=== PATIENT | female | born 1960 | race Caucasian/White ===

== ENCOUNTER 2022-10-03 22:25 | Emergency (ER) | payer BC ==
--- OUTSIDE RECORDS SUMMARY | 2022-10-03 22:29 | XMS REPORT | Continuity of Care Document ---
:1960 Author Organization [facility] t Address [address] [place] [place] [address] Care Team Providers Name Role Phone Catherine ABBOTT, John Primary Care Physician Farideh Temple Attending Clinician Unavailable Alex Bender MD Attending Clinician Donna Cook Attending Clinician Nat ABBOTT, Adolph Granado Attending Clinician Zully CUT AND COVER LINE WORKER, Malena Gonzales Attending Clinician Ese CUT AND COVER LINE WORKER, Nolvia Ceron Attending Clinician [phone] Heidy Cortez Attending Clinician Unavailable MD DARRELL DIAZ Attending Clinician Unavailable Cheikh Mckeon RN Attending Clinician Unavailable Lucrecia Bacon RN Attending Clinician Unavailable Sheila ABBOTT, Edilia Ortega Attending Clinician Allison Smith MD Attending Clinician Presley Orr MD Attending Clinician Deb Blackman MA Attending Clinician Unavailable Maral MARTINEZ, Deja Attending Clinician Unavailable LADI COTTER Attending Clinician Unavailable ALEX BENDER Admitting Clinician Unavailable [id number] Admitting Clinician Unavailable MD DARRELL DIAZ Admitting Clinician Unavailable Payers Payer Name Policy Type Policy Number Effective Date Expiration Date S ource Problems Condition Condition Condition Status Onset Resolution Last Treating Co mments Source Name Details Category Date Date Treatment Clinician Date Ventral Ventral Disease Active Methodi hernia hernia 09-20 without without 00:00: Hospita obstructio obstructio 00 l n or n or gangrene gangrene Encounter Encounter Disease Active Met hodi for for 03-19 aftercare aftercare 00:00: Hosp jose following following 00 l liver liver transplant transplant Hypomagnes Hypomagnes Disease Active M ethodi emia emia 02-19 00:00: Hospita 00 l Magnesium Magnesium Disease Active Met hodi deficiency deficiency 02-19 00:00: Hospita 00 l Type 2 Type 2 Disease Active Methodi diabetes diabetes 01-10 mellitus mellitus 00:00: Hospit a with with 00 l peripheral peripheral neuropathy neuropathy Vitamin D Vitamin D Disease Active Met hodi deficiency deficiency 01-10 00:00: Hospita 00 l Osteoporos Osteoporos Disease Active M ethodi is is 01-10 00:00: Hospita 00 l Liver Liver Disease Active Methodi transplant transplant 01-07 recipient recipient 00:00: Hosp jose 00 l Hepatic Hepatic Disease Active Methodi cancer cancer 01-07 00:00: Hospita 00 l Vitamin D Vitamin D Disease Active Met hodi deficiency deficiency 12-16 00:00: Hospita 00 l Liver Liver Disease Active Methodi transplant transplant 12-13 ed ed 00:00: Hospita 00 l Preop Preop Disease Active Overview: Method i cardiovasc cardiovasc 11-[address] [facility] [facility] [address] ular exam ular exam 00:00: g of this H ospita 00 note l might be different from the original. 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 02-12 00:00: Hospita 00 l Coagulatio Coagulatio Disease Active M ethodi n disorder n disorder 01-31 00:00: Hospita 00 l Chronic Chronic Disease Active Methodi hepatitis hepatitis 01-31 C virus C virus 00:00: Hospita infection infection 00 l Hepatic Hepatic Disease Active Methodi cirrhosis cirrhosis 01-31 00:00: Hospita 00 l Disorder Disorder Disease Active Metho di of bone of bone 01-31 00:00: Hospita 00 l Osteopenia Osteopenia Disease Active M ethodi 01-31 00:00: Hospita 00 l Abnormal Abnormal Disease Active Metho di thyroid thyroid 01-31 stimulatin stimulatin 00:00: Ho spita g hormone g hormone 00 l (TSH) (TSH) level level Disorder Disorder Disease Active Metho di involving involving 01-31 thrombocyt thrombocyt 00:00: Ho spita openia openia 00 l Chronic Chronic Disease Active Overview: Meth matheus hepatitis hepatitis 01-20 Formattin s t C with C with 00:00: g of this Hospita cirrhosis cirrhosis 00 note l might be different from the original. Treated Hepatocell Hepatocell Disease Active M ethodi ular ular 01-20 carcinoma carcinoma 00:00: Hosp jose 00 l Choledocho Choledocho Disease Active M ethodi lithiasis lithiasis 01-20 00:00: Hospita 00 l Type 2 Type 2 Disease Active Methodi diabetes diabetes 01-20 mellitus mellitus 00:00: Hospit a 00 l Portal Portal Disease Active Methodi hypertensi hypertensi 01-20 on on 00:00: Hospita 00 l Nontoxic Nontoxic Disease Active 2012-09 Metho di uninodular uninodular 10-13 goiter goiter 00:00: Hospita 00 l Vitamin D Vitamin D Disease Active Met hodi deficiency deficiency 05-25 00:00: Hospita 00 l Disorder Disorder Disease Active Metho di of bone of bone 12-24 st and and 00:00: Hospita articular articular 00 l cartilage cartilage Type 2 Type 2 Disease Active Methodi diabetes diabetes 12-24 st mellitus mellitus 00:00: Hospit a with with 00 l neurologic neurologic al al manifestat manifestat ions ions Overweight Overweight Disease Active 2012-0 M ethodi 12-24 st 00:00: Hospita 00 l Type 2 Type 2 Disease Active Methodi diabetes, diabetes, 12-24 st controlled controlled 00:00: Ho jorge , with , with 00 l peripheral peripheral neuropathy neuropathy Hepatitis Hepatitis Disease Active Met hodi C virus C virus 12-24 st infection infection 00:00: Hosp jose 00 l History of History of Disease Active M ethodi incisional incisional st hernia hernia Hospita repair repair l Allergies, Adverse Reactions, Alerts Allergy Allergy Status Severity Reaction(s) Onset Inactive Treating Comm ents Source Name Type Date Date Clinician No Known Propensi Active Method i Drug ty to 01-15 st Allergie adverse 00:00: Hospita s reaction 00 l s to drug Family History Family Member Diagnosis Comments Start Date Stop Date Source Natural father Diabetes [facility] Natural father Hypertension [facility] Natural mother Cancer [facility] mother Hypertension [facility] Social History Social Habit Start Date Stop Date Quantity Comments Source Alcohol intake 2022-09-23 2022-09-23 Current Zoroastrian 00:00:00 00:00:00 non-drinker of Hospital alcohol (finding) Tobacco use and 2017-10-21 2017-10-21 Smokeless tobacco Me [facility]odist exposure 00:00:00 00:00:00 non-user Hospital Sex Assigned At [birth year] F Zoroastrian 00:00:00 00:00:00 Hospital Smoking Status Start Date Stop Date Source Never smoked tobacco [facility] Medications Ordered Filled Start Stop Current Ordering Indication Dosage Frequency Signature Comments Components Source Medication Medication Date Date Medication? Clinician (SIG) Name Name predniSONE 2022- Yes 10mg QD Take 1 Meth matheus (DELTASONE) 09-25 tablet (10 s t 10 mg 00:00: 05:59 mg total) Hospit a tablet 00 :00 by mouth l daily for 30 days. entecavir 2022- Yes .5mg Q48H Take 1 Metho di (BARACLUDE) 09-[address] 0.5 MG 00:00: 05:59 (0.5 mg Hospita tablet 00 :00 total) by l mouth every other day for 30 days. tacrolimus Yes [id number] 3mg Q.5D Take 3 Methodi (PROGRAF) 1 1-[address] MG capsule 00:00: (3 mg Hospit a 00 total) by l mouth 2 (two) times a day. everolimus, 2021-09- No [id number] 1.5mg Q.5D Take 3 Methodi immunosuppr 1-04 -[address] essive, 00:00: 00:00 (1.5 mg Hospit a ([place]) 00 :00 total) by l 0.5 mg mouth 2 tablet (two) times a day. entecavir 2021-09- No [id number] .5mg QD Take 1 Methodi (BARACLUDE) 0-12 -[address] 0.5 MG 00:00: 00:00 (0.5 mg Hospita tablet 00 :00 total) by l mouth daily. magnesium 2022- No 64mg Q.5D Take 1 Metho di chloride 64 5-13 -14 tablet (64 s t mg 00:00: 04:59 mg total) Hospita tablet,francesco 00 :00 by mouth 2 l yed release (two) (DR/EC) DR times a tablet day. tacrolimus 2022- No [id number] Take 2 Methodi (PROGRAF) 1 5-12 -[address] MG capsule 00:00: 00:00 (2 mg Hospi ta 00 :00 total) by l mouth every morning AND 3 capsules (3 mg total) every evening. tacrolimus 2021- No [id number] Take 2 Methodi (PROGRAF) 1 4-14 -[address] MG capsule 00:00: 00:00 (2 mg Hospi ta 00 :00 total) by l mouth every morning AND 3 capsules (3 mg total) every evening. ergocalcife 2022- No [id number] Q7D Take 1 M ethodi rol 10-23 02-[address] (VITAMIN 00:00: 05:59 (50,000 Hospi ta D2) 50,000 00 :00 Units l unit total) by capsule mouth once a week. everolimus, 2021- No [id number] 1.5mg Q.5D Take 3 Methodi immunosuppr 10-23-[address] essive, 00:00: 00:00 (1.5 mg Hospit a ([place]) 00 :00 total) by l 0.5 mg mouth 2 tablet (two) times a day. atorvastati Yes TAKE 1 Meth matheus n (LIPITOR) 9- TABLET BY st 20 mg 00:00: MOUTH Hospita tablet 00 EVERY DAY l entecavir 2021- No [id number] .5mg QD Take 1 Methodi (BARACLUDE) 05-02 09- tablet st 0.5 MG 00:00: 04:59 (0.5 mg Hospita tablet 00 :00 total) by l mouth daily. SITagliptin Yes 100mg QD Take 1 Met hodi (Januvia) - tablet st 100 MG 00:00: (100 mg Hospita tablet 00 total) by l mouth daily. aspirin 2021- No 81mg QD Take 1 Methodi (ECOTRIN) 01-24 05-27 tablet (81 st 81 MG 00:00: 04:59 mg total) Hospit a enteric 00 :00 by mouth l coated daily. tablet calcium 2021- No 1{tbl} Q.5D Take 1 Metho di carbonate-v 01-24 05-[address] itamin D3 00:00: 04:59 mouth 2 Hosp jose 500 mg-200 00 :00 (two) l unit per times a tablet day with meals. magnesium 2021- No 64mg Q.5D Take 1 Metho di chloride 64 4-23 04-24 tablet (64 s t mg 00:00: 04:59 mg total) Hospita tablet,francesco 00 :00 by mouth 2 l yed release (two) (DR/EC) DR times a tablet day. tacrolimus 2021- No [id number] Take 2 Methodi (PROGRAF) 1 3-24 03-[address] MG capsule 00:00: 04:59 (2 mg Hospi ta 00 :00 total) by l mouth every morning AND 3 capsules (3 mg total) every evening. take 12 hours apart. ergocalcife 2021- No [id number] Q7D Take 1 M ethodi rol 2-12 02-[address] (VITAMIN 00:00: 05:59 (50,000 Hospi ta D2) 50,000 00 :00 Units l unit total) by capsule mouth once a week. everolimus, 2021- No [id number] 1.5mg Q12H Take 3 Methodi immunosuppr 1-21 02-[address] essive, 00:00: 00:00 (1.5 mg Hospit a ([place]) 00 :00 total) by l 0.5 mg mouth tablet every 12 (twelve) hours. Dx z94.4 lisinopriL Yes TAKE 2 Metho di (PRINIVIL) 6-[address] 10 mg 00:00: MOUTH Hospita tablet 00 EVERY DAY l VITAMIN D2 2022- No Take 1 Meth matheus 50,000 unit 1-29 01-20 capsule by s t capsule 00:00: 00:00 mouth once Hos darian 00 :00 a week l clonAZEPAM Yes TAKE BY Meth matheus (KlonoPIN) 7-[address] 0.5 MG 00:00: BEDTIME Hospita tablet 00 l oxyCODone Yes 10mg Q6H Take 10 mg Me thodi (ROXICODONE 7-[address] ) 15 MG 00:00: every 6 Hospita immediate 00 (six) l release hours as tablet needed. flash Yes 1{piece Q14D 1 Piece Method i glucose 4-29 } every 14 st sensor 00:00: (fourteen) Hospi ta (FREESTYLE 00 days. l RG 14 DAY SENSOR) kit flash Yes 1{piece QD 1 Piece Method i glucose 4-29 } daily. st scanning 00:00: Hospita reader misc 00 l blood sugar Yes Patient is Methodi diagnostic 4-[address] strips 00:00: QID Hospita (FREESTYLE 00 l LITE STRIPS) strip test strips Immunizations Ordered Immunization Filled Immunization Date Status Commen ts Source Name Name PFIZER COVID-19 MRNA 2021-05-27 Completed Meth odist VACCINATION 00:00:00 Hospital Vital Signs Vital Name Observation Time Observation Value Comments Source Systolic blood 2022-09-24 18:03:47 118 mm[Hg] Method ist Hospital pressure Diastolic blood 2022-09-24 18:03:47 58 mm[Hg] [facility] dist Hospital pressure Heart rate 2022-09-24 18:03:47 80 /min [facility] t Hospital Body temperature 2022-09-24 18:03:[address] [facility] Respiratory rate 2022-09-24 18:03:47 18 /min [facility] Oxygen saturation in 2022-09-24 18:03:47 98 /min [facility] Arterial blood by Pulse oximetry Body height 2022-09-20 17:09:26 162.6 cm [facility] Body weight 2022-09-20 17:09:26 49.896 kg [facility] BMI 2022-09-20 17:09:26 18.88 kg/m2 [facility] Procedures Procedure Date / Time Performing Clinician Source Performed POC GLUCOSE 2022-09-24 18:04:00 Alex Bender Ho spital POC GLUCOSE 2022-09-24 14:25:00 Napoleon Alex Zoroastrian Ho spital [id number] TACROLIMUS LEVEL, 2022-09-24 11:41:00 Napoleon [facility] TROUGH EVEROLIMUS LEVEL, TROUGH 2022-09-24 11:41:00 Alex Bender [facility] POC GLUCOSE 2022-09-24 02:01:00 Alex Bender Ho spital POC GLUCOSE 2022-09-23 21:55:00 Alex Bender Ho spital POC GLUCOSE 2022-09-23 17:27:[address] [facility] Ho spital POC GLUCOSE 2022-09-23 13:41:00 Felipe Benderton Zoroastrian Ho spital [id number] TACROLIMUS LEVEL, 2022-09-23 10:27:00 [facility] TROUGH Irene BASIC METABOLIC PANEL 2022-09-23 10:27:00 [facility] Irene HEPATIC FUNCTION PANEL 2022-09-23 10:27:00 [facility] Irene CBC WITH PLATELET AND 2022-09-23 10:27:00 [facility] DIFFERENTIAL Irene EVEROLIMUS LEVEL, TROUGH 2022-09-23 10:27:00 [facility] ESTIMATED GFR 2022-09-23 10:27:00 [facility] Irene POC GLUCOSE 2022-09-22 23:03:00 Alex Bender Ho spital US DUPLEX VENOUS UPPER 2022-09-22 20:17:00 Lucio [facility] EXTREMITY RIGHT US DUPLEX VENOUS LOWER 2022-09-22 19:45:00 [facility]des [facility] EXTREMITY RIGHT POC GLUCOSE 2022-09-22 17:20:00 Alex Bender Ho spital POC GLUCOSE 2022-09-22 13:59:00 Alex Bender spital [id number] TACROLIMUS LEVEL, 2022-09-22 11:04:00 [facility] BASIC METABOLIC PANEL 2022-09-22 11:04:00 [facility] Irene HEPATIC FUNCTION PANEL 2022-09-22 11:04:00 [facility] Irene CBC WITH PLATELET AND 2022-09-22 11:04:00 [facility] DIFFERENTIAL Irene EVEROLIMUS LEVEL, TROUGH 2022-09-22 11:04:00 Lucio [facility] ESTIMATED GFR 2022-09-22 11:04:00 [facility] Irene POC GLUCOSE 2022-09-22 10:51:00 Alex Bender Ho spital POC GLUCOSE 2022-09-22 05:34:00 Alex Bender Ho spital POC GLUCOSE 2022-09-22 04:21:00 Alex Bender Ho spital POC GLUCOSE 2022-09-21 23:25:00 Alex Bender Ho spital POC GLUCOSE 2022-09-21 17:56:00 Alex Bender Ho spital POC GLUCOSE 2022-09-21 14:40:00 Alex Bender Ho spital SURGICAL PATHOLOGY REQUEST 2022-09-21 13:57:00 Napoleon [facility] [id number] TACROLIMUS LEVEL, 2022-09-21 09:16:00 [facility] Irene EVEROLIMUS LEVEL, TROUGH 2022-09-21 09:16:00 [facility] BASIC METABOLIC PANEL 2022-09-21 09:16:00 [facility] Irene HEPATIC FUNCTION PANEL 2022-09-21 09:16:00 [facility] Irene CBC WITH PLATELET AND 2022-09-21 09:16:00 [facility] DIFFERENTIAL Irene ESTIMATED GFR 2022-09-21 09:16:00 [facility] Irene POC GLUCOSE 2022-09-21 02:32:00 Alex Bender spital POC GLUCOSE 2022-09-21 00:15:00 Alex Bender spital SD AN ELECTIVE 2022-09-20 21:46:[address] [facility] spital ENDOTRACHEAL AIRWAY REPAIR, HERNIA, INCISIONAL 2022-09-20 21:37:00 [facility] NERVE BLOCK TAP BLOCK 2022-09-20 20:43:17 Adolph [facility] BILAT INJECTION HC NERVE BLOCK QUADRATUS 2022-09-20 20:40:08 Adolph [facility] LUMBORUM POC GLUCOSE 2022-09-20 19:19:00 Alex Bender spital BASIC METABOLIC PANEL 2022-09-20 17:59:[address] [facility] CBC WITH PLATELET AND 2022-09-20 17:59:00 [facility] DIFFERENTIAL [place] HEPATIC FUNCTION PANEL 2022-09-20 17:59:00 [facility] MAGNESIUM LEVEL 2022-09-20 17:59[facility]00 [facility]IN 2022-09-20 17:59:00 [facility] TIME (PTT) [place] PHOSPHORUS LEVEL 2022-09-20 17:59:00 [facility] PROTHROMBIN TIME WITH INR 2022-09-20 17:59:[address] [facility] TYPE AND SCREEN 2022-09-20 17:59:[address] [facility] ESTIMATED GFR 2022-09-20 17:59:00 [facility] ECG 12-LEAD 2022-09-20 17:45:53 [facility] POC GLUCOSE 2022-09-20 17:10:00 NapoleonAlexist Ho spital COVID-19 QUALITATIVE 2022-09-19 23:02:00 [facility] QUALITATIVE 2022-09-12 22:02:00 [facility] RT-PCR [place] COMPREHENSIVE METABOLIC 2021-12-26 17:56:00 [facility] PANEL ESTIMATED GFR 2021-12-26 17:56:[address] [facility] CT CHEST WO CONTRAST 2021-12-21 20:24:32 [facility] ABDOMEN WO CONTRAST PELVIS WO CONTRAST CBC WITH PLATELET AND 2021-12-21 17:55:00 Kirby [facility] DIFFERENTIAL COMPREHENSIVE METABOLIC 2021-12-21 17:55:00 Kirby [facility] PANEL MAGNESIUM LEVEL 2021-12-21 17:55:[address] [facility] HEMOGLOBIN A1C 2021-12-21 17:55:[address] [facility] LIPID PANEL 2021-12-21 17:55:[address] [facility] PARTIAL THROMBOPLASTIN 2021-12-21 17:55:00 [facility] TIME (PTT) PROTHROMBIN TIME WITH INR 2021-12-21 17:55:[address] [facility] VITAMIN D 1,25 DIHYDROXY 2021-12-21 17:55:00 [facility] LEVEL, SERUM CYTOMEGALOVIRUS BY PCR 2021-12-21 17:55:00 [facility] VITAMIN D 25 HYDROXY LEVEL 2021-12-21 17:55:[address] [facility] THYROID STIMULATING 2021-12-21 17:55:00 Kirby [facility] HORMONE GGT 2021-12-21 17:55:[address] [facility] PROTEIN, URINE, RANDOM 2021-12-21 17:55:00 Presley Orr [facility] CREATININE LEVEL, URINE, 2021-12-21 17:55:00 [facility] RANDOM [id number] TACROLIMUS LEVEL, 2021-12-21 17:55:00 [facility] RANDOM EVEROLIMUS LEVEL, RANDOM 2021-12-21 17:55:00 [facility] HEPATOCELLULAR CARCINOMA 2021-12-21 17:55:00 [facility] MARKER PANEL HEPATITIS C VIRUS (HCV), 2021-12-21 17:55:00 [facility] QUANTITATIVE PCR ESTIMATED GFR 2021-12-21 17:55:[address] [facility] DONOR SPECIFIC ANTIBODY 2021-12-21 17:55:00 [facility] Plan of Care Planned Activity Planned Date Details Comments Source Future Scheduled 2022-10-03 Pneumococcal Vaccine: [facility] Test 13:20:09 Pediatrics (0 to 5 Years) and At-Risk Patients (6 to 64 Years) (1 - PCV) [code = Pneumococcal Vaccine: Pediatrics (0 to 5 Years) and At-Risk Patients (6 to 64 Years) (1 - PCV)] Future Scheduled 2022-10-03 SHINGLES VACCINES (1 Met [facility] Test 13:20:09 of 2) [code = SHINGLES VACCINES (1 of 2)] Future Scheduled 2022-10-03 Screening for [facility] Test 13:20:09 malignant neoplasm of cervix (procedure) [code = 487641820] Future Scheduled 2022-10-03 BREAST CANCER [facility] Test 13:20:09 SCREENING [code = BREAST CANCER SCREENING] Future Scheduled 2022-10-03 COLONOSCOPY SCREENING [facility] Test 13:20:09 [code = COLONOSCOPY SCREENING] Future Scheduled 2022-10-03 HEPATITIS B VACCINES Met [facility] Test 13:20:09 (1 of 3 - Risk 3-dose series) [code = HEPATITIS B VACCINES (1 of 3 - Risk 3-dose series)] Future Scheduled 2022-10-03 DIABETIC FOOT EXAM [facility] Test 13:20:09 [code = DIABETIC FOOT EXAM] Future Scheduled 2022-10-03 DIABETES: RETINAL EYE [facility] Test 13:20:09 EXAM [code = DIABETES: RETINAL EYE EXAM] Future Scheduled 2022-10-03 COVID-19 VACCINE (3 - Me [facility] Test 13:20:09 Pfizer risk series) [code = COVID-19 VACCINE (3 - Pfizer risk series)] Future Scheduled 2022-10-03 INFLUENZA VACCINE [facility] Test 13:20:09 [code = INFLUENZA VACCINE] Encounters Start End Encounter Admission Attending Care Care Encounter Source Date/Time Date/Time Type Type Clinicians Facility Department ID 2022-09-27 2022-09-27 Patient Maverick, 1.2.840.1 [id number] Methodi 00:00:00 00:00:00 Outreach Farideh 25614.1.1 901 s t 3.430.2.7 Hospit a .3.849334 l .8 2022-09-20 2022-09-24 [facility] 1.2.840.1 [id number] Methodi 10:46:00 18:53:00 Encounter Alex 63979.1.[address] 3.430.2.7 Hospit a .3.085464 l .8 2022-09-20 2022-09-24 Inpatient [facility] [id number] [place] [address] 00:00:00 00:00:00 ALEX [address] 2022-09-23 2022-09-23 Telephone Joey 1.2.840.1 [id number] Methodi 00:00:00 00:00:[address] [place] 3.430.2.7 Hospi ta .3.923087 l .8 2022-09-20 2022-09-20 Anesthesia Adolph [facility] 1.2.840.1 [id number] Methodi 15:37:00 18:14:00 Event Malena Andrea 46466.1.[address] 3.430.2.7 Hospit a .3.899248 l .8 2022-09-20 2022-09-20 Surgery Napoleon, 1.2.840.1 [id number] Methodi 12:10:00 15:35:[address] 3.430.2.7 Hospit a .3.340514 l .8 2022-09-20 2022-09-20 Travel 1.2.840.1 1.2.189.856 [id number] Methodi 00:00:00 00:00:[address] 3.430.2.7 0.2.7.3.698 Ho spita .3.157301 084.8 l .8 2022-09-19 2022-09-19 Lab Napoleon, 1.2.840.1 [id number] Methodi 16:50:00 16:55:[address] 3.430.2.7 Hospit a .3.417713 l .8 2022-09-19 2022-09-19 Orders Ese, 1.2.840.1 [id number] Methodi 00:00:00 00:00:00 Only Nolvia 57543.1.[address] [place] 3.430.2.7 Hosp jose .3.524478 l .8 2022-09-19 2022-09-19 Travel 1.2.840.1 1.2.628.076 [id number] Methodi 00:00:00 00:00:[address] 3.430.2.7 0.2.7.3.698 Ho spita .3.963069 084.8 l .8 2022-09-19 2022-09-19 Outpatient NAPOLEON [facility] [id number] [address] [place] 00:00:00 00:00:00 ALEX [address] 2022-09-16 2022-09-16 Telephone Diego, 1.2.840.1 [id number] Methodi 00:00:00 00:00:[address] 3.430.2.7 Hospit a .3.976059 l .8 2022-09-12 2022-09-12 Travel 1.2.840.1 1.2.690.817 [id number] Methodi 00:00:00 00:00:[address] 3.430.2.7 0.2.7.3.698 Ho spita .3.038432 084.8 l .8 2022-09-12 2022-09-12 [facility], 1.2.840.1 [id number] Methodi 00:00:00 00:00:00 Only Nolvia 19867.1.[address] [place] 3.430.2.7 Hosp jose .3.463950 l .8 2022-09-12 2022-09-12 [facility] [id number] [place] 00:00:00 00:00:00 DARRELL [address] 2022-09-12 2022-09-12 Outpatient SAHARIA, [facility] [id number] [place] 00:00:00 00:00:[address] 2022-07-05 2022-07-05 Refbhaskar Mckeon, 1.2.840.1 [id number] Methodi 00:00:00 00:00:[address] 3.430.2.7 Hospit a .3.241383 l .8 2022-06-21 2022-06-21 [place] Ese 1.2.840.1 [id number] Methodi 00:00:00 00:00:[address] [place] 3.430.2.7 Hosp jose .3.040148 l .8 2022-06-19 2022-06-19 Office BrindanicoletteDarrell 1.2.840.1 [id number] Methodi 14:15:00 14:30:00 Visit Nolvia Mulligan 50061.1.[address] 3.430.2.7 Hospit a .3.725006 l .8 2022-06-19 2022-06-19 [facility] [id number] [place] 00:00:00 00:00:[address] 2022-06-12 2022-06-12 Refill Linda, 1.2.840.1 [id number] Methodi 00:00:00 00:00:[address] 3.430.2.7 Hospit a .3.026673 l .8 2022-06-07 2022-06-07 Telephone Bacon, 1.2.840.1 [id number] 2099 [id number] Methodi 00:00:00 00:00:[address] 3.430.2.7 Hospit a .3.912138 l .8 2022-01-11 2022-01-11 Refill Linda, 1.2.840.1 [id number] 1573 Methodi 00:00:00 00:00:[address] 3.430.2.7 Hospit a .3.511809 l .8 2022-01-10 2022-01-10 Refill Linda, 1.2.840.1 [id number] 6910 Methodi 00:00:00 00:00:[address] 3.430.2.7 Hospit a .3.930801 l .8 2021-12-28 2021-12-28 Refill Sadhu, 1.2.840.1 [id number] 6057 Methodi 00:00:00 00:00:[address] Ortega 3.430.2.7 Hospit a .3.775068 l .8 2021-12-28 2021-12-28 Refill Sarah, 1.2.840.1 [id number] 2100 [id number] Methodi 00:00:00 00:00:00 Rafik Randall 77875.1.1 670 s t 3.430.2.7 Hospit a .3.970222 l .8 2021-12-26 2021-12-26 [facility] Galati, 1.2.840.1 [id number] 9730 Methodi 08:30:00 08:45:00 Visit Presley Palacios 15120.1.[address] 3.430.2.7 Hospit a .3.766649 l .8 2021-12-26 2021-12-26 Outpatient GALATI, [facility] [id number] [place] 00:00:00 00:00:00 PRESLEY [address] 2021-12-26 2021-12-26 Travel 1.2.840.1 1.2.447.807 7249 [id number] Methodi 00:00:00 00:00:[address] 3.430.2.7 0.2.7.3.698 Ho spita .3.705772 084.8 l .8 2021-12-26 2021-12-26 Outpatient GALATI, [facility] [id number] [address] [place] 00:00:00 00:00:00 PRESLEY [address] 2021-12-21 2021-12-21 [facility] Galati, 1.2.840.1 [id number] 53493 Methodi 12:00:00 23:59:00 Encounter Presley Palacios [address]274.1.[address] 3.430.2.7 Hospit a .3.473313 l .8 2021-12-21 2021-12-21 Outpatient GALATI, [facility] [id number] [address] [place] 00:00:00 00:00:00 PRESLEY [address] 2021-12-21 2021-12-21 Outpatient GALATI, [facility] [id number] [address] [place] 00:00:00 00:00:00 PRESLEY [address] 2021-12-21 2021-12-21 Travel 1.2.840.1 1.2.497.001 [id number] Methodi 00:00:00 00:00:[address] 3.430.2.7 0.2.7.3.698 Ho spita .3.334033 084.8 l .8 2021-12-13 2021-12-13 Refill Linda, 1.2.840.1 [id number] 2603 Methodi 00:00:00 00:00:[address] 3.430.2.7 Hospit a .3.312323 l .8 2021-12-13 2021-12-13 Telephone Brown, 1.2.840.1 [id number] 2099 Methodi 00:00:00 00:00:00 Deb M [address]221.1.[address] 3.430.2.7 Hospit a .3.614395 l .8 2021-12-13 2021-12-13 Telephone Brown, 1.2.840.1 [id number] 2099 Methodi 00:00:00 00:00:00 Deb M [address]70.1.[address] 3.430.2.7 Hospit a .3.556146 l .8 2021-12-02 2021-12-02 Refill Sarah, 1.2.840.1 [id number] 2099 [id number] Methodi 00:00:00 00:00:00 Rafik Randall 43090.1.1 699 s t 3.430.2.7 Hospit a .3.309525 l .8 2021-10-24 2021-10-24 Telephone Famanias, 1.2.840.1 [id number] 21 [id number] Methodi 00:00:00 00:00:[address] 3.430.2.7 Hospit a .3.318533 l .8 2021-10-23 2021-10-23 Refill Linda, 1.2.840.1 [id number] 5368 Methodi 00:00:00 00:00:[address] 3.430.2.7 Hospit a .3.336202 l .8 2021-10-22 2021-10-22 Refill Sarah, 1.2.840.1 [id number] 2099 [id number] Methodi 00:00:00 00:00:00 Rafik Randall 40474.1.1 778 s t 3.430.2.7 Hospit a .3.232537 l .8 2021-10-19 2021-10-19 Orders Linda, 1.2.840.1 [id number] 7075 Methodi 00:00:00 00:00:00 [address]eth [address].1.[address] 3.430.2.7 Hospit a .3.880364 l .8 2021-10-03 2021-10-03 Telephone Linda, 1.2.840.1 [id number] 2100 [id number] Methodi 00:00:00 00:00:[address] 3.430.2.7 Hospit a .3.457483 l .8 2021-05-17 2021-05-17 Outpatient SELLIN, [facility] [id number] [address] [place] 00:00:00 00:00:00 LADI [address] 2021-04-19 2021-04-19 Outpatient SELLIN, [facility] [id number] [address] [place] 00:00:00 00:00:00 LADI [address] 2021-04-19 2021-04-19 Outpatient SELLIN, [facility] [id number] [address] [place] 00:00:00 00:00:00 LADI [address] 2021-04-19 2021-04-19 Outpatient SELLIN, [facility] [id number] [address] [place] 00:00:00 00:00:00 LADI [address] 2021-04-19 2021-04-19 Outpatient SELLIN, [facility] [id number] [address] [place] 00:00:00 00:00:00 LADI [address] 2021-04-19 2021-04-19 Outpatient SELLIN, [facility] [id number] [address] [place] 00:00:00 00:00:00 LADI [address] 2021-01-31 2021-01-31 Outpatient GALATI, [facility] [id number] [address] [place] 00:00:00 00:00:00 PRESLEY [address] 2020-12-15 2020-12-15 Outpatient GALATI, [facility] [id number] [address] [place] 00:00:00 00:00:00 PRESLEY [address] 2020-12-15 2020-12-15 Outpatient GALATI, [facility] [id number] [address] [place] 00:00:00 00:00:00 PRESLEY [address] 2020-12-15 2020-12-15 Outpatient GALATI, [facility] [id number] [address] [place] 00:00:00 00:00:00 PRESLEY [address] 2020-12-15 2020-12-15 Outpatient GALATI, [facility] [id number] [place] 00:00:00 00:00:00 PRESLEY [address] 2020-12-15 2020-12-15 Outpatient GALATI, [facility] [id number] [address] [place] 00:00:00 00:00:00 PRESLEY [address] 2020-04-26 2020-04-26 Outpatient GALATI, [facility] [id number] [address] [place] 00:00:00 00:00:00 PRESLEY [address] 2020-04-10 2020-04-10 Outpatient GALATI, [facility] [id number] [address] [place] 00:00:00 00:00:00 PRESLEY [address] 2020-04-10 2020-04-10 Outpatient GALATI, [facility] [id number] [address] [place] 00:00:00 00:00:00 PRESLEY [address] 2020-04-10 2020-04-10 Outpatient GALATI, [facility] [id number] [address] [place] 00:00:00 00:00:00 PRESLEY [address] 2020-01-14 2020-01-14 Outpatient GALATI, [facility] [id number] [address] [place] 00:00:00 00:00:00 PRESLEY [address] 2019-05-28 2019-05-28 Outpatient SARAH, [facility] [id number] [place] 00:00:00 00:00:00 ALLISON [address] Results Test Description Test Time Test Comments Results Result Comments Source Surgical pathology request 2022-09-24 18:30:32 Test Item Value Reference Range Interpretation Comme nts Case number (test code = 5482580) [id number] Surgical pathology report (test code = See link below for PDF Lab R eport 7372) Result status (test code = 5370398) This is Final Report for [id number]- [facility] [id number] 18:05:00 Test Item Value Reference Range Interpretation Comments POC glucose (test code 184 mg/dL 65-99 H Opera tor Name: Keli = [id number]) Chase ID: [id number] able: [facility] Notified interface analyst Interpretation Abnormal (test code = 01362-0) [facility] 12 [id number] 06:54:17 Test Item Value Reference Range Interpretation Comments Ventricular rate (test 66 code = 253) Atrial rate (test code = 66 255) SD interval (test code = 108 266) QRSD interval (test code 90 = 260) QT interval (test code = 410 264) QTC interval (test code = 429 265) P axis 1 (test code = 45 267) QRS axis 1 (test code = 69 268) T wave axis (test code = 59 270) EKG impression (test code Sinus rhythm with = 273) short SD-Otherwise normal [facility] [id number] 03:10:54 Test Item Value Reference Interpretation Comments Range Interpretation Negative results do (test code = not preclude COVID-19 0096243) infection and should not be used asthe sole basis for treatment or other patient management decisions. Negativeresults must be combined with clinical observations, patient history, andepidemiological information. COVID-19 Not-Detected Not-Detected DISCLAIMER:This qualitative RT-PCR test was result (test code performed using = 06085-9) the Akin gardner SARS-CoV-2 Assnicolette y ([employer]). This assay is available for i n vitro diagnosti c use under Food and Drug Administration (FDA) Emergency Use Authorizati on (EUA) and has been verified f or clinical use by the [facility]. Information on the FDA policy for diagnostic tests for coronavirus disease- 2019 i s available at:https://www. fd a.gov/medical-d ev ices/emergency- si tuations-medica l- devices/faqs-di ag nostic-testing- sa rs-cov-2It is critical that health care providers and patients review the applicable fact sheet(s) i n interpreting or understanding t he test results th at are available upon request.ROSALINDAO DEBORAH GY:This assay utilizes [employer] ts for nucleic aci d extraction, amplification, and real-time reverse auxiliary equipment operator polymerase cornell n reaction. COVID-19 See link below for PDF Case Number: qualitative RT-PCR Lab Report [id number] (test code = 7070) Zoroastrian NdhlzcwqWVFU-PaT-1 (COVID-19) RNA [Presence] in Respiratory specimen by ALBERT with probe [id number] 21:10:54 Test Item Value Reference Range Interpretation Comments SARS-CoV-2 (COVID-19) RNA Not detected [Presence] in Respiratory specimen by ALBERT with probe detection (test code = 22717-3) Whether patient is employed in a Unknown healthcare setting (test code = 40650-8) Whether the patient has symptoms Unknown related to condition of interest (test code = 67425-7) Whether the patient was Unknown hospitalized for condition of interest (test code = 44232-4) Whether the patient was admitted Unknown to intensive care unit (ICU) for condition of interest (test code = 68246-1) Whether patient resides in a Unknown congregate care setting (test code = 08632-9) status (test code = Unknown 12038-4) Date and time of symptom onset Unknown (test code = 85963-8) BRIEN TELLEZIST [id number] (COVID-19) RNA [Presence] in Respiratory specimen by ALBERT with probe [id number] 22:18:32 Test Item Value Reference Range Interpretation Comments SARS-CoV-2 (COVID-19) RNA Not detected [Presence] in Respiratory specimen by ALBERT with probe detection (test code = 55744-5) Whether patient is employed in a Unknown healthcare setting (test code = 63538-9) Whether the patient has symptoms Unknown related to condition of interest (test code = 40621-9) Whether the patient was Unknown hospitalized for condition of interest (test code = 18489-7) Whether the patient was admitted Unknown to intensive care unit (ICU) for condition of interest (test code = 48304-7) Whether patient resides in a Unknown congregate care setting (test code = 57346-9) status (test code = Unknown 35239-4) Date and time of symptom onset Unknown (test code = 06180-0) BRIEN WILL
[2022-10-03] MEDS ORDERED: HYDROCODONE/APAP 10/325 TAB ONE (23:30)
--- NOTE | 2022-10-04 00:17 | EDPHYS ---
Physician Documentation [facility] Name: Carmen Salguero Age: 62 yrs Sex: Female : 1960 Arrival Date: 10/03/2022 Time: 22:31 Bed 18 Private MD: ED Physician Joshua Rich HPI: 10/04 00:54 This 62 yrs old Female presents to ER via Wheelchair with complaints of Wrist Injury. rt 03:03 Patient presents to the ED with a fall on the right outstretched hand. This occurred rt yesterday. She felt a snapping sensation, believes that she may have broken her wrist. She denies hitting her head, other injuries. She denies any syncopal events. Pain is aching nature, nonradiating. She has associated bruising. No other symptoms, no other aggravating or alleviating factors.. Historical: - Allergies: 10/03 22:46 No Known Allergies; kd3 - PMHx: 22:46 Cirrhosis; Diabetes - NIDDM; kd3 - Immunization history:: Adult Immunizations up to date. - Social history:: Smoking status: Patient denies any tobacco usage or history of. - Family history:: not pertinent. ROS: 10/04 03:03 Constitutional: Negative for fever, chills, and weight loss, Cardiovascular: Negative rt for chest pain, palpitations, and edema, Respiratory: Negative for shortness of breath, cough, wheezing, and pleuritic chest pain, Abdomen/GI: Negative for abdominal pain, nausea, vomiting, diarrhea, and constipation, MS/Extremity: Negative for injury and deformity, Neuro: Negative for headache, weakness, numbness, tingling, and seizure, Psych: Negative for depression, anxiety, suicide ideation, homicidal ideation, and hallucinations. MS/extremity: Positive for injury or acute deformity, pain. Exam: 03:03 Constitutional: This is a well developed, well nourished patient who is awake, alert, rt and in no acute distress. Head/Face: Normocephalic, atraumatic. Chest/axilla: Normal chest wall appearance and motion. Nontender with no deformity. No lesions are appreciated. Cardiovascular: Regular rate and rhythm with a normal S1 and S2. No gallops, murmurs, or rubs. Normal PMI, no JVD. No pulse deficits. Respiratory: Lungs have equal breath sounds bilaterally, clear to auscultation and percussion. No rales, rhonchi or wheezes noted. No increased work of breathing, no retractions or nasal flaring. Abdomen/GI: Soft, non-tender, with normal bowel sounds. No distension or tympany. No guarding or rebound. No evidence of tenderness throughout. Skin: Warm, dry with normal turgor. Normal color with no rashes, no lesions, and no evidence of cellulitis. Neuro: Awake and alert, GCS 15, oriented to person, place, time, and situation. Cranial nerves II-XII grossly intact. Motor strength 5/5 in all extremities. Sensory grossly intact. Cerebellar exam normal. Normal gait. Psych: Awake, alert, with orientation to person, place and time. Behavior, mood, and affect are within normal limits. 03:03 Musculoskeletal/extremity: Bruising and tenderness to the right wrist, no deformities noted. Pulses, motor, sensation intact. Vital Signs: 10/03 22:40 BP 128 / 56; Pulse 74; Resp 16; Temp 98.1(O); Pulse Ox 100% on R/A; Weight 52.16 kg; kd3 22:48 BP 128 / 53; Pulse 70; Resp 16 S; Pulse Ox 99% on R/A; ha1 MDM: 23:11 Patient medically screened. rt 10/04 03:03 Differential diagnosis: dislocation, closed fracture, contusion. Data reviewed: vital rt signs, nurses notes, radiologic studies. Independent interpretation of the following test(s) in the Emergency Department X-Ray: My interpretation is Distal radius fracture, not intra-articular noted.. Response to treatment: the patient's symptoms have mildly improved after treatment. ED course: Patient presents to the ED with an injury to the right wrist. There is a nondisplaced distal radius fracture seen. Patient was splinted by RN. No neurovascular compromise present. Patient to follow-up with orthopedics as an outpatient, she has pain medications at home already from a recent surgery. No other injuries are noted. She is stable for outpatient care, return precautions discussed.. 10/03 23:17 Order name: Wrist Right 3 View XRAY rt 10/03 23:17 Order name: Forearm Right XRAY rt 10/04 00:14 Order name: Splint - Wrist; Complete Time: 01:04 rt Administered Medications: 10/03 23:32 Drug: Marion (HYDROcodone-acetaminophen) 10 mg-325 mg 1 tabs Route: PO; ha1 10/04 00:00 Follow up: Response: No adverse reaction; Pain is decreased; RASS: Alert and Calm (0) ha1 Disposition Summary: 10/04/22 00:16 Discharge Ordered Location: Home rt Problem: new rt Symptoms: are unchanged rt Condition: Stable rt Diagnosis - Nondisplaced right distal radius fracture rt Followup: rt - With: Fortunato Shaver MD - When: 7 - 10 days - Reason: Discharge Instructions: - Discharge Summary Sheet rt - Wrist Fracture Treated With Immobilization rt Forms: - Medication Reconciliation Form rt - Thank You Letter rt - Antibiotic Education rt - Prescription Opioid Use rt Signatures: Dispatcher [employer] Mariya Shipman RN RN kd3 Paola Tovar RN RN ha1 Joshua Rich MD MD rt
--- NOTE | 2022-10-04 00:17 | ER ---
Nurse's Notes [facility] Name: Carmen Salguero Age: 62 yrs Sex: Female : 1960 Arrival Date: 10/03/2022 Time: 22:31 Bed 18 Private MD: Diagnosis: Nondisplaced right distal radius fracture Presentation: 10/03 22:43 Chief complaint: Patient states: I was wiping down my kitchen counter, i just had major kd3 surgery, and i was fixing to fall so i reached out with my right hand to protect myself and it crunched when i landed on my outstretched hand. This happened yesterday. It still hurts a lot and im worried it may be broken. Coronavirus screen: Vaccine status: Patient reports receiving the 2nd dose of the covid vaccine. Ebola Screen: No symptoms or risks identified at this time. Initial Sepsis Screen: Does the patient meet any 2 criteria? No. Patient's initial sepsis screen is negative. Does the patient have a suspected source of infection? No. Patient's initial sepsis screen is negative. Risk Assessment: Do you want to hurt yourself or someone else? Patient reports no desire to harm self or others. Onset of symptoms was October 03, 2022. 22:43 Method Of Arrival: Wheelchair kd3 22:43 Acuity: RAUL 4 kd3 Triage Assessment: 22:46 General: Appears in no apparent distress. Behavior is calm, cooperative. Pain: kd3 Complains of pain in right hand. 22:48 Injury Description: right wrist pain after falling and laying on the arm. ha1 Historical: - Allergies: 22:46 No Known Allergies; kd3 - PMHx: 22:46 Cirrhosis; Diabetes - NIDDM; kd3 - Immunization history:: Adult Immunizations up to date. - Social history:: Smoking status: Patient denies any tobacco usage or history of. - Family history:: not pertinent. Screenin:48 Abuse screen: Denies threats or abuse. Denies injuries from another. Nutritional ha1 screening: No deficits noted. Tuberculosis screening: No symptoms or risk factors identified. 22:48 [facility] ED Fall Risk Assessment (Adult) History of falling in the last 3 months, ha1 including since admission Yes- single mechanical fall (1 pt) Confusion or Disorientation No (0 pts) Intoxicated or Sedated No (0 pts) Impaired Gait Yes (1 pt) Mobility Assist Device Used No (0 pt) Altered Elimination No (0 pt) Score/Fall Risk Level 0 - 2 = Low Risk Oriented to surroundings, Maintained a safe environment, Educated pt \T\ family on fall prevention, incl call for assistance when getting out of bed, Hourly rounding (assess needs \T\ fall precautionary measures) done. Assessment: 22:48 General: Appears comfortable, Behavior is calm, cooperative. Pain: Complains of pain in ha1 right wrist Pain does not radiate. Pain currently is 7 out of 10 on a pain scale. Quality of pain is described as throbbing, Alleviated by medications. Neuro: Level of Consciousness is awake, alert, obeys commands, Oriented to person, place, time, situation. Cardiovascular: Heart tones S1 S2 present Capillary refill < 3 seconds Patient's skin is warm and dry. Respiratory: Airway is patent Respiratory effort is even, unlabored, Respiratory pattern is regular, symmetrical. GI: No signs and/or symptoms were reported involving the gastrointestinal system. Abdomen is flat, non-distended. : No signs and/or symptoms were reported regarding the genitourinary system. Musculoskeletal: Circulation, motion, and sensation intact. Reports pain in right wrist falling at home. denies hitting head or losing consciousness. Vital Signs: 22:40 BP 128 / 56; Pulse 74; Resp 16; Temp 98.1(O); Pulse Ox 100% on R/A; Weight 52.16 kg; kd3 22:48 BP 128 / 53; Pulse 70; Resp 16 S; Pulse Ox 99% on R/A; ha1 ED Course: 22:31 Patient arrived in ED. ja2 22:46 Triage completed. kd3 22:46 Arm band placed on left wrist. kd3 22:48 Patient has correct armband on for positive identification. Placed in gown. Bed in low ha1 position. Call light in reach. Side rails up X 1. Adult w/ patient. 22:53 Paola Tovar, JUAN is Primary Nurse. ha1 23:10 Joshua Rich MD is Attending Physician. rt 23:39 Wrist Right 3 View XRAY In Process Unspecified. EDMS 23:39 Forearm Right XRAY In Process Unspecified. EDMS 10/04 00:15 Fortunato Shaver MD is Referral Physician. rt 01:04 Assist provider with fracture care of right hand Fracture is closed. Obvious deformity ha1 is not noted. Circulation, motor and sensation is intact. Set up for procedure. Performed by Joshua Rich MD Post immobilization, circulation, motor and sensation remain intact. Patient tolerated well. 01:04 Patient did not have IV access during this emergency room visit. ha1 Administered Medications: 10/03 23:32 Drug: [place] (HYDROcodone-acetaminophen) 10 mg-325 mg 1 tabs Route: PO; ha1 10/04 00:00 Follow up: Response: No adverse reaction; Pain is decreased; RASS: Alert and Calm (0) ha1 Medication: 01:04 VIS not applicable for this client. ha1 Outcome: 00:16 Discharge ordered by . rt 01:04 Patient left the ED. ha1 01:04 Discharged to home via wheelchair, with family. ha1 01:04 Condition: stable 01:04 Discharge instructions given to patient, family, Instructed on discharge instructions, ha1 follow up and referral plans. Demonstrated understanding of instructions, follow-up care. Signatures: Dispatcher [employer] EDMS Julisa Remy2 Mariya Aguirre RN RN kd3 Paola Tovar RN RN ha1 Joshua Rich MD MD rt
[2022-10-04 01:08] VITALS: TEMP 98.1
[2022-10-04 01:09] VITALS: BP 128/53; O2SAT 99
--- NOTE | 2022-10-04 13:36 | RAD REPORT ---
EXAM DESCRIPTION: Wrist Right 3 View 10/03/2022 11:54 PM DEVELOPER ARCHITECT CLINICAL HISTORY: 62 years, Female, PAIN Wrist Right 3 View COMPARISON: None FINDINGS: 3 X-ray views of the right wrist (Frontal, lateral and oblique views) were performed. Ther e is mild diffuse bony osteopenia. There is a nondisplaced fracture within the dorsal aspect distal r adius. No definitive intra-articular extension. No gross soft tissue abnormality is identified. T here are no gross intraosseous lesions. No periosteal reaction were seen. Minimal degenerative ch anges carpal bones and first carpal metacarpal joint. IMPRESSION: Nondisplaced fracture within the dorsal aspect of the distal radius. Electronically signed by: Kristofer Meng MD 10/03/2022 11:56 PM DEVELOPER ARCHITECT Due to temporary technical issues with the PACS/Fluency reporting system, reports are being signed by the in house radiologists without review as a courtesy to insure prompt reporting. The interpreting radiologist is fully responsible for the content of the report.
--- NOTE | 2022-10-04 13:41 | RAD REPORT ---
EXAM DESCRIPTION: Forearm Right 10/03/2022 11:56 PM MULTIFOCAL BUTTON GRINDER CLINICAL HISTORY: 62 years, Female, PAIN COMPARISON: None. FINDINGS: 2 X-ray views of the right forearm (frontal lateral views) were performed. There is mild b adan osteopenia. There is a questionable nondisplaced linear fracture dorsal aspect of the distal radi us. No gross soft tissue abnormality is identified. There are no gross intraosseous lesions. No periosteal reaction were seen. IMPRESSION: Questionable Nondisplaced linear fracture of the distal radius. Electronically signed by: Kristofer Meng MD 10/03/2022 11:57 PM MULTIFOCAL BUTTON GRINDER Due to temporary technical issues with the PACS/Fluency reporting system, reports are being signed by the in house radiologists without review as a courtesy to insure prompt reporting. The interpreting radiologist is fully responsible for the content of the report.
== END 2022-10-04 01:04 | disposition home or self-care (01) ==
LOC: ER 22:25
PROC: 2W3CX1Z Immobilization of Right Lower Arm using Splint (ICD-10-PCS; principal; 2022-10-04)
DX: S52.501A Unspecified fracture of the lower end of right radius, initial encounter for closed fracture (principal)
CPT/HCPCS: 99284

== ENCOUNTER 2022-10-10 22:56 | Emergency (ER) | payer BC ==
--- OUTSIDE RECORDS SUMMARY | 2022-10-10 23:09 | XMS REPORT | Continuity of Care Document ---
:1960 Author Organization [facility] t Address [facility] [place] [address] Care Team Providers Name Role Phone Catherine ABBOTT, John Primary Care Physician Farideh Temple Attending Clinician Unavailable Alex Bender MD Attending Clinician Donna Cook Attending Clinician Nat ABBOTT, Adolph Granado Attending Clinician Zully GEOTHERMAL SYSTEM INSTALLER, Malena Gonzales Attending Clinician Ese GEOTHERMAL SYSTEM INSTALLER, Nolvia Ceron Attending Clinician [phone] Heidy Cortez Attending Clinician Unavailable MD DARRELL DIAZ Attending Clinician Unavailable Cheikh Mckeon RN Attending Clinician Unavailable Lucrecia Bacon RN Attending Clinician Unavailable Sheila ABBOTT, Edilia Ortega Attending Clinician Sarah ABBOTT, Allison Pereira Attending Clinician Presley Orr MD Attending Clinician Deb Blackman MA Attending Clinician Unavailable Maral MARTINEZ, Deja Attending Clinician Unavailable LADI COTTER Attending Clinician Unavailable ALEX BENDER Admitting Clinician Unavailable [id number] Admitting Clinician Unavailable MD DARRELL DIAZ Admitting [...] Active Overview: Method i cardiovasc cardiovasc 11-[address] ular exam ular exam 00:00: g of this H ospita 00 note l might be different from the original. Added automatic ally from request for surgery [id number] Liver mass Liver mass Disease Active M ethodi 10-21 st 00:00: Hospita 00 l HCC HCC Disease Active Methodi (hepatocel (hepatocel 02-12 st lular lular 00:00: Hospita carcinoma) carcinoma) 00 [...] 2 Disease Active Methodi diabetes diabetes 01-20 st mellitus mellitus 00:00: Hospit a 00 l [...] manifestat ions ions Overweight Overweight Disease Active M ethodi 12-24 st 00:00: Hospita 00 [...] Date Stop Date Source Natural father Diabetes [facility] Natural father Hypertension [facility] Natural mother [facility] mother Hypertension [facility] Social History Social Habit Start Date Stop Date Quantity Comments Source Alcohol intake 2022-09-23 2022-09-23 Current [facility] 00:00:00 00:00:00 non-drinker of Hospital alcohol (finding) Tobacco use and 2017-10-21 2017-10-21 Smokeless tobacco [facility] exposure 00:00:00 00:00:00 non-user Hospital Sex Assigned At [birth year] F [facility] 00:[facility] 00:[facility]:00 Hospital Smoking Status Start Date Stop Date Source Never smoked tobacco [facility] Medications Ordered Filled Start Stop [...] mouth every other day for 30 days. predniSONE 2022- Yes 10mg QD Take 1 Meth matheus (DELTASONE) 09-25-25 tablet (10 s t 10 mg 00:00: 05:59 mg total) Hospit a tablet 00 :00 by mouth l daily for 30 days. entecavir 2022- Yes .5mg Q48H Take 1 Metho di (BARACLUDE) 09-25-[address] 0.5 MG 00:00: 05:59 (0.5 mg Hospita tablet 00 :00 total) by l mouth every other day for 30 days. tacrolimus Yes [id number] 3mg Q.5D Take 3 Methodi (PROGRAF) 1 1-[address] MG capsule 00:00: (3 mg Hospit a 00 total) by l mouth 2 (two) times a day. tacrolimus Yes [id number] 3mg Q.5D Take 3 Methodi (PROGRAF) 1 1-[address] MG capsule 00:00: (3 mg Hospit a 00 total) by l mouth 2 (two) times a day. everolimus, 2021-09- No [id number] 1.5mg Q.5D Take 3 Methodi immunosuppr 09-04-[address] essive, 00:00: 00:00 (1.5 mg Hospit a (Zortress) 00 :00 total) by l 0.5 mg mouth 2 tablet (two) times a day. everolimus, 2021-09- No [id number] 1.5mg Q.5D Take 3 Methodi immunosuppr 09-04-[address] essive, 00:00: 00:00 (1.5 mg Hospit a (Zortress) 00 :00 total) by l 0.5 mg mouth 2 tablet (two) times a day. entecavir 2021-09- No [id number] .5mg QD Take 1 Methodi (BARACLUDE) 0-12 -[address] 0.5 MG 00:00: 00:00 (0.5 mg Hospita tablet 00 :00 total) by l mouth daily. entecavir 2021-09- No [id number] .5mg QD Take 1 Method[facility] (BARACLUDE) 0-12 -[address] 0.5 MG 00:00: 00:00 (0.5 mg Hospita tablet 00 :00 total) by l mouth daily. magnesium 2022- No 64mg Q.5D Take 1 Metho di chloride 64 5-13 05-14 tablet (64 s t mg 00:00: 04:59 mg total) Hospita tablet,francesco 00 :00 by mouth 2 l yed release (two) (DR/EC) DR times a tablet day. magnesium 2022- No 64mg Q.5D Take 1 Metho di chloride 64 5-13 05-14 tablet (64 s t mg 00:00: 04:59 mg total) Hospita tablet,francesco 00 :00 by mouth 2 l yed release (two) (DR/EC) DR times a tablet day. tacrolimus No [id number] Take 2 Methodi (PROGRAF) 1 01-10-[address] MG capsule 00:00: 00:00 (2 mg Hospi ta 00 :00 total) by l mouth every morning AND 3 capsules (3 mg total) every evening. tacrolimus No [id number] Take 2 [facility] (PROGRAF) 1 01-10-[address] MG capsule 00:00: 00:00 (2 mg Hospi ta 00 :00 total) by l mouth every morning AND 3 capsules (3 mg total) every evening. tacrolimus No [id number] Take 2 Method[facility] (PROGRAF) 1 -14 05-[address] MG capsule 00:00: 00:00 (2 mg Hospi ta 00 :00 total) by l mouth every morning AND 3 capsules (3 mg total) every evening. tacrolimus No [id number] Take 2 Methodi (PROGRAF) 1 -14 -[address] MG capsule 00:00: 00:00 (2 mg Hospi ta 00 :00 total) by l mouth every morning AND 3 capsules (3 mg total) every evening. ergocalcife No [id number] Q7D Take 1 M ethodi rol 10-[address] (VITAMIN 00:00: 05:59 (50,000 Hospi ta D2) 50,000 00 :00 Units l unit total) by capsule mouth once a week. ergocalcife No [id number] Q7D Take 1 M ethodi rol 10-[address] (VITAMIN 00:00: 05:59 (50,000 Hospi ta D2) 50,000 00 :00 Units l unit total) by capsule mouth once a week. everolimus, 2021- No [id number] 1.5mg Q.5D Take 3 Methodi immunosuppr 10-23-[address] essive, 00:00: 00:00 (1.5 mg Hospit a (Zortress) 00 :00 total) by l 0.5 mg mouth 2 tablet (two) times a day. everolimus, 2021- No [id number] 1.5mg Q.5D Take 3 Methodi immunosuppr 10-[address] essive, 00:00: 00:00 (1.5 mg Hospit a (Zortress) 00 :00 total) by l 0.5 mg mouth 2 tablet (two) times a day. atorvastati Yes TAKE 1 Meth matheus n (LIPITOR) 9-[address] 20 mg 00:00: MOUTH Hospita tablet 00 EVERY DAY l atorvastati Yes TAKE 1 Meth matheus n (LIPITOR) 9-[address] 20 mg 00:00: MOUTH Hospita tablet 00 EVERY DAY l entecavir 2021- No [id number] .5mg QD Take 1 Methodi (BARACLUDE) 05-[address] 0.5 MG 00:00: 04:59 (0.5 mg Hospita tablet 00 :00 total) by l mouth daily. entecavir 2021- No [id number] .5mg QD Take 1 Methodi (BARACLUDE) 05-[address] 0.5 MG 00:00: 04:59 (0.5 mg Hospita tablet 00 :00 total) by l mouth daily. SITagliptin Yes 100mg QD Take 1 Met hodi (Januvia) 7-[address] 100 MG 00:00: (100 mg Hospita tablet 00 total) by l mouth daily. SITagliptin Yes 100mg QD Take 1 Met hodi (Januvia) 7-[address] 100 MG 00:00: (100 mg Hospita tablet 00 total) by l mouth daily. aspirin 2021- No 81mg QD Take 1 Method[facility] (ECOTRIN) 5- 05-27 tablet (81 st 81 MG 00:00: 04:59 mg total) Hospit a enteric 00 :00 by mouth l coated daily. tablet calcium 2021- No 1{tbl} Q.5D Take 1 Metho di carbonate-v 01-24-[address] itamin D3 00:00: 04:59 mouth 2 Hosp jose 500 mg-200 00 :00 (two) l unit per times a tablet day with meals. aspirin 2021- No 81mg QD Take 1 [facility] (ECOTRIN) 01-24-27 tablet (81 st 81 MG 00:00: 04:59 mg total) Hospit a enteric 00 :00 by mouth l coated daily. tablet calcium 2021- No 1{tbl} Q.5D Take 1 Metho di carbonate-v 01-24-[address] itamin D3 00:00: 04:59 [...] (two) (DR/EC) DR times a tablet day. magnesium 2021- No 64mg Q.5D Take 1 Metho di chloride 64 4-23 04-24 tablet (64 s t mg 00:00: 04:59 mg total) Hospita tablet,francesco 00 :00 by mouth 2 l yed release (two) (DR/EC) DR times a tablet day. tacrolimus 2021- No [id number] Take 2 Methodi (PROGRAF) 1 3-24 03-[address] MG capsule 00:00: 04:59 (2 mg Hospi ta 00 :00 total) by l mouth every morning AND 3 capsules (3 mg total) every evening. take 12 hours apart. tacrolimus 2021- No [id number] Take 2 Methodi (PROGRAF) 1 3-24 03-[address] MG capsule 00:00: 04:59 (2 mg Hospi ta 00 :00 total) by l mouth every morning AND 3 capsules (3 mg total) every evening. take 12 hours apart. ergocalcife 2021- No [id number] Q7D Take 1 M ethodi rol 10-[address] (VITAMIN 00:00: 05:59 (50,000 Hospi ta D2) 50,000 00 :00 Units l unit total) by capsule mouth once a week. ergocalcife 2021- No [id number] Q7D Take 1 M ethodi rol 10-[address] (VITAMIN 00:00: 05:59 (50,000 Hospi ta D2) 50,000 00 :00 Units l unit total) by capsule mouth once a week. everolimus, 2021- No [id number] 1.5mg Q12H Take 3 Methodi immunosuppr 09-21- tablets st essive, 00:00: 00:00 (1.5 mg Hospit a (Zortress) 00 :00 total) by l 0.5 mg mouth tablet every 12 (twelve) hours. Dx z94.4 everolimus, 2021- No [id number] 1.5mg Q12H Take 3 Methodi immunosuppr 09-21- tablets st essive, 00:00: 00:00 (1.5 mg Hospit a (Zortress) 00 :00 total) by l 0.5 mg mouth tablet every 12 (twelve) hours. Dx z94.4 lisinopriL 2019- Yes TAKE 2 Metho di (PRINIVIL) 6-[address] 10 mg 00:00: MOUTH Hospita tablet 00 EVERY DAY l lisinopriL 2020-0 Yes TAKE 2 Metho di (PRINIVIL) 6-[address] 10 mg 00:00: MOUTH Hospita tablet 00 EVERY DAY l VITAMIN D2 2022- No Take 1 Meth matheus 50,000 unit 09-29-20 capsule by s t capsule 00:00: 00:00 mouth once Hos darian 00 :00 a week l VITAMIN D2 2022- No Take 1 Meth matheus 50,000 unit 09-29-20 capsule by s t capsule 00:00: 00:00 mouth once Hos darian 00 :00 a week l clonAZEPAM Yes TAKE BY Meth matheus (KlonoPIN) 7-[address] 0.5 MG 00:00: BEDTIME Hospita tablet 00 l clonAZEPAM 2018-0 Yes TAKE BY Meth matheus (KlonoPIN) 7-[address] 0.5 MG 00:00: BEDTIME Hospita tablet 00 l oxyCODone 2018-0 Yes 10mg Q6H Take 10 mg Me thodi (ROXICODONE 7-[address] ) 15 MG 00:00: every 6 Hospita immediate 00 (six) l release hours as tablet needed. oxyCODone Yes 10mg Q6H Take 10 mg [...] 00 l LITE STRIPS) strip test strips flash 2018- Yes 1{piece Q14D 1 Piece Method i glucose 4-29 } every 14 st sensor 00:00: (fourteen) Hospi ta (FREESTYLE 00 days. l RG 14 DAY SENSOR) kit flash 2018- Yes 1{piece QD 1 Piece Method i glucose 4-29 } daily. st scanning 00:00: Hospita reader misc 00 l blood sugar 2018- Yes Patient is Methodi diagnostic 4-[address] strips 00:00: QID Hospita (FREESTYLE 00 l LITE STRIPS) strip test strips Immunizations Ordered Immunization Filled Immunization Date Status Commen ts Source Name Name PFIZER COVID-19 MRNA 2021-05-27 Completed Meth odist VACCINATION 00:00:00 [facility] PFIZER COVID-19 MRNA 2021-05-27 Completed Meth odist VACCINATION 00:00:00 Hospital Vital Signs Vital Name Observation Time Observation Value Comments Source Systolic blood 2022-09-24 18:03:47 118 mm[Hg] [facility] [place] [place] pressure Diastolic blood 2022-09-24 18:03:47 58 mm[Hg] [facility] pressure Heart rate 2022-09-24 18:03:47 80 /min [facility] Body temperature 2022-09-24 18:03:47 36.5 Melissa [facility] Respiratory rate 2022-09-24 18:03:47 18 /min [facility] Oxygen saturation in 2022-09-24 18:03:47 98 /min [facility] Arterial blood by Pulse oximetry Body height 2022-09-20 17:09:26 162.6 cm [facility] Body weight 2022-09-20 17:09:26 49.896 kg [facility] BMI 2022-09-20 17:09:26 18.88 kg/m2 [facility] Procedures Procedure Date / Time Performing Clinician Source Performed POC GLUCOSE 2022-09-24 18:04:00 Alex Bender Ho spital POC GLUCOSE 2022-09-24 14:25:00 Alex Bender spital [id number] TACROLIMUS LEVEL, 2022-09-24 11:41:00 Napoleon [facility] TROUGH EVEROLIMUS LEVEL, TROUGH 2022-09-24 11:41[facility] 2022-09-24 02:01:00 Alex Bender spital POC GLUCOSE 2022-09-23 21:55:00 Alex Bender spital POC GLUCOSE 2022-09-23 17:27:00 Felipe [facility] POC GLUCOSE 2022-09-23 13:41[facility]00 [id number] TACROLIMUS LEV[facility], 2022-09-23 10:27:00 [facility] Irene BASIC METABOLIC PANEL 2022-09-23 10:27:00 Hudson [facility] Irene HEPATIC FUNCTION PANEL 2022-09-23 10:27:00 [facility] CBC WITH PLATELET AND 2022-09-23 10:27:00 [facility] DIFFERENTIAL Irene EVEROLIMUS LEVEL, TROUGH 2022-09-23 10:27:00 [facility] ESTIMATED GFR 2022-09-23 10:27:00 [facility] Irene POC GLUCOSE 2022-09-22 23:03:00 Alex Bender spital US DUPLEX VENOUS UPPER 2022-09-22 20:17:00 Lucio [facility] EXTREMITY RIGHT US DUPLEX VENOUS LOWER 2022-09-22 19:45[facility]00 [facility] POC GLUCOSE 2022-09-22 17:20:00 Alex Bender Ho spital POC GLUCOSE 2022-09-22 13:59:00 Alex Bender spital [id number] TACROLIMUS LEVEL, 2022-09-22 11:04:00 [facility] TROUGH Irene BASIC METABOLIC PANEL 2022-09-22 11:04:00 [facility] Irene HEPATIC FUNCTION PANEL 2022-09-22 11:04:00 [facility] Irene CBC WITH PLATELET AND 2022-09-22 11:04:00 [facility] DIFFERENTIAL Irene EVEROLIMUS LEVEL, TROUGH 2022-09-22 11:04:00 Valdes [facility] ESTIMATED GFR 2022-09-22 11:04:00 [facility] Irene POC GLUCOSE 2022-09-22 10:51:00 Alex Bender Ho spital POC GLUCOSE 2022-09-22 05:34:00 Alex Bender Ho spital POC GLUCOSE 2022-09-22 04:21:00 Alex Bender Ho spital POC GLUCOSE 2022-09-21 23:25:00 Alex Bender Ho spital POC GLUCOSE 2022-09-21 17:56:00 Alex Bender Ho spital POC GLUCOSE 2022-09-21 14:40:00 Alex Bender Ho spital SURGICAL PATHOLOGY REQUEST 2022-09-21 13:57:00 Napoleon, [facility] [id number] TACROLIMUS LEVEL, 2022-09-21 09:16:00 [facility] TROUGH Irene EVEROLIMUS LEVEL, TROUGH 2022-09-21 09:16:00 [facility] Irene BASIC METABOLIC PANEL 2022-09-21 09:16:00 [facility] Irene HEPATIC FUNCTION PANEL 2022-09-21 09:16:00 [facility] Irene CBC WITH PLATELET AND 2022-09-21 09:16:00 [facility] DIFFERENTIAL Irene ESTIMATED GFR 2022-09-21 09:16:00 [facility] Irene POC GLUCOSE 2022-09-21 02:32:00 Alex Bender Ho spital POC GLUCOSE 2022-09-21 00:15:00 Alex Bender Ho spital [place] AN ELECTIVE 2022-09-20 21:46:00 Nat Adolph [facility] ENDOTRACHEAL AIRWAY REPAIR, HERNIA, INCISIONAL 2022-09-20 21:37:00 Napoleon [facility] OR VENTRAL HC NERVE BLOCK TAP BLOCK 2022-09-20 20:43:17 Adolph Johns [facility] BILAT INJECTION HC NERVE BLOCK QUADRATUS 2022-09-20 20:40:08 [facility]SE 2022-09-20 19:19:00 Alex Bender Ho spital BASIC METABOLIC PANEL 2022-09-20 17:59:00 [facility] CBC WITH PLATELET AND 2022-09-20 17:59:00 [facility] DIFFERENTIAL [place] HEPATIC FUNCTION PANEL 2022-09-20 17:59:00 [facility] [place] MAGNESIUM LEVEL 2022-09-20 17:59:00 [facility] [place] PARTIAL THROMBOPLASTIN 2022-09-20 17:59:00 [facility] TIME (PTT) [place] PHOSPHORUS LEVEL 2022-09-20 17:59:00 [facility] TIME WITH INR 2022-09-20 17:59:00 [facility] TYPE AND SCREEN 2022-09-20 17:59:00 [facility] [place] ESTIMATED GFR 2022-09-20 17:59:00 [facility] ECG 12-LEAD 2022-09-20 17:45:53 [facility]SE 2022-09-20 17:10:00 Alex Bender [facility] COVID-19 QUALITATIVE 2022-09-19 23:02:00 [facility] QUALITATIVE 2022-09-12 22:02:00 [facility] RT-PCR [place] COMPREHENSIVE METABOLIC 2021-12-26 17:56:00 Stephen [facility] PANEL ESTIMATED GFR 2021-12-26 17:56:00 Stephen [facility] CT CHEST WO CONTRAST 2021-12-21 20:24:32 Stephen [facility] ABDOMEN WO CONTRAST PELVIS WO CONTRAST CBC WITH PLATELET AND 2021-12-21 17:55:[facility] DIFFERENTIAL COMPREHENSIVE METABOLIC 2021-12-21 17:55:00 Stephen [facility] PANEL MAGNESIUM LEVEL 2021-12-21 17:55:00 Stephen [facility] HEMOGLOBIN A1C 2021-12-21 17:55:00 [facility] LIPID PANEL 2021-12-21 [facility] 2021-12-21 17:55:00 Stephen [facility] TIME (PTT) PROTHROMBIN TIME WITH INR 2021-12-21 17:55:00 Stephen [facility] VITAMIN D 1,25 DIHYDROXY 2021-12-21 17:55:00 Presley Orr [facility] LEVEL, SERUM CYTOMEGALOVIRUS BY PCR 2021-12-21 17:55:00 Presley Orr [facility] VITAMIN D 25 HYDROXY LEVEL 2021-12-21 17:55:00 [facility] THYROID STIMULATING 2021-12-21 17:55:00 Presley Orr [facility] HORMONE GGT 2021-12-21 17:55:00 Presley Orr [facility] PROTEIN, URINE, RANDOM 2021-12-21 17:55:00 Presley Orr [facility] CREATININE LEVEL, URINE, 2021-12-21 17:55:00 [facility] RANDOM [id number] TACROLIMUS LEVEL, 2021-12-21 17:55:00 Presley Orr [facility] RANDOM EVEROLIMUS LEVEL, RANDOM 2021-12-21 17:55:00 [facility] HEPATOCELLULAR CARCINOMA 2021-12-21 17:55:00 [facility] MARKER PANEL HEPATITIS C VIRUS (HCV), 2021-12-21 17:55:00 [facility] QUANTITATIVE PCR ESTIMATED GFR 2021-12-21 17:55:00 Presley Orr [facility] DONOR SPECIFIC ANTIBODY 2021-12-21 17:55:00 [facility] Plan of Care Planned Activity Planned Date Details Comments Source Future Scheduled 2022-10-10 Pneumococcal Vaccine: [facility] Test 20:20:58 Pediatrics (0 to 5 Years) and At-Risk Patients (6 to 64 Years) (1 - PCV) [code = Pneumococcal Vaccine: Pediatrics (0 to 5 Years) and At-Risk Patients (6 to 64 Years) (1 - PCV)] Future Scheduled 2022-10-10 SHINGLES VACCINES (1 [facility] Test 20:20:58 of 2) [code = SHINGLES VACCINES (1 of 2)] Future Scheduled 2022-10-10 Screening for [facility] Test 20:20:58 malignant neoplasm of cervix (procedure) [code = 993330661] Future Scheduled 2022-10-10 BREAST CANCER [facility] Test 20:20:58 SCREENING [code = BREAST CANCER SCREENING] Future Scheduled 2022-10-10 COLONOSCOPY SCREENING [facility] Test 20:20:58 [code = COLONOSCOPY SCREENING] Future Scheduled 2022-10-10 HEPATITIS B VACCINES [facility] Test 20:20:58 (1 of 3 - Risk 3-dose series) [code = HEPATITIS B VACCINES (1 of 3 - Risk 3-dose series)] Future Scheduled 2022-10-10 DIABETIC FOOT EXAM [facility] Test 20:20:58 [code = DIABETIC FOOT EXAM] Future Scheduled 2022-10-10 DIABETES: RETINAL EYE [facility] Test 20:20:58 EXAM [code = DIABETES: RETINAL EYE EXAM] Future Scheduled 2022-10-10 COVID-19 VACCINE (3 - [facility] Test 20:20:58 Pfizer risk series) [code = COVID-19 VACCINE (3 - Pfizer risk series)] Future Scheduled 2022-10-10 INFLUENZA VACCINE [facility] Test 20:20:58 [code = INFLUENZA VACCINE] Future Scheduled 2022-10-03 Pneumococcal Vaccine: [facility] Test 13:20:09 Pediatrics (0 to 5 Years) and At-Risk Patients (6 to 64 Years) (1 - PCV) [code = Pneumococcal Vaccine: Pediatrics (0 to 5 Years) and At-Risk Patients (6 to 64 Years) (1 - PCV)] Future Scheduled 2022-10-03 SHINGLES VACCINES (1 [facility] Test 13:20:09 of 2) [code = SHINGLES VACCINES (1 of 2)] Future Scheduled 2022-10-03 Screening for [facility] Test 13:20:09 malignant neoplasm of cervix (procedure) [code = 786342214] Future Scheduled 2022-10-03 BREAST CANCER [facility] Test 13:20:09 SCREENING [code = BREAST CANCER SCREENING] Future Scheduled 2022-10-03 COLONOSCOPY SCREENING [facility] Test 13:20:09 [code = COLONOSCOPY SCREENING] Future Scheduled 2022-10-03 HEPATITIS B VACCINES [facility] Test 13:20:09 (1 of 3 - Risk 3-dose series) [code = HEPATITIS B VACCINES (1 of 3 - Risk 3-dose series)] Future Scheduled 2022-10-03 DIABETIC FOOT EXAM [facility] Test 13:20:09 [code = DIABETIC FOOT EXAM] Future Scheduled 2022-10-03 DIABETES: RETINAL EYE [facility] Test 13:20:09 EXAM [code = DIABETES: RETINAL EYE EXAM] Future Scheduled 2022-10-03 COVID-19 VACCINE (3 - [facility] Test 13:20:09 Pfizer risk series) [code = COVID-19 VACCINE (3 - Pfizer risk series)] Future Scheduled 2022-10-03 INFLUENZA VACCINE [facility] Test 13:20:09 [code = INFLUENZA VACCINE] Encounters Start End Encounter Admission Attending Care Care Encounter Source Date/Time Date/Time Type Type Clinicians Facility Department ID 2022-09-27 2022-09-27 Patient Maverick, 1.2.840.1 [id number] Methodi 00:00:00 00:00:00 Outreach Farideh 95572.1.1 901 s t 3.430.2.7 Hospit a .3.689800 l .8 2022-09-27 2022-09-27 Patient Maverick, 1.2.840.1 [id number] Methodi 00:00:00 00:00:00 Outreach Farideh 65912.1.1 901 s t 3.430.2.7 Hospit a .3.454916 l .8 2022-09-20 2022-09-24 [facility], 1.2.840.1 [id number] Methodi 10:46:00 18:53:00 Encounter Alex [address]1217.1.[address] 3.430.2.7 Hospit a .3.807462 l .8 2022-09-20 2022-09-24 [facility] 1.2.840.1 [id number] Methodi 10:46:00 18:53:00 Encounter Alex [address]90.1.[address] 3.430.2.7 Hospit a .3.391961 l .8 2022-09-23 2022-09-23 Telephone Joey, 1.2.840.1 [id number] Methodi 00:00:00 00:00:[address] [place] 3.430.2.7 Hospi ta .3.381540 l .8 2022-09-23 2022-09-23 Telephone Joey, 1.2.840.1 [id number] Methodi 00:00:00 00:00:[address] [place] 3.430.2.7 Hospi ta .3.679042 l .8 2022-09-20 2022-09-20 Anesthesia Adolph Johns 1.2.840.1 [id number] Methodi 15:37:00 18:14:00 Event Malena Andrea 60474.1.[address] 3.430.2.7 Hospit a .3.580706 l .8 2022-09-20 2022-09-20 Anesthesia Adolph Johnsh 1.2.840.1 [id number] Methodi 15:37:00 18:14:00 Event Malena Andrea 68355.1.[address] 3.430.2.7 Hospit a .3.086047 l .8 2022-09-20 2022-09-20 Surgery Napoleon, 1.2.840.1 [id number] Methodi 12:10:00 15:35:[address] 3.430.2.7 Hospit a .3.225815 l .8 2022-09-20 2022-09-20 Surgery Napoleon, 1.2.840.1 [id number] Methodi 12:10:00 15:35:[address] 3.430.2.7 Hospit a .3.933696 l .8 2022-09-20 2022-09-20 Travel 1.2.840.1 1.2.021.633 [id number] Methodi 00:00:00 00:00:[address] 3.430.2.7 0.2.7.3.698 Ho spita .3.046014 084.8 l .8 2022-09-20 2022-09-20 Travel 1.2.840.1 1.2.225.191 [id number] Methodi 00:00:00 00:00:[address] 3.430.2.7 0.2.7.3.698 Ho spita .3.289439 084.8 l .8 2022-09-19 2022-09-19 Lab Napoleon, 1.2.840.1 [id number] Methodi 16:50:00 16:55:[address] 3.430.2.7 Hospit a .3.352697 l .8 2022-09-19 2022-09-19 Lab Napoleon, 1.2.840.1 [id number] Methodi 16:50:00 16:55:[address] 3.430.2.7 Hospit a .3.502585 l .8 2022-09-19 2022-09-19 Travel 1.2.840.1 [id number] Methodi 00:00:00 00:00:[address] 3.430.2.7 0.2.7.3.698 Ho spita .3.144879 084.8 l .8 2022-09-19 2022-09-19 [facility], 1.2.840.1 [id number] 21 [id number] Methodi 00:00:00 00:00:00 Only Nolvia 67249.1.[address] [place] 3.430.2.7 Hosp jose .3.440645 l .8 2022-09-19 2022-09-19 [facility], 1.2.840.1 [id number] Methodi 00:00:00 00:00:00 Only Nolvia 93809.1.[address] [facility] 3.430.2.7 Hosp jose .3.759941 l .8 2022-09-19 2022-09-19 Travel 1.2.840.1 1.2.079.327 2487 [id number] Methodi 00:00:00 00:00:[address] 3.430.2.7 0.2.7.3.698 Ho spita .3.401842 084.8 l .8 2022-09-16 2022-09-16 Telephone Diego, 1.2.840.1 [id number] 574 [id number] Methodi 00:00:00 00:00:[address] 3.430.2.7 Hospit a .3.846189 l .8 2022-09-16 2022-09-16 Telephone Diego, 1.2.840.1 [id number] 099 [id number] Methodi 00:00:00 00:00:[address] 3.430.2.7 Hospit a .3.851984 l .8 2022-09-12 2022-09-12 Outpatient [facility], [facility] [id number] 0753 [place] 00:00:00 00:00:00 DARRELL [address] 2022-09-12 2022-09-12 [facility]patient [facility], [facility] [id number] 8550 [place] 00:00:00 00:00:[address] 2022-09-12 2022-09-12 Travel 1.2.840.1 1.2.471.828 8214 662934 Methodi 00:00:00 00:00:[address] 3.430.2.7 0.2.7.3.698 Ho spita .3.393796 084.8 l .8 2022-09-12 2022-09-12 Orders Kechi, 1.2.840.1 [id number] 21 [id number] Methodi 00:00:00 00:00:00 Only Nolvia 03308.1.[address] [place] 3.430.2.7 Hosp jose .3.008260 l .8 2022-09-12 2022-09-12 Travel 1.2.840.1 1.2.591.822 7371 452802 Methodi 00:00:00 00:00:[address] 3.430.2.7 0.2.7.3.698 Ho spita .3.922020 084.8 l .8 2022-09-12 2022-09-12 [facility], 1.2.840.1 [id number] 21 [id number] Methodi 00:00:00 00:00:00 Only Nolvia 43789.1.[address] [place] 3.430.2.7 Hosp jose .3.168565 l .8 2022-07-05 2022-07-05 Refill Linda, 1.2.840.1 [id number] 2345 Methodi 00:00:00 00:00:00 Lulúidekrissy 47493.1.[address] 3.430.2.7 Hospit a .3.692009 l .8 2022-07-05 2022-07-05 Refill Linda, 1.2.840.1 [id number] 977341 0436 Methodi 00:00:00 00:00:[address] 3.430.2.7 Hospit a .3.597514 l .8 2022-06-21 2022-06-21 Telephone Kechi, 1.2.840.1 [id number] Methodi 00:00:00 00:00:[address] [place] 3.430.2.7 Hosp jose .3.308520 l .8 2022-06-21 2022-06-21 [facility], 1.2.840.1 [id number] Methodi 00:00:00 00:00:[address] [place] 3.430.2.7 Hosp jose .3.740282 l .8 2022-06-19 2022-06-19 Office Darrell Diaz 1.2.840.1 [id number] 3 [id number] Methodi 14:15:00 14:30:00 Visit Nolvia Mulligan 12820.1.[address] 3.430.2.7 Hospit a .3.327542 l .8 2022-06-19 2022-06-19 Office Darrell Diaz 1.2.840.1 [id number] 3 [id number] Methodi 14:15:00 14:30:00 Visit Nolvia Mulligan 32411.1.[address] 3.430.2.7 Hospit a .3.624463 l .8 2022-06-12 2022-06-12 Refill Linda, 1.2.840.1 [id number] 9738 Methodi 00:00:00 00:00:[address] 3.430.2.7 Hospit a .3.528987 l .8 2022-06-12 2022-06-12 Refill Linda, 1.2.840.1 [id number] 1709 Methodi 00:00:00 00:00:[address] 3.430.2.7 Hospit a .3.287791 l .8 2022-06-07 2022-06-07 Telephone Bacon, 1.2.840.1 [id number] 2100 205420 Methodi 00:00:00 00:00:[address] 3.430.2.7 Hospit a .3.696589 l .8 2022-06-07 2022-06-07 Telephone Bacon, 1.2.840.1 [id number] 2100 649408 Methodi 00:00:00 00:00:[address] 3.430.2.7 Hospit a .3.597013 l .8 2022-01-11 2022-01-11 Refill Linda, 1.2.840.1 [id number] 384449 1721 Methodi 00:00:00 00:00:[address] 3.430.2.7 Hospit a .3.978189 l .8 2022-01-11 2022-01-11 Refill Linda, 1.2.840.1 [id number] 166951 0204 Methodi 00:00:00 00:00:[address] 3.430.2.7 Hospit a .3.035293 l .8 2022-01-10 2022-01-10 Refill Linda, 1.2.840.1 [id number] 071769 5359 Methodi 00:00:00 00:00:[address] 3.430.2.7 Hospit a .3.117820 l .8 2022-01-10 2022-01-10 Refill Linda, 1.2.840.1 [id number] [id number] 2154 Methodi 00:00:00 00:00:[address] 3.430.2.7 Hospit a .3.968418 l .8 2021-12-28 2021-12-28 Refill Sadhu, 1.2.840.1 [id number] 0585 Methodi 00:00:00 00:00:[address] Ortega 3.430.2.7 Hospit a .3.867956 l .8 2021-12-28 2021-12-28 Refill Sarah, 1.2.840.1 [id number] 2099 350286 Methodi 00:00:00 00:00:00 Rafik Randall 04838.1.1 6[address] 3.430.2.7 Hospit a .3.501693 l .8 2021-12-28 2021-12-28 Refill Sadhu, 1.2.840.1 [id number] 402790 7900 Methodi 00:00:00 00:00:[address] [place]tega 3.430.2.7 Hospit a .3.974448 l .8 2021-12-28 2021-12-28 Refill Sarah, 1.2.840.1 [id number] 2099 445947 Methodi 00:00:00 00:00:00 Rafik Randall 34464.1.1 670 s t 3.430.2.7 Hospit a .3.529301 l .8 2021-12-26 2021-12-26 Office Galati, 1.2.840.1 [id number] [id number] 7328 Methodi 08:30:00 08:45:00 Visit Presley Palacios 31893.1.[address] 3.430.2.7 Hospit a .3.690719 l .8 2021-12-26 2021-12-26 [facility], 1.2.840.1 [id number] 347439 3391 Methodi 08:30:00 08:45:00 Visit Presley Palacios 65097.1.[address] 3.430.2.7 Hospit a .3.855115 l .8 2021-12-26 2021-12-26 Outpatient [facility], [facility] [id number] [address] [place] [address] 00:00:00 00:00:00 PRESLEY [address] 2021-12-26 2021-12-26 Travel 1.2.840.1 1.2.883.236 1553 462207 Methodi 00:00:00 00:00:[address] 3.430.2.7 0.2.7.3.698 Ho spita .3.600285 084.8 l .8 2021-12-26 2021-12-26 Travel 1.2.840.1 1.2.518.577 3210 525062 Methodi 00:00:00 00:00:[address] 3.430.2.7 0.2.7.3.698 Ho spita .3.700839 084.8 l .8 2021-12-21 2021-12-21 [facility], 1.2.840.1 [id number] 79248 37170 Methodi 12:00:00 23:59:00 Encounter Presley Palacios 04409.1.[address] 3.430.2.7 Hospit a .3.863985 l .8 2021-12-21 2021-12-21 [facility], 1.2.840.1 [id number] 51463 70902 Methodi 12:00:00 23:59:00 Encounter Presley Palacios 40340.1.[address] 3.430.2.7 Hospit a .3.757182 l .8 2021-12-21 2021-12-21 Travel 1.2.840.1 1.2.754.615 6925 624012 Methodi 00:00:00 00:00:[address] 3.430.2.7 0.2.7.3.698 Ho spita .3.868897 084.8 l .8 2021-12-21 2021-12-21 [facility] [id number] 255 [place] 00:00:00 00:00:00 [place] [address] 2021-12-21 2021-12-21 Travel 1.2.840.1 1.2.264.042 5987 855066 Methodi 00:00:00 00:00:[address] 3.430.2.7 0.2.7.3.698 Ho spita .3.795122 084.8 l .8 2021-12-13 2021-12-13 Refill Linda, 1.2.840.1 [id number] 703297 2325 Methodi 00:00:00 00:00:[address] 3.430.2.7 Hospit a .3.415048 l .8 2021-12-13 2021-12-13 Telephone Brown, 1.2.840.1 [id number] 2099 Methodi 00:00:00 00:00:00 Deb M [address]83.1.[address] 3.430.2.7 Hospit a .3.152245 l .8 2021-12-13 2021-12-13 Telephone Brown, 1.2.840.1 [id number] 996421 Methodi 00:00:00 00:00:00 Concho M [address]0865.1.[address] 3.430.2.7 Hospit a .3.116840 l .8 2021-12-13 2021-12-13 Refill Linda, 1.2.840.1 [id number] 398897 6453 Methodi 00:00:00 00:00:[address] 3.430.2.7 Hospit a .3.431890 l .8 2021-12-13 2021-12-13 Telephone Yehuda, 1.2.840.1 [id number] 2099 Methodi 00:00:00 00:00:00 Deb Armendariz 63886.1.[address] 3.430.2.7 Hospit a .3.749415 l .8 2021-12-13 2021-12-13 Telephone Yehuda, 1.2.840.1 2099 Methodi 00:00:00 00:00:00 [address]iz [address]01.1.[address] 3.430.2.7 Hospit a .3.169156 l .8 2021-12-02 2021-12-02 Refill Sarah, 1.2.840.1 [id number] 12221202 Methodi 00:00:00 00:00:00 Murrayik Randall 57299.1.1 699 s t 3.430.2.7 Hospit a .3.883589 l .8 2021-12-02 2021-12-02 Refill Sarah, 1.2.840.1 [id number] 12221202 Methodi 00:00:00 00:00:00 Murrayik Randall 75763.1.1 699 s t 3.430.2.7 Hospit a .3.711335 l .8 2021-10-24 2021-10-24 Telephone Famanias, 1.2.840.1 [id number] Methodi 00:00:00 00:00:[address] 3.430.2.7 Hospit a .3.932372 l .8 2021-10-24 2021-10-24 Telephone Famanias, 1.2.840.1 [id number] Methodi 00:00:00 00:00:[address] 3.430.2.7 Hospit a .3.857732 l .8 2021-10-23 2021-10-23 Refill Linda, 1.2.840.1 [id number] 606125 2367 Methodi 00:00:00 00:00:[address] 3.430.2.7 Hospit a .3.896830 l .8 2021-10-23 2021-10-23 Refill Linda, 1.2.840.1 [id number] 408739 5627 Methodi 00:00:00 00:00:[address] 3.430.2.7 Hospit a .3.260587 l .8 2021-10-22 2021-10-22 Refill Sarah, 1.2.840.1 [id number] 2099 368481 Methodi 00:00:00 00:00:00 Rafik Randall 87004.1.1 778 s t 3.430.2.7 Hospit a .3.897315 l .8 2021-10-22 2021-10-22 Refill Sarah, 1.2.840.1 [id number] 2099 988715 Methodi 00:00:00 00:00:00 Rafik Randall 67185.1.1 778 s t 3.430.2.7 Hospit a .3.501800 l .8 2021-10-19 2021-10-19 Orders Linda, 1.2.840.1 [id number] [id number] 5530 Methodi 00:00:00 00:00:00 Only Loideth 08417.1.[address] 3.430.2.7 Hospit a .3.968699 l .8 2021-10-19 2021-10-19 Orders Linda, 1.2.840.1 [id number] 227038 1684 Methodi 00:00:00 00:00:00 Only Loideth 53059.1.[address] 3.430.2.7 Hospit a .3.853330 l .8 2021-10-03 2021-10-03 Telephone Linda, 1.2.840.1 [id number] 2100 221495 Methodi 00:00:00 00:00:[address] 3.430.2.7 Hospit a .3.832970 l .8 2021-05-17 2021-05-17 Outpatient SELLIN, [facility] [id number] 416 [place] 00:00:00 00:00:00 LADI [address] 2021-04-19 2021-04-19 Outpatient SELLIN, [facility] [id number] 261 [place] 00:00:00 00:00:00 LADI [address] 2021-04-19 2021-04-19 Outpatient SELLIN, [facility] [id number] 261 [place] 00:00:00 00:00:00 LADI [address] 2021-04-19 2021-04-19 Outpatient SELLIN, [facility] [id number] 261 [place] 00:00:00 00:00:00 LADI [address] 2021-04-19 2021-04-19 Outpatient SELLIN, [facility] [id number] 261 [place] 00:00:00 00:00:00 LADI [address] 2021-04-19 2021-04-19 Outpatient SELLIN, [facility] [id number] 261 [place] 00:00:00 00:00:00 LADI [address] 2021-01-31 2021-01-31 Outpatient GALATI, [facility] [id number] 951 [place] 00:00:00 00:00:00 PRESLEY [address] 2020-12-15 2020-12-15 Outpatient GALATI, [facility] [id number] 068 [place] 00:00:00 00:00:00 PRESLEY [address] 2020-12-15 2020-12-15 Outpatient GALATI, [facility] [id number] 067 [place] 00:00:00 00:00:00 PRESLEY [address] 2020-12-15 2020-12-15 Outpatient GALATI, [facility] [id number] 067 [place] 00:00:00 00:00:00 PRESLEY [address] 2020-12-15 2020-12-15 Outpatient GALATI, [facility] [id number] 067 [place] 00:00:00 00:00:00 PRESLEY [address] 2020-12-15 2020-12-15 Outpatient GALATI, [facility] [id number] 067 [place] 00:00:00 00:00:00 PRESLEY [address] 2020-04-26 2020-04-26 Outpatient GALATI, [facility] [id number] 360 [place] 00:00:00 00:00:00 PRESLEY [address] 2020-04-10 2020-04-10 Outpatient GALATI, [facility] [id number] 549 [place] 00:00:00 00:00:00 PRESLEY [address] 2020-04-10 2020-04-10 Outpatient GALATI, [facility] [id number] 549 [place] 00:00:00 00:00:00 PRESLEY [address] 2020-04-10 2020-04-10 Outpatient GALATI, [facility] [id number] 549 [place] 00:00:00 00:00:00 PRESLEY [address] 2020-01-14 2020-01-14 Outpatient GALATI, [facility] [id number] 616 [place] 00:00:00 00:00:00 PRESLEY [address] 2019-05-28 2019-05-28 Outpatient SARAH, [facility] [id number] [place] 00:00:00 00:00:00 ALLISON [address] Results Test Description Test Time Test Comments Results Result Comments Source Surgical pathology request 2022-09-24 18:30:32 Test Item Value Reference Range Interpretation Comme nts Case number (test code = 7131196) [id number] Surgical pathology report (test code = See link below for PDF Lab R eport 2255) Result status (test code = 4664276) This is Final Report for [id number] [facility] [id number] 18:30:32 Test Item Value Reference Range Interpretation Comments Case number (test code = [id number]) Surgical pathology See link below for report (test code = PDF Lab Report 2255) Result status (test code This is Final Report = [id number]) for [id number] [facility] [id number] 18:05:00 Test Item Value Reference Range Interpretation Comments POC glucose (test code 184 mg/dL 65-99 H Opera tor Name: Keli = 79837-3) [place] ID: [id number] able: [facility] Notified open die inspector Interpretation Abnormal (test code = 03186-7) [facility] [id number] 18:05:00 Test Item Value Reference Range Interpretation Comments POC glucose (test code 184 mg/dL 65-99 H Opera tor Name: Keli = 62559-1) [place]ivarHazel ID: [id number] able: [facility] Notified open die inspector Interpretation Abnormal (test code = 73534-6) [place] [address] [id number] 06:54:17 Test Item Value Reference Range Interpretation Comments Ventricular rate (test 66 code = 253) Atrial rate (test code = 66 255) TN interval (test code = 108 266) QRSD interval (test code 90 = 260) QT interval (test code = 410 264) QTC interval (test code = 429 265) P axis 1 (test code = 45 267) QRS axis 1 (test code = 69 268) T wave axis (test code = 59 270) EKG impression (test code Sinus rhythm with = 273) short TN-Otherwise normal ECG-- [place] [address] [id number] 06:54:17 Test Item Value Reference Range Interpretation Comments Ventricular rate (test 66 code = 253) Atrial rate (test code = 66 255) TN interval (test code = 108 266) QRSD interval (test code 90 = 260) QT interval (test code = 410 264) QTC interval (test code = 429 265) P axis 1 (test code = 45 267) QRS axis 1 (test code = 69 268) T wave axis (test code = 59 270) EKG impression (test code Sinus rhythm with = 273) short TN-Otherwise normal [facility]-- [facility] [id number] 03:10:54 Test Item Value Reference Interpretation Comments Range Interpretation Negative results do (test code = not preclude COVID-19 4139289) infection and should not be used asthe sole basis for treatment or other patient management decisions. Negativeresults must be combined with clinical observations, patient history, andepidemiological information. COVID-19 Not-Detected Not-Detected DISCLAIMER:This qualitative RT-PCR test was result (test code performed using = 30482-3) the Akin m SARS-CoV-2 Assa y (Rezdy). This assay is available for i n vitro diagnosti c use under Food and Drug Administration (FDA) Emergency Use Authorizati on (EUA) and has been verified f or clinical use by the [facility]. Information on the FDA policy for diagnostic tests for coronavirus disease- 2019 i s available at:https://www. fd a.gov/medical-d ev ices/emergency- si tuations-medica l- devices/faqs-di ag nostic-testing- sa rs-cov-2It is critical that health care providers and patients review the applicable fact sheet(s) i n interpreting or understanding t he test results th at are available upon request.METHODO LO GY:This assay utilizes reagen ts for nucleic aci d extraction, amplification, and real-time reverse hot mill observer polymerase cornell n reaction. COVID-19 See link below for PDF Case Number: qualitative RT-PCR Lab Report [id number] (test code = 7070) [facility] [id number] 03:10:54 Test Item Value Reference Interpretation Comments Range Interpretation Negative results do (test code = not preclude COVID-19 1691592) infection and should not be used asthe sole basis for treatment or other patient management decisions. Negativeresults must be combined with clinical observations, patient history, andepidemiological information. COVID-19 Not-Detected Not-Detected DISCLAIMER:This qualitative RT-PCR test was result (test code performed using = 07841-4) the Akin m SARS-CoV-2 Assa y (Rezdy). This assay is available for i n vitro diagnosti c use under Food and Drug Administration (FDA) Emergency Use Authorizati on (EUA) and has been verified f or clinical use by the [facility]. Information on the FDA policy for diagnostic tests for coronavirus disease- 2019 i s available at:https://www. fd a.gov/medical-d ev ices/emergency- si tuations-medica l- devices/faqs-di ag nostic-testing- sa rs-cov-2It is critical that health care providers and patients review the applicable fact sheet(s) i n interpreting or understanding t he test results th at are available upon request.ROSALINDAO LULÚ GY:This assay utilizes reagen ts for nucleic aci d extraction, amplification, and real-time reverse hot mill observer polymerase cornell n reaction. COVID-19 See link below for PDF Case Number: qualitative RT-PCR Lab Report [id number] (test code = 7070) [facility] RppmpmcoMKLK-BoR-4 (COVID-19) RNA [Presence] in Respiratory specimen by ALBERT with probe [id number] 21:10:54 Test Item Value Reference Range Interpretation Comments SARS-CoV-2 (COVID-19) RNA Not detected [Presence] in Respiratory specimen by ALBERT with probe detection (test code = 24129-5) Whether patient is employed in a Unknown healthcare setting (test code = 10447-2) Whether the patient has symptoms Unknown related to condition of interest (test code = 36296-0) Whether the patient was Unknown hospitalized for condition of interest (test code = 18093-7) Whether the patient was admitted Unknown to intensive care unit (ICU) for condition of interest (test code = 06705-6) Whether patient resides in a Unknown congregate care setting (test code = 80078-1) status (test code = Unknown 92673-5) Date and time of symptom onset Unknown (test code = 73921-6) TESFAYE DUTCH WILLSARS-CoV-2 (COVID-19) RNA [Presence] in Respiratory specimen by ALBERT with probe [id number] 22:18:32 Test Item Value Reference Range Interpretation Comments SARS-CoV-2 (COVID-19) RNA Not detected [Presence] in Respiratory specimen by ALBERT with probe detection (test code = 97474-4) Whether patient is employed in a Unknown healthcare setting (test code = 22164-3) Whether the patient has symptoms Unknown related to condition of interest (test code = 50984-0) Whether the patient was Unknown hospitalized for condition of interest (test code = 47445-5) Whether the patient was admitted Unknown to intensive care unit (ICU) for condition of interest (test code = 52044-0) Whether patient resides in a Unknown congregate care setting (test code = 69204-6) status (test code = Unknown 79639-3) Date and time of symptom onset Unknown (test code = 07609-7) BRIEN WILL
[2022-10-10 23:46] LABS: Hematocrit 22.2 % (36.0-45.0); Lymphocytes % 27.4 % (15.3-44.8); MCV 86.8 fL (80-100); MPV 7.9 fL (7.6-11.3); RBC Red Blood Cell Count 2.56 M/uL (3.86-4.86)
[2022-10-11] MEDS ORDERED: NA CHLORIDE 0.9% 1,000 ML ONE (00:01)
[2022-10-11 00:12] LABS: AST/SGOT 12 U/L (15-37); Albumin 2.7 g/dL (3.4-5.0); Alkaline Phosphatase 106 U/L (45-117); BUN Blood Urea Nitrogen 31 mg/dL (7-18); Bicarbonate 33 mmol/L (21-32); Bilirubin Total 0.2 mg/dL (0.2-1.0); Glomerular Filtration Rate 33 ml/min (=/>90); Glucose Level 146 mg/dL (74-106); Lipase 58 U/L (73-393); Potassium 5.2 mmol/L (3.5-5.1); Sodium Level 141 mmol/L (136-145); Thyroid Stimulating Hormone 0.745 uIU/mL (0.358-3.740)
[2022-10-11 00:15] LABS: ALT/SGPT < 10 U/L (13-56)
--- NOTE | 2022-10-11 00:36 | EDPHYS ---
Physician Documentation [facility] Name: Carmen Salguero Age: 62 yrs Sex: Female : 1960 Arrival Date: 10/10/2022 Time: 22:56 Bed 16 Private MD: ED Physician Evens Moss HPI: 10/11 00:24 This 62 yrs old Female presents to ER via Wheelchair with complaints of Abnormal Lab snw Results. 00:24 Pt went to PCP today to get medication refill, no complaints. Bloodwork was ordered. snw Potassium returned at 6.1mmol/L. Pt instructed to stop Lisinopril and come to ED . Onset: The symptoms/episode began/occurred acutely. Historical: - Home Meds: 00:09 prednisone 10 mg Oral tab once daily [Active]; entecavir 0.5 mg oral tab every other lg3 day [Active]; tacrolimus 3 mg cap oral cap every 12 hours [Active]; atorvastatin 20 mg oral tab 1 tab once daily [Active]; clonazepam 0.5 mg Oral tab 1 tab at bedtime [Active]; ergocalciferol (vitamin D2) 50,000 unit oral tab once a week [Active]; magnesium chloride 64 mg oral TbEC twice a day [Active]; oxycodone 15 mg Oral TbOr 1 tab every 6 hours [Active]; Januvia 100 mg oral tab 1 tab once daily [Active]; - PMHx: 10/10 23:23 Cirrhosis; Diabetes - NIDDM; aa9 - PSHx: 23:23 Liver Transplant; section; aa9 - Immunization history:: Client reports receiving the 2nd dose of the Covid vaccine. - Social history:: Smoking status: Patient denies any tobacco usage or history of. ROS: 10/11 00:22 Constitutional: Negative for fever, chills, and weight loss, Eyes: Negative for injury, snw pain, redness, and discharge, ENT: Negative for injury, pain, and discharge, Neck: Negative for injury, pain, and swelling, Cardiovascular: Negative for chest pain, palpitations, and edema, Respiratory: Negative for shortness of breath, cough, wheezing, and pleuritic chest pain, Back: Negative for injury and pain, : Negative for injury, bleeding, discharge, and swelling, MS/Extremity: Negative for injury and deformity, Skin: Negative for injury, rash, and discoloration, Neuro: Negative for headache, weakness, numbness, tingling, and seizure, Psych: Negative for depression, anxiety, suicide ideation, homicidal ideation, and hallucinations. Abdomen/GI: Positive for abdominal cramps, of the right lower quadrant and left lower quadrant. Exam: 10/10 23:45 Constitutional: This is a well developed, well nourished patient who is awake, alert, snw and in no acute distress. Head/Face: Normocephalic, atraumatic. Eyes: Pupils equal round and reactive to light, extra-ocular motions intact. Lids and lashes normal. Conjunctiva and sclera are non-icteric and not injected. Cornea within normal limits. Periorbital areas with no swelling, redness, or edema. ENT: Nares patent. No nasal discharge, no septal abnormalities noted. Tympanic membranes are normal and external auditory canals are clear. Oropharynx with no redness, swelling, or masses, exudates, or evidence of obstruction, uvula midline. Mucous membranes moist. Neck: Trachea midline, no thyromegaly or masses palpated, and no cervical lymphadenopathy. Supple, full range of motion without nuchal rigidity, or vertebral point tenderness. No Meningismus. Chest/axilla: Normal chest wall appearance and motion. Nontender with no deformity. No lesions are appreciated. Cardiovascular: Regular rate and rhythm with a normal S1 and S2. No gallops, murmurs, or rubs. Normal PMI, no JVD. No pulse deficits. Respiratory: Lungs have equal breath sounds bilaterally, clear to auscultation and percussion. No rales, rhonchi or wheezes noted. No increased work of breathing, no retractions or nasal flaring. Back: No spinal tenderness. No costovertebral tenderness. Full range of motion. Neuro: Awake and alert, GCS 15, oriented to person, place, time, and situation. Cranial nerves II-XII grossly intact. Motor strength 5/5 in all extremities. Sensory grossly intact. Cerebellar exam normal. Normal gait. Psych: Awake, alert, with orientation to person, place and time. Behavior, mood, and affect are within normal limits. Abdomen/GI: Inspection: distension, that is moderate, Bowel sounds: normal, Palpation: moderate abdominal tenderness, in the right upper quadrant and right lower quadrant, healing incision s/p hernia repair. Skin: Appearance: Color: dusky, pale. Vital Signs: 23:21 BP 135 / 62; Pulse 76; Resp 21 S; Temp 98.3; Pulse Ox 100% on R/A; Weight 52.16 kg (R); aa9 Height 5 ft. 1 in. (154.94 cm) (R); Pain 0/10; 10/11 01:15 BP 128 / 68; Pulse 72; Resp 18 S; Pulse Ox 100% on R/A; lg3 10/10 23:21 Body Mass Index 21.73 (52.16 kg, 154.94 cm) aa9 MDM: 10/10 23:15 Patient medically screened. snw 10/11 00:25 Differential Diagnosis abnormal H/H, K, ALT, AST. Data reviewed: vital signs, nurses snw notes, lab test result(s), lab test results from PCP, comparison labwork ordered.. Care significantly affected by the following chronic conditions: Diabetes, Liver transplant, cirrhosis. Counseling: I had a detailed discussion with the patient and/or guardian regarding: the historical points, exam findings, and any diagnostic results supporting the discharge/admit diagnosis, lab results, the need for outpatient follow up, to return to the emergency department if symptoms worsen or persist or if there are any questions or concerns that arise at home. Special discussion: Based on the history and exam findings, there is no indication for further emergent testing or inpatient evaluation. I discussed with the patient/guardian the need to see the primary care provider for further evaluation of the symptoms. 10/10 23:30 Order name: CBC with Diff; Complete Time: 23:48 snw 10/10 23:30 Order name: CMP; Complete Time: 00:18 snw 10/10 23:30 Order name: Lipase; Complete Time: 00:18 snw 10/10 23:30 Order name: TS; Complete Time: 00:31 snw 10/10 23:30 Order name: TSH; Complete Time: 00:18 snw 10/11 00:31 Order name: ABO/RH no charge; Complete Time: 00:31 EDMS 10/10 23:30 Order name: IV Saline Lock; Complete Time: 23:58 snw 10/10 23:30 Order name: Labs collected and sent; Complete Time: 23:58 snw Administered Medications: 00:09 Drug: NS 0.9% 1000 ml Route: IV; Rate: 75 ml/hr; Site: left antecubital; lg3 01:14 Follow up: Response: No adverse reaction; IV Status: Completed infusion; IV Intake: lg3 100ml 01:10 Drug: Lasix (furosemide) 20 mg Route: IVP; Site: left antecubital; lg3 01:10 Follow up: Response: No adverse reaction lg3 01:14 Follow up: Response: No adverse reaction lg3 01:10 Drug: Kayexalate (polystyrene) 15 grams Route: PO; lg3 01:10 Follow up: Response: No adverse reaction lg3 01:14 Follow up: Response: No adverse reaction lg3 Disposition: 19:09 Co-signature as Attending Physician, Evens Moss MD I reviewed the patient's care rn provided by the Advanced Practice Provider and agree with the diagnosis and treatment plan. Disposition Summary: 10/11/22 00:35 Discharge Ordered Location: Home snw Condition: Stable snw Diagnosis - Other disorders of electrolyte and fluid balance, not elsewhere classified snw - Anemia, unspecified snw Followup: snw - With: Emergency Department - When: As needed - Reason: Worsening of condition Followup: snw - With: Private Physician - When: Tomorrow - Reason: Recheck today's complaints, Continuance of care, Re-evaluation by your physician Discharge Instructions: - Discharge Summary Sheet snw - Anemia snw - Hyperkalemia snw Forms: - Medication Reconciliation Form snw - Thank You Letter snw - Antibiotic Education snw - Prescription Opioid Use snw Signatures: Dispatcher [employer] Allison Judd, ANASTASIIA-C CLINICAL TRIAL ASSISTANT-Csnw Evens Moss MD MD rn Gibson, Lacie RN RN lg3 Cris Walker, RN RN aa9
--- NOTE | 2022-10-11 00:36 | ER ---
Nurse's Notes [facility] Name: Carmen Salguero Age: 62 yrs Sex: Female : 1960 Arrival Date: 10/10/2022 Time: 22:56 Bed 16 Private MD: Diagnosis: Other disorders of electrolyte and fluid balance, not elsewhere classified;Anemia, unspecified Presentation: 10/10 23:21 Chief complaint: Patient states: I went to see the doctor for a prescription refill and aa9 they did routine lab work, I was told the potassium level I 6.6 and I was told ot come in. Coronavirus screen: Vaccine status: Patient reports receiving the 2nd dose of the covid vaccine. Ebola Screen: No symptoms or risks identified at this time. Initial Sepsis Screen: Does the patient meet any 2 criteria? No. Patient's initial sepsis screen is negative. Does the patient have a suspected source of infection? No. Patient's initial sepsis screen is negative. Risk Assessment: Do you want to hurt yourself or someone else? Patient reports no desire to harm self or others. Onset of symptoms was October 10, 2022. 23:21 Method Of Arrival: Wheelchair aa9 23:21 Acuity: RAUL 3 aa9 Triage Assessment: 23:23 General: Appears comfortable, slender, Behavior is calm, cooperative, appropriate for aa9 age. Pain: Denies pain. Neuro: Level of Consciousness is awake, alert, obeys commands, Oriented to person, place, time, situation. Cardiovascular: Patient's skin is warm and dry. Respiratory: Airway is patent Respiratory effort is even, unlabored. GI: No signs and/or symptoms were reported involving the gastrointestinal system. : No signs and/or symptoms were reported regarding the genitourinary system. Derm: Skin is intact, is thin. Historical: - Home Meds: 10/11 00:09 prednisone 10 mg Oral tab once daily [Active]; entecavir 0.5 mg oral tab every other lg3 day [Active]; tacrolimus 3 mg cap oral cap every 12 hours [Active]; atorvastatin 20 mg oral tab 1 tab once daily [Active]; clonazepam 0.5 mg Oral tab 1 tab at bedtime [Active]; ergocalciferol (vitamin D2) 50,000 unit oral tab once a week [Active]; magnesium chloride 64 mg oral TbEC twice a day [Active]; oxycodone 15 mg Oral TbOr 1 tab every 6 hours [Active]; Januvia 100 mg oral tab 1 tab once daily [Active]; - PMHx: 10/10 23:23 Cirrhosis; Diabetes - NIDDM; aa9 - PSHx: 23:23 Liver Transplant; section; aa9 - Immunization history:: Client reports receiving the 2nd dose of the Covid vaccine. - Social history:: Smoking status: Patient denies any tobacco usage or history of. Screenin:24 Abuse screen: Denies threats or abuse. Denies injuries from another. Nutritional aa9 screening: No deficits noted. Tuberculosis screening: No symptoms or risk factors identified. 10/11 01:10 [facility] ED Fall Risk Assessment (Adult) History of falling in the last 3 months, lg3 including since admission No falls in past 3 months (0 pts). Assessment: 01:10 General: Appears in no apparent distress. comfortable, Behavior is calm, cooperative. lg3 Pain: Denies pain. Neuro: No deficits noted. Alejandra Agitation-Sedation Scale (RASS): 0 - Alert and Calm Level of Consciousness is awake, alert, obeys commands, Oriented to person, place, time, situation. Cardiovascular: No deficits noted. Denies chest pain, shortness of breath, Capillary refill < 3 seconds Clubbing of nail beds is absent JVD is absent Patient's skin is warm and dry. Respiratory: No deficits noted. Airway is patent Trachea midline Respiratory effort is even, unlabored, Respiratory pattern is regular, symmetrical. GI: No deficits noted. No signs and/or symptoms were reported involving the gastrointestinal system. : No deficits noted. No signs and/or symptoms were reported regarding the genitourinary system. EENT: No deficits noted. No signs and/or symptoms were reported regarding the EENT system. Derm: No deficits noted. No signs and/or symptoms reported regarding the dermatologic system. Skin is intact, is healthy with good turgor, Skin is dry, Skin is normal, Skin temperature is warm. Musculoskeletal: No deficits noted. No signs and/or symptoms reported regarding the musculoskeletal system. Circulation, motion, and sensation intact. Range of motion: intact in all extremities. Vital Signs: 10/10 23:21 BP 135 / 62; Pulse 76; Resp 21 S; Temp 98.3; Pulse Ox 100% on R/A; Weight 52.16 kg (R); aa9 Height 5 ft. 1 in. (154.94 cm) (R); Pain 0/10; 10/11 01:15 BP 128 / 68; Pulse 72; Resp 18 S; Pulse Ox 100% on R/A; lg3 10/10 23:21 Body Mass Index 21.73 (52.16 kg, 154.94 cm) aa9 ED Course: 10/10 22:56 Patient arrived in ED. jj6 23:02 Allison Ramirez FNP-C [facility] snw 23:02 Evens Moss MD is Attending Physician. snw 23:23 Triage completed. aa9 23:24 Arm band placed on. aa9 23:24 Patient has correct armband on for positive identification. Bed in low position. Side aa9 rails up X 1. 10/11 00:09 Latonya Bowser, RN is Primary Nurse. lg3 01:10 No provider procedures requiring assistance completed. Inserted saline lock: 22 gauge lg3 in left antecubital area, using aseptic technique. Blood collected. 01:14 IV discontinued, intact, bleeding controlled, No redness/swelling at site. Pressure lg3 dressing applied. Administered Medications: 00:09 Drug: NS 0.9% 1000 ml Route: IV; Rate: 75 ml/hr; Site: left antecubital; lg3 01:14 Follow up: Response: No adverse reaction; IV Status: Completed infusion; IV Intake: lg3 100ml 01:10 Drug: Lasix (furosemide) 20 mg Route: IVP; Site: left antecubital; lg3 01:10 Follow up: Response: No adverse reaction lg3 01:14 Follow up: Response: No adverse reaction lg3 01:10 Drug: Kayexalate (polystyrene) 15 grams Route: PO; lg3 01:10 Follow up: Response: No adverse reaction lg3 01:14 Follow up: Response: No adverse reaction lg3 Medication: 10/10 23:24 VIS not applicable for this client. aa9 Intake: 10/11 01:14 IV: 100ml; Total: 100ml. lg3 Outcome: 00:35 Discharge ordered by . snw 01:13 Discharged to home ambulatory. lg3 01:13 Condition: stable 01:13 Discharge instructions given to patient, Instructed on discharge instructions, follow up and referral plans. Demonstrated understanding of instructions, follow-up care. 01:15 Patient left the ED. lg3 Signatures: Allison Ramirez, EMPLOYMENT ATTORNEY-C EMPLOYMENT ATTORNEY-Csnw Latonya Bowser, RN RN lg3 Cris Candelaria [id number] Cris Walker, RN RN aa9
[2022-10-11] MEDS ORDERED: FUROSEMIDE 20 MG/ 2ML VIAL ONE (00:57)
[2022-10-11] MEDS ORDERED: SOD POLYSTYREN SUL 15 GM/60 ML UCUP ONE (00:58)
[2022-10-11 02:38] VITALS: TEMP 98.3; O2SAT 100
[2022-10-11 02:44] VITALS: BP 128/68
== END 2022-10-11 01:15 | disposition home or self-care (01) ==
LOC: ER 22:56
DX: E87.8 Other disorders of electrolyte and fluid balance, not elsewhere classified (principal); D64.9 Anemia, unspecified; E11.9 Type 2 diabetes mellitus without complications; R10.31 Right lower quadrant pain; R10.32 Left lower quadrant pain; Z94.4 Liver transplant status
CPT/HCPCS: 96361; 85025; 36415; 86900; 86850; 86901; 84443; 83690; 80053; 96374; 99283; J1940

== ENCOUNTER 2023-01-12 21:30 | Emergency (ER) | payer BC ==
--- OUTSIDE RECORDS SUMMARY | 2023-01-12 21:35 | XMS REPORT | Continuity of Care Document ---
:1960 Author Organization [facility] t Address [address] [facility] [address] [place] [address] Care Team Providers Name Role Phone Catherine ABBOTT, John Primary Care Physician Marianne Lopez MA Attending Clinician Unavailable Maral MARTINEZ, Deja Attending Clinician Unavailable Presley Orr MD Attending Clinician Cheikh Mckeon RN Attending Clinician Unavailable Bryan ABBOTT, Darrell Attending Clinician Jessika MEDICAL DOSIMETRIST, Catalina Prieto Attending Clinician [phone] Farideh Temple Attending Clinician Unavailable Alex Bender MD Attending Clinician Donna Cook Attending Clinician Nat ABBOTT, Adolph Granado Attending Clinician Zully MEDICAL DOSIMETRIST, Malena Gonzales Attending Clinician Ese MEDICAL DOSIMETRIST, Nolvia Ceron Attending Clinician [phone] Heidy Cortez Attending Clinician Unavailable Lucrecia Bacon RN Attending Clinician Unavailable Sheila ABBOTT, Edilia Ortega Attending Clinician Sarah ABBOTT, Allison Pereira Attending Clinician Deb Blackman MA Attending Clinician Unavailable SELLIN, LADI Attending Clinician Unavailable NAPOLEON, ALEX Admitting Clinician Unavailable [id number] Admitting Clinician Unavailable MD DARRELL DIAZ Admitting [...] Liver Disease Active Method[facility] transplant transplant 12-13 st ed ed 00:00: Hospita 00 l Preop Preop Disease Active Overview: Method i cardiovasc cardiovasc 3-[address] ular exam ular exam 00:00: g of this H ospita 00 note l might be different from the original. 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 12-24 and and 00:00: Hospita articular articular 00 [...] diabetes, 12-24 st controlled controlled 00:00: Ho spita , with , with 00 l peripheral peripheral neuropathy neuropathy Hepatitis Hepatitis Disease Active Met hodi C virus C virus 12-24 st infection infection 00:00: Hosp jose 00 l S/P repair S/P repair Disease Active M ethodi of ventral of ventral st hernia hernia 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 MCC Disease Active Met hodi 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 st use of use of Hospita immunosupp immunosupp l ressive ressive drug drug Allergies, Adverse Reactions, Alerts Allergy Allergy Status Severity Reaction(s) Onset Inactive Treating Comm ents Source Name Type Date Date Clinician No Known Propensi Active Method i Drug ty to 01-15 st Allergie adverse 00:00: Hospita s reaction 00 l s to drug Family History Family Member Diagnosis Comments Start Date Stop Date Source Natural father Diabetes [facility] Natural father Hypertension [facility] Natural mother Cancer [facility] Natural mother Hypertension [facility] Social History Social Habit Start Date Stop Date Quantity Comments Source Gender identity 2021-08-20 Identifies as Method ist 08:32:44 female gender [facility] (finding) Sexual orientation [facility] Hospital History of Social 2022-11-05 2022-11-[address] function 00:00:00 00:00:00 Hospital Alcohol intake 2022-09-23 2022-09-23 Current Sikhism 00:00:00 00:00:00 non-drinker of Hospital alcohol (finding) Tobacco use and 2017-10-21 2017-10-21 Smokeless tobacco [facility] exposure 00:00:00 00:00:00 non-user Hospital Sex Assigned At [birth year] F Sikhism 00:00:00 00:00:00 Hospital Smoking Status Start Date Stop Date Source Never smoked tobacco [facility]ism H ospital Medications Ordered Filled Start Stop Current Ordering Indication Dosage Frequency Signature Comments Components Source Medication Medication Date Date Medication? Clinician (SIG) Name Name entecavir 2023-0 Yes .5mg Q2D Take 1 Method i (BARACLUDE) 3-[address] 0.5 MG 00:00: (0.5 mg Hospita tablet 00 total) by l mouth every other day. tacrolimus 2022-0 Yes [id number] 3mg Q.5D Take 3 Methodi (PROGRAF) 1 3-[address] MG capsule 00:00: (3 mg Hospit a 00 total) by l mouth 2 (two) times a day. tacrolimus 2022-0 2022- No [id number] 3mg Q.5D Take 3 Methodi (PROGRAF) 1 3-13 03-[address] MG capsule 00:00: 00:00 (3 mg Hospi ta 00 :00 total) by l mouth 2 (two) times a day. predniSONE 2022-0 2022- No 10mg QD Take 1 Meth matheus (DELTASONE) 1-25 02-25 tablet (10 s t 10 mg 00:00: 05:59 mg total) Hospit a tablet 00 :00 by mouth l daily for 30 days. entecavir 2022-0 2022- No .5mg Q48H Take 1 Metho di (BARACLUDE) 1-25 02-[address] 0.5 MG 00:00: 05:59 (0.5 mg Hospita tablet 00 :00 total) by l mouth every other day for 30 days. predniSONE 2022-0 2022- No 10mg QD Take 1 Meth matheus (DELTASONE) 1-25 02-25 tablet (10 s t 10 mg 00:00: 05:59 mg total) Hospit a tablet 00 :00 by mouth l daily for 30 days. entecavir 2022-0 2022- No .5mg Q48H Take 1 Metho di (BARACLUDE) 1-25 02-[address] 0.5 MG 00:00: 05:59 (0.5 mg Hospita tablet 00 :00 total) by l mouth every other day for 30 days. predniSONE 2022-0 2022- No 10mg QD Take 1 Meth matheus (DELTASONE) 1-25 02-25 tablet (10 s t 10 mg 00:00: 05:59 mg total) Hospit a tablet 00 :00 by mouth l daily for 30 days. entecavir 2022-0 2022- No .5mg Q48H Take 1 Metho di (BARACLUDE) 1-25 02-[address] 0.5 MG 00:00: 05:59 (0.5 mg Hospita tablet 00 :00 total) by l mouth every other day for 30 days. tacrolimus 2022- Yes [id number] 3mg Q.5D Take 3 Methodi (PROGRAF) 1 1-[address] MG capsule 00:00: (3 mg Hospit a 00 total) by l mouth 2 (two) times a day. tacrolimus Yes [id number] 3mg Q.5D Take 3 [facility] (PROGRAF) 1 1-[address] MG capsule 00:00: (3 mg Hospit a 00 total) by l mouth 2 (two) times a day. tacrolimus 2022- No [id number] 3mg Q.5D Take 3 Methodi (PROGRAF) 1 1-24 03-[address] MG capsule 00:00: 00:00 (3 mg Hospi ta 00 :00 total) by l mouth 2 (two) times a day. everolimus, 2021-09- No [id number] 1.5mg Q.5D Take 3 Methodi immunosuppr -11 30-[address] essive, 00:00: 00:00 (1.5 mg Hospit a (Zortress) 00 :00 total) by l 0.5 mg mouth 2 tablet (two) times a day. everolimus, 2021-09- No [id number] 1.5mg Q.5D Take 3 Methodi immunosuppr 09-04-[address] essive, 00:00: 00:00 (1.5 mg Hospit a ([place]ress) 00 :00 total) by l 0.5 mg mouth 2 tablet (two) times a day. everolimus, 2021-09- No [id number] 1.5mg Q.5D Take 3 Methodi immunosuppr 09-04-[address] essive, 00:00: 00:00 (1.5 mg Hospit a ([place]ress) 00 :00 total) by l 0.5 mg mouth 2 tablet (two) times a day. entecavir 2021-09- No [id number] .5mg QD Take 1 Methodi (BARACLUDE) 0-12 01-[address] 0.5 MG 00:00: 00:00 (0.5 mg Hospita tablet 00 :00 total) by l mouth daily. entecavir 2021-09- No [id number] .5mg QD Take 1 [facility] (BARACLUDE) [address] 0.5 MG 00:00: 00:00 (0.5 mg Hospita tablet 00 :00 total) by l mouth daily. entecavir 2021-09- No [id number] .5mg QD Take 1 [facility] (BARACLUDE) 09-[address] 0.5 MG 00:00: 00:00 (0.5 [...] times a tablet day. tacrolimus 2022- No [id number] Take 2 [facility] (PROGRAF) 1 01-[address] MG capsule 00:00: 00:00 (2 mg Hospi ta 00 :00 total) by l mouth every morning AND 3 capsules (3 mg total) every evening. tacrolimus 2022- No [id number] Take 2 Methodi (PROGRAF) 1 01-[address] MG capsule 00:00: 00:00 (2 mg Hospi ta 00 :00 total) by l mouth every morning AND 3 capsules (3 mg total) every evening. tacrolimus 2022- No [id number] Take 2 [facility] (PROGRAF) 1 5-12 -[address] MG capsule 00:00: 00:00 (2 mg Hospi ta 00 :00 total) by l mouth every morning AND 3 capsules (3 mg total) every evening. tacrolimus 2021- No [id number] Take 2 Methodi (PROGRAF) 1 4-14 05-[address] MG capsule 00:00: 00:00 (2 mg Hospi ta 00 :00 total) by l mouth every morning AND 3 capsules (3 mg total) every evening. tacrolimus 2021- No [id number] Take 2 Methodi (PROGRAF) 1 4-14 05-[address] MG capsule 00:00: 00:00 (2 mg Hospi ta 00 :00 total) by l mouth every morning AND 3 capsules (3 mg total) every evening. ergocalcife 2022- No [id number] Q7D Take 1 M ethodi rol 10-[address] (VITAMIN 00:00: 05:59 (50,000 Hospi ta D2) 50,000 00 :00 Units l unit total) by capsule mouth once a week. ergocalcife 2022- No [id number] Q7D Take 1 M ethodi rol 2-23 10-[address] (VITAMIN 00:00: 05:59 (50,000 Hospi ta D2) 50,000 00 :00 Units l unit total) by capsule mouth once a week. ergocalcife 2022- No [id number] Q7D Take 1 M ethodi rol -[address] (VITAMIN 00:00: 05:59 (50,000 Hospi ta D2) 50,000 00 :00 Units l unit total) by capsule mouth once a week. everolimus, 2021- No [id number] 1.5mg Q.5D Take 3 Methodi immunosuppr - 11-[address] essive, 00:00: 00:00 (1.5 mg Hospit a ([place]) 00 :00 total) by l 0.5 mg mouth 2 tablet (two) times a day. everolimus, 2021- No [id number] 1.5mg Q.5D Take 3 Methodi immunosuppr 2-22 11-[address] essive, 00:00: 00:00 (1.5 mg Hospit a ([place]ress) 00 :00 total) by l 0.5 mg mouth 2 tablet (two) times a day. everolimus, 2021- No [id number] 1.5mg Q.5D Take 3 Methodi immunosuppr 2-22 11-[address] essive, 00:00: 00:00 (1.5 mg [...] 00 EVERY DAY l entecavir 2021- No [id number] .5mg QD Take 1 Methodi (BARACLUDE) 05-[address] 0.5 MG 00:00: 04:59 (0.5 mg Hospita tablet 00 :00 total) by l mouth daily. entecavir 2021- No [id number] .5mg QD Take 1 [facility] (BARACLUDE) 05-[address] 0.5 MG 00:00: 04:59 (0.5 mg Hospita tablet 00 :00 total) by l mouth daily. entecavir 2021- No [id number] .5mg QD Take 1 Methodi (BARACLUDE) 05-[address] 0.5 MG 00:00: 04:59 (0.5 mg Hospita tablet 00 :00 total) by l mouth daily. SITagliptin Yes 100mg QD Take 1 Met hodi (Januvia) 7-[address] 100 MG 00:00: (100 mg Hospita tablet 00 total) by l mouth daily. SITagliptin 0 Yes 100mg QD Take 1 Met hodi (Januvia) 7-[address] 100 MG 00:00: (100 mg Hospita tablet 00 total) by l mouth daily. SITagliptin 2020-0 Yes 100mg QD Take 1 Met hodi (Januvia) 7-[address] 100 MG 00:00: (100 mg Hospita tablet 00 total) by l mouth daily. aspirin 2020-2021- No 81mg QD Take 1 Methodi (ECOTRIN) 5- 05-27 tablet (81 st 81 MG 00:00: 04:59 mg total) Hospit a enteric 00 :00 by mouth l coated daily. tablet calcium 2020-2021- No 1{tbl} Q.5D Take 1 Metho di carbonate-v 01-[address] itamin D3 00:00: 04:59 mouth 2 Hosp jose 500 mg-200 00 :00 (two) l unit per times a tablet day with meals. aspirin 2020-2021- No 81mg QD Take 1 Methodi (ECOTRIN) 01-24 05-27 tablet (81 st 81 MG 00:00: 04:59 mg total) Hospit a enteric 00 :00 by mouth l coated daily. tablet calcium 2020-2021- No 1{tbl} Q.5D Take 1 Metho di carbonate-v 01-24-[address] itamin D3 00:00: 04:59 mouth 2 Hosp jose 500 mg-200 00 :00 (two) l unit per times a tablet day with meals. aspirin 2020-2021- No 81mg QD Take 1 Methodi (ECOTRIN) 01-24-27 tablet (81 st 81 MG 00:00: 04:59 mg total) Hospit a enteric 00 :00 by mouth l coated daily. tablet calcium 2020-2021- No 1{tbl} Q.5D Take 1 Metho di carbonate-v -24 01-[address] itamin D3 00:00: 04:59 mouth 2 Hosp jose 500 mg-200 00 :00 (two) l unit per times a tablet day with meals. magnesium 2020-2021- No 64mg Q.5D Take 1 Metho di chloride 64 4-23 04-24 tablet (64 s t mg 00:00: 04:59 mg total) Hospita tablet,francesco 00 :00 by mouth 2 l yed release (two) (DR/EC) DR times a tablet day. magnesium 2021- No 64mg Q.5D Take 1 Metho di chloride 64 12-22 tablet (64 s t mg 00:00: 04:59 mg total) Hospita tablet,francesco 00 :00 by mouth 2 l yed release (two) (DR/EC) DR times a tablet day. tacrolimus 2021- No [id number] Take 2 Methodi (PROGRAF) 1 24 -[address] MG capsule 00:00: 04:59 (2 mg Hospi ta 00 :00 total) by l mouth every morning AND 3 capsules (3 mg total) every evening. take 12 hours apart. tacrolimus 2021- No [id number] Take 2 Methodi (PROGRAF) 1 24 -[address] MG capsule 00:00: 04:59 (2 mg Hospi ta 00 :00 total) by l mouth every morning AND 3 capsules (3 mg total) every evening. take 12 hours apart. ergocalcife 2021- No [id number] Q7D Take 1 M ethodi rol 10-[address] (VITAMIN 00:00: 05:59 (50,000 Hospi ta D2) 50,000 00 :00 Units l unit total) by capsule mouth once a week. ergocalcife 2021- No [id number] Q7D Take 1 M ethodi rol 10-[address] (VITAMIN 00:00: 05:59 (50,000 Hospi ta D2) 50,000 00 :00 Units l unit total) by capsule mouth once a week. everolimus, 2021- No [id number] 1.5mg Q12H Take 3 Methodi immunosuppr 09-21-[address] essive, 00:00: 00:00 (1.5 mg Hospit a ([place]ress) 00 :00 total) by l 0.5 mg mouth tablet every 12 (twelve) hours. Dx z94.4 everolimus, 2021- No [id number] 1.5mg Q12H Take 3 Methodi immunosuppr 1-21 02-[address] essive, 00:00: 00:00 (1.5 mg Hospit a ([place]) 00 :00 total) by l 0.5 mg mouth tablet every 12 (twelve) hours. Dx z94.4 lisinopriL 2020-0 Yes TAKE 2 Metho di [...] tablet 00 EVERY DAY l VITAMIN D2 2020-0 202- No Take 1 Meth matheus 50,000 unit 09-29-20 capsule by s t capsule 00:00: 00:00 mouth once Hos darian 00 :00 a week l VITAMIN D2 2020-0 2022- No Take 1 Meth matheus 50,000 unit 09-29-20 capsule by s t capsule 00:00: 00:00 mouth once Hos darian 00 :00 a week l VITAMIN D2 2020-0 2023- No Take 1 Meth matheus 50,000 unit 09-29-20 capsule by s t capsule 00:00: 00:00 mouth once Hos darian 00 :00 a week l clonAZEPAM 2019-0 Yes TAKE BY Meth matheus (KlonoPIN) 7-[address] 0.5 MG 00:00: BEDTIME Hospita tablet 00 l clonAZEPAM 2019-0 Yes TAKE BY Meth matheus (KlonoPIN) 7-[address] 0.5 MG 00:00: BEDTIME Hospita tablet 00 l clonAZEPAM 2019-0 Yes TAKE BY Meth matheus (KlonoPIN) 7-[address] 0.5 MG 00:00: BEDTIME Hospita tablet 00 l oxyCODone 2019-0 Yes 10mg Q6H Take 10 mg Me thodi (ROXICODONE 7-[address] ) 15 MG 00:00: every 6 Hospita immediate 00 (six) l release hours as tablet needed. oxyCODone 2019-0 Yes 10mg Q6H Take 10 mg Me thodi (ROXICODONE 7-[address] ) 15 MG 00:00: every 6 Hospita immediate 00 (six) l release hours as tablet needed. oxyCODone 2019- Yes 10mg Q6H Take 10 mg Me thodi (ROXICODONE 7-[address] ) 15 MG 00:00: every 6 Hospita immediate 00 (six) l release hours as tablet needed. flash 2019- Yes 1{piece Q14D 1 Piece Method i glucose 4-29 } every 14 st sensor 00:00: (fourteen) Hospi ta (FREESTYLE 00 days. l RG 14 DAY SENSOR) kit flash 2019- Yes 1{piece QD 1 Piece Method i [...] l RG 14 DAY SENSOR) kit flash 2019- Yes 1{piece QD 1 Piece Method i glucose 4-29 } daily. st scanning 00:00: Hospita reader misc 00 l blood sugar 2018- Yes Patient is Methodi diagnostic 4-[address] strips 00:00: QID Hospita (FREESTYLE 00 l LITE STRIPS) strip test strips Immunizations Ordered Immunization Filled Immunization Date Status Commen ts Source Name Name [facility] COVID-19 MRNA 2021-05-27 Completed Meth odist VACCINATION 00:00:00 [facility] PFIZER COVID-19 MRNA 2021-05-27 Completed Meth odist VACCINATION 00:00:00 [facility] PFIZER COVID-19 MRNA 2021-05-27 Completed Meth odist VACCINATION 00:00:00 Hospital Vital Signs Vital Name Observation Time Observation Value Comments Source Systolic blood 2022-10-23 20:21:00 192 mm[Hg] Method [facility] Hospital pressure Diastolic blood 2022-10-23 20:21:00 79 [facility]Hg[facility] pressure Heart rate 2022-10-23 20:21:00 71 /min [facility] Respiratory rate 2022-10-23 20:21:00 18 /min [facility] Body height 2022-10-23 20:21:00 162.6 cm [facility] Body weight 2022-10-23 20:21:00 51.71 kg [facility] BMI 2022-10-23 20:21:00 19.57 kg/m2 [facility] Oxygen saturation in 2022-10-23 20:21:00 99 /min [facility] Arterial blood by Pulse oximetry Systolic blood 2022-09-24 18:03:47 118 mm[Hg] Method [facility] pressure Diastolic blood 2022-09-24 18:03:47 58 mm[Hg] [facility] pressure Heart rate 2022-09-24 18:03:47 80 /min [facility] Respiratory rate 2022-09-24 18:03:47 18 /min [facility] Oxygen saturation in 2022-09-24 18:03:47 98 /min [facility] Arterial blood by Pulse oximetry Body temperature 2022-09-24 18:03:47 36.5 Melissa [facility] Body height 2022-09-20 17:09:26 162.6 cm [facility] Body weight 2022-09-20 17:09:26 49.896 kg [facility] BMI 2022-09-20 17:09:26 18.88 kg/m2 [facility] Procedures Procedure Date / Time Performing Clinician Source Performed POC GLUCOSE 2022-09-24 18:04:00 Alex Bender spital POC GLUCOSE 2022-09-24 14:25:00 Alex Bender spital [id number] TACROLIMUS LEVEL, 2022-09-24 11:41:00 Alex Bender [facility] TROUGH EVEROLIMUS LEVEL, TROUGH 2022-09-24 11:41:[address] [facility] POC GLUCOSE 2022-09-24 02:01:00 Alex Bender Ho spital POC GLUCOSE 2022-09-23 21:55:00 Alex Bender Ho spital POC GLUCOSE 2022-09-23 17:27:00 Alex Bender Ho spital POC GLUCOSE 2022-09-23 13:41:00 Alex Bender Ho spital [id number] TACROLIMUS LEVEL, 2022-09-23 10:27:00 [facility] TROUGH Irene BASIC METABOLIC PANEL 2022-09-23 10:27:00 [facility] Irene HEPATIC FUNCTION PANEL 2022-09-23 10:27:00 [facility] Irene CBC WITH PLATELET AND 2022-09-23 10:27:00 [facility] DIFFERENTIAL Irene EVEROLIMUS LEVEL, TROUGH 2022-09-23 10:27:00 [facility] ESTIMATED GFR 2022-09-23 10:27:00 [facility] Irene POC GLUCOSE 2022-09-22 23:03:00 Alex Bender Ho spital US DUPLEX VENOUS UPPER 2022-09-22 20:17:00 [facility] EXTREMITY RIGHT US DUPLEX VENOUS LOWER 2022-09-22 19:45:00 [facility] EXTREMITY RIGHT POC GLUCOSE 2022-09-22 17:20:00 Alex Bender Ho spital POC GLUCOSE 2022-09-22 13:59:00 Alex Bender Ho spital [id number] TACROLIMUS LEVEL, 2022-09-22 11:04:00 [facility] TROUGH Irene BASIC METABOLIC PANEL 2022-09-22 11:04:00 [facility] Irene HEPATIC FUNCTION PANEL 2022-09-22 11:04:00 [facility] Irene CBC WITH PLATELET AND 2022-09-22 11:04:00 [facility] DIFFERENTIAL Irene EVEROLIMUS LEVEL, TROUGH 2022-09-22 11:04:[address] [facility] ESTIMATED GFR 2022-09-22 11:04:00 [facility] Irene POC GLUCOSE 2022-09-22 10:51:00 Alex Bender spital POC GLUCOSE 2022-09-22 05:34:00 Alex Bender spital POC GLUCOSE 2022-09-22 04:21:00 Alex Bender spital POC GLUCOSE 2022-09-21 23:25:00 Alex Bender spital POC GLUCOSE 2022-09-21 17:56:00 Alex Bender spital POC GLUCOSE 2022-09-21 14:40:00 Alex Bender spital SURGICAL PATHOLOGY REQUEST 2022-09-21 13:57:00 [facility] [id number] TACROLIMUS LEVEL, 2022-09-21 09:16:00 [facility] TROUGH Irene EVEROLIMUS LEVEL, TROUGH 2022-09-21 09:16:00 [facility] Irene BASIC METABOLIC PANEL 2022-09-21 09:16:00 [facility] Irene HEPATIC FUNCTION PANEL 2022-09-21 09:16:00 [facility] Irene CBC WITH PLATELET AND 2022-09-21 09:16:00 [facility] DIFFERENTIAL Irene ESTIMATED GFR 2022-09-21 09:16:00 [facility] Irene POC GLUCOSE 2022-09-21 02:32:00 Alex Bender spital POC GLUCOSE 2022-09-21 00:15:00 Napoleon Alex [facility] Ho spital CT AN ELECTIVE 2022-09-20 21:46:00 Adolph Johnsh [facility] Ho spital ENDOTRACHEAL AIRWAY REPAIR, HERNIA, INCISIONAL 2022-09-20 21:37:00 [facility] OR VENTRAL HC NERVE BLOCK TAP BLOCK 2022-09-20 20:43:[address] [facility] BILAT INJECTION HC NERVE BLOCK QUADRATUS 2022-09-20 20:40:08 Nat [facility] Met [facility] LUMBORUM POC GLUCOSE 2022-09-20 19:19:00 Alex Bender spital BASIC METABOLIC PANEL 2022-09-20 17:59:00 [facility] CBC WITH PLATELET AND 2022-09-20 17:59:00 [facility] DIFFERENTIAL [facility] HEPATIC FUNCTION PANEL 2022-09-20 17:59:00 [facility] MAGNESIUM LEVEL 2022-09-20 17:59[facility] 2022-09-20 17:59:00 [facility] TIME (PTT) [facility] PHOSPHORUS LEVEL 2022-09-20 17:59:00 [facility] WITH INR 2022-09-20 17:59:00 [facility] TYPE AND SCREEN 2022-09-20 17:59:00 [facility] ESTIMATED GFR 2022-09-20 17:59:00 [facility] 12-LEAD 2022-09-20 17:45:53 [facility] POC GLUCOSE 2022-09-20 17:10:00 Alex Bender Ho spital COVID-19 QUALITATIVE 2022-09-19 23:02:00 [facility] RT-PCR [facility] COVID-19 QUALITATIVE 2022-09-12 22:02:00 [facility] RT-PCR [facility] COMPREHENSIVE METABOLIC 2021-12-26 17:56:00 Presley Orr [facility] PANEL ESTIMATED GFR 2021-12-26 17:56:00 [facility] CT CHEST WO CONTRAST 2021-12-21 20:24:32 Presley Orr [facility] ABDOMEN WO CONTRAST PELVIS WO CONTRAST CBC WITH PLATELET AND 2021-12-21 17:55:00 [place], [facility] DIFFERENTIAL COMPREHENSIVE METABOLIC 2021-12-21 17:55:00 [facility] PANEL MAGNESIUM LEVEL 2021-12-21 17:55:00 [facility] HEMOGLOBIN A1C 2021-12-21 17:55:00 [facility] LIPID PANEL 2021-12-21 17:55:00 [facility] PARTIAL THROMBOPLASTIN 2021-12-21 17:55:00 [facility] TIME (PTT) PROTHROMBIN TIME WITH INR 2021-12-21 17:55:00 [facility] VITAMIN D 1,25 DIHYDROXY 2021-12-21 17:55:00 [facility] LEVEL, SERUM CYTOMEGALOVIRUS BY PCR 2021-12-21 17:55:00 [facility] VITAMIN D 25 HYDROXY LEVEL 2021-12-21 17:55:00 [facility] THYROID STIMULATING 2021-12-21 17:55:00 [facility] HORMONE GGT 2021-12-21 17:55:00 [facility] PROTEIN, URINE, RANDOM 2021-12-21 17:55:00 [facility] CREATININE LEVEL, URINE, 2021-12-21 17:55:00 [facility] RANDOM [id number] TACROLIMUS LEVEL, 2021-12-21 17:55:00 [facility] RANDOM EVEROLIMUS LEVEL, RANDOM 2021-12-21 17:55:00 [facility] HEPATOCELLULAR CARCINOMA 2021-12-21 17:55:00 [facility] MARKER PANEL HEPATITIS C VIRUS (HCV), 2021-12-21 17:55:00 [facility] QUANTITATIVE PCR ESTIMATED GFR 2021-12-21 17:55:00 [facility] DONOR SPECIFIC ANTIBODY 2021-12-21 17:55:00 [facility] Plan of Care Planned Activity Planned Date Details Comments Source Future Scheduled 2023-01-10 Pneumococcal Vaccine: [facility] Test 11:53:42 Pediatrics (0 to 5 Years) and At-Risk Patients (6 to 64 Years) (1 - PCV) [code = Pneumococcal Vaccine: Pediatrics (0 to 5 Years) and At-Risk Patients (6 to 64 Years) (1 - PCV)] Future Scheduled 2023-01-10 SHINGLES VACCINES (1 Met [facility] Test 11:53:42 of 2) [code = SHINGLES VACCINES (1 of 2)] Future Scheduled 2023-01-10 Screening for [facility] Test 11:53:42 malignant neoplasm of cervix (procedure) [code = 464108175] Future Scheduled 2023-01-10 BREAST CANCER [facility] Test 11:53:42 SCREENING [code = BREAST CANCER SCREENING] Future Scheduled 2023-01-10 COLONOSCOPY SCREENING [facility] Test 11:53:42 [code = COLONOSCOPY SCREENING] Future Scheduled 2023-01-10 HEPATITIS B VACCINES Met [facility] Test 11:53:42 (1 of 3 - Risk 3-dose series) [code = HEPATITIS B VACCINES (1 of 3 - Risk 3-dose series)] Future Scheduled 2023-01-10 DIABETIC FOOT EXAM [facility] Test 11:53:42 [code = DIABETIC FOOT EXAM] Future Scheduled 2023-01-10 DIABETES: RETINAL EYE [facility] Test 11:53:42 EXAM [code = DIABETES: RETINAL EYE EXAM] Future Scheduled 2023-01-10 COVID-19 VACCINE (3 - [facility] Test 11:53:42 Pfizer risk series) [code = COVID-19 VACCINE (3 - Pfizer risk series)] Future Scheduled 2023-01-10 INFLUENZA VACCINE Method [facility] Test 11:53:42 [code = INFLUENZA VACCINE] Future Scheduled 2022-10-10 Pneumococcal Vaccine: [facility] Test 20:20:58 Pediatrics (0 to 5 Years) and At-Risk Patients (6 to 64 Years) (1 - PCV) [code = Pneumococcal Vaccine: Pediatrics (0 to 5 Years) and At-Risk Patients (6 to 64 Years) (1 - PCV)] Future Scheduled 2022-10-10 SHINGLES VACCINES (1 Met [facility] Test 20:20:58 of 2) [code = SHINGLES VACCINES (1 of 2)] Future Scheduled 2022-10-10 Screening for [facility] Test 20:20:58 malignant neoplasm of cervix (procedure) [code = 769023513] Future Scheduled 2022-10-10 BREAST CANCER [facility] Test 20:20:58 SCREENING [code = BREAST CANCER SCREENING] Future Scheduled 2022-10-10 COLONOSCOPY SCREENING [facility] Test 20:20:58 [code = COLONOSCOPY SCREENING] Future Scheduled 2022-10-10 HEPATITIS B VACCINES Met [facility] Test 20:20:58 (1 of 3 - Risk 3-dose series) [code = HEPATITIS B VACCINES (1 of 3 - Risk 3-dose series)] Future Scheduled 2022-10-10 DIABETIC FOOT EXAM [facility] Test 20:20:58 [code = DIABETIC FOOT EXAM] Future Scheduled 2022-10-10 DIABETES: RETINAL EYE [facility] Test 20:20:58 EXAM [code = DIABETES: RETINAL EYE EXAM] Future Scheduled 2022-10-10 COVID-19 VACCINE (3 - [facility] Test 20:20:58 Pfizer risk series) [code = COVID-19 VACCINE (3 - Pfizer risk series)] Future Scheduled 2022-10-10 INFLUENZA VACCINE [facility] Test 20:20:58 [code = INFLUENZA VACCINE] Future Scheduled 2022-10-03 Pneumococcal Vaccine: [facility] Test 13:20:09 Pediatrics (0 to 5 Years) and At-Risk Patients (6 to 64 Years) (1 - PCV) [code = Pneumococcal Vaccine: Pediatrics (0 to 5 Years) and At-Risk Patients (6 to 64 Years) (1 - PCV)] Future Scheduled 2022-10-03 SHINGLES VACCINES (1 Met [facility] Test 13:20:09 of 2) [code = SHINGLES VACCINES (1 of 2)] Future Scheduled 2022-10-03 Screening for [facility] Test 13:20:09 malignant neoplasm of cervix (procedure) [code = 226442255] Future Scheduled 2022-10-03 BREAST CANCER [facility] Test 13:20:09 SCREENING [code = BREAST CANCER SCREENING] Future Scheduled 2022-10-03 COLONOSCOPY SCREENING [facility] Test 13:20:09 [code = COLONOSCOPY SCREENING] Future Scheduled 2022-10-03 HEPATITIS B VACCINES [facility] Test 13:20:09 (1 of 3 - Risk 3-dose series) [code = HEPATITIS B VACCINES (1 of 3 - Risk 3-dose series)] Future Scheduled 2022-10-03 [facility] Test 13:20:09 [code = DIABETIC FOOT EXAM] Future Scheduled 2022-10-03 DIABETES: RETINAL EYE [facility] Test 13:20:09 EXAM [code = DIABETES: RETINAL EYE EXAM] Future Scheduled 2022-10-03 COVID-19 VACCINE (3 - [facility] Test 13:20:09 Pfizer risk series) [code = COVID-19 VACCINE (3 - Pfizer risk series)] Future Scheduled 2022-10-03 INFLUENZA VACCINE [facility] Test 13:20:09 [code = INFLUENZA VACCINE] Encounters Start End Encounter Admission Attending Care Care Encounter Source Date/Time Date/Time Type Type Clinicians Facility Department ID 2022-12-27 2022-12-27 Telephone Jessica, 1.2.840.1 [id number] Methodi 00:00:00 00:00:[address] 3.430.2.7 Hospit a .3.789288 l .8 2022-12-26 2022-12-26 Telephone Maral, 1.2.840.1 [id number] 21 [id number] Methodi 00:00:00 00:00:[address] 3.430.2.7 Hospit a .3.108581 l .8 2022-12-12 2022-12-12 Transcribe Stephen, 1.2.840.1 [id number] 855 [id number] Methodi 00:00:00 00:00:00 [address] 3.430.2.7 Hospit a .3.165513 l .8 2022-12-12 2022-12-12 Travel 1.2.840.1 1.2.419.271 8314 [id number] Methodi 00:00:00 00:00:[address] 3.430.2.7 0.2.7.3.698 Ho spita .3.813718 084.8 l .8 2022-11-22 2022-11-22 Refill Linda, 1.2.840.1 [id number] 4014 Methodi 00:00:00 00:00:[address] 3.430.2.7 Hospit a .3.558396 l .8 2022-11-13 2022-11-13 Refill Linda, 1.2.840.1 [id number] 5486 Methodi 00:00:00 00:00:[address] 3.430.2.7 Hospit a .3.492333 l .8 2022-11-13 2022-11-13 Refill Linda, 1.2.840.1 [id number] 9129 Methodi 00:00:00 00:00:[address] 3.430.2.7 Hospit a .3.384057 l .8 2022-11-11 2022-11-11 Refill Linda, 1.2.840.1 [id number] 4815 Methodi 00:00:00 00:00:[address] 3.430.2.7 Hospit a .3.279416 l .8 2022-10-23 2022-10-31 Office Darrell Diaz 1.2.840.1 [id number] 3 [id number] Methodi 14:15:00 12:52:27 Visit Catalina Rosen 57876.1.[address] 3.430.2.7 Hospit a .3.106638 l .8 2022-10-25 2022-10-25 Refill Linda, 1.2.840.1 [id number] 7394 Methodi 00:00:00 00:00:[address] 3.430.2.7 Hospit a .3.815385 l .8 2022-10-23 2022-10-23 [facility] [id number] 6197 [place] 00:00:00 00:00:00 DARRELL [address] 2022-10-16 2022-10-16 Travel 1.2.840.1 1.2.096.083 8222 [id number] Methodi 00:00:00 00:00:[address] 3.430.2.7 0.2.7.3.698 Ho spita .3.952999 084.8 l .8 2022-09-27 2022-09-27 Patient Maverick, 1.2.840.1 [id number] Methodi 00:00:00 00:00:00 Outreach Farideh 96059.1.1 901 s t 3.430.2.7 Hospit a .3.524205 l .8 2022-09-27 2022-09-27 Patient Maverick, 1.2.840.1 63793 Methodi 00:00:00 00:00:00 Outreach Farideh 59555.1.1 901 s t 3.430.2.7 Hospit a .3.205522 l .8 2022-09-20 2022-09-24 [facility], 1.2.840.1 [id number] 21001 32382 Methodi 10:46:00 18:53:00 Encounter Alex 38363.1.[address] 3.430.2.7 Hospit a .3.424573 l .8 2022-09-20 2022-09-24 [facility], 1.2.840.1 [id number] 21001 28195 Methodi 10:46:00 18:53:00 Encounter Alex 40908.1.[address] 3.430.2.7 Hospit a .3.862646 l .8 2022-09-23 2022-09-23 Telephone Joey, 1.2.840.1 [id number] 21 [id number] Methodi 00:00:00 00:00:[address] [place] 3.430.2.7 Hospi ta .3.648125 l .8 2022-09-23 2022-09-23 Telephone Joey, 1.2.840.1 [id number] 21 [id number] Methodi 00:00:00 00:00:[address] [place] 3.430.2.7 Hospi ta .3.014816 l .8 2022-09-20 2022-09-20 Anesthesia Adolph Johns 1.2.840.1 48666 1038 [id number] Methodi 15:37:00 18:14:00 Event Malena Andrea 65304.1.[address] 3.430.2.7 Hospit a .3.593415 l .8 2022-09-20 2022-09-20 Anesthesia Adolph Johnsh 1.2.840.1 49301 1038 [id number] Methodi 15:37:00 18:14:00 Event Malena Andrea 86038.1.[address] 3.430.2.7 Hospit a .3.630175 l .8 2022-09-20 2022-09-20 Surgery Napoleon, 1.2.840.1 [id number] 8460 Methodi 12:10:00 15:35:[address] 3.430.2.7 Hospit a .3.774208 l .8 2022-09-20 2022-09-20 Surgery Napoleon, 1.2.840.1 [id number] 695712 0500 Methodi 12:10:00 15:35:[address] 3.430.2.7 Hospit a .3.085087 l .8 2022-09-20 2022-09-20 Travel 1.2.840.1 1.2.632.096 2086 398735 Methodi 00:00:00 00:00:[address] 3.430.2.7 0.2.7.3.698 Ho spita .3.627239 084.8 l .8 2022-09-20 2022-09-20 Travel 1.2.840.1 1.2.195.978 8964 479503 Methodi 00:00:00 00:00:[address] 3.430.2.7 0.2.7.3.698 Ho spita .3.197440 084.8 l .8 2022-09-19 2022-09-19 Lab Napoleon, 1.2.840.1 [id number] 747148 6176 Methodi 16:50:00 16:55:[address] 3.430.2.7 Hospit a .3.284039 l .8 2022-09-19 2022-09-19 Lab Napoleon, 1.2.840.1 [id number] 484610 7722 Methodi 16:50:00 16:55:[address] 3.430.2.7 Hospit a .3.565755 l .8 2022-09-19 2022-09-19 Travel 1.2.840.1 1.2.348.545 9281 427474 Methodi 00:00:00 00:00:[address] 3.430.2.7 0.2.7.3.698 Ho spita .3.973228 084.8 l .8 2022-09-19 2022-09-19 [facility], 1.2.840.1 [id number] 21 [id number] Methodi 00:00:00 00:00:00 Only Nolvia 38386.1.[address] [place] 3.430.2.7 Hosp jose .3.366517 l .8 2022-09-19 2022-09-19 Travel 1.2.840.1 1.2.359.579 6537 171827 Methodi 00:00:00 00:00:[address] 3.430.2.7 0.2.7.3.698 Ho spita .3.835893 084.8 l .8 2022-09-19 2022-09-19 [facility], 1.2.840.1 [id number] 21 [id number] Methodi 00:00:00 00:00:00 Only Nolvia 44062.1.[address] [place] 3.430.2.7 Hosp jose .3.324941 l .8 2022-09-16 2022-09-16 Telephone Diego, 1.2.840.1 [id number] 472 [id number] Methodi 00:00:00 00:00:[address] 3.430.2.7 Hospit a .3.295561 l .8 2022-09-16 2022-09-16 Telephone Diego, 1.2.840.1 [id number] 651 [id number] Methodi 00:00:00 00:00:[address] 3.430.2.7 Hospit a .3.166781 l .8 2022-09-12 2022-09-12 [facility] [id number] 1683 [place] 00:00:00 00:00:00 DARRELL [address] 2022-09-12 2022-09-12 [facility] [id number] 9227 [place] 00:00:00 00:00:[address] DARRELL [address] 2022-09-12 2022-09-12 Travel 1.2.840.1 1.2.878.616 5256 962052 Methodi 00:00:00 00:00:[address] 3.430.2.7 0.2.7.3.698 spita .3.497059 084.8 l .8 2022-09-12 2022-09-12 Orders Terry, 1.2.840.1 [id number] 21 [id number] Methodi 00:00:00 00:00:00 Only Nolvia 14556.1.[address] [place] 3.430.2.7 Hosp jose .3.725111 l .8 2022-09-12 2022-09-12 Travel 1.2.840.1 1.2.263.815 5841 875234 Methodi 00:00:00 00:00:[address] 3.430.2.7 0.2.7.3.698 Ho spita .3.223742 084.8 l .8 2022-09-12 2022-09-12 [facility], 1.2.840.1 [id number] 21 [id number] Methodi 00:00:00 00:00:00 Only Nolvia 50723.1.[address] [place] 3.430.2.7 Hosp jose .3.738597 l .8 2022-07-05 2022-07-05 Refill Linda, 1.2.840.1 [id number] 827287 1798 Methodi 00:00:00 00:00:[address] 3.430.2.7 Hospit a .3.369037 l .8 2022-07-05 2022-07-05 Refill Linda, 1.2.840.1 [id number] [id number] 1187 Methodi 00:00:00 00:00:[address] 3.430.2.7 Hospit a .3.385044 l .8 2022-06-21 2022-06-21 Telephone Terry, 1.2.840.1 [id number] Methodi 00:00:00 00:00:[address] [place] 3.430.2.7 Hosp jose .3.179575 l .8 2022-06-21 2022-06-21 [facility], 1.2.840.1 [id number] Methodi 00:00:00 00:00:[address] [place] 3.430.2.7 Hosp jose .3.622905 l .8 2022-06-19 2022-06-19 Office Darrell Diaz 1.2.840.1 [id number] 3 [id number] Methodi 14:15:00 14:30:00 Visit Nolvia Mulligan 78503.1.[address] 3.430.2.7 Hospit a .3.707031 l .8 2022-06-19 2022-06-19 Office Darrell Diaz 1.2.840.1 [id number] 3 [id number] Methodi 14:15:00 14:30:00 Visit Nolvia Mulligan 83147.1.[address] 3.430.2.7 Hospit a .3.569296 l .8 2022-06-12 2022-06-12 Refill Linda, 1.2.840.1 [id number] 4498 Methodi 00:00:00 00:00:[address] 3.430.2.7 Hospit a .3.583083 l .8 2022-06-12 2022-06-12 Refill Linda, 1.2.840.1 [id number] 5419 Methodi 00:00:00 00:00:[address] 3.430.2.7 Hospit a .3.090618 l .8 2022-06-07 2022-06-07 Telephone Bacon, 1.2.840.1 [id number] 2100 348493 Methodi 00:00:00 00:00:[address] 3.430.2.7 Hospit a .3.872976 l .8 2022-06-07 2022-06-07 Telephone Bacon, 1.2.840.1 [id number] 2100 467504 Methodi 00:00:00 00:00:[address] 3.430.2.7 Hospit a .3.376534 l .8 2022-01-11 2022-01-11 Refill Linda, 1.2.840.1 [id number] [id number] 0247 Methodi 00:00:00 00:00:[address] 3.430.2.7 Hospit a .3.253956 l .8 2022-01-10 2022-01-10 Refill Linda, 1.2.840.1 [id number] 5349 Methodi 00:00:00 00:00:[address] 3.430.2.7 Hospit a .3.685096 l .8 2021-12-28 2021-12-28 Refill Sadhu, 1.2.840.1 [id number] 243818 3999 Methodi 00:00:00 00:00:[address] [place] 3.430.2.7 Hospit a .3.445802 l .8 2021-12-28 2021-12-28 Refill Sarah, 1.2.840.1 [id number] 2099 [id number] Methodi 00:00:00 00:00:00 Allison Pereira 63108.1.1 [address]70 [address] 3.430.2.7 Hospit a .3.430927 l .8 2021-12-26 2021-12-26 Office [facility], 1.2.840.1 [id number] [id number] 2846 Methodi 08:30:00 08:45:00 Visit Presley Palacios 77586.1.[address] 3.430.2.7 Hospit a .3.568943 l .8 2021-12-26 2021-12-26 Outpatient [facility], [facility] [id number] 977 [place] 00:00:00 00:00:00 PRESLEY [address] 2021-12-26 2021-12-26 Travel 1.2.840.1 1.2.804.662 7171 617821 Methodi 00:00:00 00:00:[address] 3.430.2.7 0.2.7.3.698 Ho spita .3.656982 084.8 l .8 2021-12-21 2021-12-21 [facility], 1.2.840.1 [id number] 58525 Methodi 12:00:00 23:59:00 Encounter Presley Palacios 30861.1.[address] 3.430.2.7 Hospit a .3.789377 l .8 2021-12-21 2021-12-21 Travel 1.2.840.1 1.2.118.667 0440 501507 Methodi 00:00:00 00:00:[address] 3.430.2.7 0.2.7.3.698 Ho spita .3.692342 084.8 l .8 2021-12-21 2021-12-21 Outpatient STEPHEN, [facility] [id number] 255 [place] 00:00:00 00:00:00 PRESLEY [address] 2021-12-13 2021-12-13 Refill Linda, 1.2.840.1 [id number] 0633 Methodi 00:00:00 00:00:00 Lulúdarlene 34381.1.[address] 3.430.2.7 Hospit a .3.975502 l .8 2021-12-13 2021-12-13 Telephone Brown, 1.2.840.1 [id number] Methodi 00:00:00 00:00:00 Deb M [address]106.1.[address] 3.430.2.7 Hospit a .3.895158 l .8 2021-12-13 2021-12-13 Telephone Brown, 1.2.840.1 [id number] 2099 [id number] Methodi 00:00:00 00:00:00 [place] M [address]6780.1.[address] 3.430.2.7 Hospit a .3.663314 l .8 2021-12-02 2021-12-02 Refill Sarah, 1.2.840.1 [id number] 2099 [id number] Methodi 00:00:00 00:00:00 Allison Randall 38574.1.1 699 s t 3.430.2.7 Hospit a .3.814783 l .8 2021-10-24 2021-10-24 Telephone Maral, 1.2.840.1 [id number] Methodi 00:00:00 00:00:[address] 3.430.2.7 Hospit a .3.978070 l .8 2021-10-23 2021-10-23 Refill Linda, 1.2.840.1 [id number] [id number] 8507 Methodi 00:00:00 00:00:[address] 3.430.2.7 Hospit a .3.356926 l .8 2021-10-22 2021-10-22 Refill Sarah, 1.2.840.1 [id number] 2099 809840 Methodi 00:00:00 00:00:00 Rafik Randall 33651.1.1 778 s t 3.430.2.7 Hospit a .3.378029 l .8 2021-10-19 2021-10-19 Orders Linda, 1.2.840.1 [id number] [id number] 6630 Methodi 00:00:00 00:00:00 Only Loideth 11906.1.[address] 3.430.2.7 Hospit a .3.060198 l .8 2021-10-03 2021-10-03 Telephone Linda, 1.2.840.1 [id number] 2099 [id number] Methodi 00:00:00 00:00:[address] 3.430.2.7 Hospit a .3.074880 l .8 2021-05-17 2021-05-17 Outpatient SELLIN, [facility] [id number] 416 [place] 00:00:00 00:00:00 LADI [address] 2021-04-19 2021-04-19 Outpatient SELLIN, [facility] [id number] 261 [place] 00:00:00 00:00:00 LADI [address] 2021-04-19 2021-04-19 Outpatient SELLIN, [facility] [id number] 261 [place] 00:00:00 00:00:00 LADI [address] 2021-04-19 2021-04-19 Outpatient SELLIN, [facility] [id number] 261 [place] 00:00:00 00:00:00 LADI [address] 2021-04-19 2021-04-19 Outpatient SELLIN, [facility] [id number] 261 [place] 00:00:00 00:00:00 LADI [address] 2021-04-19 2021-04-19 Outpatient SELLIN, [facility] [id number] 261 [place] 00:00:00 00:00:00 LADI Paez [facility] [address] [facility] 2021-01-31 2021-01-31 Outpatient GALATI, [facility] [id number] 951 [place] 00:00:00 00:00:00 PRESLEY [address] 2020-12-15 2020-12-15 Outpatient GALATI, [facility] [id number] 068 [place] 00:00:00 00:00:00 PRESLEY [address] 2020-12-15 2020-12-15 Outpatient GALATI, [facility] [id number] 067 [place] 00:00:00 00:00:00 PRESLEY [address] 2020-12-15 2020-12-15 Outpatient GALATI, [facility] [id number] 067 [place] 00:00:00 00:00:00 PRESLEY [address] 2020-12-15 2020-12-15 Outpatient GALATI, [facility] [id number] 067 [place] 00:00:00 00:00:00 PRESLEY [address] 2020-12-15 2020-12-15 Outpatient GALATI, [facility] [id number] 067 [place] 00:00:00 00:00:00 PRESLEY [address] 2020-04-26 2020-04-26 Outpatient GALATI, [facility] [id number] 360 [place] 00:00:00 00:00:00 PRESLEY [address] 2020-04-10 2020-04-10 Outpatient GALATI, [facility] [id number] 549 [place] 00:00:00 00:00:00 PRESLEY [address] 2020-04-10 2020-04-10 Outpatient GALATI, [facility] [id number] 549 [place] 00:00:00 00:00:00 PRESLEY [address] 2020-04-10 2020-04-10 Outpatient GALATI, [facility] [id number] 549 [place] 00:00:00 00:00:00 PRESLEY [address] 2020-01-14 2020-01-14 Outpatient GALATI, [facility] [id number] 616 [place] 00:00:00 00:00:00 PRESLEY [address] 2019-05-28 2019-05-28 Outpatient SARAH, [facility] [id number] [place] 00:00:00 00:00:00 RAFIK [address] Results Test Description Test Time Test Comments Results Result Comments Source Surgical pathology request 2022-09-24 18:30:32 Test Item Value Reference Range Interpretation Comme nts Case number (test code = 7272763) [id number] Surgical pathology report (test code = See link below for PDF Lab R eport 2255) Result status (test code = 6178335) This is Final Report for [id number] [facility] pathology [id number] 18:30:32 Test Item Value Reference Range Interpretation Comments Case number (test code = [id number]) Surgical pathology See link below for report (test code = PDF Lab Report 2255) Result status (test code This is Final Report = [id number]) for [id number] [facility] pathology [id number] 18:30:32 Test Item Value Reference Range Interpretation Comments Case number (test code = [id number]) Surgical pathology See link below for report (test code = PDF Lab Report 2255) Result status (test code This is Final Report = [id number]) for [id number] [facility]2023-01-24 18:05:00 Test Item Value Reference Range Interpretation Comments POC glucose (test code 184 mg/dL 65-99 H Opera tor Name: Dickey = 14996-6) PatriciaDevice ID: [id number] able: TM Notified stockroom associate Interpretation Abnormal (test code = 01606-7) [facility]2023-01-24 18:05:00 Test Item Value Reference Range Interpretation Comments POC glucose (test code 184 mg/dL 65-99 H Opera tor Name: Dickey = 08568-1) PatriciaDevice ID: [id number] able: TMH Notified stockroom associate Interpretation Abnormal (test code = 38036-9) [facility]2023-01-24 18:05:00 Test Item Value Reference Range Interpretation Comments POC glucose (test code 184 mg/dL 65-99 H Opera tor Name: Dickey = 13918-7) PatriciaDevice ID: [id number] able: TMH Notified stockroom associate Interpretation Abnormal (test code = 51824-4) [address]2023-01-21 06:54:17 Test Item Value Reference Range Interpretation Comments Ventricular rate (test 66 code = 253) Atrial rate (test code = 66 255) CT interval (test code = 108 266) QRSD interval (test code 90 = 260) QT interval (test code = 410 264) QTC interval (test code = 429 265) P axis 1 (test code = 45 267) QRS axis 1 (test code = 69 268) T wave axis (test code = 59 270) EKG impression (test code Sinus rhythm with = 273) short CT-Otherwise normal ECG-- [address]2023-01-21 06:54:17 Test Item Value Reference Range Interpretation Comments Ventricular rate (test 66 code = 253) Atrial rate (test code = 66 255) CT interval (test code = 108 266) QRSD interval (test code 90 = 260) QT interval (test code = 410 264) QTC interval (test code = 429 265) P axis 1 (test code = 45 267) QRS axis 1 (test code = 69 268) T wave axis (test code = 59 270) EKG impression (test code Sinus rhythm with = 273) short CT-Otherwise normal ECG-- [address]2023-01-21 06:54:17 Test Item Value Reference Range Interpretation Comments Ventricular rate (test 66 code = 253) Atrial rate (test code = 66 255) CT interval (test code = 108 266) QRSD interval (test code 90 = 260) QT interval (test code = 410 264) QTC interval (test code = 429 265) P axis 1 (test code = 45 267) QRS axis 1 (test code = 69 268) T wave axis (test code = 59 270) EKG impression (test code Sinus rhythm with = 273) short CT[id number] 03:10:54 Test Item Value Reference Interpretation Comments Range Interpretation Negative results do (test code = not preclude COVID-19 [id number]) infection and should not be used asthe sole basis for treatment or other patient management decisions. Negativeresults must be combined with clinical observations, patient history, andepidemiological information. COVID-19 Not-Detected Not-Detected DISCLAIMER:This qualitative RT-PCR test was result (test code performed using = 72677-1) the [employer] m SARS-CoV-2 Assa y (2CRisk). This assay is available for i n vitro diagnosti c use under Food and Drug Administration (FDA) Emergency Use Authorizati on (EUA) and has been verified f or clinical use by the [facility]. Information on the FDA [...] aci d extraction, amplification, and real-time reverse log operations coordinator polymerase cornell n reaction. COVID-19 See link below for PDF Case Number: qualitative RT-PCR Lab Report [id number] (test code = 7070) [facility] [id number] 03:10:54 Test Item Value Reference Interpretation Comments Range Interpretation Negative results do (test code = not preclude COVID-19 [id number]) infection and should not be used asthe sole basis for treatment or other patient management decisions. Negativeresults must be combined with clinical observations, patient history, andepidemiological information. COVID-19 Not-Detected Not-Detected DISCLAIMER:This qualitative RT-PCR test was result (test code performed using = 49753-0) the [employer] m SARS-CoV-2 Assa y (2CRisk). This assay is available for i n vitro diagnosti c use under Food and Drug Administration (FDA) Emergency Use Authorizati on (EUA) and has been verified f or clinical use by the [facility]. Information on the FDA [...] aci d extraction, amplification, and real-time reverse log operations coordinator polymerase cornell n reaction. COVID-19 See link below for PDF Case Number: qualitative RT-PCR Lab Report [id number] (test code = 7070) [facility] [id number] 03:10:54 Test Item Value Reference Interpretation Comments Range Interpretation Negative results do (test code = not preclude COVID-19 [id number]) infection and should not be used asthe sole basis for treatment or other patient management decisions. Negativeresults must be combined with clinical observations, patient history, andepidemiological information. COVID-19 Not-Detected Not-Detected DISCLAIMER:This qualitative RT-PCR test was result (test code performed using = 14966-5) the [place] m SARS-CoV-2 Assa y (2CRisk). This assay is available for i n vitro diagnosti c use under Food and Drug Administration (FDA) Emergency Use Authorizati on (EUA) and has been verified f or clinical use by the [facility]. Information on the FDA [...] aci d extraction, amplification, and real-time reverse log operations coordinator polymerase cornell n reaction. COVID-19 See link below for PDF Case Number: qualitative RT-PCR Lab Report [id number] 222 PDF (test code = 7070) Dutch Russell-CoV-2 (COVID-19) RNA [Presence] in Respiratory specimen by ALBERT with probe [id number] 21:10:54 Test Item Value Reference Range Interpretation Comments SARS-CoV-2 (COVID-19) RNA Not detected [Presence] in Respiratory specimen by ALBERT with probe detection (test code = 68428-3) Whether patient is employed in a Unknown healthcare setting (test code = 19523-3) Whether the patient has symptoms Unknown related to condition of interest (test code = 97554-5) Whether the patient was Unknown hospitalized for condition of interest (test code = 47393-8) Whether the patient was admitted Unknown to intensive care unit (ICU) for condition of interest (test code = 21716-0) Whether patient resides in a Unknown congregate care setting (test code = 81155-3) status (test code = Unknown 52610-5) Date and time of symptom onset Unknown (test code = 84872-2) BRIEN PARR-CoV-2 (COVID-19) RNA [Presence] in Respiratory specimen by ALBERT with probe [id number] 22:18:32 Test Item Value Reference Range Interpretation Comments SARS-CoV-2 (COVID-19) RNA Not detected [Presence] in Respiratory specimen by ALBERT with probe detection (test code = 86763-6) Whether patient is employed in a Unknown healthcare setting (test code = 24088-5) Whether the patient has symptoms Unknown related to condition of interest (test code = 47116-1) Whether the patient was Unknown hospitalized for condition of interest (test code = 64220-9) Whether the patient was admitted Unknown to intensive care unit (ICU) for condition of interest (test code = 12917-7) Whether patient resides in a Unknown congregate care setting (test code = 83777-9) status (test code = Unknown 99461-4) Date and time of symptom onset Unknown (test code = 86011-1) BRIEN WILL
[2023-01-12] MEDS ORDERED: ACETAMINOPHEN 500 MG TAB ONE (22:42)
[2023-01-12] MEDS ORDERED: VANCOMYCIN 1 GM/VIAL ONE (22:43)
[2023-01-12] MEDS ORDERED: ONDANSETRON 4 MG/2 ML VIAL ONE (22:43)
[2023-01-12] MEDS ORDERED: NA CHLORIDE 0.9% 1,000 ML ONE (22:43)
[2023-01-12] MEDS ORDERED: MORPHINE 2 MG/ML SYR ONE (22:43)
[2023-01-12] MEDS ORDERED: NA CHLORIDE 0.9% 250 ML ONE (22:43)
[2023-01-12] MEDS ORDERED: PIPERACIL/TAZO 3.375 GM VIAL IV ONE (22:44)
[2023-01-12] MEDS ORDERED: NA CHLORIDE 0.9% 500 ML ONE (22:44)
[2023-01-12] MEDS ORDERED: NA CHLORIDE 0.9% 100 ML ONE (22:44)
[2023-01-12 23:10] LABS: Lymphocytes % 13.2 % (15.3-44.8); MCV 84.2 fL (80-100); MPV 7.7 fL (7.6-11.3); RBC Red Blood Cell Count 2.73 M/uL (3.86-4.86)
[2023-01-12 23:37] LABS: Albumin 2.7 g/dL (3.4-5.0); Bilirubin Total 0.4 mg/dL (0.2-1.0); Potassium 4.3 mEq/L (3.5-5.1); Protein, Total 7.3 g/dL (6.4-8.2)
[2023-01-12 23:41] LABS: Protime INR 1.33
[2023-01-13] MEDS ORDERED: ALBUTEROL 2.5 MG/3 ML NEB SOL ONE (01:17)
[2023-01-13] MEDS ORDERED: IPRATROPIUM BROM 0.5MG/2.5ML ONE (01:17)
--- NOTE | 2023-01-13 04:14 | ER ---
Nurse's Notes [facility] Name: Carmen Salguero Age: 62 yrs Sex: Female : 1960 Arrival Date: 01/12/2023 Time: 21:30 Bed 5 Private MD: Kadeem Antoine T Diagnosis: Lobar pneumonia, unspecified organism;Acute consolidative pneumonia left lower lung, chronic microcytic anemia, generalized weakness Presentation: 01/12 21:55 Chief complaint: Patient states: fever body aches since yesterday recently completed antibiotics for URI. Coronavirus screen: Vaccine status: Patient reports receiving the 2nd dose of the covid vaccine. Ebola Screen: Patient negative for fever greater than or equal to 101.5 degrees Fahrenheit, and additional compatible Ebola Virus Disease symptoms. Initial Sepsis Screen: Does the patient meet any 2 criteria? No. Patient's initial sepsis screen is negative. Does the patient have a suspected source of infection? No. Patient's initial sepsis screen is negative. Risk Assessment: Do you want to hurt yourself or someone else? Patient reports no desire to harm self or others. 21:55 Method Of Arrival: Wheelchair kl 21:55 Acuity: RAUL 3 kl Triage Assessment: 21:59 General: Appears uncomfortable, ill, Behavior is cooperative. Pain: Complains of pain kl in generalized pain. Historical: - Allergies: 21:58 No Known Allergies; kl - Home Meds: 21:58 oxycodone 15 mg Oral TbOr 1 tab every 6 hours [Active]; atorvastatin 20 mg Oral tab 1 kl tab once daily [Active]; clonazepam 0.5 mg Oral tab 1 tab at bedtime [Active]; entecavir 0.5 mg Oral tab Every other day [Active]; ergocalciferol (vitamin D2) 50,000 unit Oral tab once a week [Active]; Januvia 100 mg Oral tab 1 tab once daily [Active]; magnesium chloride 64 mg Oral TbEC twice a day [Active]; tacrolimus 3 mg cap Oral cap every 12 hours [Active]; - PMHx: 21:58 Cirrhosis; Diabetes - NIDDM; kl - PSHx: 21:58 section; liver transplant; kl - Immunization history:: Adult Immunizations not up to date. - Social history:: Smoking status: Patient denies any tobacco usage or history of. - Family history:: not pertinent. Screenin:00 [facility] ED Fall Risk Assessment (Adult) History of falling in the last 3 months, pf1 including since admission No falls in past 3 months (0 pts) Confusion or Disorientation No (0 pts) Intoxicated or Sedated No (0 pts) Impaired Gait Yes (1 pt) Mobility Assist Device Used No (0 pt) Altered Elimination No (0 pt) Score/Fall Risk Level 0 - 2 = Low Risk Oriented to surroundings, Maintained a safe environment, Educated pt \T\ family on fall prevention, incl call for assistance when getting out of bed, Assessed \T\ reinforced patient's understanding of fall precautions, Provided non-skid footwear, Hourly rounding (assess needs \T\ fall precautionary measures) done, Used ambulatory aids as needed (educated on \T\ assisted with), Used gait belt as appropriate. 22:00 Abuse screen: Denies threats or abuse. Nutritional screening: No deficits noted. pf1 Tuberculosis screening: No symptoms or risk factors identified. Assessment: 22:00 General: Appears in no apparent distress. uncomfortable, well groomed, well developed, pf1 Behavior is calm, cooperative, appropriate for age, quiet. 22:00 Pain: Complains of pain in right chest wall that radiates to right back,onset 2weeks. pf1 Pain currently is 10 out of 10 on a pain scale. Neuro: No deficits noted. Level of Consciousness is awake, alert, obeys commands, Oriented to person, place, time, situation. Cardiovascular: Capillary refill < 3 seconds Patient's skin is warm and dry. Respiratory: Reports cough that is Airway is patent Trachea midline Respiratory effort is even, unlabored, Respiratory pattern is regular, symmetrical, Breath sounds are clear bilaterally. GI: No deficits noted. Abdomen is flat, non-distended, Bowel sounds. : No deficits noted. No signs and/or symptoms were reported regarding the genitourinary system. EENT: Reports nasal congestion nasal discharge that is green with fever. Derm: No deficits noted. No signs and/or symptoms reported regarding the dermatologic system. Musculoskeletal: Reports fatigue with bodyaches. 23:00 Reassessment: Patient appears in no apparent distress at this time. Patient and/or pf1 family updated on plan of care and expected duration. Pain level reassessed. Patient is alert, oriented x 3, equal unlabored respirations, skin warm/dry/pink. Patient states symptoms have improved. 01/13 00:00 Reassessment: Patient appears in no apparent distress at this time. Patient and/or pf1 family updated on plan of care and expected duration. Pain level reassessed. Patient is alert, oriented x 3, equal unlabored respirations, skin warm/dry/pink. Patient states symptoms have improved. 01:00 Reassessment: Patient appears in no apparent distress at this time. Patient and/or pf1 family updated on plan of care and expected duration. Pain level reassessed. Patient is alert, oriented x 3, equal unlabored respirations, skin warm/dry/pink. Patient states symptoms have improved. 02:00 Reassessment: Patient appears in no apparent distress at this time. Patient and/or pf1 family updated on plan of care and expected duration. Pain level reassessed. Patient is alert, oriented x 3, equal unlabored respirations, skin warm/dry/pink. Patient states symptoms have improved. 03:00 Reassessment: Patient appears in no apparent distress at this time. Patient and/or pf1 family updated on plan of care and expected duration. Pain level reassessed. Patient is alert, oriented x 3, equal unlabored respirations, skin warm/dry/pink. Patient states symptoms have improved. 04:00 Reassessment: Patient appears in no apparent distress at this time. Patient and/or pf1 family updated on plan of care and expected duration. Pain level reassessed. Patient is alert, oriented x 3, equal unlabored respirations, skin warm/dry/pink. Patient states symptoms have improved. 04:57 Reassessment: Patient appears in no apparent distress at this time. Patient and/or pf1 family updated on plan of care and expected duration. Pain level reassessed. Patient is alert, oriented x 3, equal unlabored respirations, skin warm/dry/pink. Patient states symptoms have improved. 05:23 Reassessment: Patient appears in no apparent distress at this time. Patient and/or pf1 family updated on plan of care and expected duration. Pain level reassessed. Patient is alert, oriented x 3, equal unlabored respirations, skin warm/dry/pink. Patient states symptoms have improved. Patient updated on plan of care with transfer. Patient verbalized plan of care understanding. Continue monitoring patient. . 06:17 Reassessment: Patient appears in no apparent distress at this time. Patient and/or pf1 family updated on plan of care and expected duration. Pain level reassessed. Patient is alert, oriented x 3, equal unlabored respirations, skin warm/dry/pink. pt leaving with EMS to transfer to [facility]. Vital Signs: 01/12 21:55 BP 141 / 53; Pulse 80; Resp 18; Temp 98.8(O); Pulse Ox 98% on R/A; Weight 52.16 kg (R); kl Height 5 ft. 3 in. ; Pain 8/10; 23:00 BP 138 / 55; Pulse 73; Resp 15; Pulse Ox 100% on 2 lpm NC; Pain 7/10; pf1 01/13 00:00 BP 124 / 55; Pulse 74; Resp 16; Pulse Ox 97% on 2 lpm NC; pf1 01:00 BP 112 / 59; Pulse 67; Resp 16; Pulse Ox 100% on 2 lpm NC; pf1 02:00 BP 101 / 53; Pulse 66; Resp 16; Pulse Ox 100% on 2 lpm NC; pf1 03:00 BP 106 / 54; Pulse 69; Resp 18; Pulse Ox 100% on 2 lpm NC; pf1 04:00 BP 101 / 53; Pulse 66; Resp 16; Pulse Ox 100% on 2 lpm NC; pf1 05:00 BP 109 / 53; Pulse 66; Resp 16; Temp 98.1; Pulse Ox 100% on 2 lpm NC; Pain 7/10; pf1 05:22 BP 103 / 54; Pulse 61; Resp 18; Temp 98(IR); Pulse Ox 100% on 2 lpm NC; pf1 05:45 BP 105 / 50; Pulse 65; Resp 12; Pulse Ox 100% ; pf1 01/12 21:55 Body Mass Index 20.37 (52.16 kg, 160.02 cm) kl 01/12 21:55 Pain Scale: Adult kl 23:00 Pain Scale: Adult pf1 05:00 Pain Scale: Adult pf1 ED Course: 01/12 21:37 Patient arrived in ED. es 21:38 Kadeem Antoine MD is Private Physician. es 21:43 Horace Brennan MD is Attending Physician. sp4 21:58 Triage completed. kl 22:00 Patient has correct armband on for positive identification. Placed in gown. Bed in low pf1 position. Call light in reach. Side rails up X2. 22:00 Arm band placed on right wrist. pf1 22:50 No provider procedures requiring assistance completed. Inserted saline lock: 20 gauge pf1 in right antecubital area, using aseptic technique. Blood collected. 22:53 CBC with Diff Sent. pf1 22:53 CMP Sent. pf1 22:53 Lactate w/ 2H reflex if indic. Sent. pf1 22:53 Protime (+inr) Sent. pf1 22:53 Ptt, Activated Sent. pf1 23:10 Inserted saline lock: 20 gauge in left antecubital area, using aseptic technique. Blood pf1 collected. 23:24 Blood Culture Adult (2) Sent. pf1 01/13 00:14 Chest Abd Pelvis Wo Con In Process Unspecified. EDMS 05:33 Inocencia lira, RN is Primary Nurse. pf1 06:19 Patient transferred, IV remains in place. pf1 Administered Medications: 01/12 22:15 Drug: Piperacillin-Tazobactam IVPB 3.375 grams Route: IVPB; Infused Over: 60 mins; pf1 Site: right antecubital; 23:15 Follow up: IV Status: Completed infusion; IV Intake: 100ml pf1 23:00 Drug: Acetaminophen PO 1000 mg Route: PO; pf1 01/13 00:00 Follow up: Response: No adverse reaction; Marked relief of symptoms pf1 01/12 23:00 Drug: NS 0.9% IV (30 ml/kg) 30 ml/kg Route: IV; Rate: bolus; Site: right antecubital; pf1 01/13 00:30 Follow up: Response: No adverse reaction; Marked relief of symptoms; IV Status: pf1 Completed infusion 01/12 23:10 Drug: morphine IVP or IV 2 mg Route: IVP; Infused Over: 4 mins; Site: left antecubital; pf1 01/13 00:00 Follow up: Response: No adverse reaction; Marked relief of symptoms; RASS: Alert and pf1 Calm (0) 01/12 23:10 Drug: Ondansetron IVP 4 mg Route: IVP; Site: left antecubital; pf1 01/13 00:00 Follow up: Response: No adverse reaction; Marked relief of symptoms pf1 01/12 23:20 Drug: vancoMYCIN IVPB 1 grams Route: IVPB; Infused Over: 2 hrs; Site: left antecubital; pf1 01/13 01:20 Follow up: IV Status: Completed infusion pf1 01:10 Drug: DuoNeb Nebulize (3:1) (2.5 mg - 0.5 mg) 3 ml Route: Nebulizer; pf1 02:00 Follow up: Response: No adverse reaction; Marked relief of symptoms pf1 06:05 Drug: [place] PO 10 mg-325 mg 1 tabs Route: PO; pf1 06:21 Follow up: Response: Administered at transfer pf1 06:05 Drug: Ondansetron PO 4 mg Route: PO; pf1 06:21 Follow up: Response: administered at transfer pf1 Medication: 06:20 VIS not applicable for this client. pf1 Intake: 01/12 23:15 IV: 100ml; Total: 100ml. pf1 Outcome: 01/13 04:14 ER care complete, transfer ordered by sp4 05:34 Transferred by ground EMS to [facility], Transfer form completed. X-rays pf1 sent w/ patient. 05:34 Transferred Note: Patient report given to JUAN Naranjo at [facility] 05:34 Condition: stable 05:34 Instructed on the need for transfer, Demonstrated understanding of instructions. 06:20 Patient left the ED. pf1 Signatures: Dispatcher [employer] Laure Vargas RN RN kl Salyer, Edna es Finley, Pamala, RN RN pf1 Horace Brennan MD MD sp4
--- NOTE | 2023-01-13 04:14 | EDPHYS ---
Physician Documentation [facility] Name: Carmen Salguero Age: 62 yrs Sex: Female : 1960 Arrival Date: 01/12/2023 Time: 21:30 Bed 5 Private MD: Kadeem Antoine T ED Physician Horace Brennan HPI: 01/12 21:43 This 62 yrs old Female presents to ER via Unassigned with complaints of sp4 Fever, Pain, Liver transplant patient. 01/13 01:09 Very pleasant 62-year-old female with a history of liver transplant in November 2017 at [facility] presents with cute onset of fever, cough, body aches, congestion starting 3 weeks ago. Patient states that she has nonproductive cough, nonbloody cough, fever is of a low-grade, 100.1 at home. Also right-sided pleuritic chest pain associated with pain in the right axilla. Patient is on immunosuppressants daily based on her immunosuppressive regimen for liver transplant. . Patient denied any vomiting. . Historical: - Allergies: 01/12 21:58 No Known Allergies; kl - Home Meds: 21:58 oxycodone 15 mg Oral TbOr 1 tab every 6 hours [Active]; atorvastatin 20 mg Oral tab 1 kl tab once daily [Active]; clonazepam 0.5 mg Oral tab 1 tab at bedtime [Active]; entecavir 0.5 mg Oral tab Every other day [Active]; ergocalciferol (vitamin D2) 50,000 unit Oral tab once a week [Active]; Januvia 100 mg Oral tab 1 tab once daily [Active]; magnesium chloride 64 mg Oral TbEC twice a day [Active]; tacrolimus 3 mg cap Oral cap every 12 hours [Active]; - PMHx: 21:58 Cirrhosis; Diabetes - NIDDM; kl - PSHx: 21:58 section; liver transplant; kl - Immunization history:: Adult Immunizations not up to date. - Social history:: Smoking status: Patient denies any tobacco usage or history of. - Family history:: not pertinent. ROS: 01/13 01:09 Constitutional: positive for fever, chills, body ache and positive for unintentional sp4 weight loss Eyes: Negative for injury, pain, redness, and discharge, ENT: Negative for injury, pain, and discharge, Neck: Negative for injury, pain, and swelling, Cardiovascular: Negative for chest pain, palpitations, and edema, Respiratory: Positive for cough, congestion, body aches, nonproductive cough, positive for right-sided chest wall pain Abdomen/GI: Negative for abdominal pain, nausea, vomiting, diarrhea, and constipation, Back: Negative for injury and pain, : Negative for injury, bleeding, discharge, and swelling, MS/Extremity: Negative for injury and deformity, Skin: Negative for injury, rash, and discoloration, Neuro: Negative for headache, weakness, numbness, tingling, and seizure, Psych: Negative for depression, anxiety, Allergy/Immunology: Negative for hives, rash, and allergies Endocrine: Negative for neck swelling, polydipsia, polyuria, polyphagia, and weight changes Hematologic/Lymphatic: Negative for swollen nodes, abnormal bleeding, and unusual bruising Exam: 01:09 Constitutional: This is a well developed, well nourished patient who is awake, alert sp4 frail female, uncomfortable appearing, yellowish skin discoloration consistent with jaundice. Signs of unintentional weight loss. Head/Face: Normocephalic, atraumatic. Eyes: Pupils equal round and reactive to light, extra-ocular motions intact. Lids and lashes normal. Conjunctiva and sclera are not injected. Cornea within normal limits. Periorbital areas with no swelling, redness, or edema. ENT: Nares patent. No nasal discharge, no septal abnormalities noted. Tympanic membranes are normal and external auditory canals are clear. Oropharynx with no redness, swelling, or masses, exudates, or evidence of obstruction, uvula midline. Mucous membranes moist. Neck: Trachea midline, no thyromegaly or masses palpated, and no cervical lymphadenopathy. Supple, full range of motion without nuchal rigidity, or vertebral point tenderness. No Meningismus. Chest/axilla: Normal chest wall appearance and motion. Nontender with no deformity. No lesions are appreciated. Cardiovascular: Regular rate and rhythm with a normal S1 and S2. No gallops, murmurs, or rubs. Normal PMI, no JVD. No pulse deficits. Respiratory: Lungs have equal breath sounds bilaterally, clear to auscultation and percussion. No rales, rhonchi or wheezes noted. No increased work of breathing, no retractions or nasal flaring. Abdomen/GI: Soft, non-tender, with normal bowel sounds. No distension or tympany. No guarding or rebound. No evidence of tenderness throughout. Extensive scarring from prior liver transplant surgery Back: No spinal tenderness. No costovertebral tenderness. Skin: Warm, dry with normal turgor. Normal color with no rashes, no lesions, and no evidence of cellulitis. MS/ Extremity: Pulses equal, no cyanosis. Neurovascular intact. Full, normal range of motion. Neuro: Awake and alert, GCS 15, oriented to person, place, time, and situation. Cranial nerves II-XII grossly intact. Motor strength 5/5 in all extremities. Sensory grossly intact. Psych: Awake, alert, with orientation to person, place and time. Behavior, mood, and affect are within normal limits 01:09 ECG was reviewed by the Attending Physician. EKG time 2330, normal sinus rhythm at rate sp4 of 74, muscle tremor artifact. There is no ST elevation or depression. No ectopy. Overall normal EKG Vital Signs: 01/12 21:55 BP 141 / 53; Pulse 80; Resp 18; Temp 98.8(O); Pulse Ox 98% on R/A; Weight 52.16 kg (R); kl Height 5 ft. 3 in. ; Pain 8/10; 23:00 BP 138 / 55; Pulse 73; Resp 15; Pulse Ox 100% on 2 lpm NC; Pain 7/10; pf1 01/13 00:00 BP 124 / 55; Pulse 74; Resp 16; Pulse Ox 97% on 2 lpm NC; pf1 01:00 BP 112 / 59; Pulse 67; Resp 16; Pulse Ox 100% on 2 lpm NC; pf1 02:00 BP 101 / 53; Pulse 66; Resp 16; Pulse Ox 100% on 2 lpm NC; pf1 03:00 BP 106 / 54; Pulse 69; Resp 18; Pulse Ox 100% on 2 lpm NC; pf1 04:00 BP 101 / 53; Pulse 66; Resp 16; Pulse Ox 100% on 2 lpm NC; pf1 05:00 BP 109 / 53; Pulse 66; Resp 16; Temp 98.1; Pulse Ox 100% on 2 lpm NC; Pain 7/10; pf1 05:22 BP 103 / 54; Pulse 61; Resp 18; Temp 98(IR); Pulse Ox 100% on 2 lpm NC; pf1 05:45 BP 105 / 50; Pulse 65; Resp 12; Pulse Ox 100% ; pf1 01/12 21:55 Body Mass Index 20.37 (52.16 kg, 160.02 cm) 01/12 21:55 Pain Scale: Adult kl 23:00 Pain Scale: Adult pf1 05:00 Pain Scale: Adult pf1 MDM: 01/12 22:16 Patient medically screened. [facility] 01/13 01:16 Differential diagnosis: viral Infection, bacterial infection, URI, bronchitis, sp4 pneumonia UTI, gastroenteritis. Data reviewed: vital signs, nurses notes, old medical records, lab test result(s), EKG, radiologic studies, CT scan. Consideration of Admission/Observation Patient was admitted/placed on observation. Escalation of care including admission/observation considered. ED course: CT chest abdomen and pelvis has revealed coronary artery atherosclerosis, and small pericardial effusion, no mediastinal node enlargement, there is lingula airspace consolidation consistent with pneumonia. Left lower lobe opacification. In the abdomen CT visualized fluid collection in anterior abdominal wall subcutaneous soft tissue superiorly measuring 2.8 x 7.5 x 1.3 cm. Findings consistent with left lower and lingula consolidation. Pneumonia. Small pericardial effusion. There is also hepatomegaly. 01:21 ED course: Patient's lab additionally revealed acute renal insufficiency creatinine sp4 2.0, significant anemia with hemoglobin 7.7 which is actually close to patient's last measurement of 7.4. . 04:13 ED course: That is negative, influenza is negative, patient was accepted to [address] at [facility] by her transplant team. . 01/12 22:16 Order name: Blood Culture Adult (2) [facility] 01/12 22:16 Order name: CBC with Diff; Complete Time: 23:37 [facility] 01/12 22:16 Order name: CMP; Complete Time: 01:02 [facility] 01/12 22:16 Order name: Lactate w/ 2H reflex if indic.; Complete Time: 23:37 [facility] 01/12 22:16 Order name: Protime (+inr); Complete Time: 01:02 [facility] 01/12 22:16 Order name: Ptt, Activated; Complete Time: 01:02 [facility] 05/15 01:08 Order name: COVID-19 SARS RT PCR; Complete Time: 03:13 sp4 01/13 01:08 Order name: Influenza Screen (a \T\ B); Complete Time: 03:13 sp4 01/13 00:05 Order name: Chest Abd Pelvis Wo Con EDMS 01/12 22:16 Order name: EKG; Complete Time: 22:17 sp4 01/12 22:16 Order name: Cardiac monitoring; Complete Time: 23:24 sp4 01/12 22:16 Order name: EKG - Nurse/Tech; Complete Time: 23:40 sp4 01/12 22:16 Order name: IV Saline Lock - Large Bore; Complete Time: 22:53 sp4 01/12 22:16 Order name: Labs collected and sent; Complete Time: 22:53 sp4 01/12 22:16 Order name: O2 Per Protocol; Complete Time: 22:53 sp4 01/12 22:16 Order name: O2 Sat Monitoring; Complete Time: 22:53 sp4 01/12 22:16 Order name: Vital Signs; Complete Time: 22:53 sp4 EC:09 Rate is 74 beats/min. Rhythm is regular, Normal Sinus Rhythm. QRS [place] is Normal. [place] sp4 interval is normal. QRS interval is normal. QT interval is normal. T waves are Normal. No ST changes noted. Clinical impression: No evidence of ischemia. Interpreted by me. Administered Medications: 01/12 22:15 Drug: Piperacillin-Tazobactam IVPB 3.375 grams Route: IVPB; Infused Over: 60 mins; [facility] Site: right antecubital; 23:15 Follow up: IV Status: Completed infusion; IV Intake: 100ml [facility] 23:00 Drug: Acetaminophen PO 1000 mg Route: PO; 1 01/13 00:00 Follow up: Response: No adverse reaction; Marked relief of symptoms [facility] 01/12 23:00 Drug: NS 0.9% IV (30 ml/kg) 30 ml/kg Route: IV; Rate: bolus; Site: right antecubital; 1 01/13 00:30 Follow up: Response: No adverse reaction; Marked relief of symptoms; IV Status: pf1 Completed infusion 01/12 23:10 Drug: morphine IVP or IV 2 mg Route: IVP; Infused Over: 4 mins; Site: left antecubital; 1 01/13 00:00 Follow up: Response: No adverse reaction; Marked relief of symptoms; RASS: Alert and pf1 Calm (0) 01/12 23:10 Drug: Ondansetron IVP 4 mg Route: IVP; Site: left antecubital; pf1 01/13 00:00 Follow up: Response: No adverse reaction; Marked relief of symptoms pf1 01/12 23:20 Drug: vancoMYCIN IVPB 1 grams Route: IVPB; Infused Over: 2 hrs; Site: left antecubital; pf1 01/13 01:20 Follow up: IV Status: Completed infusion pf1 01:10 Drug: DuoNeb Nebulize (3:1) (2.5 mg - 0.5 mg) 3 ml Route: Nebulizer; pf1 02:00 Follow up: Response: No adverse reaction; Marked relief of symptoms pf1 06:05 Drug: [place] PO 10 mg-325 mg 1 tabs Route: PO; pf1 06:21 Follow up: Response: Administered at transfer pf1 06:05 Drug: Ondansetron PO 4 mg Route: PO; pf1 06:21 Follow up: Response: administered at transfer pf1 Disposition Summary: 01/13/23 04:14 Transfer Ordered Transfer Location: [facility] sp4 Reason: Higher level of care sp4 Condition: Stable sp4 Problem: new sp4 Symptoms: have improved sp4 Accepting Physician: [facility] Transplant team (01/13/23 06:20) pf1 Diagnosis - Lobar pneumonia, unspecified organism sp4 - Acute consolidative pneumonia left lower lung, chronic microcytic anemia, sp4 generalized weakness Forms: - Medication Reconciliation Form sp4 - SBAR form sp4 Signatures: Dispatcher [employer] EDLaure Ya RN Inocencia Simon RN RN pf1 Horace Brennan MD MD sp4 Corrections: (The following items were deleted from the chart) 01/12 23:40 22:16 Accucheck ordered. sp4 pf1 01/13 00:01/12 23:38 Thorax W/ Con+CT.RAD.BRZ ordered. EDMS EDMS 01/13 06:20 04:14 [facility] Transplant team sp4 pf1
[2023-01-13] MEDS ORDERED: HYDROCODONE/APAP 10/325 TAB ONE (06:10)
[2023-01-13] MEDS ORDERED: ONDANSETRON 4 MG (ODT) TAB ONE (06:12)
[2023-01-13 06:51] VITALS: O2SAT 100
[2023-01-13 06:58] VITALS: TEMP 98
[2023-01-13 06:59] VITALS: BP 105/50
--- NOTE | 2023-01-13 11:43 | EKG ---
Test Date: 2023-01-12 Test Time: 23:30:44 Receiving Dock Checker: CLAUDIA MEASUREMENT RESULTS: Intervals: Rate: 74 IL: 130 QRSD: 86 QT: 448 QTc: 497 [place]: P: 78 IL: 130 QRS: 72 T: 74 INTERPRETIVE STATEMENTS: Normal sinus rhythm Possible Left atrial enlargement Possible Anterior infarct, age undetermined Abnormal ECG No previous ECG available for comparison Electronically Signed On 01-13-23 11:41:25 CDT by Bryant Olivo
--- NOTE | 2023-01-14 15:31 | RAD REPORT ---
EXAM DESCRIPTION: CT - Chest Abd Pelvis Wo Con - 01/13/2023 6:38 am CLINICAL HISTORY: CHEST PAIN COMPARISON: None Available. TECHNIQUE: CT of the chest, abdomen and pelvis performed without IV contrast. Suboptimal evaluation of the soft tissues, solid organs, and vasculature due to lack of IV contrast. This exam was performe d according to our departmental dose-optimization program, which includes automated exposure control, adjustment of the mA and/or kV according to patient size and/or use of iterative reconstruction tech nique. FINDINGS: Chest: Thyroid: No abnormalities of the visualized thyroid. Great Vessels: Great vessels have normal anatomic configuration. Thoracic Aorta: Atherosclerotic calcification of thoracic aorta. Pulmonary arteries: The main pulmonary artery is not dilated. Heart: Coronary artery atherosclerosis. Cardiomegaly. Small pericardial effusion. Lymph Nodes: No enlarged mediastinal lymph nodes identified. Esophagus: No abnormalities of the esophagus identified Other: No additional findings. Lungs: Lingular airspace consolidation. Hazy left lower lobe opacity. Pleura: No pleural effusion or pneumothorax. Trachea/Airways: No abnormalities of the visualized trachea or airways. Abdomen: Liver: Hepatomegaly. Gallbladder: Prior cholecystectomy. Spleen, Pancreas, and Adrenal Glands: The spleen, pancreas, and adrenal glands are unremarkable. Kidneys: No hydronephrosis or obstructing ureteral calculus. Vasculature: Aortoiliac atherosclerosis. IVC is unremarkable. Paracaval postoperative change Stomach: The stomach and duodenum have normal course. Other: No free intraperitoneal air. No free fluid or lymphadenopathy. Fluid collection in the ant erior abdominal wall subcutaneous soft tissues superiorly measuring 2.8 x 7.5 x 1.3 cm. Pelvis: Bladder: Urinary bladder is unremarkable. Bowel: No dilated loops of large or small bowel. Scattered diverticula of the colon. Appendix: Normal appendix. Pelvis: Uterus is not enlarged. Bones: Mild to moderate multilevel loss of intervertebral disc height with endplate spondylosis and f acet arthropathy. Degenerative anterolisthesis of L4 over L5. IMPRESSION: 1. Lingular airspace consolidation concerning for pneumonia. 2. Cardiomegaly with coronary artery atherosclerosis. 3. Small pericardial effusion. 4. Hepatomegaly. 5. Diverticulosis without evidence of acute diverticulitis. 6. Fluid collection in the anterior abdominal wall subcutaneous soft tissues superiorly measuring 2 .8 x 7.5 x 1.3 cm. This may represent a postoperative seroma, hematoma, or abscess. Electronically signed by: Luis Armando Huff 01/13/2023 12:37 AM CDT Due to temporary technical issues with the PACS/Fluency reporting system, reports are being signed by the in house radiologist without review as a courtesy to ensure prompt reporting. The interpreting r adiologist is fully responsible for the content of the report.
== END 2023-01-13 06:20 | disposition short-term general hospital (02) ==
LOC: ER 21:30
DX: J18.1 Lobar pneumonia, unspecified organism (principal); D50.9 Iron deficiency anemia, unspecified; R53.1 Weakness; Z20.822 Contact with and (suspected) exposure to COVID-19
CPT/HCPCS: 93005; 87040 ×2; 85025; 36415; 85610; 83605; 85730; 80053; 87804 ×2; 71250; 74176; 94640; 99285; U0003; Q0162; J2543; J7613; J7644; J2270; J2405; J7050; J7040; J7030

== ENCOUNTER 2023-02-26 23:45 | Emergency (ER) | payer BC ==
--- OUTSIDE RECORDS SUMMARY | 2023-02-26 23:49 | XMS REPORT | Continuity of Care Document ---
:1960 Author Organization [facility] t Address [address] [place] [address] Care Team Providers Name Role Phone Catherine ABBOTT, John Primary Care Physician ASKED, NO Attending Clinician Unavailable MIKKI PIKE Attending Clinician Unavailable Marianne Lopez MA Attending Clinician Unavailable Maral MARTINEZ, Deja Attending Clinician Unavailable Presley Orr MD Attending Clinician Cheikh Mckeon RN Attending Clinician Unavailable Joe ABBOTT, Darrell Attending Clinician Jessika SARABIA, Catalina Prieto Attending Clinician [phone] Farideh Temple Attending Clinician Unavailable Alex Bender MD Attending Clinician Donna Cook Attending Clinician Nat ABBOTT, Adolph Granado Attending Clinician Zully ONLINE MEDIA DIRECTOR, Malena Gonzales Attending Clinician Ese SARABIA, Nolvia Ceron Attending Clinician [phone] Heidy Cortez Attending Clinician Unavailable Lucrecia Bacon RN Attending Clinician Unavailable Sheila ABBOTT, Edilia Ortega Attending Clinician Sarah ABBOTT, Allison Pereira Attending Clinician Deb Blackman MA Attending Clinician Unavailable LADI COTTER Attending Clinician Unavailable LIAM SMITH Admitting Clinician Unavailable ALEX BENDER Admitting Clinician Unavailable [id number] Admitting Clinician Unavailable MD DARRELL DIAZ Admitting [...] Disease Active Met hodi deficiency deficiency 12-16 st 00:00: Hospita 00 l Liver Liver Disease Active Methodi transplant transplant 12-13 st ed ed 00:00: Hospita 00 l Preop Preop Disease Active Overview: Method i cardiovasc cardiovasc [address] ular exam ular exam 00:00: g of this H ospita 00 note l might be different from the original. 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 st [...] Date Stop Date Source Natural father Diabetes [facility] Natural father Hypertension [facility] Natural mother Cancer [facility] Natural mother Hypertension [facility] Social History Social Habit Start Date Stop Date Quantity Comments Source Gender identity 2021-08-20 Identifies as Method ist 08:32:44 female gender [facility] (finding) Sexual orientation [facility] Hospital History of Social 2022-11-05 2022-11-[address] function 00:00:00 00:00:00 Hospital Alcohol intake 2022-09-23 2022-09-23 Current [facility] 00:00:00 00:00:00 non-drinker of Hospital alcohol (finding) Tobacco use and 2017-10-21 2017-10-21 Smokeless tobacco [facility] exposure 00:00:00 00:00:00 non-user Hospital Sex Assigned At [birth year] F [facility] 00:00:00 00:00:00 Hospital Smoking Status Start Date Stop Date Source Never smoked tobacco [facility] Medications Ordered Filled Start Stop Current Ordering Indication Dosage Frequency Signature Comments Components Source Medication Medication Date Date Medication? Clinician (SIG) Name Name entecavir 0 Yes .5mg Q2D Take 1 Method i (BARACLUDE) 3-[address] 0.5 MG 00:00: (0.5 mg Hospita tablet 00 total) by l mouth every other day. tacrolimus 2022-0 Yes [id number] 3mg Q.5D Take 3 Methodi (PROGRAF) 1 3-[address] MG capsule 00:00: (3 mg Hospit a 00 total) by l mouth 2 (two) times a day. tacrolimus 2022-0 2022- No [id number] 3mg Q.5D Take 3 Methodi (PROGRAF) 1 3-13 03-[address] MG capsule 00:00: 00:00 (3 mg Hospi ta 00 :00 total) by l mouth 2 (two) times a day. predniSONE 2022-0 2023- No 10mg QD Take 1 Meth matheus (DELTASONE) 1-25 02-25 tablet (10 s t 10 mg 00:00: 05:59 mg total) Hospit a tablet 00 :00 by mouth l daily for 30 days. entecavir 2022-0 202- No .5mg Q48H Take 1 Metho di (BARACLUDE) 1-25 02-[address] 0.5 MG 00:00: 05:59 (0.5 mg Hospita tablet 00 :00 total) by l mouth every other day for 30 days. predniSONE 2022-0 3- No 10mg QD Take 1 Meth matheus (DELTASONE) 1-25 02-25 tablet (10 s t 10 mg 00:00: 05:59 mg total) Hospit a tablet 00 :00 by mouth l daily for 30 days. entecavir 2022-0 202- No .5mg Q48H Take 1 Metho di (BARACLUDE) 1-25 02-[address] 0.5 MG 00:00: 05:59 (0.5 mg Hospita tablet 00 :00 total) by l mouth every other day for 30 days. predniSONE 3-0 2023- No 10mg QD Take 1 Meth matheus (DELTASONE) 1-25 02-25 tablet (10 s t 10 mg 00:00: 05:59 mg total) Hospit a tablet 00 :00 by mouth l daily for 30 days. entecavir 0 2022- No .5mg Q48H Take 1 Metho di (BARACLUDE) 1-25 02-[address] 0.5 MG 00:00: 05:59 (0.5 mg Hospita tablet 00 :00 total) by l mouth every other day for 30 days. tacrolimus 2022-0 Yes [id number] 3mg Q.5D Take 3 Methodi (PROGRAF) 1 1-[address] MG capsule 00:00: (3 mg Hospit a 00 total) by l mouth 2 (two) times a day. tacrolimus 2022-0 Yes [id number] 3mg Q.5D Take 3 Methodi (PROGRAF) 1 1-[address] MG capsule 00:00: (3 mg Hospit a 00 total) by l mouth 2 (two) times a day. tacrolimus 2022- No [id number] 3mg Q.5D Take 3 Methodi (PROGRAF) 1 1-24 03-[address] MG capsule 00:00: 00:00 (3 mg Hospi ta 00 :00 total) by l mouth 2 (two) times a day. everolimus, 2021-09- No [id number] 1.5mg Q.5D Take 3 Methodi immunosuppr 09-04-[address] essive, 00:00: 00:00 (1.5 mg Hospit a ([place]) 00 :00 total) by l 0.5 mg mouth 2 tablet (two) times a day. everolimus, 2021-09- No [id number] 1.5mg Q.5D Take 3 Methodi immunosuppr 09-04-[address] essive, 00:00: 00:00 (1.5 mg Hospit a ([place]) 00 :00 total) by l 0.5 mg mouth 2 tablet (two) times a day. everolimus, 2021-09- No [id number] 1.5mg Q.5D Take 3 Methodi immunosuppr 09-04-[address] essive, 00:00: 00:00 (1.5 mg Hospit a ([place]) 00 :00 total) by l 0.5 mg mouth 2 tablet (two) times a day. entecavir 2021-09- No [id number] .5mg QD Take 1 Methodi (BARACLUDE) 0-[address] 0.5 MG 00:00: 00:00 (0.5 mg Hospita tablet 00 :00 total) by l mouth daily. entecavir 2021-09- No [id number] .5mg QD Take 1 Methodi (BARACLUDE) 0-08 01-[address] 0.5 MG 00:00: 00:00 (0.5 mg Hospita tablet 00 :00 total) by l mouth daily. entecavir 2021-09- No [id number] .5mg QD Take 1 Methodi (BARACLUDE) 0-[address] 0.5 MG 00:00: 00:00 (0.5 [...] times a tablet day. tacrolimus 2022- No [id number] Take 2 Methodi (PROGRAF) 1 01-10-[address] MG capsule 00:00: 00:00 (2 mg Hospi ta 00 :00 total) by l mouth every morning AND 3 capsules (3 mg total) every evening. tacrolimus 2022- No [id number] Take 2 Methodi (PROGRAF) 1 01-10-[address] MG capsule 00:00: 00:00 (2 mg Hospi ta 00 :00 total) by l mouth every morning AND 3 capsules (3 mg total) every evening. tacrolimus No [id number] Take 2 Methodi (PROGRAF) 1 5-12 -[address] MG capsule 00:00: 00:00 (2 mg Hospi ta 00 :00 total) by l mouth every morning AND 3 capsules (3 mg total) every evening. tacrolimus No [id number] Take 2 Methodi (PROGRAF) 1 4-14 05-[address] MG capsule 00:00: 00:00 (2 mg Hospi ta 00 :00 total) by l mouth every morning AND 3 capsules (3 mg total) every evening. tacrolimus No [id number] Take 2 Methodi (PROGRAF) 1 -14 -[address] MG capsule 00:00: 00:00 (2 mg Hospi ta 00 :00 total) by l mouth every morning AND 3 capsules (3 mg total) every evening. ergocalcife 2022- No [id number] Q7D Take 1 M ethodi rol -23 10- capsule st (VITAMIN 00:00: 05:59 (50,000 Hospi ta D2) 50,000 00 :00 Units l unit total) by capsule mouth once a week. ergocalcife No [id number] Q7D Take 1 M ethodi rol 2-23 10-[address] (VITAMIN 00:00: 05:59 (50,000 Hospi ta D2) 50,000 00 :00 Units l unit total) by capsule mouth once a week. ergocalcife No [id number] Q7D Take 1 M ethodi rol 2-23 10-[address] (VITAMIN 00:00: 05:59 (50,000 Hospi ta D2) 50,000 00 :00 Units l unit total) by capsule mouth once a week. everolimus, No [id number] 1.5mg Q.5D Take 3 Methodi immunosuppr 2-22 11-[address] essive, 00:00: 00:00 (1.5 mg Hospit a ([place]) 00 :00 total) by l 0.5 mg mouth 2 tablet (two) times a day. everolimus, 2021- No [id number] 1.5mg Q.5D Take 3 Methodi immunosuppr 2-22 11-[address] essive, 00:00: 00:00 (1.5 mg Hospit a ([place]) 00 :00 total) by l 0.5 mg mouth 2 tablet (two) times a day. everolimus, 2021- No [id number] 1.5mg Q.5D Take 3 Methodi immunosuppr 2-22 [...] 00 EVERY DAY l entecavir 2021- No [id number] .5mg QD Take 1 Methodi (BARACLUDE) 05-[address] 0.5 MG 00:00: 04:59 (0.5 mg Hospita tablet 00 :00 total) by l mouth daily. entecavir 2021- No [id number] .5mg QD Take 1 Methodi (BARACLUDE) 05-[address] 0.5 MG 00:00: 04:59 (0.5 mg Hospita tablet 00 :00 total) by l mouth daily. entecavir 2021- No [id number] .5mg QD Take 1 Methodi (BARACLUDE) 05-02 [...] No 81mg QD Take 1 Methodi (ECOTRIN) 5-26 05-27 tablet (81 st 81 MG 00:00: 04:59 mg total) Hospit a enteric 00 :00 by mouth l coated daily. tablet calcium 2021- No 1{tbl} Q.5D Take 1 Metho di carbonate-v 5-26 05-[address] itamin D3 00:00: 04:59 mouth 2 Hosp jose 500 mg-200 00 :00 (two) l unit per times a tablet day with meals. aspirin 2021- No 81mg QD Take 1 Methodi (ECOTRIN) 5-26 05-27 tablet (81 st 81 MG 00:00: 04:59 mg total) Hospit a enteric 00 :00 by mouth l coated daily. tablet calcium 2021- No 1{tbl} Q.5D Take 1 Metho di carbonate-v 5-26 05-[address] itamin D3 00:00: 04:59 mouth 2 Hosp jose 500 mg-200 00 :00 (two) l unit per times a tablet day with meals. aspirin 2021- No 81mg QD Take 1 Methodi (ECOTRIN) 5-26 05-27 tablet (81 st 81 MG 00:00: 04:59 mg total) Hospit a enteric 00 :00 by mouth l coated daily. tablet calcium 2021- No 1{tbl} Q.5D Take 1 Metho di carbonate-v 5-26 05-[address] itamin D3 00:00: [...] times a tablet day. tacrolimus 2021- No [id number] Take 2 Methodi (PROGRAF) 1 3-24 03-[address] MG capsule 00:00: 04:59 (2 mg Hospi ta 00 :00 total) by l mouth every morning AND 3 capsules (3 mg total) every evening. take 12 hours apart. tacrolimus 2021- No [id number] Take 2 Methodi (PROGRAF) 1 3-24 03-[address] MG capsule 00:00: 04:59 (2 mg Hospi ta 00 :00 total) by l mouth every morning AND 3 capsules (3 mg total) every evening. take 12 hours apart. ergocalcife 2021- No [id number] Q7D Take 1 M ethodi rol 10-[address] (VITAMIN 00:00: 05:59 (50,000 Hospi ta D2) 50,000 00 :00 Units l unit total) by capsule mouth once a week. ergocalcife 2021- No [id number] Q7D Take 1 M ethodi rol 10-[address] (VITAMIN 00:00: 05:59 (50,000 Hospi ta D2) 50,000 00 :00 Units l unit total) by capsule mouth once a week. everolimus, 2021- No [id number] 1.5mg Q12H Take 3 Methodi immunosuppr 09-21-[address] essive, 00:00: 00:00 (1.5 mg Hospit a ([place]) 00 :00 total) by l 0.5 mg mouth tablet every 12 (twelve) hours. Dx z94.4 everolimus, 2021- No [id number] 1.5mg Q12H Take 3 Methodi immunosuppr 1-21 -[address] essive, 00:00: 00:00 (1.5 mg Hospit a ([place]) 00 :00 total) by l 0.5 mg mouth tablet every 12 (twelve) hours. Dx z94.4 lisinopriL 2019-0 Yes TAKE 2 Metho di (PRINIVIL) 6-[address] 10 mg 00:00: MOUTH Hospita tablet 00 EVERY DAY l lisinopriL 2019-0 Yes TAKE 2 Metho di (PRINIVIL) 6-[address] 10 mg 00:00: MOUTH Hospita tablet 00 EVERY DAY l lisinopriL 2019-0 Yes TAKE 2 Metho di (PRINIVIL) 6-[address] 10 mg 00:00: MOUTH Hospita tablet 00 EVERY DAY l VITAMIN D2 0 2022- No Take 1 Meth matheus 50,000 unit 09-29-20 capsule by s t capsule 00:00: 00:00 mouth once Hos darian 00 :00 a week l VITAMIN D2 0 2022- No Take 1 Meth matheus 50,000 unit -29 01-20 capsule by s t capsule 00:00: 00:00 mouth once Hos darian 00 :00 a week l VITAMIN D2 2019-0 2022- No Take 1 Meth matheus 50,000 unit 09-29-20 capsule by s t capsule 00:00: 00:00 mouth once Hos darian 00 :00 a week l clonAZEPAM 2018- Yes TAKE BY Meth matheus (KlonoPIN) 7-[address] 0.5 MG 00:00: BEDTIME Hospita tablet 00 l clonAZEPAM 2018- Yes TAKE BY Meth matheus (KlonoPIN) 7-[address] 0.5 MG 00:00: BEDTIME Hospita tablet 00 l clonAZEPAM 2018- Yes TAKE BY Meth matheus (KlonoPIN) 7-[address] 0.5 MG 00:00: BEDTIME Hospita tablet 00 l oxyCODone 2018- Yes 10mg Q6H Take 10 mg Me [...] l LITE STRIPS) strip test strips flash Yes 1{piece Q14D 1 Piece Method i glucose 4-29 } every 14 st sensor 00:00: (fourteen) Hospi ta (FREESTYLE 00 days. l RG 14 DAY SENSOR) kit flash 2018- Yes 1{piece QD 1 Piece Method i glucose 4-29 } daily. st scanning 00:00: Hospita reader misc 00 l blood sugar 2018-0 Yes Patient is Methodi diagnostic 4-[address] strips 00:00: QID Hospita (FREESTYLE 00 l LITE STRIPS) strip test strips flash 2018- Yes 1{piece Q14D 1 Piece Method i glucose 4-29 } every 14 st sensor 00:00: (fourteen) Hospi ta (FREESTYLE 00 days. l RG 14 DAY SENSOR) kit flash 2018-0 Yes 1{piece QD 1 Piece Method i glucose 4-29 } daily. st scanning 00:00: Hospita reader misc 00 l blood sugar Yes Patient is Methodi diagnostic 4-[address] strips 00:00: QID Hospita (FREESTYLE 00 l LITE STRIPS) strip test strips Immunizations Ordered Immunization Filled Immunization Date Status Commen ts Source Name Name [email or web address] COVID-19 MRNA 2021-05-27 Completed [facility] VACCINATION 00:00:00 Hospital PFIZER COVID-19 MRNA 2021-05-27 Completed Meth [facility]ist VACCINATION 00:00:00 [facility] PFIZER COVID-19 MRNA 2021-05-27 Completed Meth odist VACCINATION 00:00:00 Hospital Vital Signs Vital Name Observation Time Observation Value Comments Source Systolic blood 2022-10-23 20:21:00 192 mm[Hg] [facility] Hospital pressure Diastolic blood 2022-10-23 20:21:00 [facility] Heart rate 2022-10-23 20:21:00 71 /min [facility] Respiratory rate 2022-10-23 20:21:00 18 /min [facility] Body height 2022-10-23 20:21:00 162.6 cm [facility] Body weight 2022-10-23 20:21:00 51.71 kg [facility] BMI 2022-10-23 20:21:00 19.57 kg/m2 [facility] Oxygen saturation in 2022-10-23 20:21:00 99 /min [facility] Arterial blood by Pulse oximetry Systolic blood 2022-09-24 18:03:47 118 mm[Hg] Method [facility] Hospital pressure Diastolic blood 2022-09-24 18:03:47 58 mm[Hg] [facility] Hospital pressure Heart rate 2022-09-24 18:03:47 80 /min [facility] Body temperature 2022-09-24 18:03:47 36.5 Melissa [facility] Respiratory rate 2022-09-24 18:03:47 18 /min [facility] Oxygen saturation in 2022-09-24 18:03:47 98 /min [facility] Arterial blood by Pulse oximetry Body height 2022-09-20 17:09:26 162.6 cm [facility] Body weight 2022-09-20 17:09:26 49.896 kg [facility] BMI 2022-09-20 17:09:26 18.88 kg/m2 [facility] Procedures Procedure Date / Time Performing Clinician Source Performed POC GLUCOSE 2022-09-24 18:04:00 Alex Bendertal POC GLUCOSE 2022-09-24 14:25:00 Alex Bender spital [id number] TACROLIMUS LEVEL, 2022-09-24 11:41:00 Napoleon, [facility] TROUGH EVEROLIMUS LEVEL, TROUGH 2022-09-24 11:41:00 Alex Bender [facility]ly [facility] POC GLUCOSE 2022-09-24 02:01:00 Alex Bender Ho spital POC GLUCOSE 2022-09-23 21:55:00 Alex eBnder Ho spital POC GLUCOSE 2022-09-23 17:27:00 Alex Bender Ho spital POC GLUCOSE 2022-09-23 13:41:00 Alex Bender Ho spital [id number] TACROLIMUS LEVEL, 2022-09-23 10:27:00 [facility] TROUGH Irene BASIC METABOLIC PANEL 2022-09-23 10:27:00 [facility] Irene HEPATIC FUNCTION PANEL 2022-09-23 10:27:00 [facility] Irene CBC WITH PLATELET AND 2022-09-23 10:27:00 [facility] DIFFERENTIAL Irene EVEROLIMUS LEVEL, TROUGH 2022-09-23 10:27:00 [facility] EST[facility] GFR 2022-09-23 10:27:00 [facility] Irene POC GLUCOSE 2022-09-22 23:03:00 Alex Bender Ho spital US DUPLEX VENOUS UPPER 2022-09-22 20:17:00 [facility] EXTREMITY RIGHT US DUPLEX VENOUS LOWER 2022-09-22 19:45:00 [facility] EXTREMITY RIGHT POC GLUCOSE 2022-09-22 17:20:00 Alex Bender Ho spital POC GLUCOSE 2022-09-22 13:59:00 Alex Bender Ho spital [id number] TACROLIMUS LEVEL, 2022-09-22 11:04:00 [facility] TROUGH Irene BASIC METABOLIC PANEL 2022-09-22 11:04:00 [facility] Irene HEPATIC FUNCTION PANEL 2022-09-22 11:04:00 [facility] Irene CBC WITH PLATELET AND 2022-09-22 11:04:00 [facility] DIFFERENTIAL Irene EVEROLIMUS LEVEL, TROUGH 2022-09-22 11:04:00 [facility] ESTIMATED GFR 2022-09-22 11:04:00 [facility] Irene POC GLUCOSE 2022-09-22 10:51:00 Alex Bender spital POC GLUCOSE 2022-09-22 05:34:00 Alex Bender spital POC GLUCOSE 2022-09-22 04:21:00 Alex Bender spital POC GLUCOSE 2022-09-21 23:25:00 Alex Bender spital POC GLUCOSE 2022-09-21 17:56:00 Alex Bender spital POC GLUCOSE 2022-09-21 14:40:00 Alex Bender spital SURGICAL PATHOLOGY REQUEST 2022-09-21 13:57:00 Napoleon [facility] [id number] TACROLIMUS LEVEL, 2022-09-21 09:16:00 [facility] TROUGH Irene EVEROLIMUS LEVEL, TROUGH 2022-09-21 09:16:00 [facility] Irene BASIC METABOLIC PANEL 2022-09-21 09:16:00 [facility] Irene HEPATIC FUNCTION PANEL 2022-09-21 09:16:00 [facility] Irene CBC WITH PLATELET AND 2022-09-21 09:16:00 [facility] DIFFERENTIAL Irene ESTIMATED GFR 2022-09-21 09:16:00 [facility] Irene POC GLUCOSE 2022-09-21 02:32:00 Alex Bender spital POC GLUCOSE 2022-09-21 00:15:00 Felipe [facility]erton [facility] spital DE AN ELECTIVE 2022-09-20 21:46:00 Adolph Johns spital ENDOTRACHEAL AIRWAY REPAIR, HERNIA, INCISIONAL 2022-09-20 21:37:00 Napoleon [facility] OR VENTRAL HC NERVE BLOCK TAP BLOCK 2022-09-20 20:43:17 Nat Adolph Terrellh Met [facility] BILAT INJECTION HC NERVE BLOCK QUADRATUS 2022-09-20 20:40:08 Nat [facility] Met [facility] LUMBORUM POC GLUCOSE 2022-09-20 19:19:00 Alex Bender spital BASIC METABOLIC PANEL 2022-09-20 17:59:00 [facility] CBC WITH PLATELET AND 2022-09-20 17:59:00 [facility] DIFFERENTIAL [facility] HEPATIC FUNCTION PANEL 2022-09-20 17:59:00 [facility] 20[facility]-09-20 [facility]:59[facility] 2022-09-20 17:59:00 [facility] TIME (PTT) [facility] PHOSPHORUS LEVEL 2022-09-20 17:59:00 [facility] PROTHROMBIN TIME WITH INR 2022-09-20 17:59:00 [facility] TYPE AND SCREEN 2022-09-20 17:59:00 [facility] ESTIMATED GFR 2022-09-20 17:59:00 [facility] ECG 12-LEAD 2022-09-20 17:45:53 [facility] POC GLUCOSE 2022-09-20 17:10:00 Alex Bender Ho spital COVID-19 QUALITATIVE 2022-09-19 23:02:00 [facility] RT-PCR [facility] COVID-19 QUALITATIVE 2022-09-12 22:02:00 [facility] RT-PCR [facility] COMPREHENSIVE METABOLIC 2021-12-26 17:56:00 Presley Orr [facility] PANEL ESTIMATED GFR 2021-12-26 17:56:00 Presley Orr [facility] CT CHEST WO CONTRAST 2021-12-21 20:24:32 [place], [facility] ABDOMEN WO CONTRAST PELVIS WO CONTRAST CBC WITH PLATELET AND 2021-12-21 17:55:00 [facility] DIFFERENTIAL COMPREHENSIVE METABOLIC 2021-12-21 17:55:00 [facility] [place] PANEL MAGNESIUM LEVEL 2021-12-21 17:55:00 [facility] HEMOGLOBIN A1C 2021-12-21 17:55:00 [facility] LIPID PANEL 2021-12-21 17:55:00 [facility] PARTIAL THROMBOPLASTIN 2021-12-21 17:55:00 [facility] TIME (PTT) PROTHROMBIN TIME WITH INR 2021-12-21 17:55:00 [facility] VITAMIN D 1,25 DIHYDROXY 2021-12-21 17:55:00 [facility] LEVEL, SERUM CYTOMEGALOVIRUS BY PCR 2021-12-21 17:55:00 [place] [facility] VITAMIN D 25 HYDROXY LEVEL 2021-12-21 17:55:00 [facility] THYROID STIMULATING 2021-12-21 17:55:00 [facility] HORMONE GGT 2021-12-21 17:55:00 [facility] PROTEIN, URINE, RANDOM 2021-12-21 17:55:00 [facility] CREATININE LEVEL, URINE, 2021-12-21 17:55:00 [facility] RANDOM [id number] TACROLIMUS LEVEL, 2021-12-21 17:55:[facility] [place] RANDOM EVEROLIMUS LEVEL, RANDOM 2021-12-21 17:55:00 [facility] HEPATOCELLULAR CARCINOMA 2021-12-21 17:55:00 [facility] MARKER PANEL HEPATITIS C VIRUS (HCV), 2021-12-21 17:55:00 [facility] QUANTITATIVE PCR ESTIMATED GFR 2021-12-21 17:55:00 [facility] DONOR SPECIFIC ANTIBODY 2021-12-21 17:55:00 Presley Orr [facility] Plan of Care Planned Activity Planned Date Details Comments Source Future Scheduled 2023-01-10 Pneumococcal Vaccine: [facility] Test 11:53:42 Pediatrics (0 to 5 Years) and At-Risk Patients (6 to 64 Years) (1 - PCV) [code = Pneumococcal Vaccine: Pediatrics (0 to 5 Years) and At-Risk Patients (6 to 64 Years) (1 - PCV)] Future Scheduled 2023-01-10 SHINGLES VACCINES (1 Met [facility] Test 11:53:42 of 2) [code = SHINGLES VACCINES (1 of 2)] Future Scheduled 2023-01-10 Screening for [facility] Test 11:53:42 malignant neoplasm of cervix (procedure) [code = 264509301] Future Scheduled 2023-01-10 BREAST CANCER [facility] Test 11:53:42 SCREENING [code = BREAST CANCER SCREENING] Future Scheduled 2023-01-10 COLONOSCOPY SCREENING [facility] Test 11:53:42 [code = COLONOSCOPY SCREENING] Future Scheduled 2023-01-10 HEPATITIS B VACCINES Met [facility] Test 11:53:42 (1 of 3 - Risk 3-dose series) [code = HEPATITIS B VACCINES (1 of 3 - Risk 3-dose series)] Future Scheduled 2023-01-10 DIABETIC FOOT EXAM [facility] Test 11:53:42 [code = DIABETIC FOOT EXAM] Future Scheduled 2023-01-10 DIABETES: RETINAL EYE [facility] Test 11:53:42 EXAM [code = DIABETES: RETINAL EYE EXAM] Future Scheduled 2023-01-10 COVID-19 VACCINE (3 - [facility] Test 11:53:42 Pfizer risk series) [code = COVID-19 VACCINE (3 - Pfizer risk series)] Future Scheduled 2023-01-10 INFLUENZA VACCINE Method [facility] Test 11:53:42 [code = INFLUENZA VACCINE] Future Scheduled 2022-10-10 Pneumococcal Vaccine: [facility] Test 20:20:58 Pediatrics (0 to 5 Years) and At-Risk Patients (6 to 64 Years) (1 - PCV) [code = Pneumococcal Vaccine: Pediatrics (0 to 5 Years) and At-Risk Patients (6 to 64 Years) (1 - PCV)] Future Scheduled 2022-10-10 SHINGLES VACCINES (1 Met [facility] Test 20:20:58 of 2) [code = SHINGLES VACCINES (1 of 2)] Future Scheduled 2022-10-10 Screening for [facility] Test 20:20:58 malignant neoplasm of cervix (procedure) [code = [id number]] Future Scheduled 2022-10-10 BREAST CANCER [facility] Test 20:20:58 SCREENING [code = BREAST CANCER SCREENING] Future Scheduled 2022-10-10 COLONOSCOPY SCREENING [facility] Test 20:20:58 [code = COLONOSCOPY SCREENING] Future Scheduled 2022-10-10 HEPATITIS B VACCINES Met [facility] Test 20:20:58 (1 of 3 - Risk 3-dose series) [code = HEPATITIS B VACCINES (1 of 3 - Risk 3-dose series)] Future Scheduled 2022-10-10 DIABETIC FOOT EXAM [facility] Test 20:20:58 [code = DIABETIC FOOT EXAM] Future Scheduled 2022-10-10 DIABETES: RETINAL EYE [facility] Test 20:20:58 EXAM [code = DIABETES: RETINAL EYE EXAM] Future Scheduled 2022-10-10 COVID-19 VACCINE (3 - [facility] Test 20:20:58 Pfizer risk series) [code = COVID-19 VACCINE (3 - Pfizer risk series)] Future Scheduled 2022-10-10 INFLUENZA VACCINE Method [facility] Test 20:20:58 [code = INFLUENZA VACCINE] Future Scheduled 2022-10-03 Pneumococcal Vaccine: [facility] Test 13:20:09 Pediatrics (0 to 5 Years) and At-Risk Patients (6 to 64 Years) (1 - PCV) [code = Pneumococcal Vaccine: Pediatrics (0 to 5 Years) and At-Risk Patients (6 to 64 Years) (1 - PCV)] Future Scheduled 2022-10-03 SHINGLES VACCINES (1 Met [facility] Test 13:20:09 of 2) [code = SHINGLES VACCINES (1 of 2)] Future Scheduled 2022-10-03 Screening for [facility] Test 13:20:09 malignant neoplasm of cervix (procedure) [code = 469277977] Future Scheduled 2022-10-03 BREAST CANCER [facility] Test 13:20:09 SCREENING [code = BREAST CANCER SCREENING] Future Scheduled 2022-10-03 COLONOSCOPY SCREENING [facility] Test 13:20:09 [code = COLONOSCOPY SCREENING] Future Scheduled 2022-10-03 HEPATITIS B VACCINES Met [facility] Test 13:20:09 (1 of 3 - Risk 3-dose series) [code = HEPATITIS B VACCINES (1 of 3 - Risk 3-dose series)] Future Scheduled 2022-10-03 DIABETIC FOOT EXAM [facility] Test 13:20:09 [code = DIABETIC FOOT EXAM] Future Scheduled 2022-10-03 DIABETES: RETINAL EYE [facility] Test 13:20:09 EXAM [code = DIABETES: RETINAL EYE EXAM] Future Scheduled 2022-10-03 COVID-19 VACCINE (3 - [facility] Test 13:20:09 Pfizer risk series) [code = COVID-19 VACCINE (3 - Pfizer risk series)] Future Scheduled 2022-10-03 INFLUENZA VACCINE [facility] Test 13:20:09 [code = INFLUENZA VACCINE] Encounters Start End Encounter Admission Attending Care Care Encounter Source Date/Time Date/Time Type Type Clinicians Facility Department ID 2023-02-03 2023-02-03 Outpatient ASKED, NO [facility] [id number] [place] 00:00:00 00:00:[address] 2023-01-13 2023-01-19 Inpatient [facility] 031 [id number] [place] 00:00:00 00:00:00 KIMBERLY, [address] 2022-12-27 2022-12-27 Telephone Jessica, 1.2.840.1 [id number] Methodi 00:00:00 00:00:[address] 3.430.2.7 Hospit a .3.721839 l .8 2022-12-26 2022-12-26 Telephone Maral, 1.2.840.1 [id number] Methodi 00:00:00 00:00:[address] 3.430.2.7 Hospit a .3.512881 l .8 2022-12-12 2022-12-12 Transcribe Kirby, 1.2.840.1 [id number] Methodi 00:00:00 00:00:[address] 3.430.2.7 Hospit a .3.375652 l .8 2022-12-12 2022-12-12 Travel 1.2.840.1 1.2.753.782 5491 [id number] Methodi 00:00:00 00:00:[address] 3.430.2.7 0.2.7.3.698 Ho spita .3.007927 084.8 l .8 2022-11-22 2022-11-22 Refill Linda, 1.2.840.1 [id number] 3198 Methodi 00:00:00 00:00:[address] 3.430.2.7 Hospit a .3.153420 l .8 2022-11-13 2022-11-13 Refill Linda, 1.2.840.1 [id number] 2058 Methodi 00:00:00 00:00:[address] 3.430.2.7 Hospit a .3.899911 l .8 2022-11-13 2022-11-13 Refill Linda, 1.2.840.1 [id number] 4436 Methodi 00:00:00 00:00:[address] 3.430.2.7 Hospit a .3.224256 l .8 2022-11-11 2022-11-11 Refill Linda, 1.2.840.1 [id number] 2624 Methodi 00:00:00 00:00:[address] 3.430.2.7 Hospit a .3.392792 l .8 2022-10-23 2022-10-31 Office Darrell Diaz 1.2.840.1 [id number] Methodi 14:15:00 12:52:27 Visit Catalina Rosen 15512.1.[address] 3.430.2.7 Hospit a .3.489801 l .8 2022-10-25 2022-10-25 Refill Linda, 1.2.840.1 [id number] 4783 Methodi 00:00:00 00:00:[address] 3.430.2.7 Hospit a .3.333532 l .8 2022-10-16 2022-10-16 Travel 1.2.840.1 1.2.298.984 2114 [id number] Methodi 00:00:00 00:00:[address] 3.430.2.7 0.2.7.3.698 Ho spita .3.308011 084.8 l .8 2022-09-27 2022-09-27 Patient Maverick, 1.2.840.1 [id number] Methodi 00:00:00 00:00:00 Outreach Farideh 93993.1.1 901 s t 3.430.2.7 Hospit a .3.985953 l .8 2022-09-20 2022-09-24 Hospital [facility], 1.2.840.1 [id number] 30483 Methodi 10:46:00 18:53:00 Encounter Alex [address]5520.1.[address] 3.430.2.7 Hospit a .3.647254 l .8 2022-09-23 2022-09-23 Telephone Joey, 1.2.840.1 [id number] 21 [id number] Methodi 00:00:00 00:00:[address] Alaina 3.430.2.7 Hospi ta .3.287927 l .8 2022-09-20 2022-09-20 Anesthesia Adolph Johnsh 1.2.840.1 [id number] Methodi 15:37:00 18:14:00 Event Zully Malena Janet 95808.1.[address] 3.430.2.7 Hospit a .3.818383 l .8 2022-09-20 2022-09-20 Surgery [facility], 1.2.840.1 [id number] 6456 Methodi 12:10:00 15:35:[address] 3.430.2.7 Hospit a .3.804525 l .8 2022-09-20 2022-09-20 Travel 1.2.840.1 1.2.056.123 3753 [id number] Methodi 00:00:00 00:00:[address] 3.430.2.7 0.2.7.3.698 Ho spita .3.115370 084.8 l .8 2022-09-19 2022-09-19 Lab Napoleon, 1.2.840.1 [id number] 3489 Methodi 16:50:00 16:55:[address] 3.430.2.7 Hospit a .3.900118 l .8 2022-09-19 2022-09-19 Travel 1.2.840.1 1.2.064.012 9390 [id number] Methodi 00:00:00 00:00:[address] 3.430.2.7 0.2.7.3.698 Ho spita .3.658133 084.8 l .8 2022-09-19 2022-09-19 Orders Ese, 1.2.840.1 [id number] Methodi 00:00:00 00:00:00 Only Nolvia 79502.1.[address] Catterina 3.430.2.7 Hosp jose .3.966222 l .8 2022-09-16 2022-09-16 Telephone Diego, 1.2.840.1 [id number] 634 [id number] Methodi 00:00:00 00:00:[address] 3.430.2.7 Hospit a .3.344128 l .8 2022-09-12 2022-09-12 Outpatient JOE, [facility] [id number] [place] 00:00:00 00:00:00 DARRELL [address] 2022-09-12 2022-09-12 [facility], [facility] [id number] [place] 00:00:00 00:00:[address]AR[address]LL [address] 2022-09-12 2022-09-12 Travel 1.2.840.1 1.2.665.328 7430 [id number] Methodi 00:00:00 00:00:[address] 3.430.2.7 0.2.7.3.698 Ho spita .3.480105 084.8 l .8 2022-09-12 2022-09-12 [facility], 1.2.840.1 [id number] Methodi 00:00:00 00:00:00 Only Nolvia 26072.1.[address] Catterina 3.430.2.7 Hosp jose .3.490648 l .8 2022-07-05 2022-07-05 Refill Linda, 1.2.840.1 [id number] 6925 Methodi 00:00:00 00:00:[address] 3.430.2.7 Hospit a .3.176735 l .8 2022-06-21 2022-06-21 Telephone [place], 1.2.840.1 [id number] Methodi 00:00:00 00:00:[address] Catterina 3.430.2.7 Hosp jose .3.274947 l .8 2022-06-19 2022-06-19 [facility] [id number] 3 [id number] Methodi 14:15:00 14:30:00 Visit Nolvia Mulligan 83665.1.[address] 3.430.2.7 Hospit a .3.518255 l .8 2022-06-12 2022-06-12 Refill Linda, 1.2.840.1 [id number] 7924 Methodi 00:00:00 00:00:[address] 3.430.2.7 Hospit a .3.521231 l .8 2022-06-07 2022-06-07 Telephone Bacon, 1.2.840.1 [id number] 2100 [id number] Methodi 00:00:00 00:00:[address] 3.430.2.7 Hospit a .3.351326 l .8 2022-01-11 2022-01-11 Refill Linda, 1.2.840.1 [id number] 6728 Methodi 00:00:00 00:00:[address] 3.430.2.7 Hospit a .3.685636 l .8 2022-01-10 2022-01-10 Refill Linda, 1.2.840.1 [id number] 3595 Methodi 00:00:00 00:00:[address] 3.430.2.7 Hospit a .3.964794 l .8 2021-12-28 2021-12-28 Refill Sadhu, 1.2.840.1 [id number] 0684 Methodi 00:00:00 00:00:[address] Ortega 3.430.2.7 Hospit a .3.800485 l .8 2021-12-28 2021-12-28 Refill Sarah, 1.2.840.1 [id number] 2099 [id number] Methodi 00:00:00 00:00:00 Allison Pereira 74933.1.1 670 [address] t 3.430.2.7 Hospit a .3.301358 l .8 2021-12-26 2021-12-26 Office Kirby, 1.2.840.1 [id number] 3476 Methodi 08:30:00 08:45:00 Visit Presley Palacios 98976.1.[address] 3.430.2.7 Hospit a .3.564763 l .8 2021-12-26 2021-12-26 Outpatient KIRBY, [facility] [id number] [address] [place] [address] 00:00:00 00:00:00 PRESLEY [address] 2021-12-26 2021-12-26 Travel 1.2.840.1 1.2.900.606 9167 [id number] Methodi 00:00:00 00:00:[address] 3.430.2.7 0.2.7.3.698 Ho spita .3.892601 084.8 l .8 2021-12-21 2021-12-21 [facility] 1.2.840.1 [id number] 20949 96259 Methodi 12:00:00 23:59:00 Encounter Presley Palacios 19386.1.[address] 3.430.2.7 Hospit a .3.265413 l .8 2021-12-21 2021-12-21 Travel 1.2.840.1 1.2.482.747 5717 [id number] Methodi 00:00:00 00:00:[address] 3.430.2.7 0.2.7.3.698 Ho spita .3.970104 084.8 l .8 2021-12-21 2021-12-21 [facility] [id number] 255 [place] 00:00:00 00:00:00 PRESLEY [address] 2021-12-13 2021-12-13 Refill Linda, 1.2.840.1 [id number] 3484 Methodi 00:00:00 00:00:[address] 3.430.2.7 Hospit a .3.290472 l .8 2021-12-13 2021-12-13 Telephone Brown, 1.2.840.1 [id number] 2099 [id number] Methodi 00:00:00 00:00:00 Deb Gardner 91668.1.[address] 3.430.2.7 Hospit a .3.818087 l .8 2021-12-13 2021-12-13 Telephone Brown, 1.2.840.1 [id number] 2099 [id number] Methodi 00:00:00 00:00:00 Deb Gardner [address]9517.1.[address] 3.430.2.7 Hospit a .3.605927 l .8 2021-12-02 2021-12-02 Refill Sarah, 1.2.840.1 [id number] 2100 [id number] Methodi 00:00:00 00:00:00 Allison Randall 40309.1.1 699 s t 3.430.2.7 Hospit a .3.461006 l .8 2021-10-24 2021-10-24 Telephone Famanias, 1.2.840.1 [id number] Methodi 00:00:00 00:00:[address] 3.430.2.7 Hospit a .3.452210 l .8 2021-10-23 2021-10-23 Refill Linda, 1.2.840.1 [id number] 4659 Methodi 00:00:00 00:00:[address] 3.430.2.7 Hospit a .3.195311 l .8 2021-10-22 2021-10-22 Refill Sarah, 1.2.840.1 [id number] 2099 [id number] Methodi 00:00:00 00:00:00 Allison Randall 73143.1.1 778 s t 3.430.2.7 Hospit a .3.722311 l .8 2021-10-19 2021-10-19 Orders Linda, 1.2.840.1 [id number] 057125 7352 Methodi 00:00:00 00:00:00 Only Loideth 59098.1.[address] 3.430.2.7 Hospit a .3.858632 l .8 2021-10-03 2021-10-03 Telephone Linda, 1.2.840.1 [id number] 2099 [id number] Methodi 00:00:00 00:00:[address] 3.430.2.7 Hospit a .3.647830 l .8 2021-05-17 2021-05-17 Outpatient [facility] [id number] 416 [place] 00:00:00 00:00:00 LADI [address] 2021-04-19 2021-04-19 Outpatient SELLIN, [facility] [id number] 261 [place] 00:00:00 00:00:00 LADI [address] 2021-04-19 2021-04-19 Outpatient SELLIN, [facility] [id number] 261 [place] 00:00:00 00:00:00 LADI [address] 2021-04-19 2021-04-19 Outpatient SELLIN, [facility] [id number] 261 [place] 00:00:00 00:00:00 LADI [address] 2021-04-19 2021-04-19 Outpatient SELLIN, [facility] [id number] 261 [place] 00:00:00 00:00:00 LADI [address] 2021-04-19 2021-04-19 Outpatient SELLIN, [facility] [id number] 261 [place] 00:00:00 00:00:00 LADI [address] 2021-01-31 2021-01-31 Outpatient GALATI, [facility] [id number] 951 [place] 00:00:00 00:00:00 PRESLEY [address] 2020-12-15 2020-12-15 Outpatient GALATI, [facility] [id number] 068 [place] 00:00:00 00:00:00 PRESLEY [address] 2020-12-15 2020-12-15 Outpatient GALATI, [facility] [id number] 067 [place] 00:00:00 00:00:00 PRESLEY [address] 2020-12-15 2020-12-15 Outpatient GALATI, [facility] [id number] [place] 00:00:00 00:00:00 PRESLEY [address] 2020-12-15 2020-12-15 Outpatient GALATI, [facility] [id number] 067 [place] 00:00:00 00:00:00 PRESLEY [address] 2020-12-15 2020-12-15 Outpatient GALATI, [facility] [id number] 067 [place] 00:00:00 00:00:00 PRESLEY [address] 2020-04-26 2020-04-26 Outpatient GALATI, [facility] [id number] 360 [place] 00:00:00 00:00:00 PRESLEY [address] 2020-04-10 2020-04-10 Outpatient GALATI, [facility] [id number] 549 [place] 00:00:00 00:00:00 PRESLEY [address] 2020-04-10 2020-04-10 Outpatient GALATI, [facility] [id number] 549 [place] 00:00:00 00:00:00 PRESLEY [address] 2020-04-10 2020-04-10 Outpatient GALATI, [facility] [id number] 549 [place] 00:00:00 00:00:00 PRESLEY [address] 2020-01-14 2020-01-14 Outpatient GALATI, [facility] [id number] [place] 00:00:00 00:00:00 PRESLEY [address] 2019-05-28 2019-05-28 Outpatient SARAH, [facility] [id number] [place] 00:00:00 00:00:00 ALLISON [address] Results Test Description Test Time Test Comments Results Result Comments Source Surgical pathology request 2022-09-24 18:30:32 Test Item Value Reference Range Interpretation Comme nts Case number (test code = [id number]) [id number] Surgical pathology report (test code = See link below for PDF Lab R eport 2255) Result status (test code = 6321206) This is Final Report [facility] [id number][facility] [id number] 18:30:32 Test Item Value Reference Range Interpretation Comments Case number (test code = [id number]) Surgical pathology See link below for report (test code = PDF Lab Report 2255) Result status (test code This is Final Report = [id number]) for [id number] [facility] [id number] 18:30:32 Test Item Value Reference Range Interpretation Comments Case number (test code = [id number]) Surgical pathology See link below for report (test code = PDF Lab Report 2255) Result status (test code This is Final Report = [id number]) for [id number] [facility] [id number] 18:05:00 Test Item Value Reference Range Interpretation Comments POC glucose (test code 184 mg/dL 65-99 H Opera tor Name: Keli = 76214-1) PatriciaDevice ID: [id number] able: [facility] 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 Interpretation Abnormal (test code = 31630-1) [facility] [id number] 18:05:00 Test Item Value Reference Range Interpretation Comments POC glucose (test code 184 mg/dL 65-99 H Opera tor Name: Keli = 34266-1) PatriciaDevice ID: [id number] able: TM[facility] 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 Interpretation Abnormal (test code = 99818-2) [facility] [id number] 18:05:00 Test Item Value Reference Range Interpretation Comments POC glucose (test code 184 mg/dL 65-99 H Opera tor Name: Keli = 84344-3) PatriciaDevice ID: [id number] able: [facility] 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 Interpretation Abnormal (test code = 29349-1) [address]2023-01-21 06:54:17 Test Item Value Reference Range Interpretation Comments Ventricular rate (test 66 code = 253) Atrial rate (test code = 66 255) DE interval (test code = 108 266) QRSD interval (test code 90 = 260) QT interval (test code = 410 264) QTC interval (test code = 429 265) P axis 1 (test code = 45 267) QRS axis 1 (test code = 69 268) T wave axis (test code = 59 270) EKG impression (test code Sinus rhythm with = 273) short DE-Otherwise normal ECG-- [address]2023-01-21 06:54:17 Test Item Value Reference Range Interpretation Comments Ventricular rate (test 66 code = 253) Atrial rate (test code = 66 255) DE interval (test code = 108 266) QRSD interval (test code 90 = 260) QT interval (test code = 410 264) QTC interval (test code = 429 265) P axis 1 (test code = 45 267) QRS axis 1 (test code = 69 268) T wave axis (test code = 59 270) EKG impression (test code Sinus rhythm with = 273) short DE[id number] 06:54:17 Test Item Value Reference Range Interpretation Comments Ventricular rate (test 66 code = 253) Atrial rate (test code = 66 255) DE interval (test code = 108 266) QRSD interval (test code 90 = 260) QT interval (test code = 410 264) QTC interval (test code = 429 265) P axis 1 (test code = 45 267) QRS axis 1 (test code = 69 268) T wave axis (test code = 59 270) EKG impression (test code Sinus rhythm with = 273) short DE-Otherwise normal [facility] [id number] 03:10:54 Test Item Value Reference Interpretation Comments Range Interpretation Negative results do (test code = not preclude COVID-19 1507552) infection and should not be used asthe sole basis for treatment or other patient management decisions. Negativeresults must be combined with clinical observations, patient history, andepidemiological information. COVID-19 Not-Detected Not-Detected DISCLAIMER:This qualitative RT-PCR test was result (test code performed using = 00678-0) the Akin gardner SARS-CoV-2 Assa y ([employer]). This assay is available for i n vitro diagnosti c use under Food and Drug Administration (FDA) Emergency Use Authorizati on (EUA) and has been verified f or clinical use by the [facility]. Information on the [...] available upon request.METHODO LO GY:This assay utilizes montse ts for nucleic aci d extraction, amplification, and real-time reverse recruiting intern polymerase cornell n reaction. COVID-19 See link below for PDF Case Number: qualitative RT-PCR Lab Report [id number] (test code = 7070) [place] [address] qualitative [id number] 03:10:54 Test Item Value Reference Interpretation Comments Range Interpretation Negative results do (test code = not preclude COVID-19 0972760) infection and should not be used asthe sole basis for treatment or other patient management decisions. Negativeresults must be combined with clinical observations, patient history, andepidemiological information. COVID-19 Not-Detected Not-Detected DISCLAIMER:This qualitative RT-PCR test was result (test code performed using = 82894-7) the Alinity m SARS-CoV-2 Assa y ([employer]). This assay is available for i n vitro diagnosti c use under Food and Drug Administration (FDA) Emergency Use Authorizati on (EUA) and has been verified f or clinical use by the [facility]. Information on the [...] aci d extraction, amplification, and real-time reverse recruiting intern polymerase cornell n reaction. COVID-19 See link below for PDF Case Number: qualitative RT-PCR Lab Report [id number] (test code = 7070) [facility]- qualitative [id number] 03:10:54 Test Item Value Reference Interpretation Comments Range Interpretation Negative results do (test code = not preclude COVID-19 9691312) infection and should not be used asthe sole basis for treatment or other patient management decisions. Negativeresults must be combined with clinical observations, patient history, andepidemiological information. COVID-19 Not-Detected Not-Detected DISCLAIMER:This qualitative RT-PCR test was result (test code performed using = 60736-4) the Alinity m SARS-CoV-2 Assa y ([employer]). This assay is available for i n vitro diagnosti c use under Food and Drug Administration (FDA) Emergency Use Authorizati on (EUA) and has been verified f or clinical use by the [facility]. Information on the [...] available upon request.ROSALINDAO DEBORAH GY:This assay utilizes reagen ts for nucleic aci d extraction, amplification, and real-time reverse recruiting intern polymerase cornell n reaction. COVID-19 See link below for PDF Case Number: qualitative RT-PCR Lab Report [id number] PDF (test code = 7070) [facility] SvqgykawOXNU-FdE-5 (COVID-19) RNA [Presence] in Respiratory specimen by ALBERT with probe [id number] 21:10:54 Test Item Value Reference Range Interpretation Comments SARS-CoV-2 (COVID-19) RNA Not detected [Presence] in Respiratory specimen by ALBERT with probe detection (test code = 80236-0) Whether patient is employed in a Unknown healthcare setting (test code = 88528-7) Whether the patient has symptoms Unknown related to condition of interest (test code = 88975-7) Whether the patient was Unknown hospitalized for condition of interest (test code = 56413-0) Whether the patient was admitted Unknown to intensive care unit (ICU) for condition of interest (test code = 70214-0) Whether patient resides in a Unknown congregate care setting (test code = 22189-3) status (test code = Unknown 78689-5) Date and time of symptom onset Unknown (test code = 82466-1) ONONDAGA DUTCH PAZRS-CoV-2 (COVID-19) RNA [Presence] in Respiratory specimen by ALBERT with probe [id number] 22:18:32 Test Item Value Reference Range Interpretation Comments SARS-CoV-2 (COVID-19) RNA Not detected [Presence] in Respiratory specimen by ALBERT with probe detection (test code = 57163-2) Whether patient is employed in a Unknown healthcare setting (test code = 56306-1) Whether the patient has symptoms Unknown related to condition of interest (test code = 60561-2) Whether the patient was Unknown hospitalized for condition of interest (test code = 25212-8) Whether the patient was admitted Unknown to intensive care unit (ICU) for condition of interest (test code = 67844-9) Whether patient resides in a Unknown congregate care setting (test code = 09981-5) status (test code = Unknown 10007-0) Date and time of symptom onset Unknown (test code = 46450-6) BRIEN WILL
[2023-02-27 01:33] LABS: Absolute Lymphocytes (CBC) 1.2 K/uL (0.7-4.9); Hematocrit 27.5 % (36.0-45.0); Lymphocytes % 22.5 % (15.3-44.8); MCV 86.9 fL (80-100); MPV 7.8 fL (7.6-11.3); RBC Red Blood Cell Count 3.17 M/uL (3.86-4.86)
[2023-02-27 01:45] LABS: ALT/SGPT 13 U/L (13-56); AST/SGOT 39 U/L (15-37); Albumin 2.8 g/dL (3.4-5.0); Alkaline Phosphatase 138 U/L (45-117); BUN Blood Urea Nitrogen 73 mg/dL (7-18); Bicarbonate 32 mEq/L (21-32); Bilirubin Total 0.2 mg/dL (0.2-1.0); Glomerular Filtration Rate 19 ml/min (=/>90); Glucose Level 203 mg/dL (74-106); Potassium 3.9 mEq/L (3.5-5.1); Sodium Level 140 mEq/L (136-145); Troponin High Sensitivity 22.8 pg/mL (<58.9)
[2023-02-27 01:51] LABS: Bilirubin Direct < 0.1 mg/dL (0-0.2); Bilirubin Indirect, Calculated ND mg/dL (0.2-0.8)
[2023-02-27] MEDS ORDERED: NA CHLORIDE 0.9% 1,000 ML ONE (03:14)
--- NOTE | 2023-02-27 03:27 | EDPHYS ---
Physician Documentation [facility] Name: Carmen Salguero Age: 62 yrs Sex: Female : 1960 Arrival Date: 02/26/2023 Time: 23:45 Bed 7 Private MD: ED Physician Horace Brennan HPI: 02/27 00:30 This 62 yrs old Female presents to ER via EMS with complaints of Weakness. cp 00:30 The patient presents to the emergency department with weakness of the left lower cp extremity, that is moderate, right lower extremity, that is moderate, difficulty standing, difficult walking. 00:30 Onset: The symptoms/episode began/occurred yesterday. cp 00:30 Associated signs and symptoms: Pertinent negatives: fever, headache, syncope. Patient's cp baseline: Neuro: alert and fully oriented, Motor: no deficits, Ambulation: walks with assist only, uses walker, Speech: normal. Historical: - Allergies: 02/26 23:53 No Known Allergies; lg3 - PMHx: 23:53 Cirrhosis; Diabetes - NIDDM; lg3 - PSHx: 23:53 section; liver transplant; lg3 - Immunization history:: Adult Immunizations up to date, Client reports receiving the 2nd dose of the Covid vaccine. - Social history:: Smoking status: Patient denies any tobacco usage or history of. Patient/guardian denies using alcohol, street drugs. ROS: 02/27 00:35 Constitutional: Negative for body aches, chills, fever. cp 00:35 Eyes: Negative for injury, pain, redness, and discharge. cp 00:35 ENT: Negative for drainage from ear(s), ear pain, sore throat, difficulty swallowing, cp difficulty handling secretions. 00:35 Cardiovascular: Negative for chest pain, edema, palpitations. 00:35 Respiratory: Negative for cough, shortness of breath, wheezing. 00:35 Abdomen/GI: Negative for abdominal pain, vomiting, diarrhea, constipation, black/tarry stool, rectal bleeding. 00:35 : Negative for urinary symptoms. 00:35 Neuro: Positive for weakness, of the right leg and left leg, Negative for altered mental status, speech changes. 00:35 All other systems are negative. Exam: 00:25 ECG was reviewed by the Attending Physician. cp 00:30 Constitutional: The patient appears in no acute distress, alert, awake, cp non-diaphoretic, non-toxic, well developed, frail. 00:30 Head/Face: Normocephalic, atraumatic. cp 00:30 Eyes: Periorbital structures: appear normal, Pupils: equal, round, and reactive to light and accomodation, Extraocular movements: intact throughout, Conjunctiva: normal, no exudate, no injection, Sclera: no appreciated abnormality, Lids and lashes: appear normal, bilaterally. 00:30 ENT: External ear(s): are unremarkable, Nose: is normal, Mouth: Lips: moist, Oral mucosa: pink and intact, moist, Posterior pharynx: is normal, airway is patent, no erythema, no exudate. 00:30 Neck: ROM/movement: is normal, is supple, without pain, no range of motions limitations, no meningismus, no nuchal rigidity. 00:30 Chest/axilla: Inspection: normal. 00:30 Cardiovascular: Rate: normal, Rhythm: regular, Edema: is not appreciated, JVD: is not appreciated. 00:30 Respiratory: the patient does not display signs of respiratory distress, Respirations: normal, no use of accessory muscles, no retractions, labored breathing, is not present, Breath sounds: are clear throughout, no decreased breath sounds, no stridor, no wheezing. 00:30 Abdomen/GI: Inspection: abdomen appears normal, Bowel sounds: active, all quadrants, Palpation: abdomen is soft and non-tender, in all quadrants. 00:30 Back: CVA tenderness, is absent. 00:30 Skin: no rash present. 00:30 Neuro: Orientation: to person, place \T\ time. Mentation: able to follow commands, Motor: moves all fours, general weakness with no focal deficits, Sensation: no obvious gross deficits. Vital Signs: 02/26 23:51 BP 119 / 77; Pulse 74; Resp 18 S; Temp 98.5(O); Pulse Ox 100% on R/A; Weight 49.44 kg lg3 (R); Height 5 ft. 3 in. (R); Pain 0/10; 02/27 00:45 BP 122 / 70; Pulse 72 MON; Resp 14 S; Pulse Ox 100% on R/A; kl 03:19 BP 129 / 67; Pulse 72; Resp 15 S; Pulse Ox 98% on R/A; lg3 04:14 BP 122 / 68; Pulse 69; Resp 15 S; Pulse Ox 98% on R/A; lg3 06:32 BP 168 / 76; Pulse 73; Resp 16; Pulse Ox 100% on R/A; lg3 07:19 BP 178 / 66; Pulse 79; Resp 16; Pulse Ox 100% on R/A; iw 08:37 BP 146 / 84; Pulse 76; Resp 16; Pulse Ox 98% on R/A; iw 09:43 BP 139 / 73; Pulse 72; Resp 16; Pulse Ox 98% on R/A; iw 12:00 BP 123 / 62; Pulse 69; Resp 16; Pulse Ox 99% on R/A; iw 13:37 BP 128 / 56; Pulse 70; Resp 16; Pulse Ox 99% on R/A; iw 17:09 BP 144 / 55; Pulse 71; Resp 16; Pulse Ox 99% on R/A; Pain 0/10; iw 02/26 23:51 Body Mass Index 19.31 (49.44 kg, 160.02 cm) lg3 02/26 23:51 Pain Scale: Adult lg3 17:09 Pain Scale: Adult iw MDM: 03:17 Data reviewed: vital signs, nurses notes, lab test result(s), EKG, radiologic studies, cp plain films. Awaiting: CT scan results. Transition of care: After a detail discussion of the patient's case, care is transferred to Horace Brennan MD. 03:27 Patient medically screened. cp 06:23 Consideration of Admission/Observation Patient was admitted/placed on observation. sp4 Escalation of care including admission/observation considered. ED course: EXAM DESCRIPTION: Chest Single View RadLex: XR CHEST 1 VIEW CLINICAL HISTORY: 62 years Female, weakness COMPARISON: None. FINDINGS: Single portable AP view of the chest. External leads overlie the chest. Trachea is midline. Normal size of the cardiac silhouette. No consolidation. No visualized pleural effusion or pneumothorax. No acute osseous abnormality. IMPRESSION: No acute radiographic abnormality. . ED course: EXAM: CT Head Without Intravenous Contrast CLINICAL HISTORY: WEAKNESS TECHNIQUE: Axial computed tomography images of the head/brain without intravenous contrast. Sagittal and coronal reformatted images were created and reviewed. This CT exam was performed using one or more of the following dose reduction techniques: automated exposure control, adjustment of the mA and/or kV according to patient size, and/or use of iterative reconstruction technique. COMPARISON: No relevant prior studies available. FINDINGS: Brain: Mild bilateral periventricular and subcortical white matter hypodensity which is nonspecific and can be seen in the clinical setting of chronic microvascular angiopathy. No hemorrhage. Ventricles: Unremarkable. No ventriculomegaly. Bones/joints: Unremarkable. No acute fracture. Soft tissues: Unremarkable. Vasculature: There is atherosclerotic disease of the internal carotid arteries bilaterally. Sinuses: Unremarkable as visualized. No acute sinusitis. Mastoid air cells: Unremarkable as visualized. No mastoid effusion. IMPRESSION: 1. No acute hemorrhage, focal mass or large territory infarction. 2. Other findings as above.. ED course: Patient has creatinine close to baseline 2.77, hemoglobin 9.4, there is proteinuria otherwise no sign of UTI patient is positive for opiates she states she takes oxycodone at home for pain. Patient otherwise has no sign of acute medical emergency CT head is negative. Patient did wake up significantly after IV Narcan 0.4 mg. At this time it appears that patient has generalized weakness and somnolence secondary to excess opiate intake at home. Transfer is not warranted at this time secondary to no acute emergencies been present and patient will be discharged home with advised to follow-up with her gastroenterology team with [facility]. . 02/27 00:23 Order name: Basic Metabolic Panel; Complete Time: 02: 02/27 02:10 Interpretation: Normal except: GLUC 203; BUN 73; CRE 2.77; GFR 19. cp 02/27 00:23 Order name: CBC with Diff; Complete Time: 02: 02/27 02:10 Interpretation: Normal except: RBC 3.17; HGB 9.4; HCT 27.5; RDW 17.3. 02/27 00:23 Order name: LFT's; Complete Time: 02: 02/27 02:10 Interpretation: Normal except: AST 39; ALK 138; ALB 2.8; GLOB 4.2; A/G 0.7. 02/27 00:23 Order name: Magnesium; Complete Time: 02:09 02/27 00:23 Order name: Troponin HS; Complete Time: 02: 02/27 00:23 Order name: Urinalysis W/Microscopic; Complete Time: 04:52 cp 02/27 00:23 Order name: Lactate w/ 2H reflex if indic.; Complete Time: 02:09 cp 02/27 02:39 Order name: UDS; Complete Time: 04:52 cp 02/27 02:44 Order name: AMMONIA; Complete Time: 04:52 cp 02/27 02:44 Order name: Blood Culture Adult (2) cp 02/27 00:23 Order name: XRAY Chest (1 view) cp 02/27 02:09 Order name: CT Head Brain wo Cont cp 02/27 00:20 Order name: EKG; Complete Time: 00:21 3 02/27 10:10 Order name: Case Management Consult EDMS 02/27 10:50 Order name: Diet Regular; Complete Time: 10:50 iw 02/27 14:35 Order name: Diet Regular; Complete Time: 14:35 iw 02/27 00:20 Order name: EKG - Nurse/Tech; Complete Time: 00:20 3 02/27 00:23 Order name: Cardiac monitoring; Complete Time: 00:58 cp 02/27 00:23 Order name: IV Saline Lock; Complete Time: 01:15 cp 02/27 00:23 Order name: Labs collected and sent; Complete Time: 01:15 cp 02/27 00:23 Order name: O2 Per Protocol; Complete Time: 00:58 cp 02/27 00:23 Order name: O2 Sat Monitoring; Complete Time: 00:58 cp 02/27 02:34 Order name: Cath; Complete Time: 03:16 cp EC:25 Rate is 73 beats/min. Rhythm is regular. PA interval is normal. QRS interval is normal. cp QT interval is normal. T waves are Inverted in lead aVR. Interpreted by me. Reviewed by me. Administered Medications: 03:16 Drug: NS 0.9% IV 500 ml Route: IV; Rate: bolus; Site: right antecubital; lg3 04:15 Follow up: Response: No adverse reaction; IV Status: Completed infusion; IV Intake: lg3 500ml 03:17 Drug: NS 0.9% IV 500 ml Route: IV; Rate: 100 ml/hr; Site: right antecubital; lg3 06:22 Follow up: Response: No adverse reaction; IV Status: Completed infusion; IV Intake: lg3 500ml 06:21 Drug: Naloxone IVP 0.4 mg Route: IVP; Site: right antecubital; lg3 06:30 Follow up: Response: No adverse reaction; Marked relief of symptoms; RASS: Alert and lg3 Calm (0) 07:00 Drug: Naloxone IVP 0.4 mg Route: IVP; Site: right antecubital; iw Disposition: 04:54 Co-signature as Attending Physician, Horace Brennan MD I agree with the assessment sp4 and plan of care. I reviewed the patient's care provided by Advanced Practice Provider \T\ agree w/ the diagnosis \T\ care plan. I personally saw the pt \T\ performed a substantive portion of the visit, incldng all aspects of the (History/Exam/Medical Decision Making). Disposition Summary: 02/27/23 06:27 Discharge Ordered Location: Home sp4 Problem: new(02/27/23 06:27) sp4 Symptoms: have improved(02/27/23 06:27) sp4 Condition: Stable(02/27/23 06:27) sp4 Diagnosis - Muscle weakness (generalized) sp4 - Chronic opioid use, opiate dependence, opiate intoxication with somnolence, history sp4 of liver transplant, chronic kidney disease, chronic anemia, physical deconditioning Followup: sp4 - With: Private Physician - When: 5 - 6 days - Reason: Recheck today's complaints Discharge Instructions: - Discharge Summary Sheet sp4 - Weakness sp4 Forms: - [email or web address] sp4 Signatures: Dispatcher [employer] EDMS Fallon Zambrano RN RN iw Mike Palmer PA PA cp Gibson, Lacie, RN RN lg3 Falguni Blackman PA-C PA-C [email or web address] Horace Brennan MD MD sp4 Corrections: (The following items were deleted from the chart) 03:54 02:43 AMMONIA+C.LAB.BRZ ordered. EDMS EDMS 03:54 02:43 AMMONIA+C.LAB.BRZ ordered. EDMS EDMS 06:26 03:27 Doctor cp sp4 06:26 03:27 [facility] cp sp4 06:26 03:27 Higher level of care cp sp4 06:26 03:27 Stable cp sp4 06:26 03:27 new cp sp4 06:26 03:27 are unchanged cp sp4 : 03:27 Weakness cp sp4 03:27 Unspecified kidney failure cp sp4
--- NOTE | 2023-02-27 03:27 | ER ---
Nurse's Notes [facility] Name: Carmen Salguero Age: 62 yrs Sex: Female : 1960 Arrival Date: 02/26/2023 Time: 23:45 Bed 7 Private MD: Diagnosis: Muscle weakness (generalized);Chronic opioid use, opiate dependence, opiate intoxication with somnolence, history of liver transplant, chronic kidney disease, chronic anemia, physical deconditioning Presentation: 02/26 23:51 Chief complaint: Patient states: bilateral leg weakness starting yesterday. denies lg3 pain. Coronavirus screen: Client denies travel out of the [place] in the last 14 days. At this time, the client does not indicate any symptoms associated with coronavirus-19. Ebola Screen: No symptoms or risks identified at this time. Initial Sepsis Screen: Does the patient meet any 2 criteria? Yes Does the patient have a suspected source of infection? No. Patient's initial sepsis screen is negative. Risk Assessment: Do you want to hurt yourself or someone else? Patient reports no desire to harm self or others. Onset of symptoms was February 25, 2023. 23:51 Method Of Arrival: EMS: [facility] lg3 23:51 Acuity: RAUL 3 lg3 Triage Assessment: 23:53 General: Appears in no apparent distress. comfortable, Behavior is calm, cooperative. lg3 Pain: Denies pain. EENT: No deficits noted. No signs and/or symptoms were reported regarding the EENT system. Neuro: Alejandra Agitation-Sedation Scale (RASS): -1 Drowsy Level of Consciousness is awake, alert, obeys commands, Oriented to person, place, time, situation. Cardiovascular: No deficits noted. Denies chest pain, shortness of breath, Capillary refill < 3 seconds Clubbing of nail beds is absent JVD is absent Patient's skin is warm and dry. Respiratory: No deficits noted. Airway is patent Respiratory effort is even, unlabored, Respiratory pattern is regular, symmetrical. GI: No deficits noted. No signs and/or symptoms were reported involving the gastrointestinal system. Abdomen is flat, non-distended. : No deficits noted. No signs and/or symptoms were reported regarding the genitourinary system. Derm: No deficits noted. Skin is intact, is thin, Skin is dry, Skin is normal, Skin temperature is warm. Musculoskeletal: No deficits noted. Reports weakness in right leg and left leg. Historical: - Allergies: 23:53 No Known Allergies; lg3 - PMHx: 23:53 Cirrhosis; Diabetes - NIDDM; lg3 - PSHx: 23:53 section; liver transplant; lg3 - Immunization history:: Adult Immunizations up to date, Client reports receiving the 2nd dose of the Covid vaccine. - Social history:: Smoking status: Patient denies any tobacco usage or history of. Patient/guardian denies using alcohol, street drugs. Screenin:54 [facility] ED Fall Risk Assessment (Adult) History of falling in the last 3 months, lg3 including since admission No falls in past 3 months (0 pts). Abuse screen: Denies threats or abuse. Denies injuries from another. Nutritional screening: No deficits noted. Tuberculosis screening: No symptoms or risk factors identified. Assessment: 23:54 General: see triage assessment. lg3 02/27 00:57 Reassessment: No changes from previously documented assessment. Patient and/or family vc1 updated on plan of care and expected duration. Pain level reassessed. 03:18 General: Appears in no apparent distress. comfortable, Behavior is calm, flat. Pain: lg3 Denies pain. Neuro: Alejandra Agitation-Sedation Scale (RASS): -1 Drowsy Level of Consciousness is awake, lethargic, Oriented to person, place, situation. Cardiovascular: No deficits noted. Denies chest pain, shortness of breath. Respiratory: No deficits noted. Airway is patent Respiratory effort is even, unlabored, Respiratory pattern is regular, symmetrical. 04:14 Reassessment: Patient appears in no apparent distress at this time. No changes from lg3 previously documented assessment. Patient and/or family updated on plan of care and expected duration. Pain level reassessed. 05:00 Reassessment: No changes from previously documented assessment. Patient and/or family vc1 updated on plan of care and expected duration. Pain level reassessed. Neuro: Alejandra Agitation-Sedation Scale (RASS): -1 Drowsy. 06:00 Reassessment: No changes from previously documented assessment. Patient and/or family vc1 updated on plan of care and expected duration. Pain level reassessed. Neuro: Alejandra Agitation-Sedation Scale (RASS): -1 Drowsy. 06:30 Reassessment: No changes from previously documented assessment. Patient and/or family lg3 updated on plan of care and expected duration. Pain level reassessed. General: pt unable to stay awake for simple commands at this time. provider notified . Neuro: Alejandra Agitation-Sedation Scale (RASS): -1 Drowsy. 07:18 General: Appears in no apparent distress. Behavior is drowsy. Neuro: Alejandra iw Agitation-Sedation Scale (RASS): -1 Drowsy Level of Consciousness is drowsy . Respiratory: Airway is patent Respiratory effort is even, unlabored, Respiratory pattern is regular. GI: Abdomen is flat, non-distended. Derm: Skin is fragile, is thin. 07:30 Reassessment: left voice mail with . iw 08:24 Reassessment: pt calling , no answer, calling friend Itzel. iw 09:41 Reassessment: pt is more alert at this time, she spoke to her on the phone but iw now she cannot get a hold of him again, I have left several voice mails, no call backs, pt understands to let me know when her calls back again and to have him come to the hospital if possible. 10:10 Reassessment: spoke with pt daughter on phone, she states pt has not been very weak for iw past 2 days, she was found on the floor by a friend , pt was found to be incontinent and unable to get herself off the floor , pt normally uses a walker to get around due to her sever spina stenosis and degenerative changes in her spine , daughter requests assistance in finding home health services or PT , Dr. Acosta notified and a SS consult was placed in [facility] . Daughter's name is Marina Salguero , cell # [phone]. 12:09 Reassessment: spoke with Ashley , [employer] General [employer] , she will call pt's daughter to iw facilitate home care for patient. 12:16 Reassessment: pt given lunch tray , call light in reach, pt understands to call if she iw needs assistance. 14:07 Reassessment: pt appears to sleeping, respirations even and unlabored, pt awakens iw easily to verbal stimuli , I called pt's daughter Marina to see of she can arrange for someone to be home to for EMS transport. 17:07 Reassessment: Patient appears in no apparent distress at this time. called to verify iw pt's family is at pt's home, called [phone] ([facility]) , [facility] at bedside to transport pt home. Vital Signs: 02/26 23:51 BP 119 / 77; Pulse 74; Resp 18 S; Temp 98.5(O); Pulse Ox 100% on R/A; Weight 49.44 kg lg3 (R); Height 5 ft. 3 in. (R); Pain 0/10; 02/27 00:45 BP 122 / 70; Pulse 72 MON; Resp 14 S; Pulse Ox 100% on R/A; kl 03:19 BP 129 / 67; Pulse 72; Resp 15 S; Pulse Ox 98% on R/A; lg3 04:14 BP 122 / 68; Pulse 69; Resp 15 S; Pulse Ox 98% on R/A; lg3 06:32 BP 168 / 76; Pulse 73; Resp 16; Pulse Ox 100% on R/A; lg3 07:19 BP 178 / 66; Pulse 79; Resp 16; Pulse Ox 100% on R/A; iw 08:37 BP 146 / 84; Pulse 76; Resp 16; Pulse Ox 98% on R/A; iw 09:43 BP 139 / 73; Pulse 72; Resp 16; Pulse Ox 98% on R/A; iw 12:00 BP 123 / 62; Pulse 69; Resp 16; Pulse Ox 99% on R/A; iw 13:37 BP 128 / 56; Pulse 70; Resp 16; Pulse Ox 99% on R/A; iw 17:09 BP 144 / 55; Pulse 71; Resp 16; Pulse Ox 99% on R/A; Pain 0/10; iw 02/26 23:51 Body Mass Index 19.31 (49.44 kg, 160.02 cm) lg3 02/26 23:51 Pain Scale: Adult lg3 17:09 Pain Scale: Adult iw ED Course: 02/26 23:48 Patient arrived in ED. sb4 23:51 Latonya Bowser, RN is Primary Nurse. lg3 23:52 Triage completed. lg3 23:53 Arm band placed on right wrist. lg3 23:54 Patient has correct armband on for positive identification. Placed in gown. Bed in low lg3 position. Call light in reach. Side rails up X 1. Client placed on continuous cardiac and pulse oximetry monitoring. NIBP monitoring applied. blood bank supervisor on. Door closed. Noise minimized. Warm blanket given. 23:59 Mike Palmer PA is PHCP. cp 23:59 Horace Brennan MD is Attending Physician. cp 02/27 00:51 XRAY Chest (1 view) In Process Unspecified. EDMS 01:05 Inserted saline lock: 22 gauge in right antecubital area, using aseptic technique. vc1 Blood collected. 02:36 CT Head Brain wo Cont In Process Unspecified. EDMS 03:16 Blood Culture Adult (2) Sent. lg3 03:16 AMMONIA Sent. lg3 03:16 UDS Sent. lg3 06:30 No provider procedures requiring assistance completed. lg3 09:43 Primary Nurse role handed off by Latonya Bowser, RN iw 09:43 Fallon Zambrano, RN is Primary Nurse. iw 17:12 IV discontinued, intact, bleeding controlled, No redness/swelling at site. Pressure iw dressing applied. Administered Medications: 03:16 Drug: NS 0.9% IV 500 ml Route: IV; Rate: bolus; Site: right antecubital; lg3 04:15 Follow up: Response: No adverse reaction; IV Status: Completed infusion; IV Intake: lg3 500ml 03:17 Drug: NS 0.9% IV 500 ml Route: IV; Rate: 100 ml/hr; Site: right antecubital; lg3 06:22 Follow up: Response: No adverse reaction; IV Status: Completed infusion; IV Intake: lg3 500ml 06:21 Drug: Naloxone IVP 0.4 mg Route: IVP; Site: right antecubital; lg3 06:30 Follow up: Response: No adverse reaction; Marked relief of symptoms; RASS: Alert and lg3 Calm (0) 07:00 Drug: Naloxone IVP 0.4 mg Route: IVP; Site: right antecubital; iw Medication: 00:58 VIS not applicable for this client. vc1 Intake: 04:15 IV: 500ml; Total: 500ml. lg3 06:22 IV: 500ml; Total: 1000ml. lg3 Outcome: 03:27 ER care complete, transfer ordered by . cp 06:27 Discharge ordered by . sp4 17:10 Discharged to home via ambulance. iw 17:10 Condition: unchanged 17:10 Discharge instructions given to family, discharge instructions to daughter Marina via telephone Instructed on 17:12 Patient left the ED. Signatures: Dispatcher [employer] EDLaure Ya, Fallon Ramirez RN RN RN iw Mike Palmer PA PA cp Gibson, Lacie, RN RN lg3 Luh Lindo RN RN vc1 Falguni Blackman PA-C PALuciana [email or web address] Horace Brennan MD MD sp4 Corrections: (The following items were deleted from the chart) 03:04 00:45 BP 122 / 70; Pulse 72bpm; MonitorResp 11bpm; Spontaneous; Pulse Ox 100% RA; [facility] 03:54 03:16 AMMONIA+C.LAB.BRZ drawn and sent. 3 EDNE 03:54 03:16 AMMONIA+C.LAB.BRZ drawn and sent. 3 EDMS 06:33 06:21 BP 185 / 77; Pulse 93bpm; Resp 26bpm; Pulse Ox 100%; vc1 lg3 06:39 06:30 General: Appears in no apparent distress. comfortable, Behavior is calm, lg3 cooperative, lg3 06:39 06:30 Pain: Denies pain. lg3 lg3 06:39 06:30 Neuro: No deficits noted. Alejandra Agitation-Sedation Scale (RASS): 0 - Alert and lg3 Calm Level of Consciousness is awake, alert, obeys commands, Oriented to person, place, situation, lg3 06:39 06:30 Cardiovascular: No deficits noted. Denies chest pain, shortness of breath, lg3 lg3 06:39 06:30 Respiratory: No deficits noted. Airway is patent Respiratory effort is even, lg3 unlabored, Respiratory pattern is regular, symmetrical, lg3
[2023-02-27 03:55] LABS: Barbiturates NEGATIVE (NEGATIVE); Benzodiazepines NEGATIVE (NEGATIVE); Cocaine NEGATIVE (NEGATIVE); METHAMPHETAM NEGATIVE (NEGATIVE); Methadone NEGATIVE (NEGATIVE); Opiates POSITIVE (NEGATIVE); Phencyclidine NEGATIVE (NEGATIVE); THC Cannibis NEGATIVE (NEGATIVE)
[2023-02-27 03:58] LABS: Specific Gravity 1.013 (1.005-1.030); Urine Bacteria None Seen /HPF (<20); Urine Bilirubin NEGATIVE (Negative); Urine Blood 1+ (Negative); Urine Clarity Clear (Clear); Urine Color Light-Yellow (Yellow); Urine Glucose NEGATIVE (Negative); Urine Protein 3+ (Negative); Urine RBC <5 /HPF (None Seen); Urine Urobilinogen Normal (Normal)
[2023-02-27] MEDS ORDERED: NALOXONE 0.4 MG/ML VIAL ONE ×2 (06:25→07:15)
--- NOTE | 2023-02-27 12:35 | EKG ---
Test Date: 2023-02-27 Test Time: 00:18:24 [employer]ras Casting Director: RV MEASUREMENT RESULTS: Intervals: Rate: 73 [place]: 136 QRSD: 86 QT: 406 QTc: 447 [place]: P: 28 NJ: 136 QRS: 76 T: 79 INTERPRETIVE STATEMENTS: Normal sinus rhythm Normal ECG Compared to ECG 01/12/2023 23:30:44 Myocardial infarct finding no longer present Electronically Signed On 02-27-23 12:34:03 CDT by Ihsan Ball
--- NOTE | 2023-02-27 15:48 | RAD REPORT ---
EXAM DESCRIPTION: CT Head Without Intravenous Contrast CLINICAL HISTORY: WEAKNESS TECHNIQUE: Axial computed tomography images of the head/brain without intravenous contrast. Sagitt al and coronal reformatted images were created and reviewed. This CT exam was performed using one o r more of the following dose reduction techniques: automated exposure control, adjustment of the mA and/or kV according to patient size, and/or use of iterative reconstruction technique. COMPARISON: No relevant prior studies available. FINDINGS: Brain: Mild bilateral periventricular and subcortical white matter hypodensity which is nonspecific and can be seen in the clinical setting of chronic microvascular angiopathy. No hemorrh age. Ventricles: Unremarkable. No ventriculomegaly. Bones/joints: Unremarkable. No acute fracture. Soft tissues: Unremarkable. Vasculature: There is atherosclerotic disease of the internal carotid arteries bilaterally. Sinuses: Unremarkable as visualized. No acute sinusitis. Mastoid air cells: Unremarkable as visualized. No mastoid effusion. IMPRESSION: 1. No acute hemorrhage, focal mass or large territory infarction. 2. Other findings as above. Electronically signed by: Marisela Dacosta MD 02/27/2023 3:04 AM CDT Due to temporary technical issues with the PACS/Fluency reporting system, reports are being signed by the in house radiologists without review as a courtesy to insure prompt reporting. The interpreting radiologist is fully responsible for the content of the report.
--- NOTE | 2023-02-27 16:56 | RAD REPORT ---
EXAM DESCRIPTION: Chest Single View [facility]: XR CHEST 1 VIEW CLINICAL HISTORY: 62 years Female, weakness COMPARISON: None. FINDINGS: Single portable AP view of the chest. External leads overlie the chest. Trachea is midline . Normal size of the cardiac silhouette. No consolidation. No visualized pleural effusion or pneumoth orax. No acute osseous abnormality. IMPRESSION: No acute radiographic abnormality. Electronically signed by: Hilary Lawton MD 02/27/2023 1:17 AM CDT Due to temporary technical issues with the PACS/Fluency reporting system, reports are being signed by the in house radiologists without review as a courtesy to insure prompt reporting. The interpreting radiologist is fully responsible for the content of the report.
[2023-02-27 17:21] VITALS: TEMP 98.5
[2023-02-27 17:45] VITALS: O2SAT 99
[2023-02-27 17:47] VITALS: BP 144/55
== END 2023-02-27 17:12 | disposition home or self-care (01) ==
LOC: ER 23:45
DX: M62.81 Muscle weakness (generalized) (principal); F11.221 Opioid dependence with intoxication delirium; E11.22 Type 2 diabetes mellitus with diabetic chronic kidney disease; N18.9 Chronic kidney disease, unspecified; Z94.4 Liver transplant status; D64.9 Anemia, unspecified; Z72.3 Lack of physical exercise
CPT/HCPCS: 96361; 93005; 87040 ×2; 85025; 81001; 80048; 36415; 82140; 83735; 80076; 83605; 84484; 80307; 70450; 71045; 96374; 99285; J2310 ×2; J7040

== ENCOUNTER 2023-05-20 16:30 | Emergency (ER) | payer BC ==
--- OUTSIDE RECORDS SUMMARY | 2023-05-20 16:37 | XMS REPORT | Continuity of Care Document ---
:1960 Author Organization [facility] t Address [address] [facility] [address] [place] [address] Care Team Providers Name Role Phone Catherine ABBOTT, John Primary Care Physician Donna Cook Attending Clinician Asked, No Pcp Attending Clinician Unavailable Lenard MARTINEZ, Luh Attending Clinician Unavailable Allison Smith MD Attending Clinician Bryan ABBOTT, Darrell Attending Clinician Ward ABBOTT, Lulu Maria Attending Clinician Eileen Harris MD, Drew Attending Clinician [phone] Marianne Lopez MA Attending Clinician Unavailable Deja Alicia RN Attending Clinician Unavailable Presley Orr MD Attending Clinician Cheikh Mckeon RN Attending Clinician Unavailable Jessika SARABIA, Catalina Prieto Attending Clinician [phone] Farideh Temple Attending Clinician Unavailable Carmelo Bender MD Attending Clinician Nat ABBOTT, Adolph Granado Attending Clinician Zully TAG WRITER, Malena Gonzales Attending Clinician Ese SARABIA, Nolvia Ceron Attending Clinician [phone] Heidy Cortez Attending Clinician Unavailable Lucrecia Bacon RN Attending Clinician Unavailable Sheila ABBOTT, Edilia Ortega Attending Clinician Deb Blackman MA Attending Clinician Unavailable LAID COTTER Attending Clinician Unavailable LULU SMITH Admitting Clinician Unavailable CARMELO BENDER Admitting Clinician Unavailable [id number] Admitting Clinician Unavailable MD DARRELL DIAZ Admitting Clinician Unavailable Payers Payer Name Policy Type Policy Number Effective Date Expiration Date S ource Problems Condition Condition Condition Status Onset Resolution Last Treating Co mments Source Name Details Category Date Date Treatment Clinician Date CONY (acute CONY (acute Disease Active M ethodi kidney kidney 01-14 injury) injury) 00:00: Hospita 00 l Stage 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 01-14 kidney kidney 00:00: Hospita disease disease 00 l Hyperkalem Hyperkalem Disease Active M ethodi ia ia 01-14 00:00: Hospita 00 l Liver Liver Disease Active Methodi transplant transplant 01-14 status status 00:00: Hospita 00 l Cough Cough Disease Active Method[facility] 01-13 st 00:00: Hospita 00 l Ventral Ventral Disease Active [facility] hernia hernia 09-20 without without 00:00: Hospita obstructio obstructio 00 l n or n or gangrene gangrene Encounter Encounter Disease Active Met hodi for for 03-19 aftercare aftercare 00:00: Hosp jose following following 00 l liver liver transplant transplant Hypomagnes Hypomagnes Disease Active M ethodi emia emia 02-19 st 00:00: Hospita 00 l Magnesium Magnesium Disease Active Met hodi deficiency deficiency 02-19 00:00: Hospita 00 l Type 2 Type 2 Disease Active [facility] diabetes diabetes 01-10 mellitus mellitus 00:00: Hospit a with with 00 l peripheral peripheral neuropathy neuropathy Vitamin D Vitamin D Disease Active Met hodi deficiency deficiency 01-10 st 00:00: Hospita 00 l Osteoporos Osteoporos Disease Active M ethodi is is 01-10 st 00:00: Hospita 00 l Liver Liver [...] Added automatic ally from request for surgery [id number] Liver mass Liver mass Disease Active M ethodi 10-21 00:00: Hospita 00 l HCC HCC Disease [...] Disease Active M ethodi lithiasis lithiasis 01-20 st 00:00: Hospita 00 l Type 2 [...] 2 Disease Active Method[facility] diabetes diabetes 12-24 mellitus mellitus 00:00: Hospit a with with 00 l neurologic neurologic al al manifestat manifestat ions ions Overweight Overweight Disease Active M ethodi 12-24 st 00:00: Hospita 00 l Type 2 Type 2 Disease Active Method[facility] diabetes, diabetes, 12-24 st controlled controlled 00:00: Julio patel with , with 00 l peripheral peripheral neuropathy neuropathy Hepatitis Hepatitis Disease Active Met hodi C virus C virus 12-24 st infection infection 00:00: Hosp jose 00 l S/P repair S/P repair Disease Active M ethodi of ventral of ventral st hernia hernia Hospita l [facility] waterm[facility] Disease Active Met hodi 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 st use of use of Hospita immunosupp immunosupp l ressive ressive drug drug Allergies, Adverse Reactions, Alerts Allergy Allergy Status Severity Reaction(s) Onset Inactive Treating Comm ents Source Name Type Date Date Clinician No Known Propensi Active Method i Drug ty to 01-15 Allergie adverse 00:00: Hospita s reaction 00 l s to drug Family History Family Member Diagnosis Comments Start Date Stop Date Source Natural father Diabetes [facility] Natural father Hypertension [facility] Natural mother Cancer [facility] mother Hypertension [facility] Social History Social Habit Start Date Stop Date Quantity Comments Source Gender identity 2021-08-20 Identifies as [facility] 08:32:44 female gender Hospital (finding) Sexual orientation [facility] History of Social 2023-01-19 2023-01-[address] function 00:00:00 00:00:00 Hospital Alcohol intake 2022-09-23 2022-09-23 Current [facility] 00:00:00 [...] Date Date Medication? Clinician (SIG) Name Name tacrolimus Yes [id number] TAKE 2 [facility] (PROGRAF) 1 -[address] MG capsule 00:00: BY MOUTH Hos darian 00 EVERY l MORNING AND 3 CAPSULES EVERY EVENING magnesium 2023- No [id number] 64mg Q.5D Take 1 [facility] chloride 64 -24 01- tablet (64 s t mg 00:00: 04:59 mg total) Hospita tablet,francesco 00 :00 by mouth 2 l yed release (two) (DR/EC) DR times a tablet day. amLODIPine 2022- No 10mg QD Take 1 Meth matheus (NORVASC) 01-20- tablet (10 st 10 mg 00:00: 04:59 mg total) Hospit a tablet 00 :00 by mouth l daily for 30 days. amLODIPine 2022- No 10mg QD Take 1 Meth matheus (NORVASC) 01-20- tablet (10 st 10 mg 00:00: 00:00 mg total) Hospit a tablet 00 :00 by mouth l daily for 30 days. carvediloL 2022- No 3.125mg Q.5D Take 1 M ethodi (COREG) 01-19- tablet st 3.125 MG 00:00: 04:59 (3.125 mg Hos darian tablet 00 :00 total) by l mouth 2 (two) times a day for 30 days. gabapentin 2023-0 2022- No 400mg Q.[id number] Take 1 [facility] (NEURONTIN) 01-[id number] 400 mg 00:00: 04:59 3D (400 mg Hospita capsule 00 :00 total) by l mouth 3 (three) times a day for 30 days. cefdinir 2023-0 2022- No 300mg Q.5D Take 1 Metho di (OMNICEF) 01-[address] 300 MG 00:00: 04:59 (300 mg Hospita capsule 00 :00 total) by l mouth 2 (two) times a day for 7 days. carvediloL 2022-0 2022- No 3.125mg Q.5D Take 1 M ethodi (COREG) 01-[address] 3.125 MG 00:00: 00:00 (3.125 mg Hos darian tablet 00 :00 total) by l mouth 2 (two) times a day for 30 days. gabapentin 2022-0 2022- No 400mg Q.[id number] Take 1 [facility] (NEURONTIN) 01-[id number] 400 mg 00:00: 00:00 3D (400 mg Hospita capsule 00 :00 total) by l mouth 3 (three) times a day for 30 days. cefdinir 3-0 2022- No 300mg Q.5D Take 1 Metho di (OMNICEF) 01-[address] 300 MG 00:00: 00:00 (300 mg Hospita capsule 00 :00 total) by l mouth 2 (two) times a day for 7 days. entecavir 2023-0 Yes .5mg Q2D Take 1 Method i (BARACLUDE) 3-[address] 0.5 MG 00:00: (0.5 mg Hospita tablet 00 total) by l mouth every other day. tacrolimus 2023-0 Yes [id number] 3mg Q.5D Take 3 [facility] (PROGRAF) 1 3-[address] MG capsule 00:00: (3 mg Hospit a 00 total) by l mouth 2 (two) times a day. entecavir 2023-0 Yes .5mg Q2D Take 1 Method i (BARACLUDE) 3-[address] 0.5 MG 00:00: (0.5 mg Hospita tablet 00 total) by l mouth every other day. tacrolimus 2022-0 2022- No [id number] 3mg Q.5D Take 3 [facility] (PROGRAF) 1 3-15 05-[address] MG capsule 00:00: 00:00 (3 mg Hospi ta 00 :00 total) by l mouth 2 (two) times a day. tacrolimus 2022-2022- No [id number] 3mg Q.5D Take 3 [facility] (PROGRAF) 1 3-13 03-[address] MG capsule 00:00: 00:00 (3 mg Hospi ta 00 :00 total) by l mouth 2 (two) times a day. tacrolimus 2022-2022- No [id number] 3mg Q.5D Take 3 [facility] (PROGRAF) 1 [...] l daily for 30 days. entecavir 2022- No .5mg Q48H Take 1 Metho di (BARACLUDE) 1-25 02-[address] 0.5 MG 00:00: 05:59 (0.5 mg Hospita tablet 00 :00 total) by l mouth every other day for 30 days. predniSONE 2022- No 10mg QD Take 1 Meth matheus (DELTASONE) 1-25 02-25 tablet (10 s t 10 mg 00:00: 05:59 mg total) Hospit a tablet 00 :00 by mouth l daily for 30 days. entecavir 2022- No .5mg Q48H Take 1 Metho di (BARACLUDE) 1-25 02-[address] 0.5 MG 00:00: 05:59 (0.5 mg Hospita tablet 00 :00 total) by l mouth every other day for 30 days. tacrolimus Yes [id number] 3mg Q.5D Take 3 [facility] (PROGRAF) 1 1-[address] MG capsule 00:00: (3 mg Hospit a 00 total) by l mouth 2 (two) times a day. tacrolimus Yes [id number] 3mg Q.5D Take 3 [facility] (PROGRAF) 1 1-[address] MG capsule 00:00: (3 mg Hospit a 00 total) by l mouth 2 (two) times a day. tacrolimus 2022- No [id number] 3mg Q.5D Take 3 [facility] (PROGRAF) 1 1-24 03-[address] MG capsule 00:00: 00:00 (3 mg Hospi ta 00 :00 total) by l mouth 2 (two) times a day. tacrolimus 2022- No [id number] 3mg Q.5D Take 3 [facility] (PROGRAF) 1 -24 03-[address] MG capsule 00:00: 00:00 (3 mg Hospi ta 00 :00 total) by l mouth 2 (two) times a day. everolimus, 2021-09- No [id number] 1.5mg Q.5D Take 3 Methodi immunosuppr 09-[address] essive, 00:00: 00:00 (1.5 mg Hospit a (Zortress) 00 :00 total) by l 0.5 mg mouth 2 tablet (two) times a day. everolimus, 2021-09- No [id number] 1.5mg Q.5D Take 3 Methodi immunosuppr 09-[address] essive, 00:00: 00:00 (1.5 mg Hospit a (Zortress) 00 :00 total) by l 0.5 mg mouth 2 tablet (two) times a day. everolimus, 2021-09- No [id number] 1.5mg Q.5D Take 3 [facility] immunosuppr 09-[address] essive, 00:00: 00:00 (1.5 mg Hospit a (Zortress) 00 :00 total) by l 0.5 mg mouth 2 tablet (two) times a day. everolimus, 2021-09- No [id number] 1.5mg Q.5D Take 3 [facility] immunosuppr 09-[address] essive, 00:00: 00:00 (1.5 mg Hospit a (Zortress) 00 :00 total) by l 0.5 mg mouth 2 tablet (two) times a day. entecavir 2021-09- No [id number] .5mg QD Take 1 [facility] (BARACLUDE) 0- tablet st 0.5 MG 00:00: 00:00 (0.5 mg Hospita tablet 00 :00 total) by l mouth daily. entecavir 2021-09- No [id number] .5mg QD Take 1 [facility] (BARACLUDE) 0-[address] 0.5 MG 00:00: 00:00 (0.5 mg Hospita tablet 00 :00 total) by l mouth daily. entecavir 2021-09- No [id number] .5mg QD Take 1 [facility] (BARACLUDE) 0-08 01-[address] 0.5 MG 00:00: 00:00 (0.5 mg Hospita tablet 00 :00 total) by l mouth daily. entecavir 2021-09- No [id number] .5mg QD Take 1 [facility] (BARACLUDE) -[address] 0.5 MG 00:00: 00:00 (0.5 mg Hospita tablet 00 :00 total) by l mouth daily. magnesium 2022- No 64mg Q.5D Take 1 Metho di chloride 64 5-13 05-21 tablet (64 s t mg 00:00: 00:00 mg total) Hospita tablet,francesco 00 :00 by [...] times a tablet day. tacrolimus 2022- No [id number] Take 2 [facility] (PROGRAF) 1 01-[address] MG capsule 00:00: 00:00 (2 mg Hospi ta 00 :00 total) by l mouth every morning AND 3 capsules (3 mg total) every evening. tacrolimus 2022- No [id number] Take 2 [facility] (PROGRAF) 1 01-10-[address] MG capsule 00:00: 00:00 (2 mg Hospi ta 00 :00 total) by l mouth every morning AND 3 capsules (3 mg total) every evening. tacrolimus 2022- No [id number] Take 2 [facility] (PROGRAF) 1 01-10-[address] MG capsule 00:00: 00:00 (2 mg Hospi ta 00 :00 total) by l mouth every morning AND 3 capsules (3 mg total) every evening. tacrolimus 2022- No [id number] Take 2 [facility] (PROGRAF) 1 -08 01-[address] MG capsule 00:00: 00:00 (2 mg Hospi ta 00 :00 total) by l mouth every morning AND 3 capsules (3 mg total) every evening. tacrolimus No [id number] Take 2 [facility] (PROGRAF) 1 -14 -[address] MG capsule 00:00: 00:00 (2 mg Hospi ta 00 :00 total) by l mouth every morning AND 3 capsules (3 mg total) every evening. tacrolimus 2021- No [id number] Take 2 [facility] (PROGRAF) 1 12-13-[address] MG capsule 00:00: 00:00 (2 mg Hospi ta 00 :00 total) by l mouth every morning AND 3 capsules (3 mg total) every evening. ergocalcife 2021-0 2022- No [id number] Q7D Take 1 M ethodi rol 2-23 10-[address] (VITAMIN 00:00: 05:59 (50,000 Hospi ta D2) 50,000 00 :00 Units l unit total) by capsule mouth once a week. ergocalcife 2021-0 2022- No [id number] Q7D Take 1 M ethodi rol 2-23 10-[address] (VITAMIN 00:00: 05:59 (50,000 Hospi ta D2) 50,000 00 :00 Units l unit total) by capsule mouth once a week. ergocalcife 2021-0 2022- No [id number] Q7D Take 1 M ethodi rol 2-22 -[address] (VITAMIN 00:00: 05:59 (50,000 Hospi ta D2) 50,000 00 :00 Units l unit total) by capsule mouth once a week. ergocalcife 2021-0 2022- No [id number] Q7D Take 1 M ethodi rol 2-22 -[address] (VITAMIN 00:00: 05:59 (50,000 Hospi ta D2) 50,000 00 :00 Units l unit total) by capsule mouth once a week. everolimus, 2021- No [id number] 1.5mg Q.5D Take 3 [facility] immunosuppr 2-22 11-[address] essive, 00:00: 00:00 (1.5 mg Hospit a ([place]ress) 00 :00 total) by l 0.5 mg mouth 2 tablet (two) times a day. everolimus, 2021- No [id number] 1.5mg Q.5D Take 3 [facility] immunosuppr 2-22 11-[address] essive, 00:00: 00:00 (1.5 mg Hospit a ([place]ress) 00 :00 total) by l 0.5 mg mouth 2 tablet (two) times a day. everolimus, 2021- No [id number] 1.5mg Q.5D Take 3 [facility] immunosuppr 2-22 -[address] essive, 00:00: 00:00 (1.5 mg Hospit a ([place]ress) 00 :00 total) by l 0.5 mg mouth 2 tablet (two) times a day. everolimus, 2021- No [id number] 1.5mg Q.5D Take 3 Method[facility] immunosuppr 2-22 -[address] essive, 00:00: 00:00 (1.5 mg [...] 00 EVERY DAY l entecavir 2021- No [id number] .5mg QD Take 1 [facility] (BARACLUDE) 05-[address] 0.5 MG 00:00: 04:59 (0.5 mg Hospita tablet 00 :00 total) by l mouth daily. entecavir 2021- No [id number] .5mg QD Take 1 [facility] (BARACLUDE) 05-[address] 0.5 MG 00:00: 04:59 (0.5 mg Hospita tablet 00 :00 total) by l mouth daily. entecavir 2021- No [id number] .5mg QD Take 1 [facility] (BARACLUDE) 05-[address] 0.5 MG 00:00: 04:59 (0.5 mg Hospita tablet 00 :00 total) by l mouth daily. SITagliptin Yes 100mg QD Take 1 Met hodi (Januvia) - tablet st 100 MG 00:00: (100 mg Hospita tablet 00 total) by l mouth daily. SITagliptin 0 Yes 100mg QD Take 1 Met hodi (Januvia) 7- tablet st 100 MG 00:00: (100 mg Hospita tablet 00 total) by l mouth daily. SITagliptin 2020-0 Yes 100mg QD Take 1 Met hodi (Januvia) 7- tablet st 100 MG 00:00: (100 mg Hospita tablet 00 total) by l mouth daily. SITagliptin 2022- No 100mg QD Take 1 Me thodi (Januvia) 03-06 05-[address] 100 MG 00:00: 00:00 (100 mg Hospita tablet 00 :00 total) by l mouth daily. aspirin 2021- No 81mg QD Take 1 [facility] (ECOTRIN) 01-24- tablet (81 st 81 MG 00:00: 04:59 mg total) Hospit a enteric 00 :00 by mouth l coated daily. tablet calcium 2021- No 1{tbl} Q.5D Take 1 Metho di carbonate-v 01-24- tablet by st itamin D3 00:00: 04:59 mouth 2 Hosp jose 500 mg-200 00 :00 (two) l unit per times a tablet day with meals. aspirin 2021- No 81mg QD Take 1 [facility] (ECOTRIN) 5 05-27 tablet (81 st 81 MG 00:00: [...] times a tablet day. tacrolimus 2021- No [id number] Take 2 [facility] (PROGRAF) 1 3-24 03-[address] MG capsule 00:00: 04:59 (2 mg Hospi ta 00 :00 total) by l mouth every morning AND 3 capsules (3 mg total) every evening. take 12 hours apart. tacrolimus 2021- No [id number] Take 2 [facility] (PROGRAF) 1 3-24 03-[address] MG capsule 00:00: 04:59 (2 mg Hospi ta 00 :00 total) by l mouth every morning AND 3 capsules (3 mg total) every evening. take 12 hours apart. ergocalcife 2021- No [id number] Q7D Take 1 M nemesioodi rol 10-[address] (VITAMIN 00:00: 05:59 (50,000 Hospi ta D2) 50,000 00 :00 Units l unit total) by capsule mouth once a week. ergocalcife 2021- No [id number] Q7D Take 1 M ethodi rol 10-[address] (VITAMIN 00:00: 05:59 (50,000 Hospi ta D2) 50,000 00 :00 Units l unit total) by capsule mouth once a week. everolimus, 2021- No [id number] 1.5mg Q12H Take 3 [facility] immunosuppr -22 10- tablets st essive, 00:00: 00:00 (1.5 mg Hospit a ([place]ress) 00 :00 total) by l 0.5 mg mouth tablet every 12 (twelve) hours. Dx z94.4 everolimus, 2021- No [id number] 1.5mg Q12H Take 3 [facility] immunosuppr -22 10- tablets st essive, 00:00: 00:00 (1.5 mg [...] tablet 00 EVERY DAY l lisinopriL 2020-0 3- No TAKE 2 Meth matheus (PRINIVIL) 6- 05-[address] 10 mg 00:00: 00:00 MOUTH Hospita tablet 00 :00 EVERY DAY l VITAMIN D2 2019-0 2022- No Take [...] No Take 1 Meth matheus 50,000 unit 09-2920 capsule by s t capsule 00:00: 00:00 mouth once Hos darian 00 :00 a week l clonAZEPAM 2018-0 Yes TAKE BY Meth [...] l release hours as tablet needed. oxyCODone 2018-0 Yes 10mg Q6H Take 10 [...] Hospita reader misc 00 l blood sugar 2022- No Patient is [facility] diagnostic 4-29 05-[address] strips 00:00: 00:00 QID Hospita (FREESTYLE 00 :00 l LITE STRIPS) strip test strips Immunizations Ordered Immunization Filled Immunization Date Status Commen ts Source Name Name HANNAH CESAR-19 MRNA 2021-05-27 Completed Meth odist VACCINATION 00:00:00 [facility] PFIZER COVID-19 MRNA 2021-05-27 Completed Meth odist VACCINATION 00:00:00 [facility] PFIZER COVID-19 MRNA 2021-05-27 Completed Meth odist VACCINATION 00:00:00 [facility] PFIZER COVID-19 MRNA 2021-05-27 Completed Meth odist VACCINATION 00:00:00 Hospital Vital Signs Vital Name Observation Time Observation Value Comments Source Systolic blood 2023-01-19 16:15:17 170 mm[Hg] [facility] pressure Diastolic blood 2023-01-19 16:15:17 74 [facility]Hg[facility] pressure Heart rate 2023-01-19 16:15:17 72 /min [facility] Body temperature 2023-01-19 16:14:11 36.94 Melissa [facility] Respiratory rate 2023-01-19 16:14:11 18 /min [facility] Oxygen saturation in 2023-01-19 16:14:11 97 /min [facility] Arterial blood by Pulse oximetry Body weight 2023-01-18 09:00:25 49.397 kg [facility] BMI 2023-01-18 09:00:25 19.29 kg/m2 [facility] Body height 2023-01-13 12:38:07 160 cm [facility] Systolic blood 2022-10-23 20:21:00 192 mm[Hg] [facility] Hospital pressure Diastolic blood 2022-10-23 20:21:00 79 mm[facility]Hg[facility] Heart rate 2022-10-23 20:21:00 71 /min [facility] Respiratory rate 2022-10-23 20:21:00 18 /min [facility] Body height 2022-10-23 20:21:00 162.6 cm [facility] Body weight 2022-10-23 20:21:00 51.71 kg [facility] BMI 2022-10-23 20:21:00 19.57 kg/m2 [facility] Oxygen saturation in 2022-10-23 20:21:00 99 /min [facility] Arterial blood by Pulse oximetry Systolic blood 2022-09-24 18:03:47 118 mm[Hg] [facility] pressure Diastolic blood 2022-09-24 18:03:47 58 mm[Hg] [facility] pressure Heart rate 2022-09-24 18:03:47 80 /min [facility] Body temperature 2022-09-24 18:03:47 36.5 Melissa [facility] Respiratory rate 2022-09-24 18:03:47 18 /min [facility] Oxygen saturation in 2022-09-24 18:03:47 98 /min [facility] Arterial blood by Pulse oximetry Body height 2022-09-20 17:09:26 162.6 cm [facility] Body weight 2022-09-20 17:09:26 49.896 kg [facility] BMI 2022-09-20 17:09:26 18.88 kg/m2 [facility] Procedures Procedure Date / Time Performing Clinician Source Performed POC GLUCOSE 2023-01-19 13:01:00 Dutch Cat [id number] TACROLIMUS LEVEL, 2023-01-19 09:55:00 River Valdes [facility] RANDOM CBC WITH PLATELET AND 2023-01-19 09:55:00 Ward, [facility] DIFFERENTIAL BASIC METABOLIC PANEL 2023-01-19 09:55:00 Ward, [facility] HEPATIC FUNCTION PANEL 2023-01-19 09:55:00 Ward, [facility] ESTIMATED GFR 2023-01-19 09:55:00 Ward, [facility] POC GLUCOSE 2023-01-19 01:58:00 Dutch Cat POC GLUCOSE 2023-01-18 23:13:00 Dutch Cat POC GLUCOSE 2023-01-18 17:37:00 Dutch Cat POC GLUCOSE 2023-01-18 13:32:00 Dutch Cat [id number] TACROLIMUS LEVEL, 2023-01-18 09:29:00 Lucio [facility] RANDOM PROTHROMBIN TIME WITH INR 2023-01-18 09:29:00 [facility] WITH [facility]ATE[facility] AND 2023-01-18 09:29:00 Ward, [facility] DIFFERENTIAL BASIC METABOLIC PANEL 2023-01-18 09:29:00 Ward, [facility] HEPATIC FUNCTION PANEL 2023-01-18 09:29:00 Ward, [facility] ESTIMATED GFR 2023-01-18 [facility]23-01-18 07:07:00 Dutch Cat spital Drew POC GLUCOSE 2023-01-18 01:56:00 Ducth Cat spital Drew POC GLUCOSE 2023-01-17 23:29:00 Dutch Cat spital Drew PROTHROMBIN TIME WITH INR 2023-01-17 18:22:00 [facility] 2023-01-17 17:28:00 Dutch Cat spital Drew POC GLUCOSE 2023-01-17 13:04:00 Dutch Cat spital Drew [id number] TACROLIMUS LEVEL, 2023-01-17 10:20:00 Lucio [facility] RANDOM PROTHROMBIN TIME WITH INR 2023-01-17 10:20:00 Latasha Suarez [facility] CBC WITH PLATELET AND 2023-01-17 10:20:00 Ward, [facility] DIFFERENTIAL BASIC METABOLIC PANEL 2023-01-17 10:20:00 Ward, [facility] HEPATIC FUNCTION PANEL 2023-01-17 10:20:00 Ward, [facility] ESTIMATED GFR 2023-01-17 10:20:00 Ward, [facility] POC GLUCOSE 2023-01-17 03:15:00 Ward, [facility] POC GLUCOSE 2023-01-16 22:43:00 Ward, [facility] POC GLUCOSE 2023-01-16 17:44:00 Ward, [facility] XR CHEST 1 VW PORTABLE 2023-01-16 15:45:00 Willie Espinosa [facility] POC GLUCOSE 2023-01-16 12:39:00 Ward, [facility] [id number] TACROLIMUS LEVEL, 2023-01-16 09:28:00 Laure Ventura [facility] RANDOM CBC WITH PLATELET AND 2023-01-16 09:28:00 Ward, [facility] DIFFERENTIAL BASIC METABOLIC PANEL 2023-01-16 09:28:00 Ward, [facility] HEPATIC FUNCTION PANEL 2023-01-16 09:28:00 Ward, [facility] ESTIMATED GFR 2023-01-16 09:28:00 Ward, [facility] SMEAR REVIEW 2023-01-16 09:28:00 Ward, [facility] POC GLUCOSE 2023-01-16 04:05:00 Ward, [facility] POC GLUCOSE 2023-01-15 23:31:00 Ward, [facility] US DUPLEX VENOUS LOWER 2023-01-15 20:00:00 Ward, [facility] EXTREMITY BILATERAL POC GLUCOSE 2023-01-15 17:26:00 Ward, [facility] TTE COMPLETE, WO CONTRAST, 2023-01-15 16:00:00 Ward, [facility] W DOPPLER ([id number]) POC GLUCOSE 2023-01-15 [facility] 2023-01-15 10:03:00 Garfield Tavera [facility] STAPHYLOCOCCUS AUREUS (MRSA), ALBERT [id number] TACROLIMUS LEVEL, 2023-01-15 10:03:00 Laure Venutra [facility] RANDOM CBC WITH PLATELET AND 2023-01-15 10:03:00 Lulu Smith [facility] DIFFERENTIAL BASIC METABOLIC PANEL 2023-01-15 10:03:00 Lulu Smith [facility] HEPATIC FUNCTION PANEL 2023-01-15 10:03:00 Lulu Smith [facility] ESTIMATED GFR 2023-01-15 10:03:00 Ward [facility] MAGNESIUM LEVEL 2023-01-15 10:03:00 Ward [facility] PHOSPHORUS LEVEL 2023-01-15 10:03:00 [facility] 2023-01-15 10:03:00 Ward [facility] POC GLUCOSE 2023-01-15 04:59:00 Ward [facility] URINE CULTURE 2023-01-15 04:43:00 Ward [facility] URINALYSIS SCREEN AND 2023-01-15 04:43:00 Lulu Smith [facility] MICROSCOPY, WITH REFLEX TO CULTURE POC GLUCOSE 2023-01-14 23:59:00 Ward [facility] FERRITIN LEVEL 2023-01-14 22:27:00 Ward [facility] TOTAL IRON BINDING 2023-01-14 22:27:00 Ward naila Maria [facility] CAPACITY VITAMIN B12 LEVEL 2023-01-14 22:27:00 Ward naila [facility]OL[facility] LEVEL 2023-01-14 22:27:00 Ward [facility] TRANSFUSE RED BLOOD CELLS 2023-01-14 18:43:00 Ward naila [facility] POC GLUCOSE 2023-01-14 17:46:00 Ward [facility] NM LUNG PERFUSION IMAGING 2023-01-14 15:39:07 Ward [facility] POC GLUCOSE 2023-01-14 13:30:00 Ward [facility] HEMOGLOBIN & HEMATOCRIT 2023-01-14 13:20:00 Ward [facility] [id number] TACROLIMUS LEVEL, 2023-01-14 10:48:00 [facility] TROUGH PROTHROMBIN TIME WITH INR 2023-01-14 10:48[facility]00 [facility]IN 2023-01-14 10:48:00 [facility] TIME (PTT) CBC WITH PLATELET AND 2023-01-14 10:48:00 Ward, [facility] DIFFERENTIAL COMPREHENSIVE METABOLIC 2023-01-14 10:48:00 [facility] PANEL ESTIMATED GFR 2023-01-14 10:48:00 Ward, [facility] TROPONIN T 2023-01-14 10:48[facility]00 [facility] A1C 2023-01-14 10:48:00 Ward, [facility] SMEAR REVIEW 2023-01-14 10:48:00 Ward, [facility] CREATININE LEVEL, URINE, 2023-01-14 03:46:00 Ward, [facility] RANDOM SODIUM LEVEL, URINE, 2023-01-14 03:46:00 Ward, [facility] RANDOM UREA NITROGEN, URINE, 2023-01-14 03:46:00 Ward, [facility] RANDOM ECG 12-LEAD 2023-01-14 03:16:14 [facility]PIR[facility]EN PANEL 2023-01-14 03:13:00 Ward, [facility] WITH COVID-19 RT-PCR POC GLUCOSE 2023-01-14 02:54:00 [facility] CBC WITH PLATELET AND 2023-01-14 02:36[facility] AND SCREEN 2023-01-14 02:36:00 [facility] 2023-01-14 02:36[facility] [facility] [address] CHEST WO CONTRAST 2023-01-13 23:54:39 Ward, [facility] BLOOD CULTURE, AEROBIC & 2023-01-13 22:57:00 Ward, [facility] ANAEROBIC BLOOD CULTURE, AEROBIC & 2023-01-13 22:56:00 Ward, [facility] ANAEROBIC TROPONIN T 2023-01-13 22:56:00 Ward, [facility] D-DIMER 2023-01-13 22:56:00 Ward, [facility] PROCALCITONIN 2023-01-13 22:56:00 Ward, [facility] SEDIMENTATION RATE 2023-01-13 22:56:00 Ward, [facility] C-REACTIVE PROTEIN 2023-01-13 22:56:00 Ward, [facility] CBC WITH PLATELET AND 2023-01-13 22:56:00 Ward, [facility] DIFFERENTIAL COMPREHENSIVE METABOLIC 2023-01-13 22:56:00 Ward, [facility] PANEL HEMOGLOBIN A1C 2023-01-13 22:56:00 Ward, [facility] LIPID PANEL 2023-01-13 22:56:00 Ward, [facility] LIPASE LEVEL 2023-01-13 22:56:00 Ward, [facility] ESTIMATED GFR 2023-01-13 22:56:00 Ward, [facility] POC GLUCOSE 2023-01-13 17:34:00 Darrell Diaz spital POC GLUCOSE 2023-01-13 13:41:00 Darrell Diaz Ho spital POC GLUCOSE 2022-09-24 18:04:00 Carmelo Bender Ho spital POC GLUCOSE 2022-09-24 14:25:00 Carmeol Bender spital [id number] TACROLIMUS LEVEL, 2022-09-24 11:41:00 Carmelo Bender [facility] TROUGH EVEROLIMUS LEVEL, TROUGH 2022-09-24 11:41:00 Carmelo Bender [facility] POC GLUCOSE 2022-09-24 02:01:00 Carmelo Bender Ho spital POC GLUCOSE 2022-09-23 21:55:00 Carmelo Bender Ho [facility]ital POC GLUCOSE 2022-09-23 17:27:00 Carmelo Bender Ho spital POC GLUCOSE 2022-09-23 13:41:00 Carmelo Bender Ho spital [id number] TACROLIMUS LEVEL, 2022-09-23 10:27:00 [facility] TROUGH Irene BASIC METABOLIC PANEL 2022-09-23 10:27:00 [facility] Irene HEPATIC FUNCTION PANEL 2022-09-23 10:27:00 [facility] Irene CBC WITH PLATELET AND 2022-09-23 10:27:00 [facility] DIFFERENTIAL Irene EVEROLIMUS LEVEL, TROUGH 2022-09-23 10:27:00 [facility] ESTIMATED GFR 2022-09-23 10:27:00 [facility] Irene POC GLUCOSE 2022-09-22 23:03:00 Carmelo Bender spital US DUPLEX VENOUS UPPER 2022-09-22 20:17:00 [facility] EXTREMITY RIGHT US DUPLEX VENOUS LOWER 2022-09-22 19:45:00 [facility] EXTREMITY RIGHT POC GLUCOSE 2022-09-22 17:20:00 Carmelo Bender Ho spital POC GLUCOSE 2022-09-22 13:59:00 Carmelo Bender Ho spital [id number] TACROLIMUS LEVEL, 2022-09-22 11:04:00 [facility] TROUGH Irene BASIC METABOLIC PANEL 2022-09-22 11:04:00 [facility] Irene HEPATIC FUNCTION PANEL 2022-09-22 11:04:00 [facility] Irene CBC WITH PLATELET AND 2022-09-22 11:04:00 [facility] DIFFERENTIAL Irene EVEROLIMUS LEVEL, TROUGH 2022-09-22 11:04:00 [place] [facility] ESTIMATED GFR 2022-09-22 11:04:00 [facility] Irene POC GLUCOSE 2022-09-22 10:51:00 [facility] POC GLUCOSE 2022-09-22 05:34:00 Carmelo Bender spital POC GLUCOSE 2022-09-22 04:21:00 Carmelo Bender spital POC GLUCOSE 2022-09-21 23:25:00 Carmelo Bender spital POC GLUCOSE 2022-09-21 17:56:00 Carmelo Bender spital POC GLUCOSE 2022-09-21 14:40:00 Carmelo Bender spital SURGICAL PATHOLOGY REQUEST 2022-09-21 13:57:00 Napoleon [facility] [id number] TACROLIMUS LEVEL, 2022-09-21 09:16:00 [facility] TROUGH Irene EVEROLIMUS LEVEL, TROUGH 2022-09-21 09:16:00 [facility] Irene BASIC METABOLIC PANEL 2022-09-21 09:16:00 [facility] Irene HEPATIC FUNCTION PANEL 2022-09-21 09:16:00 [facility] Irene CBC WITH PLATELET AND 2022-09-21 09:16:00 [facility] DIFFERENTIAL Irene ESTIMATED GFR 2022-09-21 09:16:00 [facility] Irene POC GLUCOSE 2022-09-21 02:32:00 Carmelo Bender spital POC GLUCOSE 2022-09-21 00:15:00 Carmelo Bender spital LA AN ELECTIVE 2022-09-20 21:46:00 Adolph Johns spital ENDOTRACHEAL AIRWAY REPAIR, HERNIA, INCISIONAL 2022-09-20 21:37:00 Napoleon [facility] OR VENTRAL HC NERVE BLOCK TAP BLOCK 2022-09-20 20:43:17 [facility] NERVE BLOCK QUADRATUS 2022-09-20 20:40:08 [facility] P[facility] GLUCOSE 2022-09-20 19:19:00 Carmelo Bender spital BASIC METABOLIC PANEL 2022-09-20 17:59:00 [facility] CBC WITH PLATELET AND 2022-09-20 17:59:00 [facility] DIFFERENTIAL [place] HEPATIC FUNCTION PANEL 2022-09-20 17:59:00 [facility] MAGNESIUM LEVEL 2022-09-20 17:59:00 [facility] PARTIAL THROMBOPLASTIN 2022-09-20 17:59:00 [facility] TIME (PTT) [place] PHOSPHORUS LEVEL 2022-09-20 17:59:00 [facility] PROTHROMBIN TIME WITH INR 2022-09-20 17:59:00 [facility] TYPE AND SCREEN 2022-09-20 17:59:00 [facility] ESTIMATED GFR 2022-09-20 17:59:00 [facility] ECG 12-LEAD 2022-09-20 17:45:53 [facility] POC GLUCOSE 2022-09-20 17:10:00 Carmelo Bender spital COVID-19 QUALITATIVE 2022-09-19 23:02:00 [facility] RT-PCR [facility] COVID-19 QUALITATIVE 2022-09-12 22:02:00 [facility] RT-PCR [place] COMPREHENSIVE METABOLIC 2021-12-26 17:56:00 [facility]FR 2021-12-26 17:56:00 [facility] CT CHEST WO CONTRAST 2021-12-21 20:24:32 [facility] ABDOMEN WO CONTRAST PELVIS WO CONTRAST CBC WITH PLATELET AND 2021-12-21 17:55:[address] [facility] DIFFERENTIAL COMPREHENSIVE METABOLIC 2021-12-21 17:55:00 [facility] PANEL MAGNESIUM LEVEL 2021-12-21 17:55:00 [facility] HEMOGLOBIN A1C 2021-12-21 17:55:00 [facility] LIPID PANEL 2021-12-21 17:55:00 [facility] PARTIAL THROMBOPLASTIN 2021-12-21 17:55:00 [facility] TIME (PTT) PROTHROMBIN TIME WITH INR 2021-12-21 17:55:00 [facility] VITAMIN D 1,25 DIHYDROXY 2021-12-21 17:55:00 [facility] LEVEL, SERUM CYTOMEGALOVIRUS BY PCR 2021-12-21 17:55:00 [facility] VITAMIN D 25 HYDROXY LEVEL 2021-12-21 17:55:00 Kirby [facility] THYROID STIMULATING 2021-12-21 17:55:00 [facility] HORMONE GGT 2021-12-21 17:55:00 [facility] PROTEIN, URINE, RANDOM 2021-12-21 17:55:00 [facility] CREATININE LEVEL, URINE, 2021-12-21 17:55:00 [facility] RANDOM [id number] TACROLIMUS LEVEL, 2021-12-21 17:55:00 [facility] RANDOM EVEROLIMUS LEVEL, RANDOM 2021-12-21 17:55:00 [facility] HEPATOCELLULAR CARCINOMA 2021-12-21 17:55:00 [facility] MARKER PANEL HEPATITIS C VIRUS (HCV), 2021-12-21 17:55:00 [facility] QUANTITATIVE PCR ESTIMATED GFR 2021-12-21 17:55:00 Kirby [facility] DONOR SPECIFIC ANTIBODY 2021-12-21 17:55:00 [facility] Plan of Care Planned Activity Planned Date Details Comments Source Future Scheduled 2023-05-20 Screening for [facility] Test 08:23:12 malignant neoplasm of colon (procedure) [code = 406227670] Future Scheduled 2023-05-20 Screening for [facility] Test 08:23:12 malignant neoplasm of colon (procedure) [code = [id number]] Future Scheduled 2023-05-20 Screening for [facility] Test 08:23:12 malignant neoplasm of colon (procedure) [code = 971757624] Future Scheduled 2023-05-20 Pneumococcal Vaccine: [facility] Test 08:23:12 Pediatrics (0 to 5 Years) and At-Risk Patients (6 to 64 Years) (1 - PCV) [code = Pneumococcal Vaccine: Pediatrics (0 to 5 Years) and At-Risk Patients (6 to 64 Years) (1 - PCV)] Future Scheduled 2023-05-20 SHINGLES VACCINES (1 Met [facility] Test 08:23:12 of 2) [code = SHINGLES VACCINES (1 of 2)] Future Scheduled 2023-05-20 Screening for [facility] Test 08:23:12 malignant neoplasm of cervix (procedure) [code = 379603088] Future Scheduled 2023-05-20 BREAST CANCER [facility] Test 08:23:12 SCREENING [code = BREAST CANCER SCREENING] Future Scheduled 2023-05-20 Screening for [facility] Test 08:23:12 malignant neoplasm of colon (procedure) [code = 512852264] Future Scheduled 2023-05-20 Screening for [facility] Test 08:23:12 malignant neoplasm of colon (procedure) [code = 216533025] Future Scheduled 2023-05-20 HEPATITIS B VACCINES Met [facility] Test 08:23:12 (1 of 3 - Risk 3-dose series) [code = HEPATITIS B VACCINES (1 of 3 - Risk 3-dose series)] Future Scheduled 2023-05-20 DIABETIC FOOT EXAM [facility] Test 08:23:12 [code = DIABETIC FOOT EXAM] Future Scheduled 2023-05-20 DIABETES: RETINAL EYE [facility] Test 08:23:12 EXAM [code = DIABETES: RETINAL EYE EXAM] Future Scheduled 2023-05-20 COVID-19 VACCINE (3 - [facility] Test 08:23:12 Pfizer risk series) [code = COVID-19 VACCINE (3 - Pfizer risk series)] Future Scheduled 2023-05-20 INFLUENZA VACCINE (#1) [facility] Test 08:23:12 [code = INFLUENZA VACCINE (#1)] Future Scheduled 2023-01-10 Pneumococcal Vaccine: [facility] Test 11:53:42 Pediatrics (0 to 5 Years) and At-Risk Patients (6 to 64 Years) (1 - PCV) [code = Pneumococcal Vaccine: Pediatrics (0 to 5 Years) and At-Risk Patients (6 to 64 Years) (1 - PCV)] Future Scheduled 2023-01-10 SHINGLES VACCINES (1 Met [facility] Test 11:53:42 of 2) [code = SHINGLES VACCINES (1 of 2)] Future Scheduled 2023-01-10 Screening for [facility] Test 11:53:42 malignant neoplasm of cervix (procedure) [code = [id number]] Future Scheduled 2023-01-10 BREAST CANCER [facility] Test 11:53:42 SCREENING [code = BREAST CANCER SCREENING] Future Scheduled 2023-01-10 COLONOSCOPY SCREENING [facility] Test 11:53:42 [code = COLONOSCOPY SCREENING] Future Scheduled 2023-01-10 HEPATITIS B VACCINES [facility] Test 11:53:42 (1 of 3 - Risk 3-dose series) [code = HEPATITIS B VACCINES (1 of 3 - Risk 3-dose series)] Future Scheduled 2023-01-10 DIABETIC FOOT EXAM [facility] Test 11:53:42 [code = DIABETIC FOOT EXAM] Future Scheduled 2023-01-10 DIABETES: RETINAL EYE [facility] Test 11:53:42 EXAM [code = DIABETES: RETINAL EYE EXAM] Future Scheduled 2023-01-10 COVID-19 VACCINE (3 - [facility] Test 11:53:42 Pfizer risk series) [code = COVID-19 VACCINE (3 - Pfizer risk series)] Future Scheduled 2023-01-10 INFLUENZA VACCINE [facility] Test 11:53:42 [code = INFLUENZA VACCINE] Future Scheduled 2022-10-10 Pneumococcal Vaccine: [facility] Test 20:20:58 Pediatrics (0 to 5 Years) and At-Risk Patients (6 to 64 Years) (1 - PCV) [code = Pneumococcal Vaccine: Pediatrics (0 to 5 Years) and At-Risk Patients (6 to 64 Years) (1 - PCV)] Future Scheduled 2022-10-10 SHINGLES VACCINES (1 Met [facility] Test 20:20:58 of 2) [code = SHINGLES VACCINES (1 of 2)] Future Scheduled 2022-10-10 Screening for [facility] Test 20:20:58 malignant neoplasm of cervix (procedure) [code = [id number]] Future Scheduled 2022-10-10 BREAST CANCER [facility] Test 20:20:58 SCREENING [code = BREAST CANCER SCREENING] Future Scheduled 2022-10-10 COLONOSCOPY SCREENING [facility] Test 20:20:58 [code = COLONOSCOPY SCREENING] Future Scheduled 2022-10-10 HEPATITIS B VACCINES [facility] Test 20:20:58 (1 of 3 - Risk 3-dose series) [code = HEPATITIS B VACCINES (1 of 3 - Risk 3-dose series)] Future Scheduled 2022-10-10 DIABETIC FOOT EXAM [facility] Test 20:20:58 [code = DIABETIC FOOT EXAM] Future Scheduled 2022-10-10 DIABETES: RETINAL EYE [facility] Test 20:20:58 EXAM [code = DIABETES: RETINAL EYE EXAM] Future Scheduled 2022-10-10 COVID-19 VACCINE (3 - [facility] Test 20:20:58 Pfizer risk series) [code = COVID-19 VACCINE (3 - Pfizer risk series)] Future Scheduled 2022-10-10 INFLUENZA VACCINE [facility] Test 20:20:58 [code = INFLUENZA VACCINE] [...] Future Scheduled 2022-10-03 SHINGLES VACCINES (1 Met [facility] Test 13:20:09 of 2) [code = SHINGLES VACCINES (1 of 2)] Future Scheduled 2022-10-03 Screening for [facility] Test 13:20:09 malignant neoplasm of cervix (procedure) [code = 647350860] Future Scheduled 2022-10-03 BREAST CANCER [facility] Test 13:20:09 SCREENING [code = BREAST CANCER SCREENING] Future Scheduled 2022-10-03 COLONOSCOPY SCREENING [facility] Test 13:20:09 [code = COLONOSCOPY SCREENING] Future Scheduled 2022-10-03 HEPATITIS B VACCINES [facility] Test 13:20:09 (1 of 3 - Risk 3-dose series) [code = HEPATITIS B VACCINES (1 of 3 - Risk 3-dose series)] Future Scheduled 2022-10-03 DIABETIC FOOT EXAM [facility] Test 13:20:09 [code = DIABETIC FOOT EXAM] Future Scheduled 2022-10-03 DIABETES: RETINAL EYE [facility] Test 13:20:09 EXAM [code = DIABETES: RETINAL EYE EXAM] Future Scheduled 2022-10-03 COVID-19 VACCINE (3 - [facility] Test 13:20:09 Pfizer risk series) [code = COVID-19 VACCINE (3 - Pfizer risk series)] Future Scheduled 2022-10-03 INFLUENZA VACCINE [facility] Test 13:20:09 [code = INFLUENZA VACCINE] Encounters Start End Encounter Admission Attending Care Care Encounter Source Date/Time Date/Time Type Type Clinicians Facility Department ID 2023-05-07 2023-05-07 Orders Joey, 1.2.840.1 [id number] Methodi 00:00:00 00:00:00 Only Donna 53540.1.[address] [place] 3.430.2.7 Hospi ta .3.829055 l .8 2023-05-06 2023-05-06 Orders Joey 1.2.840.1 [id number] Methodi 00:00:00 00:00:00 Only Donna 45825.1.[address] [place] 3.430.2.7 Hospi ta .3.583115 l .8 2023-02-03 2023-02-03 Hospital Asked, No 1.2.840.1 [id number] Methodi 23:59:00 23:59:00 Encounter Pcp 77778.1.[address] 3.430.2.7 Hospit a .3.030887 l .8 2023-02-03 2023-02-03 Outpatient ASKED, NO [facility] [id number] [place] 00:00:00 00:00:[address] 2023-01-24 2023-01-24 Orders Joey 1.2.840.1 [id number] Methodi 00:00:00 00:00:00 Only Donna 09887.1.[address] [place] 3.430.2.7 Hospi ta .3.044573 l .8 2023-01-21 2023-01-21 Patient Lenard, 1.2.840.1 [id number] Methodi 00:00:00 00:00:00 Outreach Luh 59048.1.[address] 3.430.2.7 Hospit a .3.605929 l .8 2023-01-21 2023-01-21 Refill Sarah, 1.2.840.1 [id number] [id number] Methodi 00:00:00 00:00:00 Allison Pereira 44390.1.1 [address] 3.430.2.7 Hospit a .3.734821 l .8 2023-01-13 2023-01-19 [facility] 1.2.840.1 [id number] Methodi 07:31:00 14:23:00 Encounter Ward Oscarnaila Maria 50349.1.[address] [facility] Drew Harrsi 3.430.2.7 Hospita .3.658384 l .8 2023-01-13 2023-01-19 [facility] [id number] [place] [address] 00:00:00 00:00:00 HARRIS, [facility] 2022-12-27 2022-12-27 Telephone Jessica, 1.2.840.1 [id number] Methodi 00:00:00 00:00:[address] 3.430.2.7 Hospit a .3.222161 l .8 2022-12-27 2022-12-27 Telephone Jessica, 1.2.840.1 [id number] Methodi 00:00:00 00:00:[address] 3.430.2.7 Hospit a .3.695160 l .8 2022-12-26 2022-12-26 Telephone Famanias, 1.2.840.1 [id number] Methodi 00:00:00 00:00:[address] 3.430.2.7 Hospit a .3.380399 l .8 2022-12-26 2022-12-26 Telephone Famanias, 1.2.840.1 [id number] Methodi 00:00:00 00:00:[address] 3.430.2.7 Hospit a .3.203960 l .8 2022-12-12 2022-12-12 Transcribe Galati, 1.2.840.1 [id number] Methodi 00:00:00 00:00:00 Orders Presley S. 54748.1.[address] 3.430.2.7 Hospit a .3.775478 l .8 2022-12-12 2022-12-12 Transcribe Galati, 1.2.840.1 [id number] Methodi 00:00:00 00:00:00 Orders Presley S. 19642.1.[address] 3.430.2.7 Hospit a .3.621289 l .8 2022-12-12 2022-12-12 Travel 1.2.840.1 1.2.707.007 [id number] Methodi 00:00:00 00:00:[address] 3.430.2.7 0.2.7.3.698 Ho spita .3.997336 084.8 l .8 2022-12-12 2022-12-12 Travel 1.2.840.1 1.2.746.625 [id number] Methodi 00:00:00 00:00:[address] 3.430.2.7 0.2.7.3.698 Ho spita .3.126994 084.8 l .8 2022-11-22 2022-11-22 Refill Linda, 1.2.840.1 [id number] Methodi 00:00:00 00:00:[address] 3.430.2.7 Hospit a .3.375957 l .8 2022-11-22 2022-11-22 Refill Linda, 1.2.840.1 [id number] Methodi 00:00:00 00:00:[address] 3.430.2.7 Hospit a .3.100487 l .8 2022-11-13 2022-11-13 Refill Linda, 1.2.840.1 [id number] Methodi 00:00:00 00:00:[address] 3.430.2.7 Hospit a .3.595699 l .8 2022-11-13 2022-11-13 Refill Linda, 1.2.840.1 [id number] Methodi 00:00:00 00:00:[address] 3.430.2.7 Hospit a .3.337380 l .8 2022-11-13 2022-11-13 Refill Linda, 1.2.840.1 [id number] Methodi 00:00:00 00:00:[address] 3.430.2.7 Hospit a .3.514169 l .8 2022-11-13 2022-11-13 Refill Linda, 1.2.840.1 [id number] Methodi 00:00:00 00:00:[address] 3.430.2.7 Hospit a .3.295257 l .8 2022-11-11 2022-11-11 Refill Linda, 1.2.840.1 [id number] Methodi 00:00:00 00:00:[address] 3.430.2.7 Hospit a .3.280078 l .8 2022-11-11 2022-11-11 Refill Linda, 1.2.840.1 [id number] Methodi 00:00:00 00:00:[address] 3.430.2.7 Hospit a .3.020148 l .8 2022-10-23 2022-10-31 Office Darrell Diaz 1.2.840.1 [id number] Methodi 14:15:00 12:52:27 Visit Catalina Rosen 27282.1.[address] 3.430.2.7 Hospit a .3.695752 l .8 2022-10-23 2022-10-31 Office Darrell Diaz 1.2.840.1 [id number] Methodi 14:15:00 12:52:27 Visit Catalina Rosen 08503.1.[address] 3.430.2.7 Hospit a .3.357060 l .8 2022-10-25 2022-10-25 Refill Linda, 1.2.840.1 [id number] Methodi 00:00:00 00:00:[address] 3.430.2.7 Hospit a .3.574135 l .8 2022-10-25 2022-10-25 Refill Linda, 1.2.840.1 [id number] Methodi 00:00:00 00:00:[address] 3.430.2.7 Hospit a .3.743640 l .8 2022-10-16 2022-10-16 Travel 1.2.840.1 1.2.994.351 [id number] [id number] Methodi 00:00:00 00:00:[address] 3.430.2.7 0.2.7.3.698 Ho spita .3.153375 084.8 l .8 2022-10-16 2022-10-16 Travel 1.2.840.1 1.2.185.789 [id number] Methodi 00:00:00 00:00:[address] 3.430.2.7 0.2.7.3.698 Ho spita .3.359953 084.8 l .8 2022-09-27 2022-09-27 Patient Maverick, 1.2.840.1 [id number] Methodi 00:00:00 00:00:00 Outreach Farideh 33991.1.1 901 s t 3.430.2.7 Hospit a .3.514900 l .8 2022-09-27 2022-09-27 Patient Maverick, 1.2.840.1 [id number] Methodi 00:00:00 00:00:00 Outreach Farideh 36414.1.1 901 s t 3.430.2.7 Hospit a .3.146847 l .8 2022-09-20 2022-09-[address] [facility], 1.2.840.1 [id number] Methodi 10:46:00 18:53:00 Encounter Carmelo 82550.1.[address] 3.430.2.7 Hospit a .3.569285 l .8 2022-09-20 2022-09-24 [facility] 1.2.840.1 [id number] 21001 52482 Methodi 10:46:00 18:53:00 Encounter Carmelo 06671.1.[address] 3.430.2.7 Hospit a .3.003899 l .8 2022-09-23 2022-09-23 Telephone Joey, 1.2.840.1 [id number] Methodi 00:00:00 00:00:[address] [place] 3.430.2.7 Hospi ta .3.120503 l .8 2022-09-23 2022-09-23 Telephone Joey, 1.2.840.1 [id number] Methodi 00:00:00 00:00:[address] Alaina 3.430.2.7 Hospi ta .3.405364 l .8 2022-09-20 2022-09-20 Anesthesia Adolph Johnsh 1.2.840.1 75413 1038 [id number] Methodi 15:37:00 18:14:00 Event Malena Andrea 65179.1.[address] 3.430.2.7 Hospit a .3.898202 l .8 2022-09-20 2022-09-20 Anesthesia Adolph Johnsh 1.2.840.1 25610 1038 [id number] Methodi 15:37:00 18:14:00 Event Malena Andrea 69473.1.[address] 3.430.2.7 Hospit a .3.032676 l .8 2022-09-20 2022-09-20 Surgery Napoleon, 1.2.840.1 [id number] 808840 1261 Methodi 12:10:00 15:35:[address] 3.430.2.7 Hospit a .3.264379 l .8 2022-09-20 2022-09-20 Surgery Napoleon, 1.2.840.1 [id number] 168187 4782 Methodi 12:10:00 15:35:[address] 3.430.2.7 Hospit a .3.567224 l .8 2022-09-20 2022-09-20 Travel 1.2.840.1 1.2.753.520 0738 786541 Methodi 00:00:00 00:00:[address] 3.430.2.7 0.2.7.3.698 Ho spita .3.209001 084.8 l .8 2022-09-20 2022-09-20 Travel 1.2.840.1 1.2.886.679 0260 855401 Methodi 00:00:00 00:00:[address] 3.430.2.7 0.2.7.3.698 Ho spita .3.968783 084.8 l .8 2022-09-19 2022-09-19 Lab Napoleon, 1.2.840.1 [id number] 5445 Methodi 16:50:00 16:55:[address] 3.430.2.7 Hospit a .3.428101 l .8 2022-09-19 2022-09-19 Lab Napoleon, 1.2.840.1 [id number] Methodi 16:50:00 16:55:[address] 3.430.2.7 Hospit a .3.802486 l .8 2022-09-19 2022-09-19 Travel 1.2.840.1 1.2.456.843 7852 [id number] Methodi 00:00:00 00:00:[address] 3.430.2.7 0.2.7.3.698 Ho spita .3.872301 084.8 l .8 2022-09-19 2022-09-19 [facility], 1.2.840.1 [id number] 21 [id number] Methodi 00:00:00 00:00:00 Only Nolvia 60209.1.[address] [place] 3.430.2.7 Hosp jose .3.088624 l .8 2022-09-19 2022-09-19 Travel 1.2.840.1 1.2.478.943 0146 [id number] Methodi 00:00:00 00:00:[address] 3.430.2.7 0.2.7.3.698 Ho spita .3.376758 084.8 l .8 2022-09-19 2022-09-19 [facility], 1.2.840.1 [id number] 21 [id number] Methodi 00:00:00 00:00:00 Only Nolvia 46661.1.[address] [place] 3.430.2.7 Hosp jose .3.476501 l .8 2022-09-16 2022-09-16 Telephone Diego, 1.2.840.1 [id number] Methodi 00:00:00 00:00:[address] 3.430.2.7 Hospit a .3.886819 l .8 2022-09-16 2022-09-16 Telephone Diego, 1.2.840.1 [id number] 205 [id number] Methodi 00:00:00 00:00:[address] 3.430.2.7 Hospit a .3.115516 l .8 2022-09-12 2022-09-12 Outpatient [facility], [facility] [id number] Bland 00:00:00 00:00:00 DARRELL [address] 2022-09-12 2022-09-12 Outpatient [facility], [facility] [id number] Bland 00:00:00 00:00:[address] 2022-09-12 2022-09-12 Travel 1.2.840.1 1.2.162.170 4694 [id number] Methodi 00:00:00 00:00:[address] 3.430.2.7 0.2.7.3.698 spita .3.019517 084.8 l .8 2022-09-12 2022-09-12 Orders [place], 1.2.840.1 [id number] 21 [id number] Methodi 00:00:00 00:00:00 Only Nolvia 29122.1.[address] [place]atter[place] 3.430.2.7 Hosp jose .3.701075 l .8 2022-09-12 2022-09-12 Travel 1.2.840.1 1.2.080.516 7672 [id number] Methodi 00:00:00 00:00:[address] 3.430.2.7 0.2.7.3.698 Ho spita .3.275267 084.8 l .8 2022-09-12 2022-09-12 [facility], 1.2.840.1 [id number] 21 [id number] Methodi 00:00:00 00:00:00 Only Nolvia 18405.1.[address] [place]atter[place] 3.430.2.7 Hosp jose .3.451823 l .8 2022-07-05 2022-07-05 Refill Linda, 1.2.840.1 [id number] 7642 Methodi 00:00:00 00:00:00 Lulúidekrissy [address]208.1.[address] 3.430.2.7 Hospit a .3.228091 l .8 2022-07-05 2022-07-05 Refill Linda, 1.2.840.1 [id number] 2186 Methodi 00:00:00 00:00:[address] 3.430.2.7 Hospit a .3.404873 l .8 2022-06-21 2022-06-21 Telephone [place], 1.2.840.1 [id number] Methodi 00:00:00 00:00:[address] [place]atter[place] 3.430.2.7 Hosp jose .3.120888 l .8 2022-06-21 2022-06-21 [facility], 1.2.840.1 [id number] Methodi 00:00:00 00:00:[address] Catter[place] 3.430.2.7 Hosp jose .3.576905 l .8 2022-06-19 2022-06-19 Office Darrell Diaz 1.2.840.1 [id number] 3 [id number] Methodi 14:15:00 14:30:00 Visit Nolvia Mulligan 18933.1.[address] 3.430.2.7 Hospit a .3.267171 l .8 2022-06-19 2022-06-19 Office Darrell Diaz 1.2.840.1 [id number] 3 [id number] Methodi 14:15:00 14:30:00 Visit Nolvia Mulligan 35099.1.[address] 3.430.2.7 Hospit a .3.445618 l .8 2022-06-12 2022-06-12 Refill Linda, 1.2.840.1 [id number] 4571 Methodi 00:00:00 00:00:[address] 3.430.2.7 Hospit a .3.542456 l .8 2022-06-12 2022-06-12 Refill Linda, 1.2.840.1 [id number] 8256 Methodi 00:00:00 00:00:[address] 3.430.2.7 Hospit a .3.293346 l .8 2022-06-07 2022-06-07 Telephone Bacon, 1.2.840.1 [id number] 2100 [id number] Methodi 00:00:00 00:00:[address] 3.430.2.7 Hospit a .3.752317 l .8 2022-06-07 2022-06-07 Telephone Bacon, 1.2.840.1 [id number] 2100 [id number] Methodi 00:00:00 00:00:[address] 3.430.2.7 Hospit a .3.807342 l .8 2022-01-11 2022-01-11 Refill Linda, 1.2.840.1 [id number] 0390 Methodi 00:00:00 00:00:[address] 3.430.2.7 Hospit a .3.403348 l .8 2022-01-10 2022-01-10 Refill Linda, 1.2.840.1 [id number] Methodi 00:00:00 00:00:[address] 3.430.2.7 Hospit a .3.400905 l .8 2021-12-28 2021-12-28 Refill Sadhu, 1.2.840.1 [id number] 8501 Methodi 00:00:00 00:00:[address] Ortega 3.430.2.7 Hospit a .3.642427 l .8 2021-12-28 2021-12-28 Refill Sarah, 1.2.840.1 [id number] 2099 [id number] Methodi 00:00:00 00:00:00 Allison Pereira 98446.1.1 670 s t 3.430.2.7 Hospit a .3.413028 l .8 2021-12-26 2021-12-26 Office [facility], 1.2.840.1 [id number] 7388 Methodi 08:30:00 08:45:00 Visit Presley MariferAntonina 37468.1.[address] 3.430.2.7 Hospit a .3.350900 l .8 2021-12-26 2021-12-26 Outpatient [facility], [facility] [id number] 977 Bland 00:00:00 00:00:00 PRESLEY [address] 2021-12-26 2021-12-26 Travel 1.2.840.1 1.2.268.561 7313 [id number] Methodi 00:00:00 00:00:[address] 3.430.2.7 0.2.7.3.698 Ho spita .3.884943 084.8 l .8 2021-12-21 2021-12-21 Hospital [facility], 1.2.840.1 [id number] 96089 15616 Methodi 12:00:00 23:59:00 Encounter Presley CaicedoAntonina 16161.1.[address] 3.430.2.7 Hospit a .3.190231 l .8 2021-12-21 2021-12-21 Travel 1.2.840.1 1.2.628.000 3476 303869 Methodi 00:00:00 00:00:[address] 3.430.2.7 0.2.7.3.698 Ho spita .3.148335 084.8 l .8 2021-12-21 2021-12-21 [facility] [id number] 255 Bland 00:00:00 00:00:00 PRESLEY [address] 2021-12-13 2021-12-13 Refill Linda, 1.2.840.1 [id number] 4327 Methodi 00:00:00 00:00:[address] 3.430.2.7 Hospit a .3.119019 l .8 2021-12-13 2021-12-13 Telephone Brown, 1.2.840.1 [id number] Methodi 00:00:00 00:00:00 [place] Kala [address] 3.430.2.7 Hospit a .3.743637 l .8 2021-12-13 2021-12-13 Telephone Brown, 1.2.840.1 [id number] 2099 [id number] Methodi 00:00:00 00:00:00 Deb M [address]331.1.[address] 3.430.2.7 Hospit a .3.647284 l .8 2021-12-02 2021-12-02 Refill Sarah, 1.2.840.1 [id number] 2099 [id number] Methodi 00:00:00 00:00:00 Allison Pereira 09596.1.1 699 s t 3.430.2.7 Hospit a .3.228318 l .8 2021-10-24 2021-10-24 Telephone Maral, 1.2.840.1 [id number] Methodi 00:00:00 00:00:[address] 3.430.2.7 Hospit a .3.323591 l .8 2021-10-23 2021-10-23 Refill Linda, 1.2.840.1 [id number] 5645 Methodi 00:00:00 00:00:[address] 3.430.2.7 Hospit a .3.186366 l .8 2021-10-22 2021-10-22 Refill Sarah, 1.2.840.1 [id number] 2099 [id number] Methodi 00:00:00 00:00:00 Rafik Randall 43271.1.1 778 s t 3.430.2.7 Hospit a .3.124847 l .8 2021-10-19 2021-10-19 Orders Linda, 1.2.840.1 [id number] 5470 Methodi 00:00:00 00:00:00 Only Loideth 10293.1.[address] 3.430.2.7 Hospit a .3.210294 l .8 2021-10-03 2021-10-03 Telephone Linda, 1.2.840.1 [id number] 2099 [id number] Methodi 00:00:00 00:00:[address] 3.430.2.7 Hospit a .3.157700 l .8 2021-05-17 2021-05-17 Outpatient SELL[place], [facility] [id number] Bland 00:00:00 00:00:00 LADI [address] 2021-04-19 2021-04-19 Outpatient SELL[place], [facility] [id number] 261 Bland 00:00:00 00:00:00 LADI [address] 2021-04-19 2021-04-19 Outpatient SE[place], [facility] [id number] 261 Bland 00:00:00 00:00:00 LADI [address] 2021-04-19 2021-04-19 Outpatient [place], [facility] [id number] 261 Bland 00:00:00 00:00:00 LADI [address] 2021-04-19 2021-04-19 Outpatient [place], [facility] [id number] 261 Bland 00:00:00 00:00:00 LADI [address] 2021-04-19 2021-04-19 Outpatient SE[place], [facility] [id number] 261 Bland 00:00:00 00:00:[address] 2021-01-31 2021-01-31 Outpatient GALATI, [facility] [id number] Bland 00:00:00 00:00:00 PRESLEY [address] 2020-12-15 2020-12-15 Outpatient GALATI, [facility] [id number] 068 Bland 00:00:00 00:00:00 PRESLEY [address] 2020-12-15 2020-12-15 Outpatient GALATI, [facility] [id number] 067 Bland 00:00:00 00:00:00 PRESLEY [address] 2020-12-15 2020-12-15 Outpatient GALATI, [facility] [id number] Bland 00:00:00 00:00:00 PRESLEY [address] 2020-12-15 2020-12-15 Outpatient GALATI, [facility] [id number] 067 Bland 00:00:00 00:00:00 PRESLEY [address] 2020-12-15 2020-12-15 Outpatient GALATI, [facility] [id number] 067 Bland 00:00:00 00:00:00 PRESLEY [address] 2020-04-26 2020-04-26 Outpatient GALATI, [facility] [id number] 360 Bland 00:00:00 00:00:00 PRESLEY [address] 2020-04-10 2020-04-10 Outpatient GALATI, [facility] [id number] 549 Bland 00:00:00 00:00:00 PRESLEY [address] 2020-04-10 2020-04-10 Outpatient GALATI, [facility] [id number] 549 Bland 00:00:00 00:00:00 PRESLEY [address] 2020-04-10 2020-04-10 Outpatient GALATI, [facility] [id number] 549 Bland 00:00:00 00:00:00 PRESLEY [address] 2020-01-14 2020-01-14 Outpatient GALATI, [facility] [id number] 616 Bland 00:00:00 00:00:00 PRESLEY [address] 2019-05-28 2019-05-28 Outpatient SARAH, [facility] [id number] Bland 00:00:00 00:00:00 RAFIK [address] Results Test Description Test Time Test Comments Results Result Comments Source POC glucose 2023-01-19 13:05:00 Test Item Value Reference Range Interpretation Comme nts POC glucose (test code = 114 mg/dL 65-99 H Ope rator Name: Juan Manuel Rivas 37733-9) ID: [id number] hartable: TM Notified [employer] specialist Interpretation (test code = Abnormal 14845-8) [id number] 05:35:00 Test Item Value Reference Range Interpretation Comments Urine culture (test SEE COMMENT Bacteriu liliana screen code = 0719746) negative. [facility], 1 [id number] 18:23:00 Test Item Value Reference Range Interpretation Comments Product name (test code Red Cells AS1 Leukored = 25) Irrad Unit number (test code [id number] = 0867454) Product code (test code X5898J86 = 3092) Dispense status (test Transfused code = 24) Blood expiration date (test code = 302) Blood type code (test 5100 code = 308) Blood type (test code = O POSITIVE 1314) Compatibility (test Compatible code = 6400) REINALDO (test code = REINALDO) [facility] 12 [id number] 15:13:35 Test Item Value Reference Range Interpretation Comments Ventricular rate (test 75 code = 253) Atrial rate (test code = 75 255) LA interval (test code = 128 266) QRSD interval (test code 86 = 260) QT interval (test code = 396 264) QTC interval (test code = 442 265) P axis 1 (test code = 71 267) QRS axis 1 (test code = 39 268) T wave axis (test code = 71 270) EKG impression (test code Normal sinus = 273) rhythm-Poor R wave progression-[facility]normal [facility] [id number] 18:30:32 Test Item Value Reference Range Interpretation Comments Case number (test code = [id number]) Surgical pathology See link below for report (test code = PDF Lab Report 2256) Result status (test code This is Final Report = [id number]) for [id number] [facility] pathology [id number] 18:30:32 Test Item Value Reference Range Interpretation Comments Case number (test code = [id number]) Surgical pathology See link below for report (test code = PDF Lab Report 2255) Result status (test code This is Final Report = [id number]) for [id number] [facility] pathology [id number] 18:30:32 Test Item Value Reference Range Interpretation Comments Case number (test code = [id number]) Surgical pathology See link below for report (test code = PDF Lab Report 2255) Result status (test code This is Final Report = [id number]) for [id number] [facility] pathology [id number] 18:30:32 Test Item Value Reference Range Interpretation Comments Case number (test code = [id number]) Surgical pathology See link below for report (test code = PDF Lab Report 2255) Result status (test code This is Final Report = [id number]) for [id number] [facility]2023-01-24 18:05:00 Test Item Value Reference Range Interpretation Comments POC glucose (test code 184 mg/dL 65-99 H Opera tor Name: Dickey = 59046-7) PatriciaDevice ID: [id number] able: TMH Notified [employer] specialist Interpretation Abnormal (test code = 64309-6) [facility]2023-01-24 18:05:00 Test Item Value Reference Range Interpretation Comments POC glucose (test code 184 mg/dL 65-99 H Opera tor Name: Dickey = 38355-9) PatriciaDevice ID: [id number] able: TMH Notified [employer] rede[employer] specialist Interpretation Abnormal (test code = 89880-0) [facility]2023-01-24 18:05:00 Test Item Value Reference Range Interpretation Comments POC glucose (test code 184 mg/dL 65-99 H Opera tor Name: Dickey = 03692-4) PatriciaDevice ID: [id number] able: TMH Notified [employer] rede[employer] specialist Interpretation Abnormal (test code = 59706-9) [address]2023-01-21 06:54:17 Test Item Value Reference Range Interpretation Comments Ventricular rate (test 66 code = 253) Atrial rate (test code = 66 255) LA interval (test code = 108 266) QRSD interval (test code 90 = 260) QT interval (test code = 410 264) QTC interval (test code = 429 265) P axis 1 (test code = 45 267) QRS axis 1 (test code = 69 268) T wave axis (test code = 59 270) EKG impression (test code Sinus rhythm with = 273) short LA-Otherwise normal ECG-- [address]2023-01-21 06:54:17 Test Item Value Reference Range Interpretation Comments Ventricular rate (test 66 code = 253) Atrial rate (test code = 66 255) LA interval (test code = 108 266) QRSD interval (test code 90 = 260) QT interval (test code = 410 264) QTC interval (test code = 429 265) P axis 1 (test code = 45 267) QRS axis 1 (test code = 69 268) T wave axis (test code = 59 270) EKG impression (test code Sinus rhythm with = 273) short LA-Otherwise normal ECG-- [address]2023-01-21 06:54:17 Test Item Value Reference Range Interpretation Comments Ventricular rate (test 66 code = 253) Atrial rate (test code = 66 255) LA interval (test code = 108 266) QRSD interval (test code 90 = 260) QT interval (test code = 410 264) QTC interval (test code = 429 265) P axis 1 (test code = 45 267) QRS axis 1 (test code = 69 268) T wave axis (test code = 59 270) EKG impression (test code Sinus rhythm with = 273) short LA-Otherwise normal ECG-- [facility] [id number] 03:10:54 Test Item Value Reference Interpretation Comments Range Interpretation Negative results do (test code = not preclude COVID-19 6323690) infection and should not be used asthe sole basis for treatment or other patient management decisions. Negativeresults must be combined with clinical observations, patient history, andepidemiological information. COVID-19 Not-Detected Not-Detected DISCLAIMER:This qualitative RT-PCR test was result (test code performed using = 60137-5) the [place] [employer] SARS-CoV-2 Assa y (bCommunities). This assay is available for i n vitro diagnosti c use under Food and Drug Administration (FDA) Emergency Use Authorizati on (EUA) and has been verified f or clinical use by the [facility]. Information on the FDA policy for diagnostic tests for coronavirus disease- 2019 i s available at:https://www. fd a.gov/medical-d ev ices/emergency- si tuations-medica l- devices/faqs-di ag nostic-testing- sa rs-cov-2It is critical that health care providers and patients review the applicable fact sheet(s) i n interpreting or understanding t he test results th at are available upon request.METHODO LO GY:This assay utilizes Tensorcomen ts for nucleic aci d extraction, amplification, and real-time reverse lifts and cranes inspector polymerase cornell n reaction. COVID-19 See link below for PDF Case Number: qualitative RT-PCR Lab Report [id number] 222 (test code = 7070) [facility] [id number] 03:10:54 Test Item Value Reference Interpretation Comments Range Interpretation Negative results do (test code = not preclude COVID-19 0536837) infection and should not be used asthe sole basis for treatment or other patient management decisions. Negativeresults must be combined with clinical observations, patient history, andepidemiological information. COVID-19 Not-Detected Not-Detected DISCLAIMER:This qualitative RT-PCR test was result (test code performed using = 68382-2) the [place] [employer] SARS-CoV-2 Assa y (bCommunities). This assay is available for i n vitro diagnosti c use under Food and Drug Administration (FDA) Emergency Use Authorizati on (EUA) and has been verified f or clinical use by the [facility]. Information on the FDA [...] aci d extraction, amplification, and real-time reverse lifts and cranes inspector polymerase cornell n reaction. COVID-19 See link below for PDF Case Number: qualitative RT-PCR Lab Report [id number] 222 (test code = 7070) [place] [address] qualitative [id number] 03:10:54 Test Item Value Reference Interpretation Comments Range Interpretation Negative results do (test code = not preclude COVID-19 0204480) infection and should not be used asthe sole basis for treatment or other patient management decisions. Negativeresults must be combined with clinical observations, patient history, andepidemiological information. COVID-19 Not-Detected Not-Detected DISCLAIMER:This qualitative RT-PCR test was result (test code performed using = 11711-9) the [place] [employer] SARS-CoV-2 Assa y (bCommunities). This assay is available for i n vitro diagnosti c use under Food and Drug Administration (FDA) Emergency Use Authorizati on (EUA) and has been verified f or clinical use by the [facility]. Information on the FDA [...] aci d extraction, amplification, and real-time reverse lifts and cranes inspector polymerase cornell n reaction. COVID-19 See link below for PDF Case Number: qualitative RT-PCR Lab Report [id number] PDF (test code = 7070) [facility] [id number] 03:10:54 Test Item Value Reference Interpretation Comments Range Interpretation Negative results do (test code = not preclude COVID-19 3611371) infection and should not be used asthe sole basis for treatment or other patient management decisions. Negativeresults must be combined with clinical observations, patient history, andepidemiological information. COVID-19 Not-Detected Not-Detected DISCLAIMER:This qualitative RT-PCR test was result (test code performed using = 77808-0) the Akin gardner SARS-CoV-2 Assa y (bCommunities). This assay is available for i n vitro diagnosti c use under Food and Drug Administration (FDA) Emergency Use Authorizati on (EUA) and has been verified f or clinical use by the [facility]. Information on the FDA policy for diagnostic tests for coronavirus disease- 2019 i s available at:https://www. fd a.gov/medical-d ev ices/emergency- si tuations-medica l- devices/faqs-di ag nostic-testing- sa rs-cov-2It is critical that health care providers and patients review the applicable fact sheet(s) i n interpreting or understanding t he test results th at are available upon request.METHODO LULÚ GY:This assay utilizes reagen ts for nucleic aci d extraction, amplification, and real-time reverse lifts and cranes inspector polymerase cornell n reaction. COVID-19 See link below for PDF Case Number: qualitative RT-PCR Lab Report [id number] PDF (test code = 7070) [facility] RNA [Presence] in Respiratory specimen by ALBERT with probe [id number] 21:10:54 Test Item Value Reference Range Interpretation Comments SARS-CoV-2 (COVID-19) RNA Not detected [Presence] in Respiratory specimen by ALBERT with probe detection (test code = 15429-6) Whether patient is employed in a Unknown healthcare setting (test code = 15555-2) Whether the patient has symptoms Unknown related to condition of interest (test code = 13006-1) Whether the patient was Unknown hospitalized for condition of interest (test code = 93609-1) Whether the patient was admitted Unknown to intensive care unit (ICU) for condition of interest (test code = 47769-4) Whether patient resides in a Unknown congregate care setting (test code = 15815-1) status (test code = Unknown 64260-9) Date and time of symptom onset Unknown (test code = 01109-7) BRIEN PAZRS-CoV-2 (COVID-19) RNA [Presence] in Respiratory specimen by ALBERT with probe [id number] 22:18:32 Test Item Value Reference Range Interpretation Comments SARS-CoV-2 (COVID-19) RNA Not detected [Presence] in Respiratory specimen by ALBERT with probe detection (test code = 41425-4) Whether patient is employed in a Unknown healthcare setting (test code = 22530-9) Whether the patient has symptoms Unknown related to condition of interest (test code = 05254-0) Whether the patient was Unknown hospitalized for condition of interest (test code = 32429-8) Whether the patient was admitted Unknown to intensive care unit (ICU) for condition of interest (test code = 84507-3) Whether patient resides in a Unknown congregate care setting (test code = 23815-0) status (test code = Unknown 25833-1) Date and time of symptom onset Unknown (test code = 85366-2) BRIEN WILL
[2023-05-20] MEDS ORDERED: ROCURONIUM 50 MG/5 ML VIAL IV ONE (16:45)
[2023-05-20] MEDS ORDERED: propofoL 1,000 MG/100 ML VIAL IV ONE ×2 (16:45→22:33)
[2023-05-20 17:09] LABS: Arterial Blood Carboxyhemoglob 1.2 % (0-1.5); Blood O2 Saturation 99.7 % (92-98.5)
[2023-05-20 17:35] LABS: Absolute Lymphocytes (CBC) 0.5 K/uL (0.7-4.9); Hematocrit 31.1 % (36.0-45.0); Lymphocytes % 5.8 % (15.3-44.8); MCV 91.2 fL (80-100); MPV 7.5 fL (7.6-11.3); Platelets 270 thou/uL (152-406); RBC Red Blood Cell Count 3.41 M/uL (3.86-4.86)
[2023-05-20 17:41] LABS: Protime INR 1.1
[2023-05-20 17:53] LABS: Albumin 2.9 g/dL (3.4-5.0); Bilirubin Total 0.4 mg/dL (0.2-1.0); Potassium 4.3 mEq/L (3.5-5.1); Protein, Total 7.2 g/dL (6.4-8.2)
[2023-05-20 17:57] LABS: Blood Morphology Comment NOT SEEN (NOT SEEN); Platelet Estimate ADEQ; White Blood Cell Scan OK (OK)
--- NOTE | 2023-05-20 18:52 | RAD REPORT ---
EXAM DESCRIPTION: RAD - Chest Single View - 05/20/2023 6:37 pm CLINICAL HISTORY: ams Chest pain. COMPARISON: Chest Single View dated 02/27/2023 FINDINGS: Portable technique limits examination quality. The lungs are grossly clear. The heart is normal in size. Endotracheal tube tip is 1 cm above the aor tic arch. Enteric tube tip is in the stomach.
--- NOTE | 2023-05-20 20:13 | RAD REPORT ---
EXAM DESCRIPTION: CT - Head Brain Wo Cont - 05/20/2023 8:00 pm CLINICAL HISTORY: altered mental status Headache, drowsiness, dizziness COMPARISON: Head Brain Wo Cont dated 02/27/2023 TECHNIQUE: All CT scans are performed using dose optimization technique as appropriate and may inclu de automated exposure control or mA/KV adjustment according to patient size. FINDINGS: No intracranial hemorrhage, hydrocephalus or extra-axial fluid collection.No areas of brai n edema or evidence of midline shift. The paranasal sinuses and mastoids are clear. The calvarium is intact. IMPRESSION: No acute intracranial abnormality.
--- NOTE | 2023-05-20 20:20 | EDPHYS ---
Physician Documentation [facility] Name: Carmen Salguero Age: 62 yrs Sex: Female : 1960 Arrival Date: 05/20/2023 Time: 16:30 Bed 3 Private MD: ED Physician Mike Chavez HPI: 05/20 17:53 This 62 yrs old Female presents to ER via EMS with complaints of Unresponsive. ms3 17:53 62-year-old female with past medical history of diabetes, hypertension, liver ms3 transplant in 2018 at [facility] by Dr. Vergara presents via [facility] for altered mental status. EMS notes patient was last seen normal at 4:30 AM and on patient's 's arrival home patient was found on the floor in the restroom. EMS notes patient's blood pressure was 220 systolic on their arrival.. Historical: - Allergies: 17:26 No Known Allergies; ld1 - PMHx: 17:26 Cirrhosis; Diabetes - NIDDM; ld1 - PSHx: 17:26 section; liver transplant; ld1 - Immunization history:: Adult Immunizations up to date. - Social history:: Smoking status: unknown. ROS: 17:53 Unable to obtain ROS due to obtunded state, ms3 Exam: 17:18 ECG was reviewed by the Attending Physician. ms3 17:53 Head/Face: Normocephalic, atraumatic. Eyes: Pupils equal round and reactive to light, ms3 extra-ocular motions intact. Lids and lashes normal. Conjunctiva and sclera are non-icteric and not injected. Periorbital areas with no swelling, redness, or edema. Neck: Trachea midline, no cervical lymphadenopathy. Supple, full range of motion without nuchal rigidity, or vertebral point tenderness. No Meningismus. Cardiovascular: Regular rate and rhythm with a normal S1 and S2. No gallops, murmurs, or rubs. Normal PMI, no JVD. No pulse deficits. 17:53 Constitutional: The patient appears frail, obviously ill, 17:53 Respiratory: the patient does not display signs of respiratory distress, Respirations: Sonorous respirations, 17:53 Abdomen/GI: Inspection: distension, is not seen, scar(s), are noted in the , Bowel sounds: normal, Palpation: soft, 17:53 Musculoskeletal/extremity: Extremities: Lower extremities contracted, 17:53 Skin: Pale. 17:53 Neuro: Orientation: Cerebellar function: unable to test, the patient is comatose, Motor: unable to test, No response to painful stimuli, Sensation: No response to painful stimuli, Gait: unable to assess, seizure activity, is not displayed by the patient, Abnormal movements: there are no abnormal movements, Vital Signs: 16:48 BP 208 / 107; Pulse 97; Resp 16; Temp 97.3(A); Pulse Ox 100% on ETT vent; Weight 39.92 ld1 kg; Height 5 ft. 1 in. ; 16:51 BP 200 / 93; Pulse 94; Resp 14; Pulse Ox 100% on ETT vent; ld1 16:54 BP 221 / 104; Pulse 94; Resp 14; Pulse Ox 100% on ETT vent; ld1 17:03 BP 212 / 95; Pulse 94; Resp 14; Pulse Ox 100% on ETT vent; ld1 17:05 Weight 39.92 kg; ld1 17:15 BP 195 / 114; Pulse 92; Resp 15; Pulse Ox 100% on ETT vent; ld1 17:59 BP 191 / 98; Pulse 93; Resp 14; Pulse Ox 100% on ETT vent; ld1 18:06 BP 168 / 97; Pulse 93; Resp 14; Pulse Ox 100% on ETT vent; ld1 18:34 BP 196 / 98; Pulse 95; Resp 14; Pulse Ox 99% on ETT vent; FiO2 21 %; ld1 19:41 BP 164 / 94; Pulse 97; Resp 15; Pulse Ox 99% on ETT vent; FiO2 21 %; rv 20:07 BP 190 / 102; Pulse 97; Resp 14; Pulse Ox 100% ; bp 20:30 BP 166 / 91; Pulse 99; Resp 18; Pulse Ox 99% on ETT vent; rv 20:41 BP 154 / 91; Pulse 99; Resp 15; Pulse Ox 99% on ETT vent; rv 21:24 BP 194 / 79; Pulse 92; Resp 14; Pulse Ox 100% ; bp 22:02 BP 187 / 84; Pulse 92; Resp 14; Pulse Ox 100% on ETT vent; rv 23:47 BP 156 / 82; Pulse 92; Resp 14; Pulse Ox 100% ; FiO2 21 %; bp 05/21 00:10 BP 175 / 84; Pulse 91; Resp 14; Temp 97.3; Pulse Ox 100% ; FiO2 21 %; bp 00:33 BP 162 / 80; Pulse 89; Resp 14; Pulse Ox 100% ; FiO2 21 %; bp 05/20 16:48 Body Mass Index 16.63 (39.92 kg, 154.94 cm) ld1 Lisset Coma Score: 05/20 17:53 Eye Response: none(1). Motor Response: none(1). Verbal Response: none(1). Total: 3. ms3 Ventilator: 18:34 Fi02: 21%; Rate: 14min; ld1 Procedures: 16:53 Intubation: Ventilated with 100% NRB prior to procedure. O2 saturation prior to ms3 procedure was 100 %. Intubated orally using Glidescope 3 with 7.5 mm ETT. was successful on first attempt. Ventilated with Ambu bag. Tube secured with ETT mejia at center of mouth measured 22 cm at teeth. Placement verified by CO2 detector with (+) color change, auscultating bilateral breath sounds, O2 saturation after procedure was 100 %. Patient tolerated well. MDM: 16:40 Patient medically screened. kb 20:52 ED course: Patient with head shaking and left arm shaking c/w seizure activity. 1 mg ms3 Ativan and 1 gm Keppra ordered.. 20:57 ED course: Discussed case with patient's daughter, Marina, at . ms3 20:58 Differential Diagnosis: CVA, electrolyte abnormality, intracranial bleed, UTI. Data ms3 reviewed: vital signs, nurses notes, lab test result(s), EKG, radiologic studies, and as a result, I will transfer patient. Consideration of Admission/Observation Will transfer. I considered the following discharge prescriptions or medication management in the emergency department Medications were administered in the Emergency Department. See MAR. Independent interpretation of the following test(s) in the Emergency Department X-Ray: My interpretation is CXR image reviewed by me. ETT in position, no PNA. Historians other than the Patient: EMS: [facility]. Counseling: I had a detailed discussion with the patient and/or guardian regarding. 21:10 Transition of care: After a detail discussion of the patient's case, care is ms3 transferred to Mike Chavez MD. 05/20 16:49 Order name: Blood Culture Adult (2) ms3 09/19 16:49 Order name: CBC with Diff; Complete Time: 18:53 ms3 05/20 16:49 Order name: CMP; Complete Time: 18:53 ms3 05/20 16:49 Order name: Lactate w/ 2H reflex if indic.; Complete Time: 18:53 ms3 05/20 16:49 Order name: Protime (+inr); Complete Time: 17:53 ms3 05/20 16:49 Order name: Ptt, Activated; Complete Time: 17:53 ms3 05/20 16:49 Order name: Urinalysis w/ reflexes; Complete Time: 22:56 ms3 05/20 16:49 Order name: ABG; Complete Time: 19:44 ms3 05/20 17:40 Order name: CBC Smear Scan; Complete Time: 18:53 EDMS 05/20 18:54 Order name: AMMONIA; Complete Time: 20:14 ms3 05/20 21:00 Order name: Lactate Sepsis 2 HR Follow-up; Complete Time: 21:02 EDMS 05/20 21:36 Order name: Flu; Complete Time: 22:56 fahad 05/20 21:58 Order name: SARS-COV-2 RT PCR bp 05/20 16:49 Order name: Chest Single View XRAY; Complete Time: 18:53 ms3 05/20 16:49 Order name: CT Head Brain wo Cont; Complete Time: 20:14 ms3 05/20 16:49 Order name: EKG; Complete Time: 16:50 ms3 05/20 16:49 Order name: Accucheck; Complete Time: 17:30 ms3 05/20 16:49 Order name: Cardiac monitoring; Complete Time: 17:03 ms3 05/20 16:49 Order name: EKG - Nurse/Tech; Complete Time: 17:23 ms3 05/20 16:49 Order name: IV Saline Lock - Large Bore; Complete Time: 17:03 ms3 05/20 16:49 Order name: Labs collected and sent; Complete Time: 17:23 ms3 05/20 16:49 Order name: O2 Per Protocol; Complete Time: 17:03 ms3 05/20 16:49 Order name: O2 Sat Monitoring; Complete Time: 17:03 ms3 05/20 16:49 Order name: Vital Signs; Complete Time: 17:30 ms3 05/20 17:02 Order name: NG Tube; Complete Time: 17:02 ld1 05/20 18:50 Order name: Misc. Order: RECOLLECT BOTH BLOOD CULTURES ; Complete Time: 19:33 rv1 EC:18 Rate is 92 beats/min. Rhythm is regular. QRS Lima is Normal. QRS interval is normal. QT ms3 interval is normal. Clinical impression: Normal ECG. Interpreted by me. Reviewed by me. Administered Medications: 16:40 Drug: Propofol IVP 45 mg IVP once; Document RASS score. Route: IVP; Site: right wrist; ld1 21:26 Follow up: Response: No adverse reaction bp 16:42 Drug: Rocuronium IVP 45 mg IVP once Route: IVP; Site: Other; ld1 21:26 Follow up: Response: No adverse reaction bp 17:05 Drug: Propofol IV 5 mcg/kg/min IV at calculated rate See Administration Instructions; ld1 Standard concentration 1000 mg / 100 mL; Recommended max rate 50 mcg/kg/min; Titrate 2 mcg/kg/min every 5 minutes to achieve goal (see titration policy); Goal parameter RASS score 0 to -2 Route: IV; Rate: calculated rate; Site: right wrist; 17:10 Follow up: Rate change 5 mcg/kg/min ld1 17:15 Follow up: Rate change 15 mcg/kg/min ld1 17:51 Follow up: Rate change 25 mcg/kg/min ld1 23:48 Follow up: IV Status: Infusion continued upon transfer bp 20:22 Drug: Ativan IVP 1 mg IVP once Route: IVP; Site: left upper arm; bp 21:25 Follow up: Response: Marked relief of symptoms bp 20:22 Drug: Keppra IV 1000 mg IV at calculated rate once Route: IV; Rate: calculated rate; bp Site: left upper arm; 21:26 Follow up: IV Status: Completed infusion; IV Intake: 100ml bp 21:36 Drug: NS 0.9% IV 1000 ml IV at 100 ml/hr continuous Route: IV; Rate: 100 ml/hr; Site: rv right forearm; 23:48 Follow up: IV Status: Infusion continued upon transfer bp 21:36 Drug: Rocephin IV 1 grams IV at per protocol once; Given slow IV push per pharmacy rv instructions Route: IV; Rate: per protocol; Site: right forearm; 21:59 Follow up: IV Status: Completed infusion; IV Intake: 100ml bp Disposition: 20:19 Critical Care:. ms3 Disposition Summary: 05/20/23 20:19 Transfer Ordered Notes: Transfer Location: [facility] ms3 Reason: Higher level of care ms3 Condition: Stable ms3 Problem: new ms3 Symptoms: are unchanged ms3 Accepting Physician: Dr PATEL/Doe Neuro(05/21/23 01:06) rv Diagnosis - Altered mental status, unspecified ms3 - Anemia, unspecified ms3 - Other seizures ms3 - Acute respiratory failure ms3 - Liver transplant status ms3 - Unspecified kidney failure fahad Forms: - Medication Reconciliation Form ms3 - SBAR form ms3 Critical care time excluding procedures: 21:00 Critical care time: Bedside Care: 45 minutes, Consultation: 10 minutes, Family ms3 Intervention: 5 minutes. Total time: 60 minutes Signatures: Dispatcher [employer] EDNanda Slade, YAKELIN [employer] EQU[employer] LIEUTENANT-Mike Fernandez MD MD cha Peltier, Brian, RN RN Jalen Chatman, RN RN rv FountainZane, DO ms3 Shannon Fountain RN RN ld1 Aurora Betancourt rv1 Corrections: (The following items were deleted from the chart) 17:59 16:53 Intubation: Ventilated with 100% NRB prior to procedure. O2 saturation prior to ms3 procedure was 100 %. Intubated orally using Glidescope 3 with 7.0 mm ETT. was successful on first attempt. Ventilated with Ambu bag. Tube secured with ETT mejia at center of mouth measured 22 cm at teeth. Placement verified by CO2 detector with (+) color change, auscultating bilateral breath sounds, O2 saturation after procedure was 100 %. Patient tolerated well, ms3 21:00 20:19 Critical care time: Bedside Care: 30 minutes, Consultation: 10 minutes. Total ms3 time: 40 minutes jacqueline 22:18 20:19 Dr jacqueline vásquez 22:18 22:18 Dr fahad vásquez 22:57 22:18 Dr JORGE vásquez cha 05/21 00:01 05/20 21:36 SARS-COV-2 Antigen Rapid+I.LAB.BRZ ordered. EDAL JUANITAAL 05/21 01:06 05/20 22:57 Dr PATEL/[facility] Neuro fahad rv
--- NOTE | 2023-05-20 20:20 | ER ---
Nurse's Notes [facility] Name: Carmen Salguero Age: 62 yrs Sex: Female : 1960 Arrival Date: 05/20/2023 Time: 16:30 Bed 3 Private MD: Diagnosis: Altered mental status, unspecified;Anemia, unspecified;Other seizures;Acute respiratory failure;Liver transplant status;Unspecified kidney failure Presentation: 05/20 16:48 Initial Sepsis Screen: Does the patient meet any 2 criteria? No. Patient's initial ld1 sepsis screen is negative. Does the patient have a suspected source of infection? No. Patient's initial sepsis screen is negative. Risk Assessment: Do you want to hurt yourself or someone else? Patient reports no desire to harm self or others. Onset of symptoms was May 20, 2023. 16:48 Acuity: RAUL 1 ld1 17:23 Chief complaint: Chief complaint: EMS states: toned out to patient home for ld1 unresponsive on the ground. Upon arrival to ER pt was unresponsive. Coronavirus screen: At this time, the client does not indicate any symptoms associated with coronavirus-19. Ebola Screen: No symptoms or risks identified at this time. 17:23 Method Of Arrival: EMS: [facility] ld1 Triage Assessment: 17:26 General: Appears in no apparent distress. unkempt, Behavior is unresponsive. Pain: ld1 Unable to use pain scale. Patient is unresponsive. EENT: No signs and/or symptoms were reported regarding the EENT system. Neuro: Level of Consciousness is unresponsive, Oriented to none. Cardiovascular: Capillary refill < 3 seconds Rhythm is sinus rhythm. Respiratory: Airway via oral intubation Ventilator assessment: ET Tube: 7.0 23 cm at lip. FiO2: 60. GI: Abdomen is flat, non-distended. : No signs and/or symptoms were reported regarding the genitourinary system. Derm: No signs and/or symptoms reported regarding the dermatologic system. Musculoskeletal: No signs and/or symptoms reported regarding the musculoskeletal system. Historical: - Allergies: 17:26 No Known Allergies; ld1 - PMHx: 17:26 Cirrhosis; Diabetes - NIDDM; ld1 - PSHx: 17:26 section; liver transplant; ld1 - Immunization history:: Adult Immunizations up to date. - Social history:: Smoking status: unknown. Screenin:36 [facility] ED Fall Risk Assessment (Adult). Abuse screen: Denies threats or abuse. Denies ld1 injuries from another. Nutritional screening: No deficits noted. Tuberculosis screening: No symptoms or risk factors identified. Assessment: 17:28 Reassessment: See triage assessment. ld1 17:28 Reassessment: No changes from previously documented assessment. Patient states symptoms ld1 have not improved. 18:31 Reassessment: No changes from previously documented assessment. Patient and/or family ld1 updated on plan of care and expected duration. Pain level reassessed. RT unavailable to take patient to CT at this current moment. Notified ER director. Phlebotomy at bedside attempting to get blood cultures. 18:36 Reassessment: No changes from previously documented assessment. Patient states symptoms ld1 have not improved. 18:41 Reassessment: Jacob Dasilva - Father - [phone]. ld1 19:46 General: Appears ill, Behavior is sedated. Neuro: Level of Consciousness is sedated. rv Oriented to none. Neuro: Pupils are PERRLA. Cardiovascular: Capillary refill < 3 seconds Patient's skin is warm and dry. Rhythm is regular. Respiratory: Ventilator assessment: ET Tube: 7.5 Tidal Volume: 450 FiO2: 21. EENT: 20:07 Reassessment: PT RETURNED FROM CT. bp 20:37 Reassessment: spoke to the daughter on the phone and updated on the status of the rv patient. [phone] Marina. 20:39 Reassessment: pt is having seizure episode. on max dose of propofol drip. referred to rv Dr Fountain, Ativan given thru IV, seizure stopped. rechecked vital signs. will continue to monitor pt. 21:24 Reassessment: TRANSFER IN PROCESS. PT REMAINS ON PROPOFOL GTT. FAMILY AT /. bp 23:47 Reassessment: REPORT TO WISAM MARTINEZ AT [facility] FOR TRANSFER. bp 05/21 00:32 Reassessment: EMS AT /. bp Vital Signs: 05/20 16:48 BP 208 / 107; Pulse 97; Resp 16; Temp 97.3(A); Pulse Ox 100% on ETT vent; Weight 39.92 ld1 kg; Height 5 ft. 1 in. ; 16:51 BP 200 / 93; Pulse 94; Resp 14; Pulse Ox 100% on ETT vent; ld1 16:54 BP 221 / 104; Pulse 94; Resp 14; Pulse Ox 100% on ETT vent; ld1 17:03 BP 212 / 95; Pulse 94; Resp 14; Pulse Ox 100% on ETT vent; ld1 17:05 Weight 39.92 kg; ld1 17:15 BP 195 / 114; Pulse 92; Resp 15; Pulse Ox 100% on ETT vent; ld1 17:59 BP 191 / 98; Pulse 93; Resp 14; Pulse Ox 100% on ETT vent; ld1 18:06 BP 168 / 97; Pulse 93; Resp 14; Pulse Ox 100% on ETT vent; ld1 18:34 BP 196 / 98; Pulse 95; Resp 14; Pulse Ox 99% on ETT vent; FiO2 21 %; ld1 19:41 BP 164 / 94; Pulse 97; Resp 15; Pulse Ox 99% on ETT vent; FiO2 21 %; rv 20:07 BP 190 / 102; Pulse 97; Resp 14; Pulse Ox 100% ; bp 20:30 BP 166 / 91; Pulse 99; Resp 18; Pulse Ox 99% on ETT vent; rv 20:41 BP 154 / 91; Pulse 99; Resp 15; Pulse Ox 99% on ETT vent; rv 21:24 BP 194 / 79; Pulse 92; Resp 14; Pulse Ox 100% ; bp 22:02 BP 187 / 84; Pulse 92; Resp 14; Pulse Ox 100% on ETT vent; rv 23:47 BP 156 / 82; Pulse 92; Resp 14; Pulse Ox 100% ; FiO2 21 %; bp 05/21 00:10 BP 175 / 84; Pulse 91; Resp 14; Temp 97.3; Pulse Ox 100% ; FiO2 21 %; bp 00:33 BP 162 / 80; Pulse 89; Resp 14; Pulse Ox 100% ; FiO2 21 %; bp 05/20 16:48 Body Mass Index 16.63 (39.92 kg, 154.94 cm) ld1 Lisset Coma Score: 05/20 17:53 Eye Response: none(1). Motor Response: none(1). Verbal Response: none(1). Total: 3. ms3 ED Course: 16:31 Patient arrived in ED. jl7 16:40 Zane Fountain DO is Attending Physician. kb 16:45 Inserted saline lock: 22 gauge in right forearm, using aseptic technique. em1 17:02 Wu cath inserted, using sterile technique, 16 Fr., by ED staff, balloon inflated, to kc6 gravity drainage, clamped. returned clear yellow urine. Patient tolerated well. NGT: inserted 16 Fr. via right nare. verified placement of air over stomach, verified return of gastric contents, to intermittent suction. Returned gastric contents. Patient tolerated well. 17:26 Triage completed. ld1 17:26 Arm band placed on right wrist. EKG completed in triage. Results shown to MD. ld1 17:27 Initial lab(s) drawn, by me, sent to lab. Inserted saline lock: 22 gauge in left em1 forearm, using aseptic technique. Blood collected. 17:30 Shannon Fountain, RN is Primary Nurse. ld1 17:58 Maintain EMS IV. Dressing intact. Good blood return noted. Site clean \T\ dry. Gauge \T\ ld 1 site: IO to left mcclellan. 18:37 Patient has correct armband on for positive identification. Placed in gown. Bed in low ld1 position. Call light in reach. Side rails up X2. castings trimmer on. Pulse ox on. NIBP on. Noise minimized. Warm blanket given. Head of bed elevated. Cleaned of incontinence. 18:39 Chest Single View XRAY In Process Unspecified. EDMS 19:20 Inserted midline [id number] left upper arm. rv 20:01 CT Head Brain wo Cont In Process Unspecified. EDMS 20:32 Initiated transfer to [facility]. rv1 21:01 Attending Physician role handed off by Zane Fountain DO fahad 21:01 Mike Chavez MD is Attending Physician. fahad 21:11 [facility] declined due to capacity. rv1 21:32 Initiated transfer with Blessing Garvey at [facility]. rv1 22:39 Pt accepted to [place] [address] Terry. rv1 23:48 No provider procedures requiring assistance completed. Patient transferred, IV remains bp in place. Administered Medications: 16:40 Drug: Propofol IVP 45 mg IVP once; Document RASS score. Route: IVP; Site: right wrist; ld1 21:26 Follow up: Response: No adverse reaction bp 16:42 Drug: Rocuronium IVP 45 mg IVP once Route: IVP; Site: Other; ld1 21:26 Follow up: Response: No adverse reaction bp 17:05 Drug: Propofol IV 5 mcg/kg/min IV at calculated rate See Administration Instructions; ld1 Standard concentration 1000 mg / 100 mL; Recommended max rate 50 mcg/kg/min; Titrate 2 mcg/kg/min every 5 minutes to achieve goal (see titration policy); Goal parameter RASS score 0 to -2 Route: IV; Rate: calculated rate; Site: right wrist; 17:10 Follow up: Rate change 5 mcg/kg/min ld1 17:15 Follow up: Rate change 15 mcg/kg/min ld1 17:51 Follow up: Rate change 25 mcg/kg/min ld1 23:48 Follow up: IV Status: Infusion continued upon transfer bp 20:22 Drug: Ativan IVP 1 mg IVP once Route: IVP; Site: left upper arm; bp 21:25 Follow up: Response: Marked relief of symptoms bp 20:22 Drug: Keppra IV 1000 mg IV at calculated rate once Route: IV; Rate: calculated rate; bp Site: left upper arm; 21:26 Follow up: IV Status: Completed infusion; IV Intake: 100ml bp 21:36 Drug: NS 0.9% IV 1000 ml IV at 100 ml/hr continuous Route: IV; Rate: 100 ml/hr; Site: rv right forearm; 23:48 Follow up: IV Status: Infusion continued upon transfer bp 21:36 Drug: Rocephin IV 1 grams IV at per protocol once; Given slow IV push per pharmacy rv instructions Route: IV; Rate: per protocol; Site: right forearm; 21:59 Follow up: IV Status: Completed infusion; IV Intake: 100ml bp Medication: 23:48 VIS not applicable for this client. bp Intake: 21:26 IV: 100ml; Total: 100ml. bp 21:59 IV: 100ml; Total: 200ml. bp Ventilator: 18:34 Fi02: 21%; Rate: 14min; ld1 Outcome: 20:19 ER care complete, transfer ordered by . ms3 23:47 Transferred by ground EMS to [facility], Transfer form completed. bp 23:47 Condition: stable 23:47 Instructed on the need for transfer, 05/21 01:06 Patient left the ED. rv Signatures: Dispatcher [employer] EDMS Andre, Nanda, EXECUTIVE VICE PRESIDENT BUSINESS DEVELOPMENT-C EXECUTIVE VICE PRESIDENT BUSINESS DEVELOPMENT-Ckb Mike Chavez MD MD cha Martinez, Rojelio em1 Kristen Lima, RN RN jl7 Michael Tran RN RN bp Jalen Khoury, RN RN rv Essie, Zane, DO ms3 Shannon Fountain RN RN ld1 Sigrid Desir RN RN kc6 Aurora Betancourt rv1 Corrections: (The following items were deleted from the chart) 05/20 17:22 17:05 Propofol IV 199.6 mcg/min IV at calculated rate in right wrist ld1 ld1 05/21 00:11 00:10 BP 175 / 84; Pulse 91bpm; Resp 14bpm; Pulse Ox 100%; bp bp
[2023-05-20] MEDS ORDERED: LEVETIRACETAM 500 MG/5 ML VIAL IV ONE (20:26)
[2023-05-20] MEDS ORDERED: NA CHLORIDE 0.9% 250 ML ONE (20:27)
[2023-05-20] MEDS ORDERED: LORazepam 2 MG/ML VIAL ONE (20:27)
[2023-05-20] MEDS ORDERED: Ringers Lactate 1,000 ML IV ONE (20:46)
[2023-05-20] MEDS ORDERED: NA CHLORIDE 0.9% 1,000 ML ONE (21:36)
[2023-05-20] MEDS ORDERED: NA CHLORIDE 0.9% 100 ML ONE (21:36)
[2023-05-20] MEDS ORDERED: CEFTRIAXONE 1000 MG/VIAL ONE (21:36)
[2023-05-20 22:40] LABS: Specific Gravity 1.014 (1.005-1.030); Urine Bacteria None Seen /HPF (<20); Urine Bilirubin NEGATIVE (Negative); Urine Blood 3+ (OVER) (Negative); Urine Clarity Clear (Clear); Urine Color Light-Yellow (Yellow); Urine Crystals Unidentified Few /HPF (None Seen); Urine Glucose TRACE (Negative); Urine Mucus Slight /HPF (None Seen); Urine Protein 3+ (Negative); Urine RBC >50 /HPF (None Seen); Urine Urobilinogen Normal (Normal)
[2023-05-21 02:21] VITALS: TEMP 97.3
[2023-05-21 02:35] VITALS: O2SAT 100
[2023-05-21 02:40] VITALS: BP 162/80
--- NOTE | 2023-05-21 14:32 | EKG ---
Test Date: 2023-05-20 Test Time: 17:18:50 International Account Representative: EARNEST MEASUREMENT RESULTS: Intervals: Rate: 92 SC: 80 QRSD: 70 QT: 378 QTc: 467 [place]: P: 29 SC: 80 QRS: 72 T: 76 INTERPRETIVE STATEMENTS: Sinus rhythm with short SC Minimal voltage criteria for LVH, may be normal variant Borderline ECG Compared to ECG 02/27/2023 00:18:24 Short SC interval now present Left ventricular hypertrophy now present Electronically Signed On 05-21-23 14:30:28 CDT by Ihsan Ball
== END 2023-05-21 01:06 | disposition short-term general hospital (02) ==
LOC: ER 16:30
PROC: 0BH17EZ Insertion of Endotracheal Airway into Trachea, Via Natural or Artificial Opening (ICD-10-PCS; principal; 2023-05-21)
PROC: 5A1935Z Respiratory Ventilation, Less than 24 Consecutive Hours (ICD-10-PCS; 2023-05-21)
DX: J96.00 Acute respiratory failure, unspecified whether with hypoxia or hypercapnia (principal); D64.9 Anemia, unspecified; N17.9 Acute kidney failure, unspecified; G40.89 Other seizures; Z94.4 Liver transplant status; E11.9 Type 2 diabetes mellitus without complications; Z20.822 Contact with and (suspected) exposure to COVID-19
CPT/HCPCS: 93005; 87040 ×2; 85025; 81001; 36415; 82140; 85610; 83605 ×2; 85730; 80053; 87635; 87804 ×2; 70450; 71045; 82805; 94002; 31500; 94003; J2704 ×2; J1953; J7120; J7050; J7030; J0696

== ENCOUNTER 2024-05-19 15:13 | Emergency (ER) | payer BC ==
[2024-05-19 17:00] LABS: Absolute Eosinophils 0.3 K/uL (0-0.5); Absolute Lymphocytes (CBC) 1.1 K/uL (0.7-4.9); Absolute Monocytes 0.6 K/uL (0.1-1.3); Absolute Neutrophil 2.9 K/uL (1.8-8.0); Basophils % 0.7 % (0-1.3); Eosinophils % 5.2 % (0-4.4); Hematocrit 31.9 % (36.0-45.0); Hemoglobin 10.3 g/dL (12.0-15.0); MCH 28.5 pg (27.0-35.0); MCHC 32.3 g/dL (32.0-36.0); MCV 88.3 fL (80-100); MPV 7.5 fL (7.6-11.3); Monocytes % 11.8 % (3.3-12.3); Neutrophils % 60.3 % (41.7-73.7); Platelets 255 thou/uL (152-406); RBC Red Blood Cell Count 3.61 M/uL (3.86-4.86); Red Cell Distribution Width 14.1 % (12.1-15.2)
[2024-05-19 17:02] LABS: PT Prothrombin Time 11.4 SECONDS (9.4-12.5); Protime INR 1.02
[2024-05-19] MEDS ORDERED: FENTANYL CITR 100 MCG/2 ML ONE (17:08)
[2024-05-19 17:15] LABS: Anion Gap 12.8 mEq/L (5.0-15.0); Magnesium 1.8 mg/dL (1.6-2.4); Potassium 3.8 mEq/L (3.5-5.1)
--- NOTE | 2024-05-19 18:07 | RAD REPORT ---
Head C Spine Mpr Wo Con HISTORY: Head and neck injury status post fall COMPARISON: head CT 2022 TECHNIQUE: Multiple contiguous axial images were obtained and a CT of the brain without contrast. Sag ittal and coronal reformats were performed. FINDINGS: Intracranial bleed is not seen. Ventricles are normal caliber. No extra-axial fluid collection. No significant hyperdensity within the brain. Visualized sinuses and mastoids do not demonstrate fluid EXAM: CT of the cervical spine without contrast HISTORY: Head and neck injury status post fall COMPARISON: None TECHNIQUE: Multiple contiguous axial images were obtained in a CT of the cervical spine without contr ast. Sagittal and coronal reformats were performed. FINDINGS: Post surgical changes involve the spine. Mild anterior subluxation C5 on C6. Mild posterior subluxation C6 on C7. Fusion of C6 and C7 vertebral bodies No fracture or dislocation Spondylosis. . IMPRESSION: No acute intracranial abnormality noted. A cervical fracture not seen. If the patient continues to have symptoms to suggest intracranial/spinal pathology then MRI would be recommended
--- NOTE | 2024-05-19 18:30 | RAD REPORT ---
EXAM: CT CHEST, ABDOMEN AND PELVIS WITHOUT CONTRAST CLINICAL INDICATION: Female, 63 years old. [facility] MAIN LEFT SIDED PAIN, FALL TECHNIQUE: CT chest, abdomen and pelvis was performed, without IV contrast, as per department protoco l. Axial, sagittal and coronal reconstructions were obtained. One or more of the following dose reduction techniques were used: Automated exposure control, adjustment of the mA and/or kV according to the patient size, and/or iterative reconstruction. Unless otherwise specified, incidental findings do not require dedicated imaging follow-up. COMPARISON: CT chest 2022 FINDINGS: The lack of intravenous contrast limits the sensitivity of this exam for evaluation of mediastinum, b owel, solid visceral organs, vascular structures, and retroperitoneum. Mildly displaced fracture posterior left 10th rib. No pneumothorax. Mild left lower lobe opacities. Trace left pleural effusion. No mediastinal hematoma. No pericardial effusion. The right lung is clear. Cholecystectomy. Pneumobilia. 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 IMPRESSION: Moderately displaced fracture posterior left rib with mild left lower lobe opacities. No acute traumatic injury involving the abdomen/pelvis seen
--- NOTE | 2024-05-19 18:32 | RAD REPORT ---
Procedure: Chest Single View History: Chest pain Comparison: 2022 Mild left lower lobe opacities with trace left pleural effusion. Patient's known posterior left 10th rib fracture seen on CT chest same date not well visualized on th is exam Heart is normal size. Right lung is clear. Central venous catheter in place
--- NOTE | 2024-05-19 18:55 | RAD REPORT ---
Extrem Venous W Compress Octavio History: Leg swelling TECHNIQUE: Complete bilateral duplex sonography of the bilateral lower extremity veins was performed. The examination included compression for vein patency, color Doppler imaging and flow augmentation in response to distal compression of the distal external iliac, common femoral, femoral, popliteal, t ibial, and great saphenous veins. Grayscale, color and spectral analysis performed on all vessels COMPARISON: No prior exam. FINDINGS: Duplex sonography testing of the veins of the bilateral lower extremity was performed. Color flow brina ging shows all veins to be compressible with [id number] color filling. Pulsatile and phasic flow is present within all lower extremity deep and superficial veins examined. IMPRESSION: No evidence of deep venous thrombosis.
--- NOTE | 2024-05-19 19:20 | RAD REPORT ---
Femur Left History: Leg pain Findings: No fracture seen Edema is present within subcutaneous soft tissues
--- NOTE | 2024-05-19 19:21 | RAD REPORT ---
Tib Fib Left History: Leg pain Findings: No fracture visualized. Soft tissue calcifications likely benign
--- NOTE | 2024-05-19 19:59 | EDPHYS ---
Physician Documentation [facility] Name: Carmen Salguero Age: 63 yrs Sex: Female : 1960 Arrival Date: 05/19/2024 Time: 15:13 Bed 16 Private MD: ED Mike Souza HPI: 05/19 15:45 This 63 yrs old Female presents to ER via Wheelchair with complaints of Fall Injury, cp Leg Swelling. 15:45 Details of fall: The patient fell from an upright position, while walking. cp 15:45 Onset: The symptoms/episode began/occurred this morning. Associated injuries: The cp patient sustained injury to the chest, specifically the left lateral posterior chest and left lateral anterior chest, pain with breathing, pain with movement, injury to the abdomen, specifically the posterior aspect of left lateral abdomen and anterior aspect of left lateral abdomen, tenderness, left leg. Patient reports falling from standing into furniture after left leg gave out. Historical: - Allergies: 15:35 No Known Allergies; tm6 - PMHx: 15:35 Cirrhosis; Diabetes - NIDDM; tm6 15:37 End stage renal disease; tm6 15:38 Hypertensive disorder; tm6 - PSHx: 15:35 section; liver transplant; tm6 - Immunization history:: Adult Immunizations up to date. - Infectious Disease History:: Denies. - Social history:: Smoking status: Patient denies any tobacco usage or history of. ROS: 15:50 Constitutional: HX per HPI cp 15:50 Cardiovascular: Negative for chest pain, cp 15:50 Neuro: Negative for altered mental status, dizziness, headache, loss of consciousness, numbness, syncope, near syncope, 15:50 All other systems are negative, Exam: 15:55 Constitutional: The patient appears in no acute distress, alert, awake, cp non-diaphoretic, non-toxic, well developed, well nourished, uncomfortable, 15:55 Head/Face: Normocephalic, atraumatic. cp 15:55 Eyes: Periorbital structures: appear normal, Conjunctiva: normal, no exudate, no injection, Sclera: no appreciated abnormality, Lids and lashes: appear normal, bilaterally, 15:55 ENT: External ear(s): are unremarkable, Nose: is normal, Mouth: Lips: moist, Oral mucosa: moist, Posterior pharynx: Airway: no evidence of obstruction, patent, 15:55 Neck: C-spine: vertebral tenderness, is not appreciated, crepitus, is not appreciated, ROM/movement: is normal, is supple, without pain, no range of motions limitations, 15:55 Chest/axilla: Inspection: normal, no ecchymosis, Palpation: crepitus, is not appreciated, tenderness, that is moderate, of the left lower lateral chest wall, that partially reproduces the patient's complaints, 15:55 Cardiovascular: Rate: normal, Rhythm: regular, Edema: ankle edema, that is moderate, JVD: is not appreciated, 15:55 Respiratory: the patient does not display signs of respiratory distress, Respirations: normal, no use of accessory muscles, no retractions, labored breathing, is not present, Breath sounds: are clear throughout, no decreased breath sounds, no stridor, no wheezing, 15:55 Abdomen/GI: Inspection: abdomen appears normal, Bowel sounds: active, all quadrants, Palpation: soft, in all quadrants, moderate abdominal tenderness, in the posterior aspect of left lateral abdomen and anterior aspect of left lateral abdomen, rebound tenderness, is not appreciated, involuntary guarding, is not appreciated, 15:55 Back: vertebral tenderness, is not appreciated, 15:55 Neuro: Orientation: to person, place \T\ time. Mentation: able to follow commands, Motor: moves all fours, no focal deficits, 16:35 ECG was reviewed by the Attending Physician. cp Vital Signs: 15:33 BP 142 / 107; Pulse 84; Resp 19; Temp 98.7(O); Pulse Ox 97% on R/A; MAP 113 mmHg; tm6 Weight 52.62 kg; Height 5 ft. 4 in. ; Pain 8/10; 19:12 BP 162 / 67; Pulse 75; Resp 16; Temp 98(O); Pain 8/10; rg5 15:33 Body Mass Index 19.91 (52.62 kg, 162.56 cm) tm6 15:33 Pain Scale: Adult tm6 19:12 Pain Scale: Adult rg5 MDM: 15:39 Patient medically screened. cp 19:57 Data reviewed: vital signs, nurses notes, lab test result(s), EKG, radiologic studies, cp CT scan, plain films, and as a result, I will discharge patient. 19:57 Differential diagnosis: closed head injury, contusion, fracture, multiple trauma. I cp considered the following discharge prescriptions or medication management in the emergency department Medications were administered in the Emergency Department. See MAR. Care significantly affected by the following chronic conditions: Diabetes, Hypertension, Chronic Kidney Disease, Liver Disease. Counseling: I had a detailed discussion with the patient and/or guardian regarding the historical points, exam findings, and any diagnostic results supporting the discharge/admit diagnosis, lab results, radiology results, the need for outpatient follow up, a family practitioner, to return to the emergency department if symptoms worsen or persist or if there are any questions or concerns that arise at home. 05/19 15:39 Order name: Basic Metabolic Panel; Complete Time: 17:23 05/19 17:23 Interpretation: Normal except: CL 108; GLUC 117; BUN 34; CRE 5.23; GFR 9. 05/19 15:39 Order name: CBC with Diff; Complete Time: 17:02 05/19 17:02 Interpretation: Normal except: RBC 3.61; HGB 10.3; HCT 31.9; MPV 7.5; EOSINOPHIL % 5.2. 05/19 15:39 Order name: Magnesium; Complete Time: 17:23 cp 05/19 15:39 Order name: PT-INR; Complete Time: 17:23 cp 05/19 15:39 Order name: XRAY Chest (1 view); Complete Time: 19:04 05/19 19:04 Interpretation: Report reviewed. 05/19 17:04 Order name: US Extremity Venous W Compression Octavio; Complete Time: 19:04 cp 05/19 19:04 Interpretation: Report reviewed. 05/19 17:04 Order name: XRAY Femur LEFT; Complete Time: 19:44 cp 05/19 19:44 Interpretation: Reviewed. 05/19 17:04 Order name: XRAY Tib Fib LEFT; Complete Time: 19:44 cp 05/19 19:44 Interpretation: Report reviewed. 05/19 17:22 Order name: Head C Spine Mpr Wo Con; Complete Time: 19:04 EDMS 05/19 17:24 Order name: Chest Abd Pelvis Wo Con; Complete Time: 19:04 EDMS 05/19 19:06 Interpretation: Report reviewed. 05/19 19:07 Order name: INCENTIVE SPIROMETRY 05/19 15:39 Order name: EKG; Complete Time: 15:39 05/19 15:39 Order name: Cardiac monitoring; Complete Time: 16:40 05/19 15:39 Order name: EKG - Nurse/Tech; Complete Time: 16:40 05/19 15:39 Order name: IV Saline Lock; Complete Time: 16:40 05/19 15:39 Order name: Labs collected and sent; Complete Time: 16:40 05/19 15:39 Order name: O2 Per Protocol; Complete Time: 16:40 05/19 15:39 Order name: O2 Sat Monitoring; Complete Time: 16:40 cp EC:35 Rate is 79 beats/min. Rhythm is regular. MT interval is normal. QRS interval is normal. cp QT interval is normal. T waves are Inverted in lead aVR. Interpreted by me. Reviewed by me. Administered Medications: 17:15 Drug: fentaNYL (PF) IVP 25 mcg IVP once Route: IVP; Site: left antecubital; mb9 19:02 Follow up: Response: No adverse reaction mb9 Disposition Summary: 05/19/24 19:58 Discharge Ordered Notes: Location: Home cp Problem: new cp Symptoms: have improved cp Condition: Stable cp Diagnosis - Fall on same level from slipping, tripping and stumbling with subsequent striking cp against object - Fracture of one rib, left side cp - Pain in left leg cp - Edema, unspecified cp Followup: cp - With: Private Physician - When: 2 - 3 days - Reason: Recheck today's complaints Discharge Instructions: - Discharge Summary Sheet cp - Musculoskeletal Pain cp - Rib Fracture cp - How to Use an Incentive Spirometer cp - Peripheral Edema cp Forms: - Medication Reconciliation Form cp - Antibiotic Education cp - Prescription Opioid Use cp - Patient Portal Instructions cp - Leadership Thank You Letter cp Prescriptions: - Tramadol 50 mg Oral Tablet - take 1 tablet ORAL route every 8 hours as needed; 12 tablet; Refills: 0, cp Product Selection Permitted - methocarbamol 750 mg Oral tablet - take 1 tablet ORAL route 3 times per day; 30 tablet; Refills: 0, Product cp Selection Permitted Signatures: Dispatcher [employer] EDWI Mike Palmer PA PA cp Wilkerson, Mary Beth RN RN mb9 Mohan Silva RN RN tm6 Corrections: (The following items were deleted from the chart) 17: 17:04 Extrem Venous W Compression Octavio+US.RAD.BRZ ordered. EDMS EDMS 17: 17:04 Femur Left+RAD.RAD.BRZ ordered. EDMS EDMS 17: 17:04 Tib Fib Left+RAD.RAD.BRZ ordered. EDMS EDMS 17: 17:04 Head C Spine Cap Wo Con+CT.RAD.BRZ ordered. EDMS EDMS
--- NOTE | 2024-05-19 19:59 | ER ---
Nurse's Notes [facility] Name: Carmen Salguero Age: 63 yrs Sex: Female : 1960 Arrival Date: 05/19/2024 Time: 15:13 Bed 16 Private MD: Diagnosis: Fall on same level from slipping, tripping and stumbling with subsequent striking against object;Fracture of one rib, left side;Pain in left leg;Edema, unspecified Presentation: 05/19 15:34 Chief complaint: Patient states: Friday morning woke up with left leg swollen, tm6 difficult to walk. This morning, left leg gave out and fell down on to a step stool (left side hit stool). Coronavirus screen: Vaccine status: Patient reports receiving the 2nd dose of the covid vaccine. Ebola Screen: Patient negative for fever greater than or equal to 101.5 degrees Fahrenheit, and additional compatible Ebola Virus Disease symptoms Patient denies exposure to infectious person. Patient denies travel to an Ebola-affected area in the 21 days before illness onset. No symptoms or risks identified at this time. Initial Sepsis Screen: Does the patient meet any 2 criteria? No. Patient's initial sepsis screen is negative. Does the patient have a suspected source of infection? No. Patient's initial sepsis screen is negative. Risk Assessment: Do you want to hurt yourself or someone else? Patient reports no desire to harm self or others. Onset of symptoms was May 17, 2024. 15:34 Method Of Arrival: Wheelchair tm6 15:34 Acuity: RAUL 3 tm6 Triage Assessment: 15:35 General: Appears uncomfortable, Behavior is calm, cooperative. Pain: Complains of pain tm6 in anterior aspect of left lateral abdomen and left leg Pain currently is 8 out of 10 on a pain scale. Pain began 2-3 days ago. EENT: No signs and/or symptoms were reported regarding the EENT system. Neuro: Level of Consciousness is awake, alert, obeys commands, Oriented to person, place, time, situation. 15:37 Cardiovascular: Patient's skin is warm and dry. Respiratory: Airway is patent tm6 Respiratory effort is even, unlabored, Respiratory pattern is regular, symmetrical. GI: No signs and/or symptoms were reported involving the gastrointestinal system. Abdomen is flat, non-distended. : No signs and/or symptoms were reported regarding the genitourinary system. Derm: No signs and/or symptoms reported regarding the dermatologic system. Musculoskeletal: Reports pain in left leg and abdomen and anterior aspect of left lateral abdomen since this morning. Pain is 8 out of 10 on a pain scale. Historical: - Allergies: 15:35 No Known Allergies; tm6 - PMHx: 15:35 Cirrhosis; Diabetes - NIDDM; tm6 15:37 End stage renal disease; tm6 15:38 Hypertensive disorder; tm6 - PSHx: 15:35 section; liver transplant; tm6 - Immunization history:: Adult Immunizations up to date. - Infectious Disease History:: Denies. - Social history:: Smoking status: Patient denies any tobacco usage or history of. Screenin:39 [facility] ED Fall Risk Assessment (Adult) History of falling in the last 3 months, mb9 including since admission Yes- single mechanical fall (1 pt) Confusion or Disorientation No (0 pts) Intoxicated or Sedated No (0 pts) Impaired Gait Yes (1 pt) Mobility Assist Device Used Yes (1 pt) Altered Elimination No (0 pt) Score/Fall Risk Level 3 or more points = High Risk Oriented to surroundings, Maintained a safe environment, Educated pt \T\ family on fall prevention, incl call for assistance when getting out of bed, Assessed \T\ reinforced patient's understanding of fall precautions. Abuse screen: Denies threats or abuse. Nutritional screening: No deficits noted. Tuberculosis screening: No symptoms or risk factors identified. Assessment: 17:00 General: Appears in no apparent distress. Behavior is calm, cooperative. Pain: mb9 Complains of pain in left leg Pain radiates to left hip Pain currently is 10 out of 10 on a pain scale. Quality of pain is described as throbbing, Pain began suddenly, Is continuous. Neuro: Alejandra Agitation-Sedation Scale (RASS): 0 - Alert and Calm Level of Consciousness is awake, alert, obeys commands, Oriented to person, place, time, situation, Appropriate for age. Cardiovascular: Patient's skin is warm and dry. Respiratory: Airway is patent Respiratory effort is even, unlabored, Respiratory pattern is regular, symmetrical. GI: No signs and/or symptoms were reported involving the gastrointestinal system. : No signs and/or symptoms were reported regarding the genitourinary system. EENT: No signs and/or symptoms were reported regarding the EENT system. Derm: Bruising that is dark purple, on left leg. Musculoskeletal: Range of motion: limited in left hip. 18:06 Reassessment: No changes from previously documented assessment. Patient and/or family mb9 updated on plan of care and expected duration. Pain level reassessed. Patient is alert, oriented x 3, equal unlabored respirations, skin warm/dry/pink. 19:11 General: Appears in no apparent distress. Behavior is calm, cooperative, appropriate rg5 for age. Pain: Complains of pain in left upper quadrant Pain currently is 8 out of 10 on a pain scale. Quality of pain is described as aching. Respiratory: Airway is patent Respiratory effort is even, unlabored, Respiratory pattern is regular, symmetrical. Vital Signs: 15:33 BP 142 / 107; Pulse 84; Resp 19; Temp 98.7(O); Pulse Ox 97% on R/A; MAP 113 mmHg; tm6 Weight 52.62 kg; Height 5 ft. 4 in. ; Pain 8/10; 19:12 BP 162 / 67; Pulse 75; Resp 16; Temp 98(O); Pain 8/10; rg5 15:33 Body Mass Index 19.91 (52.62 kg, 162.56 cm) tm6 15:33 Pain Scale: Adult tm6 19:12 Pain Scale: Adult rg5 ED Course: 15:19 Patient arrived in ED. im 15:22 Mike Palmer PA is PHCP. cp 15:22 Mike Chavez MD is Attending Physician. cp 15:35 Triage completed. tm6 15:37 Arm band placed on left wrist. tm6 16:13 Cori Jones, JUAN is Primary Nurse. mb9 16:39 EKG done, by ED staff, reviewed by Mike DONG. mb9 16:40 Placed in gown. Bed in low position. Call light in reach. Side rails up X 1. Provided mb9 Education on: press call light if needing anything. Client placed on continuous cardiac and pulse oximetry monitoring. NIBP monitoring applied. 16:44 XRAY Chest (1 view) In Process Unspecified. EDMS 17:03 No provider procedures requiring assistance completed. mb9 17:50 Head C Spine Mpr Wo Con In Process Unspecified. EDMS 17:51 Chest Abd Pelvis Wo Con In Process Unspecified. EDMS 18:15 US Extremity Venous W Compression Octavio In Process Unspecified. EDMS 18:58 XRAY Femur LEFT In Process Unspecified. EDMS 18:58 XRAY Tib Fib LEFT In Process Unspecified. EDMS 19:03 Report given to JUAN Garcia. mb9 20:09 IV discontinued, bleeding controlled, No redness/swelling at site. Pressure dressing rg5 applied. Administered Medications: 17:15 Drug: fentaNYL (PF) IVP 25 mcg IVP once Route: IVP; Site: left antecubital; mb9 19:02 Follow up: Response: No adverse reaction mb9 Medication: 16:40 VIS not applicable for this client. mb9 Outcome: 19:58 Discharge ordered by . marco 20:09 Discharged to home via wheelchair, rg5 20:09 Condition: good 20:09 Discharge instructions given to patient, Instructed on discharge instructions, follow up and referral plans. Demonstrated understanding of instructions, follow-up care, medications, Prescriptions given X 2, 20:38 Patient left the ED. rg5 Signatures: Dispatcher [employer] EDMS Mike Palmer, LETITIA PA Cori Gore, RN RN mb9 Katie Espana Tawney RN RN tm6 Jose Acevedo, RN RN rg5
[2024-05-19 20:57] VITALS: O2SAT 97
[2024-05-19 20:59] VITALS: BP 162/67; TEMP 98
--- NOTE | 2024-05-20 12:18 | EKG ---
Test Date: 2024-05-19 Test Time: 16:30:00 Back Winder: EDI MEASUREMENT RESULTS: Intervals: Rate: 79 CA: 126 QRSD: 82 QT: 388 QTc: 444 [place]: P: 45 CA: 126 QRS: 87 T: 78 INTERPRETIVE STATEMENTS: Sinus rhythm with premature atrial complexes Otherwise normal ECG Compared to ECG 05/20/2023 17:18:50 Atrial premature complex(es) now present Short CA interval no longer present Left ventricular hypertrophy no longer present Electronically Signed On 05-20-24 12:16:10 CDT by Mandeep Diaz
== END 2024-05-19 20:38 | disposition home or self-care (01) ==
LOC: ER 15:13
DX: S22.32XA Fracture of one rib, left side, initial encounter for closed fracture (principal); M79.605 Pain in left leg; W01.10XA Fall on same level from slipping, tripping and stumbling with subsequent striking against unspecified object, initial encounter; R60.9 Edema, unspecified; I12.0 Hypertensive chronic kidney disease with stage 5 chronic kidney disease or end stage renal disease; E11.22 Type 2 diabetes mellitus with diabetic chronic kidney disease; N18.6 End stage renal disease; Z94.4 Liver transplant status
CPT/HCPCS: 93005; 85025; 80048; 36415; 83735; 85610; 70450; 71250; 72125; 74176; 71045; 73552; 73590; 93970; 96374; 99284; J3010

== ENCOUNTER 2024-07-07 18:59 | Inpatient (IN) | payer OTHER, BC ==
[2024-07-07 19:33] LABS: Absolute Basophils 0.1 K/uL (0-0.5); Absolute Eosinophils 0.1 K/uL (0-0.5); Absolute Lymphocytes (CBC) 0.6 K/uL (0.7-4.9); Absolute Monocytes 0.4 K/uL (0.1-1.3); Absolute Neutrophil 4.4 K/uL (1.8-8.0); Basophils % 1.3 % (0-1.3); Eosinophils % 1.5 % (0-4.4); Hematocrit 29.1 % (36.0-45.0); Hemoglobin 9.7 g/dL (12.0-15.0); Lymphocytes % 10.8 % (15.3-44.8); MCH 29.7 pg (27.0-35.0); MCHC 33.4 g/dL (32.0-36.0); MCV 88.8 fL (80-100); MPV 7.9 fL (7.6-11.3); Monocytes % 7.7 % (3.3-12.3); Neutrophils % 78.7 % (41.7-73.7); Platelets 268 thou/uL (152-406); RBC Red Blood Cell Count 3.28 M/uL (3.86-4.86); Red Cell Distribution Width 14.1 % (12.1-15.2)
[2024-07-07 19:46] LABS: AST/SGOT 34 U/L (15-37); Albumin 2.9 g/dL (3.4-5.0); Albumin/Globulin Ratio 0.7 (1.1-1.8); Alkaline Phosphatase 146 U/L (45-117); Anion Gap 16.6 mEq/L (5.0-15.0); BUN Blood Urea Nitrogen 74 mg/dL (7-18); Bicarbonate 20 mEq/L (21-32); Bilirubin Total 1.3 mg/dL (0.2-1.0); Globulin 3.9 g/dL (2.3-3.5); Glomerular Filtration Rate 5 ml/min (=/>90); Glucose Level 26 mg/dL (74-106); Potassium 4.6 mEq/L (3.5-5.1); Protein, Total 6.8 g/dL (6.4-8.2); Sodium Level 140 mEq/L (136-145)
[2024-07-07 19:47] LABS: ALT/SGPT < 14 U/L (13-56)
[2024-07-07 19:50] LABS: Lipase 20 U/L (13-75)
--- NOTE | 2024-07-07 20:00 | RAD REPORT ---
EXAM: CT Head Brain Wo Cont HISTORY: CONFUSED COMPARISON: 05/19/2023 TECHNIQUE: Multiple contiguous axial images were obtained for a CT of the brain without contrast. Sag ittal and coronal reformats were performed. One or more of the following dose reduction techniques were used: Automated exposure control, adjus tment of the mA and kV according to patient size, and iterative reconstruction. Unless otherwise specified, incidental findings do not require dedicated imaging follow-up. FINDINGS: No evidence of hydrocephalus, intracranial hemorrhage, or extra-axial fluid collection. The brain is normal in morphology. The calvarium is intact. The visualized paranasal sinuses and mastoid air cells are essentially clear . IMPRESSION: No evidence of acute intracranial abnormality.
[2024-07-07 20:08] LABS: Arterial Blood Carboxyhemoglob 1.1 % (0-1.5); Blood Gas Oxyhemoglobin 59.8 % (94-97); Blood O2 Saturation 61.9 % (92-98.5)
--- NOTE | 2024-07-07 20:28 | EDPHYS ---
Physician Documentation [facility] Name: Carmen Salguero Age: 63 yrs Sex: Female : 1960 Arrival Date: 07/07/2024 Time: 18:59 Bed 4 Private MD: ED Physician Jsesie Schneider HPI: 07/07 20:21 This 63 yrs old Female presents to ER via EMS with complaints of Altered gb1 Mental Status. 20:21 63-year-old female brought in by EMS for altered mental status at home. Patient's blood gb1 sugar on arrival by EMS was 29. They were unable to establish an IV and routes when she arrived patient was still altered. She states that her blood sugar does go low. She has a history of cirrhosis, diabetes, end-stage renal disease on hemodialysis which she dialyzes Friday. Patient denies any fall or head strike. . Historical: - Allergies: 19:21 No Known Allergies; ph - PMHx: 19:21 Cirrhosis; Diabetes - NIDDM; End stage renal disease; Hypertensive disorder; ph - PSHx: 19:21 section; liver transplant; ph - Immunization history:: Adult Immunizations up to date. - Infectious Disease History:: Denies. - Social history:: Smoking status: Patient denies any tobacco usage or history of. Exam: 20:21 Constitutional: Patient appears thin and she is also altered. She appears with dry gb1 mucous membranes and confused. She is lethargic with decreased movement of both legs. Head/Face: Normocephalic, atraumatic. Eyes: Pupils equal round and reactive to light, extra-ocular motions intact. Lids and lashes normal. Conjunctiva and sclera are non-icteric and not injected. Cornea within normal limits. Periorbital areas with no swelling, redness, or edema. ENT: Nares patent. No nasal discharge, no septal abnormalities noted. Tympanic membranes are normal and external auditory canals are clear. Oropharynx with no redness, swelling, or masses, exudates, or evidence of obstruction, uvula midline. Mucous membranes moist. Neck: Trachea midline, no thyromegaly or masses palpated, and no cervical lymphadenopathy. Supple, full range of motion without nuchal rigidity, or vertebral point tenderness. No Meningismus. Chest/axilla: Normal chest wall appearance and motion. Nontender with no deformity. No lesions are appreciated. Cardiovascular: Tachycardic rate and rhythm with a normal S1 and S2. No gallops, murmurs, or rubs. Normal PMI, no JVD. No pulse deficits. Respiratory: Lungs have equal breath sounds bilaterally, clear to auscultation and percussion. No rales, rhonchi or wheezes noted. No increased work of breathing, no retractions or nasal flaring. Abdomen/GI: Soft, non-tender, with normal bowel sounds. No distension or tympany. No guarding or rebound. No evidence of tenderness throughout. Back: No spinal tenderness. No costovertebral tenderness. Full range of motion. Skin: Warm, dry with normal turgor. Normal color with no rashes, no lesions, and no evidence of cellulitis. MS/ Extremity: Pulses equal, no cyanosis. Neurovascular intact. Full, normal range of motion. Vital Signs: 19:20 BP 215 / 84; Pulse 108; Resp 18; Temp 98.2; Pulse Ox 98% on R/A; ph 20:00 BP 192 / 81; Pulse 100; Resp 18; Pulse Ox 97% ; cp4 21:00 BP 181 / 105; Pulse 103; Resp 18; Pulse Ox 98% ; cp4 22:00 BP 187 / 86; Pulse 105; Resp 18; Pulse Ox 98% ; cp4 23:00 BP 188 / 98; Pulse 102; Resp 18; Pulse Ox 97% ; cp4 MDM: 19:09 Medical Screening Exam initiated gb1 20:21 Differential Diagnosis: CVA, electrolyte abnormality, hypoglycemia, intracranial bleed, gb1 seizure, sepsis, UTI, volume depletion. Data reviewed: vital signs, nurses notes, lab test result(s), CBC, electrolytes, radiologic studies, CT scan. ED course: 63-year-old female with history of cirrhosis, diabetes [id number], end-stage renal disease on hemodialysis presents with altered mental status. Patient initially was hypoglycemic and then blood sugar after D50 IV was in the 150s. Patient's mental status has somewhat improved I doubt at this time CVA or TIA, CT of the brain is normal, the patient has no focal neurological deficits on exam. Consider MRI of the brain for further evaluation.. This seems like starvation ketosis with altered mental status due to hypoglycemia. Patient's urinalysis is still pending and have admitted the patient to the admitting hospitalist telemetry unit. At this time I doubt DKA as she is not hyperglycemic. Unable to assess her medication list as she cannot tell me if she is on a self on urea. I will reassess her blood pressure, blood sugar and further admit here for higher level of care.. 07/07 19:10 Order name: CBC with Diff; Complete Time: 20:06 gb1 07/07 19:10 Order name: CMP; Complete Time: 20:06 gb1 07/07 19:10 Order name: Lipase; Complete Time: 20:06 gb1 07/07 19:10 Order name: Urinalysis w/ reflexes gb 07/07 19:12 Order name: BETA HYDROXYBUTYRATE; Complete Time: 20:06 gb1 07/07 19:12 Order name: ABG: VBG; Complete Time: 20:10 gb1 07/07 19:17 Order name: Glucose, Ancillary Testing; Complete Time: 19:22 EDOK 07/07 20:46 Order name: Urine Drug Screen EDOK 07/07 21:32 Order name: Glucose, Ancillary Testing EDOK 07/07 23:12 Order name: Glucose, Ancillary Testing EDOK 07/07 19:10 Order name: Chest Single View XRAY gb1 07/07 19:22 Order name: CT Head Brain wo Cont; Complete Time: 20:06 gb1 07/07 19:10 Order name: IV Saline Lock; Complete Time: 19:23 gb1 07/07 19:10 Order name: Labs collected and sent; Complete Time: 19:23 gb1 Administered Medications: 19:22 Drug: D50W IVP 50 ml IVP once; (1 amp) Route: IVP; Site: left antecubital; ph 21:18 Follow up: Response: No adverse reaction cp4 Point of Care Testing: Blood Glucose: 21:21 Blood Glucose: 59 mg/dL; cp4 23:00 Blood Glucose: 45 mg/dL; cp4 Ranges: Critical Glucose Levels:Adult <50 mg/dl or >400 mg/dl <40 mg/dl or >180 mg/dl Disposition: 20:21 Critical Care:. [facility] Disposition Summary: 07/07/24 21:33 Hospitalization Ordered Notes: Hospitalization Status: Inpatient Admission(07/07/24 21:33) kl Provider: Prince Yuriy(07/07/24 21:33) kl Location: Intensive Care Unit(07/07/24 21:33) kl Condition: Guarded(07/07/24 21:33) kl Bed/Room Type: Standard(07/07/24 21:33) kl Room Assignment: 2-(07/07/24 22:56) vc1 Diagnosis - Other hypoglycemia kl Forms: - Medication Reconciliation Form kl - SBAR form kl - Leadership Thank You Letter kl Critical care time excluding procedures: 20:21 Critical care time: Bedside Care: 120 minutes, Consultation: 40 minutes. Total time: [facility] 160 minutes Signatures: Dispatcher [employer] EDMS Laure Martines RN RN kl Dahiana Perez RN RN Michael Tran, RN RN Luh Wellington RN RN vc1 Jessie Schneider MD MD gb1 Andree Cheek [facility] Lizzeth Melara cp4 Corrections: (The following items were deleted from the chart) 20:51 20:28 [facility] kmf 21:03 20:51 228 [facility] 21:32 20:28 Inpatient Admission gb1 kl 21:32 20:28 Prince Yuriy 1 kl 21:32 20:28 Telemetry/MedSurg (Inpatient) gb1 kl 21:32 20:28 Serious gb1 kl 21:32 20:28 an acute exacerbation gb1 kl 21:32 20:28 have worsened gb1 kl 21:32 20:28 Standard gb1 kl 21:32 20:28 Altered mental status, unspecified gb1 kl 21:32 20:28 Diabetes mellitus due to underlying condition with hypoglycemia gb1 kl 21:32 20:28 End stage renal disease gb1 kl 21:32 21:03 408 km kl 22:56 21:33 kl vc1
--- NOTE | 2024-07-07 20:28 | ER ---
Nurse's Notes [facility] Name: Carmen Salguero Age: 63 yrs Sex: Female : 1960 Arrival Date: 07/07/2024 Time: 18:59 Bed 4 Private MD: Diagnosis: Other hypoglycemia Presentation: 07/07 19:20 Chief complaint: EMS states: EMS called for possibe seizure, pt found altered w/ BGL of ph 29, EMS unable to start IV, gave 1/2 tube oral glucose. Coronavirus screen: Vaccine status: Patient reports receiving the 2nd dose of the covid vaccine. Ebola Screen: No symptoms or risks identified at this time. Initial Sepsis Screen: Does the patient meet any 2 criteria? No. Patient's initial sepsis screen is negative. Does the patient have a suspected source of infection? No. Patient's initial sepsis screen is negative. Risk Assessment: Do you want to hurt yourself or someone else? Patient reports no desire to harm self or others. Onset of symptoms was July 07, 2024. 19:20 Method Of Arrival: EMS: [facility] 19:20 Acuity: RAUL 2 ph Triage Assessment: 19:22 General: Appears in no apparent distress. Behavior is cooperative, anxious, drowsy. ph Pain: Denies pain. Neuro: Level of Consciousness is awake, obeys commands, confused, Oriented to person. Historical: - Allergies: 19:21 No Known Allergies; ph - PMHx: 19:21 Cirrhosis; Diabetes - NIDDM; End stage renal disease; Hypertensive disorder; ph - PSHx: 19:21 section; liver transplant; ph - Immunization history:: Adult Immunizations up to date. - Infectious Disease History:: Denies. - Social history:: Smoking status: Patient denies any tobacco usage or history of. Screenin:23 [facility] ED Fall Risk Assessment (Adult) History of falling in the last 3 months, bp including since admission No falls in past 3 months (0 pts) Confusion or Disorientation Yes (5 pts) Intoxicated or Sedated No (0 pts) Impaired Gait Yes (1 pt) Mobility Assist Device Used No (0 pt) Altered Elimination No (0 pt) Score/Fall Risk Level 3 or more points = High Risk Oriented to surroundings, Maintained a safe environment, Assessed \T\ reinforced patient's understanding of fall precautions, Hourly rounding (assess needs \T\ fall precautionary measures) done, Used ambulatory aids as needed (educated on \T\ assisted with). Abuse screen: Denies threats or abuse. Nutritional screening: No deficits noted. Tuberculosis screening: No symptoms or risk factors identified. Assessment: 19:23 General: Appears in no apparent distress. uncomfortable, Behavior is calm, cooperative, bp appropriate for age. Pain: Denies pain. Neuro: Level of Consciousness is awake, alert, confused, Oriented to person. Cardiovascular: Patient's skin is warm and dry. Respiratory: Airway is patent Respiratory effort is even, unlabored. GI: No signs and/or symptoms were reported involving the gastrointestinal system. : No signs and/or symptoms were reported regarding the genitourinary system. EENT: No signs and/or symptoms were reported regarding the EENT system. Derm: No signs and/or symptoms reported regarding the dermatologic system. Musculoskeletal: No signs and/or symptoms reported regarding the musculoskeletal system. Vital Signs: 19:20 BP 215 / 84; Pulse 108; Resp 18; Temp 98.2; Pulse Ox 98% on R/A; ph 20:00 BP 192 / 81; Pulse 100; Resp 18; Pulse Ox 97% ; cp4 21:00 BP 181 / 105; Pulse 103; Resp 18; Pulse Ox 98% ; cp4 22:00 BP 187 / 86; Pulse 105; Resp 18; Pulse Ox 98% ; cp4 23:00 BP 188 / 98; Pulse 102; Resp 18; Pulse Ox 97% ; cp4 ED Course: 18:00 Initial lab(s) drawn, by me, sent to lab. Inserted saline lock: 20 gauge in left ph antecubital area, using aseptic technique. Blood collected. Flushed with 10 mL NS. 19:08 Patient arrived in ED. vc1 19:08 Jessie Schneider MD is Attending Physician. gb1 19:16 Michael Tran, RN is Primary Nurse. bp 19:21 Triage completed. ph 19:22 Arm band placed on Patient placed in an exam room, on a stretcher. ph 19:23 Bed in low position. Call light in reach. Side rails up X2. bp 19:23 Lipase Sent. ph 19:23 CMP Sent. ph 19:23 CBC with Diff Sent. ph 19:23 No provider procedures requiring assistance completed. bp 19:49 CT Head Brain wo Cont In Process Unspecified. EDMS 19:51 Chest Single View XRAY In Process Unspecified. EDMS 20:26 Prince Yan MD is Hospitalizing Provider. gb1 20:50 Primary Nurse role handed off by Michael Tran, JUAN cp4 20:50 Lizzeth Melara is Primary Nurse. cp4 21:33 Prince Yan MD is Hospitalizing Provider. 07/08 00:03 Patient admitted, IV remains in place. cp4 00:04 Provided Education on: admission. cp4 Administered Medications: 07/07 19:22 Drug: D50W IVP 50 ml IVP once; (1 amp) Route: IVP; Site: left antecubital; ph 21:18 Follow up: Response: No adverse reaction cp4 Medication: 19:23 VIS not applicable for this client. bp Point of Care Testing: Blood Glucose: 21:21 Blood Glucose: 59 mg/dL; cp4 23:00 Blood Glucose: 45 mg/dL; cp4 Ranges: Outcome: 20:28 Decision to Hospitalize by Provider. gb1 21:33 Decision to Hospitalize by Provider. 07/08 00:03 Admitted to ICU accompanied by nurse, via stretcher, on monitor, with chart, Report cp4 called to [facility] Condition: stable Instructed on the need for admit, 00:04 Patient left the ED. cp4 Signatures: Dispatcher [employer] EDMS Laure Martines RN RN kl Hall, Patricia, RN RN Michael Tran RN RN bp Calcote, Vanessa, RN RN Jessie Cano MD MD gb1 Potter, Christina cp4 Corrections: (The following items were deleted from the chart) 07/07 22:43 20:00 BP 181 / 105; Pulse 103bpm; Resp 18bpm; Pulse Ox 98%; cp4 cp4
--- NOTE | 2024-07-07 20:41 | RAD REPORT ---
EXAMINATION: ONE VIEW CHEST XR CLINICAL INDICATION: Female, 63 years old.,COUGH TECHNIQUE: Frontal chest projection is submitted. Examination is limited by patient positioning and t echnique. COMPARISON: 05/19/2024 FINDINGS: The lungs show patchy bilateral airspace opacities, predominantly along the mid to lower lungs. Promi nence of the central vasculature. No pneumothorax or sizable effusion. The heart is normal in size. Mediastinal contours are unremarkable. IMPRESSION: Bilateral patchy airspace opacities and prominence of the central vasculature, may relate to pulmonar y edema versus multifocal pneumonia.
[2024-07-07] MEDS: DEXTROSE 10%-WATER 500 ML IV SCH (20:45)
[2024-07-07] MEDS: PANTOPRAZOLE 40 MG INJ IVP SCH (20:46)
[2024-07-07] MEDS ORDERED: SODIUM CHLORIDE 0.9% 10ML INJ IV PRN (20:46)
--- NOTE | 2024-07-07 20:46 | P.HP ---
Certification for Inpatient Patient admitted to: Inpatient With expected LOS: >2 Midnights Practitioner: I am a practitioner with admitting privileges, knowledge of patient current condition, hospital course, and medical plan of care. Services: Services provided to patient in accordance with Admission requirements found in Title 42 Section 412.3 of the Code of Federal Regulations Patient History Date of Service: 07/07/24 Reason for admission: Altered mental status History of Present Illness: Patient is a 63-year-old female who is being admitted for hypoglycemic encephalopathy after she presented with blood glucose in the 20s. She has a history of ESRD on hemodialysis Friday. She also has a history of diabetes mellitus. She denies use of scheduled insulin for her diabetes. She is unclear why she is hypoglycemic. She has had several episodes of unexplained hypoglycemia in the past. Her blood glucose at home was 29. She was given an amp of D50, which raised her blood glucose to 154. Her CT brain was negative. She is still encephalopathic. Allergies No Known Allergies Allergy (Unverified 09/28/16 17:13) Physical Examination - Physical Exam General: Confused, Other (Very lethargic) HEENT: Atraumatic, Normocephalic Respiratory: Clear to auscultation bilaterally, Normal air movement Cardiovascular: No edema, Normal pulses, Regular rate/rhythm, Normal S1 S2, Other (Right-sided hemodialysis catheter) Gastrointestinal: Soft and benign, Non-distended - Studies Laboratory Data (last 24 hrs) 07/07/24 07/07/24 19:20 19:20 WBC 5.50 Hgb 9.7 L Hct 29.1 L Plt Count 268 Sodium 140 Potassium 4.6 BUN 74 H Creatinine 8.82 H Glucose 26 L* Total Bilirubin 1.3 H AST 34 ALT < 14 Alkaline Phosphatase 146 H Lipase 20 Assessment and Plan - Problems (Diagnosis) (1) Hypoglycemic encephalopathy Current Visit: Yes Status: Acute (2) Acute metabolic encephalopathy due to hypoglycemia Current Visit: Yes Status: Acute (3) ESRD on hemodialysis Current Visit: Yes Status: Acute (4) Metabolic acidosis Current Visit: Yes Status: Acute - Plan Assessment This is a 63-year-old female who is being admitted for unexplained hypoglycemia. She presented for a blood glucose of 29 at home. She is very lethargic. She received a amp of D50 which increased her blood glucose to 154. Hypoglycemic encephalopathy ESRD on hemodialysis Type 2 diabetes mellitus Metabolic acidosis Plan: Will admit inpatient to ICU Start patient on D10 infusion Every hour fingerstick Nephrology consulted for routine dialysis Patient is full code PPI for GI prophylaxis Heparin subcu for DVT prophylaxis - Advance Directives Does patient have a Living Will: No Does patient have a Durable POA for Healthcare: No
[2024-07-07] MEDS ORDERED: PANTOPRAZOLE 40 MG INJ ONE (21:29)
[2024-07-07] MEDS ORDERED: DEXTROSE 10%-WATER 500 ML IV ONE (21:30)
[2024-07-08] MEDS: LABETALOL 20 MG/4ML SYRINGE IV PRN (00:22)
[2024-07-08] MEDS ORDERED: D50W 25 GM/50 ML SYRINGE IV PRN (01:15)
[2024-07-08] MEDS ORDERED: D10W 125 ML IV PRN (01:19)
[2024-07-08] MEDS: DEXTROSE 10%-WATER 500 ML IV SCH ×2 (02:05→15:15)
[2024-07-08] MEDS: HEPARIN 5000 UNIT/ML 1 ML VIAL SQ SCH (02:06)
[2024-07-08] MEDS: ONDANSETRON 4 MG/2 ML VIAL IV PRN (02:51)
[2024-07-08 05:13] LABS: Absolute Basophils 0.1 K/uL (0-0.5); Absolute Eosinophils 0.2 K/uL (0-0.5); Absolute Lymphocytes (CBC) 0.9 K/uL (0.7-4.9); Absolute Monocytes 0.7 K/uL (0.1-1.3); Absolute Neutrophil 3.8 K/uL (1.8-8.0); Basophils % 0.9 % (0-1.3); Eosinophils % 3.4 % (0-4.4); Hematocrit 24.9 % (36.0-45.0); Hemoglobin 8.2 g/dL (12.0-15.0); Lymphocytes % 15.8 % (15.3-44.8); MCH 29.7 pg (27.0-35.0); MCV 89.8 fL (80-100); MPV 8.4 fL (7.6-11.3); Monocytes % 12.5 % (3.3-12.3); Neutrophils % 67.4 % (41.7-73.7); Platelets 252 thou/uL (152-406); RBC Red Blood Cell Count 2.77 M/uL (3.86-4.86); Red Cell Distribution Width 14.1 % (12.1-15.2)
[2024-07-08 05:17] LABS: Magnesium 1.8 mg/dL (1.6-2.4); Phosphorus 5.3 mg/dL (2.5-4.9)
[2024-07-08 05:29] LABS: Anion Gap 12.6 mEq/L (5.0-15.0); Potassium 4.6 mEq/L (3.5-5.1)
[2024-07-08] MEDS: NALOXONE 0.4 MG/ML VIAL IV ONE (09:08)
[2024-07-08] MEDS: FLUMAZENIL 0.1 MG/ML (5 mL VIAL) IV ONE (09:08)
[2024-07-08 09:41] LABS: Arterial Blood Carboxyhemoglob 1.4 % (0-1.5); Blood Gas Oxyhemoglobin 95.5 % (94-97)
--- NOTE | 2024-07-08 10:16 | P.CNS ---
Date of Consult: 07/08/24 Reason for Consult: ESRD Requesting Physician: POPEYE Shirley Chief Complaint: Altered mental status History of Present Illness: Patient is a 63-year-old female who is being admitted for hypoglycemic encephalopathy after she presented with blood glucose in the 20s. She has a history of ESRD on hemodialysis Friday. She also has a history of diabetes mellitus. She denies use of scheduled insulin for her diabetes. She is unclear why she is hypoglycemic. She has had several episodes of unexplained hypoglycemia in the past. Her blood glucose at home was 29. She was given an amp of D50, which raised her blood glucose to 154. Her CT brain was negative. She is still encephalopathic. [id number] 20:21 This 63 yrs old Female presents to ER via EMS with complaints of Altered gb1 Mental Status. 20:21 63-year-old female brought in by EMS for altered mental status at home. Patient's blood gb1 sugar on arrival by EMS was 29. They were unable to establish an IV and routes when she arrived patient was still altered. She states that her blood sugar does go low. She has a history of cirrhosis, diabetes, end-stage renal disease on hemodialysis which she dialyzes Friday. Patient denies any fall or head strike. Allergies No Known Allergies Allergy (Unverified 09/28/16 17:13) Home medications list reviewed: Yes Home Medications: Ascorbic Acid [Vitamin C] 500 mg PO DAILY 07/08/24 Atorvastatin Calcium 20 mg PO DAILY 07/08/24 Duloxetine HCl 30 mg PO DAILY 07/08/24 Entecavir 0.5 mg PO Q3D 07/08/24 Ergocalciferol (Vitamin D2) [Vitamin D 50,000 Unit Cap] 50,000 unit PO DAILY 07/08/24 Folic Acid 1 mg PO DAILY 07/08/24 Folic Acid/Vit B Complex and C [Renal-Priscila Tablet] 0.8 mg PO DAILY 07/08/24 Glimepiride 2 mg PO DAILY 07/08/24 Metoprolol Tartrate 50 mg PO BID 07/08/24 NIFEdipine [Nifedipine ER] 60 mg PO DAILY 07/08/24 Oxycodone HCl/Acetaminophen [Endocet 5-325 mg Tablet] 5 - 325 mg PO Q4H PRN 07/08/24 Pantoprazole Sodium 40 mg PO DAILY 07/08/24 Prednisone [Oscar] 5 mg PO DAILY 07/08/24 Sirolimus 1 mg PO DAILY 07/08/24 Zinc Sulfate 50 mg PO DAILY 07/08/24 cloNIDine HCL [Clonidine HCl] 0.2 mg PO BID 07/08/24 ursodioL [Ursodiol] 300 mg PO BID 07/08/24 - Past Medical/Surgical History Diabetic: Yes -: NIDDM -: ESRD (Dr. Tinoco/ Ivana) -: HTN -: Liver Cirrhosis/ Hx Liver Transplant -: Liver transplant -: C section - Social History Smoking Status: Unknown if ever smoked Place of Residence: Home Review of Systems 10-point ROS is otherwise unremarkable General: Weakness, Malaise Gastrointestinal: Nausea, Abdominal Pain Musculoskeletal: Other (Generalized pain) Physical Examination Temp Pulse Resp BP Pulse Ox 97.7 F 86 19 145/64 H 100 07/08/24 08:00 07/08/24 09:00 07/08/24 09:00 07/08/24 09:00 07/08/24 09:00 General: Cooperative, Mild distress, Confused HEENT: Atraumatic Neck: Supple Respiratory: Normal air movement Cardiovascular: No edema, Regular rate/rhythm Gastrointestinal: Non-distended, Tenderness Musculoskeletal: No clubbing, No contractures Integumentary: No rashes, No cyanosis Neurological: Normal speech Laboratory Data (last 24 hrs) 07/07/24 07/07/24 19:20 19:20 WBC 5.50 Hgb 9.7 L Hct 29.1 L Plt Count 268 Sodium 140 Potassium 4.6 BUN 74 H Creatinine 8.82 H Glucose 26 L* Total Bilirubin 1.3 H AST 34 ALT < 14 Alkaline Phosphatase 146 H Lipase 20 Imagings Data: [id number] EXAM: CT Head Brain Wo Cont HISTORY: CONFUSED COMPARISON: 05/19/2023 TECHNIQUE: Multiple contiguous axial images were obtained for a CT of the brain without contrast. Sagittal and coronal reformats were performed. One or more of the following dose reduction techniques were used: Automated exposure control, adjustment of the mA and kV according to patient size, and iterative reconstruction. Unless otherwise specified, incidental findings do not require dedicated imaging follow-up. FINDINGS: No evidence of hydrocephalus, intracranial hemorrhage, or extra-axial fluid collection. The brain is normal in morphology. The calvarium is intact. The visualized paranasal sinuses and mastoid air cells are essentially clear. IMPRESSION: No evidence of acute intracranial abnormality. [id number] EXAMINATION: ONE VIEW CHEST XR CLINICAL INDICATION: Female, 63 years old.,COUGH TECHNIQUE: Frontal chest projection is submitted. Examination is limited by patient positioning and technique. COMPARISON: 05/19/2024 FINDINGS: The lungs show patchy bilateral airspace opacities, predominantly along the mid to lower lungs. Prominence of the central vasculature. No pneumothorax or sizable effusion. The heart is normal in size. Mediastinal contours are unremarkable. IMPRESSION: Bilateral patchy airspace opacities and prominence of the central vasculature, may relate to pulmonary edema versus multifocal pneumonia. Conclusions/Impression: ESRD on HD -Next HD Friday HTN with CKD/ CHF -Start Coreg BID Diastolic CHF, chronic -Low sodium diet -UF with HD DM II with CKD complicated by hypoglycemia -Reduce D10W; wean as tolerated -Repeat BMP today to monitor for hyponatremia Cirrhosis of the Liver Hypoalbuminemia Liver Transplant status -Restart immunosuppressive therapy -Start Nepro TID Anemia in CKD -Retacrit X1 CKD MBD Hyperphosphatemia -Start Renvela -Start Ergo Toxic Metabolic Encephalopathy -Supportive care -HD in AM Case reviewed with the patient's daughter by phone Hospitalist and ER notes reviewed Thank you kindly for the consultation Patient care 40min
[2024-07-08] MEDS: EPOETIN ALFA-EPBX 10,000 UNIT/ML VIAL SQ ONE ×2 (11:18→16:43)
[2024-07-08] MEDS: SEVELAMER CARBONATE 800 MG TABLET PO SCH (12:00)
[2024-07-08] MEDS: NEPRO SHAKE 237 ML CAN PO SCH (13:19)
--- NOTE | 2024-07-08 13:35 | P.PN ---
Subjective Date of Service: 07/08/24 Chief Complaint: Altered mental status She is still drowsy, arousable by painful stimulation and able to communicate. Her blood sugar has been improved, 24-hour blood sugar reviewed serum glucose over 100 on D10 infusion, she is complaining of a pain at multiple sites, no nausea and vomiting Review of Systems Other: Consitutional; fever(-), chills (-), rigor(-), night sweat(-), unintentional weight loss(-) HEENT; epistaxis (-), otorrhea (-), otalgia (-) Respiratory; shortness of breath (-), wheezing (-), cough (-), sputum (-), pleuritic chest pain (-) Cardiovascular; chest pain (-), peripheral edema (-), paroxysmal nocturnal dyspnea (-), orthopnea (-) Gastrointestinal; nausea (-), vomiting (-), abdominal pain (-), diarrhea (-), constipation (-), melena (-), hematochezia (-) Urinary; urinary frequency (-), dysuria (-), urgency (-), flank pain (-), gross hematuria (-) Skin; rash (-), pruritus (-) 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 General: Chronic ill- looking,. HEENT: Normocephalic, atraumatic,. Neck: Supple, without JVD or goiter or thyroid mass, dialysis catheter in the right upper arm. Respiratory: Normal breathing effort, clear to auscultation bilaterally, no crackles no wheezing or rhonchi. Cardiovascular: Regular rate and rhythm, S1, S2 normal, no murmur no gallop. Gastrointestinal: Normal bowel sounds, nondistended, nontender, No ascites, , No masses, no hepatosplenomegaly. Musculoskeletal: No clubbing, No peripheral edema. Integumentary: No rashes. Lymphatics: No axilla or cervical lymphadenopathy. Neurology; drowsy, arousable by painful stimulation, oriented x2, no focal neurologic deficit - Studies Laboratory Data (last 24 hrs) 07/07/24 07/07/24 19:20 19:20 WBC 5.50 Hgb 9.7 L Hct 29.1 L Plt Count 268 Sodium 140 Potassium 4.6 BUN 74 H Creatinine 8.82 H Glucose 26 L* Total Bilirubin 1.3 H AST 34 ALT < 14 Alkaline Phosphatase 146 H Lipase 20 Assessment And Plan - Plan This is a 64 years old female patient with multiple comorbidities including for ESRD on hemodialysis, type 2 diabetes, chronic pain syndrome on opioid, noncompliance with medication and hemodialysis who was was brought to the emergency room for altered mental status and admitted for #1 metabolic encephalopathy secondary to 2 and 3 Not improving in spite of correction of severe hypoglycemia, not responding to naloxone and flumazenil unremarkable CT of the head on admission #2 unknown severe hypoglycemia Patient denied taking any diabetic medication, sitting consider this morning > 13, which rule out adrenal insufficiency Responding to D10 infusion, blood sugar over 100-1 50, able to eat Will continue oral diet and D10 infusion and monitor blood sugar, will order hemoglobin A1c #3 acute/chronic hypercapnic respiratory failure ABG reviewed, will start on BiPAP, consult cruise director #4 ESRD on hemodialysis Chest x-ray shows mild pulmonary edema, case discussed with retail chain store area supervisor, Dr. Heath. Will resume hemodialysis tomorrow #4 anemia of the CKD Hemoglobin 8.2, no sign of clinical bleeding, no transfusion indicated Disposition; patient needs intensive care
--- NOTE | 2024-07-08 15:34 | P.CNS ---
Date of Consult: 07/08/24 Reason for Consult: Resp failure Chief Complaint: Altered mental status History of Present Illness: Age 63 AW hypoglcymia and resp failure on BIPAP Alert and responsive ESRD oon dialysis Allergies No Known Allergies Allergy (Unverified 09/28/16 17:13) Home Medications: Ascorbic Acid [Vitamin C] 500 mg PO DAILY 07/08/24 Atorvastatin Calcium 20 mg PO DAILY 07/08/24 Duloxetine HCl 30 mg PO DAILY 07/08/24 Entecavir 0.5 mg PO Q3D 07/08/24 Ergocalciferol (Vitamin D2) [Vitamin D 50,000 Unit Cap] 50,000 unit PO DAILY 07/08/24 Folic Acid 1 mg PO DAILY 07/08/24 Folic Acid/Vit B Complex and C [Renal-Priscila Tablet] 0.8 mg PO DAILY 07/08/24 Glimepiride 2 mg PO DAILY 07/08/24 Metoprolol Tartrate 50 mg PO BID 07/08/24 NIFEdipine [Nifedipine ER] 60 mg PO DAILY 07/08/24 Oxycodone HCl/Acetaminophen [Endocet 5-325 mg Tablet] 5 - 325 mg PO Q4H PRN 07/08/24 Pantoprazole Sodium 40 mg PO DAILY 07/08/24 Prednisone [Oscar] 5 mg PO DAILY 07/08/24 Sirolimus 1 mg PO DAILY 07/08/24 Zinc Sulfate 50 mg PO DAILY 07/08/24 cloNIDine HCL [Clonidine HCl] 0.2 mg PO BID 07/08/24 ursodioL [Ursodiol] 300 mg PO BID 07/08/24 - Past Medical/Surgical History Diabetic: Yes -: NIDDM -: ESRD (Dr. Tinooc/ Iv[facility]) -: HTN -: Cirrhosis -: Hep B ? -: Liver transplant -: C section - Social History Smoking Status: Unknown if ever smoked Place of Residence: Home Review of Systems is unable to be obtained Physical Examination Temp Pulse Resp BP Pulse Ox 97.4 F 82 12 128/54 L 100 07/08/24 13:39 07/08/24 14:00 07/08/24 14:00 07/08/24 14:00 07/08/24 14:00 General: Alert, Unresponsive Neck: Supple Respiratory: Clear to auscultation bilaterally Cardiovascular: No edema, Regular rate/rhythm Gastrointestinal: Normal bowel sounds, Soft and benign Laboratory Data (last 24 hrs) 07/07/24 07/07/24 19:20 19:20 WBC 5.50 Hgb 9.7 L Hct 29.1 L Plt Count 268 Sodium 140 Potassium 4.6 BUN 74 H Creatinine 8.82 H Glucose 26 L* Total Bilirubin 1.3 H AST 34 ALT < 14 Alkaline Phosphatase 146 H Lipase 20 - Problems (1) Hypoglycemic encephalopathy Current Visit: Yes Status: Acute Plan: Pt is 63 yrs of age AW hypoglycemic encepahlopathy. ESRD. On Glimeride and oxycodone. Mild hyperapnia VS stable CXRy cardiomegaly. Mild anemia of CRF. No change in tX Wean off BIPAP
[2024-07-08] MEDS: ENTECAVIR 0.5 MG PO SCH (15:45)
[2024-07-08] MEDS: DRISDOL (VITAMIN D=ERGOCALCIFEROL) 50000 UNIT CAP PO SCH (16:43)
[2024-07-08] MEDS: carvediloL 12.5 MG TAB PO SCH (17:11)
[2024-07-08] MEDS: cloNIDine HCL 0.1 MG TAB PO SCH (20:14)
[2024-07-08] MEDS: ursodioL 300 MG CAP PO SCH (20:14)
[2024-07-08] MEDS: ATORVASTATIN 20 MG TAB PO SCH (20:14)
[2024-07-08] MEDS: METOPROLOL TAR 50 MG TAB PO SCH (20:15)
[2024-07-08] MEDS: DOCUSATE NA 100 MG CAP PO SCH (20:15)
[2024-07-08] MEDS ORDERED: MANNITOL 25% 12.5 GM/50 ML VIAL IV PRN (21:04)
[2024-07-08] MEDS ORDERED: NA CHLORIDE 0.9% 1,000 ML IV PRN (21:04)
[2024-07-08] MEDS ORDERED: EPOETIN ALFA 10,000 UNIT/ML VIAL IV SCH (21:15)
[2024-07-08] MEDS ORDERED: ALBUMIN HUMAN 25% 50 ML IV SCH (22:00)
[2024-07-09 05:16] LABS: Absolute Basophils 0.1 K/uL (0-0.5); Absolute Eosinophils 0.2 K/uL (0-0.5); Absolute Lymphocytes (CBC) 1.2 K/uL (0.7-4.9); Absolute Monocytes 0.8 K/uL (0.1-1.3); Absolute Neutrophil 3.5 K/uL (1.8-8.0); Basophils % 1.3 % (0-1.3); Eosinophils % 4.1 % (0-4.4); Hematocrit 24.6 % (36.0-45.0); Hemoglobin 7.9 g/dL (12.0-15.0); Lymphocytes % 20.7 % (15.3-44.8); MCH 29.2 pg (27.0-35.0); MCHC 32.2 g/dL (32.0-36.0); MCV 90.8 fL (80-100); MPV 8.4 fL (7.6-11.3); Monocytes % 14.1 % (3.3-12.3); Neutrophils % 59.8 % (41.7-73.7); Platelets 223 thou/uL (152-406); RBC Red Blood Cell Count 2.71 M/uL (3.86-4.86); Red Cell Distribution Width 13.9 % (12.1-15.2)
[2024-07-09 05:34] LABS: Anion Gap 12.1 mEq/L (5.0-15.0); Potassium 5.1 mEq/L (3.5-5.1)
[2024-07-09 05:35] LABS: AST/SGOT 17 U/L (15-37); Albumin 2.3 g/dL (3.4-5.0); Albumin/Globulin Ratio 0.7 (1.1-1.8); Alkaline Phosphatase 125 U/L (45-117); Globulin 3.3 g/dL (2.3-3.5); Protein, Total 5.6 g/dL (6.4-8.2)
[2024-07-09 05:38] LABS: ALT/SGPT < 14 U/L (13-56); Bilirubin Direct < 0.2 mg/dL (0-0.2); Bilirubin Indirect, Calculated 0.8 mg/dL (0.2-0.8)
[2024-07-09 05:50] LABS: Phosphorus 5.7 mg/dL (2.5-4.9)
[2024-07-09] MEDS: DRISDOL (VITAMIN D=ERGOCALCIFEROL) 50000 UNIT CAP PO SCH (08:14)
[2024-07-09] MEDS: predniSONE 5 MG TAB PO SCH (08:14)
[2024-07-09] MEDS: DULOXETINE 30 MG CAP PO SCH (08:14)
[2024-07-09] MEDS: PANTOPRAZOLE 40MG TABLET PO SCH (08:14)
[2024-07-09] MEDS: FOLIC ACID 1 MG TABLET PO SCH (08:15)
[2024-07-09] MEDS: NIFEDIPINE XL 60 MG TABLET PO SCH (08:15)
[2024-07-09 08:18] LABS: Blood Morphology Comment NOTED (NOT SEEN); Differential Total Cells Count 100; Eosinophils 4 % (0-3); Lymphocytes 17 % (15-42); Metamyelocytes 1 % (0-0); Monocytes 25 % (0-10); Myelocytes 1 % (0-0); Platelet Estimate ADEQ; Polychromasia SLIGHT; Segmented Neutrophils 52 % (40-80)
[2024-07-09] MEDS ORDERED: ZINC SULFATE 220 MG CAP PO SCH (09:00)
[2024-07-09] MEDS ORDERED: ASCORBIC ACID 500 MG TABLET PO SCH (09:00)
[2024-07-09] MEDS: SIROLIMUS 1 MG PO SCH (09:00)
[2024-07-09] MEDS ORDERED: MULTIVITAMINS,THERAPEUT 1 TAB PO SCH (09:00)
[2024-07-09] MEDS: MULTIVITAMINS,THERAPEUT 1 TAB PO SCH (09:54)
[2024-07-09 11:04] LABS: Blood Gas Oxyhemoglobin 96.1 % (94-97); Blood Gas THB 8.3 g/dl (12-18); Blood O2 Saturation 98.6 % (92-98.5)
[2024-07-09] MEDS: ALBUMIN HUMAN 25% 100 ML IV ONE (11:17)
--- NOTE | 2024-07-09 12:13 | P.PN ---
Nephrology note (S) Pt seen on HD, stable vitals but remains lethargic, awakens but appears confused and grimaces. On D10 IVF. (O) vitals reviewed in the EMR General: Appears chronically ill HEENT: Atraumatic, sclera anicteric Neck: Supple Respiratory: Normal air movement, no resp distress Cardiovascular: No edema, Regular rate/rhythm mostly Gastrointestinal: Soft, mild distention, mild generalized TTP Musculoskeletal: muscle mass loss Integumentary: No rashes Neurological: Lethargic, awakens with physical stimuli, responds briefly Conclusions/Impression: ESRD 2nd to dialysis dependence for > 90 days, initiated on HD earlier in the year 2nd to ARF on CKD -HD today for clearance and UF Hypoglycemia, unspecified. AMS, toxic metab encephalopathy -Management per IM Diastolic CHF, chronic -UF on dialysis as tolerated Liver Transplant status -LFTs ok, cont IS Chronic malignant HTN -Pt is on a no of BP agents and both Coreg and Metoprolol ordered, BP non elevated on HD when seen, will d/c former, will decrease Clonidine dose, and prefer to avoid this agent, holding parameters placed
[2024-07-09] MEDS: EPOETIN ALFA 10,000 UNIT/ML VIAL IV SCH (13:45)
[2024-07-09] MEDS ORDERED: LACTULOSE 20 GM/30 ML UCUP PO PRN (15:51)
--- NOTE | 2024-07-09 16:01 | P.PN ---
Subjective Date of Service: 07/09/24 Chief Complaint: Altered mental status Subjective: No new changes She is still drowsy, arousable by painful stimulation and able to communicate. She gets irritated when I wake her up she says she is fine and asked me to leave her alone. Nurse at bedside report the patient has a very poor intake, stay awake for a few minutes then go back to sleep. Her blood sugar over 100 after we discontinued D10 infusion used BiPAP on and off. Review of Systems Other: Consitutional; fever(-), chills (-), rigor(-), night sweat(-), unintentional weight loss(-) HEENT; epistaxis (-), otorrhea (-), otalgia (-) Respiratory; shortness of breath (-), wheezing (-), cough (-), sputum (-), pleuritic chest pain (-) Cardiovascular; chest pain (-), peripheral edema (-), paroxysmal nocturnal dyspnea (-), orthopnea (-) Gastrointestinal; nausea (-), vomiting (-), abdominal pain (-), diarrhea (-), constipation (-), melena (-), hematochezia (-) Urinary; urinary frequency (-), dysuria (-), urgency (-), flank pain (-), gross hematuria (-) Skin; rash (-), pruritus (-) 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 General: Chronic ill-looking,. HEENT: Normocephalic, atraumatic,. Neck: Supple, without JVD or goiter or thyroid mass, dialysis catheter in the right upper arm. Respiratory: Normal breathing effort, clear to auscultation bilaterally, no crackles no wheezing or rhonchi. Cardiovascular: Regular rate and rhythm, S1, S2 normal, no murmur no gallop. Gastrointestinal: Normal bowel sounds, nondistended, nontender, No ascites, , No masses, no hepatosplenomegaly. Musculoskeletal: No clubbing, No peripheral edema. Integumentary: No rashes. Lymphatics: No axilla or cervical lymphadenopathy. Neurology; drowsy, arousable by painful stimulation, oriented x2, no focal neurologic deficit Assessment And Plan - Plan This is a 64 years old female patient with multiple comorbidities including for ESRD on hemodialysis, post liver transplantation on immunosuppressants, type 2 diabetes, chronic pain syndrome on opioid, noncompliance with medication and hemodialysis who was was brought to the emergency room for altered mental status and admitted for #1 metabolic encephalopathy of unclear etiology Unchanged, Not improving in spite of correction of severe hypoglycemia, not responding to naloxone and flumazenil unremarkable CT of the head on admission Will try lactulose for hepatic encephalopathy which is unlikely. #2 unknown severe hypoglycemia of unknown etiology Blood sugar stable over 100 off D10 infusion Patient denied taking diabetic medication, but she is a poor historian, her medication list include glimepiride Random serum cortisol level in the morning > 13, which rule out adrenal insufficiency Will continue oral diet and monitor blood sugar, Hemoglobin A1c 5.0, overcorrected for her underlying comorbidities #3 acute/chronic hypercapnic respiratory failure Not improved Repeat ABG reviewed, no significant change Continue on BiPAP, pipe changer on board #4 ESRD on hemodialysis Chest x-ray shows mild pulmonary edema, Will resume hemodialysis #5 anemia of the CKD Hemoglobin around 8, no sign of clinical bleeding, no transfusion indicated Planning to transfer patient to [facility] for higher level of care, Her cath lab is Dr. Presley Orr. Transfer has been requested. Transfer center has been contacted. Waiting for a bed. Disposition; patient needs continuous intensive care
[2024-07-09] MEDS: cloNIDine HCL 0.1 MG TAB PO SCH (20:52)
[2024-07-10 00:02] LABS: Hepatitis B surface AG Interp. Nonreactive (Nonreactive)
[2024-07-10 00:05] LABS: HBsAG Nonreactive Report Report
[2024-07-10] MEDS: ACETAMINOPHEN 325 MG TABLET PO PRN (03:12)
[2024-07-10 06:28] LABS: Absolute Eosinophils 0.2 K/uL (0-0.5); Absolute Monocytes 0.7 K/uL (0.1-1.3); Absolute Neutrophil 2.8 K/uL (1.8-8.0); Basophils % 0.7 % (0-1.3); Eosinophils % 3.6 % (0-4.4); Hematocrit 23.6 % (36.0-45.0); Hemoglobin 7.8 g/dL (12.0-15.0); Lymphocytes % 21.4 % (15.3-44.8); MCH 29.1 pg (27.0-35.0); MCHC 32.9 g/dL (32.0-36.0); MCV 88.5 fL (80-100); MPV 8.3 fL (7.6-11.3); Monocytes % 15.3 % (3.3-12.3); Nucleated Red Blood Cells % 0.1 % (0-0); Platelets 230 thou/uL (152-406); RBC Red Blood Cell Count 2.67 M/uL (3.86-4.86); Red Cell Distribution Width 13.7 % (12.1-15.2)
[2024-07-10 06:44] LABS: Anion Gap 10.6 mEq/L (5.0-15.0); Potassium 3.6 mEq/L (3.5-5.1)
--- NOTE | 2024-07-10 11:09 | P.PN ---
Subjective Date of Service: 07/10/24 Chief Complaint: Altered mental status Now the patient is a alert awake oriented x 3, she received hemodialysis yesterday without any problem, she answered all question. She seems to take glimepiride for diabetes but she is noncompliant with a follow-up the visit and not very reliable about her medications. Review of Systems Other: Consitutional; fever(-), chills (-), rigor(-), night sweat(-), unintentional weight loss(-) HEENT; epistaxis (-), otorrhea (-), otalgia (-) Respiratory; shortness of breath (-), wheezing (-), cough (-), sputum (-), pleuritic chest pain (-) Cardiovascular; chest pain (-), peripheral edema (-), paroxysmal nocturnal dyspnea (-), orthopnea (-) Gastrointestinal; nausea (-), vomiting (-), abdominal pain (-), diarrhea (-), constipation (-), melena (-), hematochezia (-) Urinary; urinary frequency (-), dysuria (-), urgency (-), flank pain (-), gross hematuria (-) Skin; rash (-), pruritus (-) 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 General: Chronic ill- looking,. HEENT: Normocephalic, atraumatic,. Neck: Supple, without JVD or goiter or thyroid mass, dialysis catheter in the right upper arm. Respiratory: Normal breathing effort, clear to auscultation bilaterally, no crackles no wheezing or rhonchi. Cardiovascular: Regular rate and rhythm, S1, S2 normal, no murmur no gallop. Gastrointestinal: Normal bowel sounds, nondistended, nontender, No ascites, , No masses, no hepatosplenomegaly. Musculoskeletal: No clubbing, No peripheral edema. Integumentary: No rashes. Lymphatics: No axilla or cervical lymphadenopathy. Neurology; more alert, awake, oriented x 3, now she answered all questions, no focal neurologic deficit Assessment And Plan - Plan This is a 64 years old female patient with multiple comorbidities including for ESRD on hemodialysis, post liver transplantation on immunosuppressants, type 2 diabetes, chronic pain syndrome on opioid, noncompliance with medication and hemodialysis who was was brought to the emergency room for altered mental status and admitted for #1 metabolic encephalopathy of unclear etiology Significantly improved overnight Not improving in spite of correction of severe hypoglycemia, not responding to naloxone and flumazenil unremarkable CT of the head on admission, seems to be responding to lactulose and hemodialysis, #2 Recurrent severe hypoglycemia likely secondary to sulfonylurea Blood sugar stable over 100 off D10 infusion Patient states that she takes diabetic medication at home, with likely glimepiride however she is not reliable to get all her medication. Random serum cortisol level in the morning > 13, which rule out adrenal insufficiency Will continue oral diet and monitor blood sugar, Hemoglobin A1c 5.0, overcorrected for her underlying comorbidities, all her diabetic medication should be permanently discontinued. 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 Presley Orr. Transfer has been requested. Transfer center has been contacted. Patient does need to be transferred if patient continued to improve. She will need to see her hepatology as outpatient. Disposition; plan to downgrade tomorrow if patient keep getting better
--- NOTE | 2024-07-10 21:00 | P.PN ---
Date of Service: 07/10/24 Vital Signs Temp Pulse Resp BP Pulse Ox 97.3 F 76 16 147/62 H 98 07/10/24 16:00 07/10/24 19:39 07/10/24 18:00 07/10/24 19:39 07/10/24 18:00 Medications Acetaminophen (Acetaminophen 325 Mg Tablet) 650 mg PO Q6H PRN PRN Reason: Pain scale 5-7 (Moderate) Last Admin: 07/10/24 03:12 Dose: 650 mg Atorvastatin Calcium (Atorvastatin 20 Mg Tab) 20 mg PO BEDTIME [facility] Last Admin: 07/10/24 19:38 Dose: 20 mg Clonidine HCl (Clonidine Hcl 0.1 Mg Tab) 0.1 mg PO BID [facility] Last Admin: 07/10/24 12:14 Dose: 0.1 mg Docusate Sodium (Docusate Na 100 Mg Cap) 100 mg PO BID [facility] Last Admin: 07/10/24 19:38 Dose: 100 mg Duloxetine HCl (Duloxetine 30 Mg Cap) 30 mg PO DAILY [facility] Last Admin: 07/10/24 08:33 Dose: 30 mg Enteral Nutritional Formula (Nepro Shake 237 Ml Can) 240 ml PO TID [facility] Last Admin: 07/10/24 19:39 Dose: 240 ml Epoetin Isacc (Epoetin Isacc 10,000 Unit/Ml Vial) 10,000 unit IV EVERY HD [facility] Last Admin: 07/09/24 13:45 Dose: 10,000 unit Folic Acid (Folic Acid 1 Mg Tablet) 1 mg PO DAILY [facility] Last Admin: 07/10/24 08:33 Dose: 1 mg Heparin Sodium (Porcine) (Heparin 5000 Unit/Ml 1 Ml Vial) 5,000 unit SQ Q8HR [facility] Last Admin: 07/10/24 16:15 Dose: 5,000 unit Heparin Sodium (Porcine) (Heparin 1,000 Unit/Ml Vial) 6,000 unit IV EVERY HD PRN PRN Reason: AFTER EACH Last Admin: 07/09/24 14:47 Dose: 6,000 unit Heparin Sodium (Porcine) (Heparin 1,000 Unit/Ml Vial) 3,000 unit IV EVERY HD PRN PRN Reason: hd line clot prevention Last Admin: 07/09/24 11:32 Dose: 3,000 unit Home Med (Entecavir [Entecavir]) 0.5 mg PO Q3D [facility] Last Admin: 07/08/24 15:45 Dose: 0.5 mg Home Med (Sirolimus [Sirolimus]) 1 mg PO DAILY [facility] Last Admin: 07/10/24 08:34 Dose: Not Given Dextrose (Dextrose 10% Water Iv Soln.) 125 mls @ 0 mls/hr IV PRN PRN; Protocol PRN Reason: HYPOGLYCEMIA Albumin Human (Albumin 25%) 50 mls @ 100 mls/hr IV EVERY HD RUSSELL Lactulose (Lactulose 20 Gm/30 Ml Ucup) 10 gm PO BID PRN PRN Reason: CONSTIPATION Mannitol (Mannitol 25% 12.5 Gm/50 Ml Vial) 12.5 gm IV EVERY HD PRN PRN Reason: Titrate to SBP (MUST DEFINE) Metoprolol Tartrate (Metoprolol Tar 50 Mg Tab) 50 mg PO BID [facility] Last Admin: 07/10/24 19:39 Dose: 50 mg Nifedipine (Nifedipine Xl 60 Mg Tablet) 60 mg PO DAILY [facility] Last Admin: 07/10/24 08:33 Dose: 60 mg Ondansetron HCl (Ondansetron 4 Mg/2 Ml Vial) 4 mg IV Q6HP PRN PRN Reason: NAUSEA / VOMITING Last Admin: 07/10/24 00:34 Dose: 4 mg Pantoprazole Sodium (Pantoprazole 40mg Tablet) 40 mg PO DAILY [facility]; Protocol Last Admin: 07/10/24 08:33 Dose: 40 mg Prednisone (Prednisone 5 Mg Tab) 5 mg PO DAILY [facility] Last Admin: 07/10/24 08:33 Dose: 5 mg Sevelamer Carbonate (Sevelamer Carbonate 800 Mg Tablet) 800 mg PO TIDWM [facility] Last Admin: 07/10/24 16:15 Dose: 800 mg Ursodiol (Ursodiol 300 Mg Cap) 300 mg PO BID [facility] Last Admin: 07/10/24 19:38 Dose: 300 mg Vitamin B Complex/Vit C/Folic Acid (Multivitamins,Therapeut 1 Tab) 1 tab PO DAILY [facility] Last Admin: 07/10/24 12:14 Dose: 1 tab Assessment/ Plan: Nephrology No dyspnea No chest pain Diffuse pain No acute events overnight Vitals, medications, blood work and imaging reviewed in the chart General: Cooperative, Mild distress, Confused HEENT: Atraumatic Neck: Supple Respiratory: Normal air movement Cardiovascular: No edema, Regular rate/rhythm Gastrointestinal: Non-distended, Tenderness Musculoskeletal: No clubbing, No contractures Integumentary: No rashes, No cyanosis Neurological: Normal speech Laboratory Data (last 24 hrs) 07/07/24 07/07/24 19:20 19:20 WBC 5.50 Hgb 9.7 L Hct 29.1 L Plt Count 268 Sodium 140 Potassium 4.6 BUN 74 H Creatinine 8.82 H Glucose 26 L* Total Bilirubin 1.3 H AST 34 ALT < 14 Alkaline Phosphatase 146 H Lipase 20 Imagings Data: [id number] EXAM: CT Head Brain Wo Cont HISTORY: CONFUSED COMPARISON: 05/19/2023 TECHNIQUE: Multiple contiguous axial images were obtained for a CT of the brain without contrast. Sagittal and coronal reformats were performed. One or more of the following dose reduction techniques were used: Automated exposure control, adjustment of the mA and kV according to patient size, and iterative reconstruction. Unless otherwise specified, incidental findings do not require dedicated imaging follow-up. FINDINGS: No evidence of hydrocephalus, intracranial hemorrhage, or extra-axial fluid collection. The brain is normal in morphology. The calvarium is intact. The visualized paranasal sinuses and mastoid air cells are essentially clear. IMPRESSION: No evidence of acute intracranial abnormality. [address] EXAMINATION: ONE VIEW CHEST XR CLINICAL INDICATION: Female, 63 years old.,COUGH TECHNIQUE: Frontal chest projection is submitted. Examination is limited by patient positioning and technique. COMPARISON: 05/19/2024 FINDINGS: The lungs show patchy bilateral airspace opacities, predominantly along the mid to lower lungs. Prominence of the central vasculature. No pneumothorax or sizable effusion. The heart is normal in size. Mediastinal contours are unremarkable. IMPRESSION: Bilateral patchy airspace opacities and prominence of the central vasculature, may relate to pulmonary edema versus multifocal pneumonia. 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
[2024-07-11 05:37] VITALS: BMI 19.9
[2024-07-11 06:05] LABS: Absolute Eosinophils 0.2 K/uL (0-0.5); Absolute Lymphocytes (CBC) 1.2 K/uL (0.7-4.9); Absolute Monocytes 0.8 K/uL (0.1-1.3); Absolute Neutrophil 2.8 K/uL (1.8-8.0); Basophils % 0.9 % (0-1.3); Eosinophils % 3.6 % (0-4.4); Hematocrit 24.2 % (36.0-45.0); Hemoglobin 7.9 g/dL (12.0-15.0); Lymphocytes % 23.9 % (15.3-44.8); MCH 28.9 pg (27.0-35.0); MCHC 32.8 g/dL (32.0-36.0); MCV 88.2 fL (80-100); MPV 8.5 fL (7.6-11.3); Monocytes % 15.9 % (3.3-12.3); Neutrophils % 55.7 % (41.7-73.7); Nucleated Red Blood Cells % 0.1 % (0-0); Platelets 273 thou/uL (152-406); RBC Red Blood Cell Count 2.74 M/uL (3.86-4.86); Red Cell Distribution Width 13.6 % (12.1-15.2)
[2024-07-11 06:17] LABS: Anion Gap 9.6 mEq/L (5.0-15.0); Phosphorus 3.4 mg/dL (2.5-4.9); Potassium 3.6 mEq/L (3.5-5.1)
[2024-07-11 08:51] LABS: Specific Gravity 1.009 (1.005-1.030); Sqamous Epithelial <5 /HPF (None Seen); Urine Bacteria None Seen /HPF (<20); Urine Bilirubin NEGATIVE (Negative); Urine Blood Negative (Negative); Urine Clarity Turbid (Clear); Urine Color Light-Yellow (Yellow); Urine Crystals Unidentified Few /HPF (None Seen); Urine Culture Reflex Order NOT NEEDED; Urine Glucose TRACE (Negative); Urine Ketones NEGATIVE (Negative); Urine Microscopic Reflex YN ORDER UMIC; Urine Nitrite NEGATIVE (Negative); Urine Protein 2+ (Negative); Urine RBC <5 /HPF (None Seen); Urine Urobilinogen Normal (Normal); Urine WBC <5 /HPF (<5); Urine pH 6.5 (5.0-7.0)
[2024-07-11] MEDS ORDERED: D10W 125 ML IV PRN (09:19)
[2024-07-11] MEDS ORDERED: GLUCAGON 1 MG/VIAL IM PRN (09:19)
[2024-07-11 09:46] LABS: Barbiturates NEGATIVE (NEGATIVE); Benzodiazepines NEGATIVE (NEGATIVE); Cocaine NEGATIVE (NEGATIVE); METHAMPHETAM NEGATIVE (NEGATIVE); Methadone NEGATIVE (NEGATIVE); Opiates NEGATIVE (NEGATIVE); Phencyclidine NEGATIVE (NEGATIVE); THC Cannibis NEGATIVE (NEGATIVE)
--- NOTE | 2024-07-11 11:51 | P.PN ---
Subjective Date of Service: 07/11/24 Chief Complaint: Altered mental status No events overnight, patient is awake alert, answer all the questions, no focal neurologic deficit noted Review of Systems Other: Consitutional; fever(-), chills (-), rigor(-), night sweat(-), unintentional weight loss(-) HEENT; epistaxis (-), otorrhea (-), otalgia (-) Respiratory; shortness of breath (-), wheezing (-), cough (-), sputum (-), pleuritic chest pain (-) Cardiovascular; chest pain (-), peripheral edema (-), paroxysmal nocturnal dyspnea (-), orthopnea (-) Gastrointestinal; nausea (-), vomiting (-), abdominal pain (-), diarrhea (-), constipation (-), melena (-), hematochezia (-) Skin; rash (-), 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 General: Chronic ill- looking,. HEENT: Normocephalic, atraumatic,. Neck: Supple, without JVD or goiter or thyroid mass, dialysis catheter in the right upper arm. Respiratory: Normal breathing effort, clear to auscultation bilaterally, no crackles no wheezing or rhonchi. Cardiovascular: Regular rate and rhythm, S1, S2 normal, no murmur no gallop. Gastrointestinal: Normal bowel sounds, nondistended, nontender, No ascites, , No masses, no hepatosplenomegaly. Musculoskeletal: No clubbing, No peripheral edema. Integumentary: No rashes. Lymphatics: No axilla or cervical lymphadenopathy. Neurology; more alert, awake, oriented x 3, now she answered all questions, no focal neurologic deficit Assessment And Plan - Plan This is a 64 years old female patient with multiple comorbidities including for ESRD on hemodialysis, post liver transplantation on immunosuppressants, type 2 diabetes, chronic pain syndrome on opioid, noncompliance with medication and hemodialysis who was was brought to the emergency room for altered mental status and admitted for #1 metabolic encephalopathy due to likely #2 Continue to improved, back to her baseline unremarkable CT of the head on admission, seems to be responding to lactulose and hemodialysis, #2 Recurrent severe hypoglycemia likely secondary to sulfonylurea Blood sugar stable over 100 off D10 infusion, tolerating oral diet well likely on glimepiride home. Random serum cortisol level in the morning > 13, which rule out adrenal insufficiency Hemoglobin A1c 5.0, overcorrected for her underlying comorbidities, all her diabetic medication should be permanently discontinued. #3 acute/chronic hypercapnic respiratory failure Stable Repeat ABG reviewed, no significant change Off BiPAP, #4 ESRD on hemodialysis Chest x-ray shows mild pulmonary edema on admission, will continue hemodialysis as scheduled during hospitalization #5 anemia of the CKD Hemoglobin around 8, no sign of clinical bleeding, no transfusion indicated Disposition; will downgrade the patient to general medical floor today Patient does not need to be transferred [place] [facility] [place]. She is to see her nuclear reactor technician, Dr. Presley Orr. at [facility] as outpatient after discharge.
[2024-07-12 05:42] LABS: Phosphorus 3.2 mg/dL (2.5-4.9)
--- NOTE | 2024-07-12 08:33 | P.PN ---
Date of Service: 07/12/24 Subjective Date of Service: 07/10/24 Chief Complaint: Altered mental status hemodialysis ordered for today by nephrology Altered mental status could be from hypoglycemia, Blood glucose today 132 For generalized weakness, PT eval ordered Review of Systems 10 point review of systems negative unless listed in HPI Physical Examination - Physical Exam General: Alert, oriented, ill-appearing, afebrile, HEENT: Atraumatic, Normocephalic Respiratory: Clear to auscultation bilaterally, Normal air movement Cardiovascular: No edema, Normal pulses, Regular rate/rhythm, Normal S1 S2, Other (Right-sided hemodialysis catheter) Gastrointestinal: Soft and benign, positive bowel sounds, nontender Respiratory: Normal air movement, equal unlabored Musculoskeletal: muscle mass loss, moderate generalized weakness Integumentary: No rashes Neurological: No focal deficits, more alert Assessment and Plan - Problems (Diagnosis) (1) metabolic encephalopathy Current Visit: Yes Status: Acute MRI ordered for today (2) severe recurrent hypoglycemia Current Visit: Yes Status: Acute (3) ESRD on hemodialysis Current Visit: Yes Status: Acute (4) acute hypercapnic respiratory failure metabolic acidosis Current Visit: Yes Status: Acute BiPAP on admission (5) post liver transplantation On immunosuppressive - Plan Assessment This is a 63-year-old female who is being admitted for unexplained hypoglycemia. She presented for a blood glucose of 29 at home. She is very lethargic. She received a amp of D50 which increased her blood glucose to 154. 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 Orr after discharge Patient is full code PPI for GI prophylaxis Heparin subcu for DVT prophylaxis - Advance Directives Does patient have a Living Will: No Does patient have a Durable POA for Healthcare: No Time spent on patient 35
--- NOTE | 2024-07-12 20:55 | P.PN ---
Date of Service: 07/12/24 Vital Signs Temp Pulse Resp BP Pulse Ox 98.5 F 71 12 145/74 H 99 07/12/24 17:00 07/12/24 17:00 07/12/24 17:00 07/12/24 17:00 07/12/24 17:00 Medications Acetaminophen (Acetaminophen 325 Mg Tablet) 650 mg PO Q6H PRN PRN Reason: Pain scale 5-7 (Moderate) Last Admin: 07/12/24 17:30 Dose: 650 mg Atorvastatin Calcium (Atorvastatin 20 Mg Tab) 20 mg PO BEDTIME [facility] Last Admin: 07/11/24 21:28 Dose: 20 mg Clonidine HCl (Clonidine Hcl 0.1 Mg Tab) 0.1 mg PO BID [facility] Last Admin: 07/12/24 08:59 Dose: 0.1 mg Docusate Sodium (Docusate Na 100 Mg Cap) 100 mg PO BID [facility] Last Admin: 07/12/24 08:59 Dose: 100 mg Duloxetine HCl (Duloxetine 30 Mg Cap) 30 mg PO DAILY [facility] Last Admin: 07/12/24 09:00 Dose: 30 mg Enteral Nutritional Formula (Nepro Shake 237 Ml Can) 240 ml PO TID [facility] Last Admin: 07/12/24 14:00 Dose: Not Given Epoetin Isacc (Epoetin Isacc 10,000 Unit/Ml Vial) 10,000 unit IV EVERY HD [facility] Last Admin: 07/12/24 16:45 Dose: 10,000 unit Folic Acid (Folic Acid 1 Mg Tablet) 1 mg PO DAILY [facility] Last Admin: 07/12/24 08:59 Dose: 1 mg Glucagon (Glucagon 1 Mg/Vial) 1 mg IM 1X PRN PRN Reason: HYPOGLYCEMIA Heparin Sodium (Porcine) (Heparin 5000 Unit/Ml 1 Ml Vial) 5,000 unit SQ Q8HR [facility] Last Admin: 07/12/24 16:55 Dose: Not Given Heparin Sodium (Porcine) (Heparin 1,000 Unit/Ml Vial) 6,000 unit IV EVERY HD PRN PRN Reason: AFTER EACH Last Admin: 07/12/24 17:09 Dose: 6,000 unit Heparin Sodium (Porcine) (Heparin 1,000 Unit/Ml Vial) 3,000 unit IV EVERY HD PRN PRN Reason: hd line clot prevention Last Admin: 07/12/24 13:57 Dose: 3,000 unit Home Med (Entecavir [Entecavir]) 0.5 mg PO Q3D [facility] Last Admin: 07/11/24 15:45 Dose: Not Given Home Med (Sirolimus [Sirolimus]) 1 mg PO DAILY [facility] Last Admin: 07/12/24 09:00 Dose: Not Given Albumin Human (Albumin 25%) 50 mls @ 100 mls/hr IV EVERY HD [facility] Dextrose (Dextrose 10% Water Iv Soln.) 125 mls @ 0 mls/hr IV PRN PRN; Protocol PRN Reason: HYPOGLYCEMIA Lactulose (Lactulose 20 Gm/30 Ml Ucup) 10 gm PO BID PRN PRN Reason: CONSTIPATION Mannitol (Mannitol 25% 12.5 Gm/50 Ml Vial) 12.5 gm IV EVERY HD PRN PRN Reason: Titrate to SBP (MUST DEFINE) Metoprolol Tartrate (Metoprolol Tar 50 Mg Tab) 50 mg PO BID [facility] Last Admin: 07/12/24 08:58 Dose: 50 mg Nifedipine (Nifedipine Xl 60 Mg Tablet) 60 mg PO DAILY [facility] Last Admin: 07/12/24 08:59 Dose: 60 mg Ondansetron HCl (Ondansetron 4 Mg/2 Ml Vial) 4 mg IV Q6HP PRN PRN Reason: NAUSEA / VOMITING Last Admin: 07/10/24 00:34 Dose: 4 mg Pantoprazole Sodium (Pantoprazole 40mg Tablet) 40 mg PO DAILY [facility]; Protocol Last Admin: 07/12/24 09:00 Dose: 40 mg Prednisone (Prednisone 5 Mg Tab) 5 mg PO DAILY [facility] Last Admin: 07/12/24 09:00 Dose: 5 mg Sevelamer Carbonate (Sevelamer Carbonate 800 Mg Tablet) 800 mg PO TIDWM [facility] Last Admin: 07/12/24 17:24 Dose: 800 mg Ursodiol (Ursodiol 300 Mg Cap) 300 mg PO BID [facility] Last Admin: 07/12/24 08:58 Dose: 300 mg Vitamin B Complex/Vit C/Folic Acid (Multivitamins,Therapeut 1 Tab) 1 tab PO DAILY [facility] Last Admin: 07/12/24 08:58 Dose: 1 tab Assessment/ Plan: Nephrology No dyspnea No chest pain Feeling better today No acute events overnight Vitals, medications, blood work and imaging reviewed in the chart General: Cooperative, Mild distress, Confused HEENT: Atraumatic Neck: Supple Respiratory: Normal air movement Cardiovascular: No edema, Regular rate/rhythm Gastrointestinal: Non-distended, Tenderness Musculoskeletal: No clubbing, No contractures Integumentary: No rashes, No cyanosis Neurological: Normal speech Laboratory Data (last 24 hrs) 07/07/24 07/07/24 19:20 19:20 WBC 5.50 Hgb 9.7 L Hct 29.1 L Plt Count 268 Sodium 140 Potassium 4.6 BUN 74 H Creatinine 8.82 H Glucose 26 L* Total Bilirubin 1.3 H AST 34 ALT < 14 Alkaline Phosphatase 146 H Lipase 20 Imagings Data: [id number] EXAM: CT Head Brain Wo Cont HISTORY: CONFUSED COMPARISON: 05/19/2023 TECHNIQUE: Multiple contiguous axial images were obtained for a CT of the brain without contrast. Sagittal and coronal reformats were performed. One or more of the following dose reduction techniques were used: Automated exposure control, adjustment of the mA and kV according to patient size, and iterative reconstruction. Unless otherwise specified, incidental findings do not require dedicated imaging follow-up. FINDINGS: No evidence of hydrocephalus, intracranial hemorrhage, or extra-axial fluid collection. The brain is normal in morphology. The calvarium is intact. The visualized paranasal sinuses and mastoid air cells are essentially clear. IMPRESSION: No evidence of acute intracranial abnormality. [id number] EXAMINATION: ONE VIEW CHEST XR CLINICAL INDICATION: Female, 63 years old.,COUGH TECHNIQUE: Frontal chest projection is submitted. Examination is limited by patient positioning and technique. COMPARISON: 05/19/2024 FINDINGS: The lungs show patchy bilateral airspace opacities, predominantly along the mid to lower lungs. Prominence of the central vasculature. No pneumothorax or sizable effusion. The heart is normal in size. Mediastinal contours are unremarkable. IMPRESSION: Bilateral patchy airspace opacities and prominence of the central vasculature, may relate to pulmonary edema versus multifocal pneumonia. 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
[2024-07-13 05:14] LABS: Absolute Basophils 0.1 K/uL (0-0.5); Absolute Eosinophils 0.2 K/uL (0-0.5); Absolute Lymphocytes (CBC) 1.6 K/uL (0.7-4.9); Absolute Monocytes 0.9 K/uL (0.1-1.3); Absolute Neutrophil 4.7 K/uL (1.8-8.0); Basophils % 1.2 % (0-1.3); Eosinophils % 2.8 % (0-4.4); Hematocrit 30.2 % (36.0-45.0); Hemoglobin 9.9 g/dL (12.0-15.0); Lymphocytes % 21.3 % (15.3-44.8); MCH 29.3 pg (27.0-35.0); MCHC 32.8 g/dL (32.0-36.0); MCV 89.6 fL (80-100); MPV 7.7 fL (7.6-11.3); Monocytes % 11.6 % (3.3-12.3); Neutrophils % 63.1 % (41.7-73.7); Nucleated RBC Absolute Count 0.1 (0-0); Nucleated Red Blood Cells % 0.9 % (0-0); Platelets 259 thou/uL (152-406); RBC Red Blood Cell Count 3.37 M/uL (3.86-4.86)
[2024-07-13 05:24] LABS: Anion Gap 9.7 mEq/L (5.0-15.0); Potassium 3.7 mEq/L (3.5-5.1)
[2024-07-13 07:52] VITALS: O2SAT 98
[2024-07-13 09:25] LABS: Band Neutrophils 1 % (0-1); Differential Total Cells Count 100; Eosinophils 7 % (0-3); Lymphocytes 26 % (15-42); Metamyelocytes 1 % (0-0); Monocytes 9 % (0-10); Myelocytes 1 % (0-0); Platelet Estimate ADEQ; Platelets Clumped FEW; Segmented Neutrophils 55 % (40-80)
[2024-07-13 09:26] LABS: Anisocytosis SLIGHT; Blood Morphology Comment NOTED (NOT SEEN); Macrocytosis SLIGHT; Nucleated Red Blood Cells 1 /100WBC; Polychromasia SLIGHT
--- NOTE | 2024-07-13 09:45 | P.DS ---
Admission Date: 07/07/24 Discharge Date: 07/13/24 [facility] Discharge Condition: GOOD Reason for Admission: Altered mental status Brief History of Present Illness: Patient is a 63-year-old female who is being admitted for hypoglycemic encephalopathy after she presented with blood glucose in the 20s. She has a history of ESRD on hemodialysis Friday. She also has a history of diabetes mellitus. She denies use of scheduled insulin for her diabetes. She is unclear why she is hypoglycemic. She has had several episodes of unexplained hypoglycemia in the past. Her blood glucose at home was 29. She was given an amp of D50, which raised her blood glucose to 154. Her CT brain was negative. She is still encephalopathic. - Physical Exam General: Alert, oriented, ill-appearing, afebrile, HEENT: Atraumatic, Normocephalic Respiratory: Clear to auscultation bilaterally, Normal air movement Cardiovascular: No edema, Normal pulses, Regular rate/rhythm, Normal S1 S2, Other (Right-sided hemodialysis catheter) Gastrointestinal: Soft and benign, positive bowel sounds, nontender Respiratory: Normal air movement, equal unlabored Musculoskeletal: muscle mass loss, moderate generalized weakness Integumentary: No rashes Neurological: No focal deficits, more alert Hospital Course: 63-year-old female who is being admitted for hypoglycemic encephalopathy after she presented with blood glucose in the 20s. She has a history of ESRD on hemodialysis Friday. She also has a history of diabetes mellitus. She denies use of scheduled insulin for her diabetes. She is unclear why she is hypoglycemic. She has had several episodes of unexplained hypoglycemia in the past. Her blood glucose at home was 29. She was given an amp of D50, which raised her blood glucose to 154. Her CT brain was negative. Treated with glucose, D10, blood glucose improved, awake and alert, tolerated diet, ambulated with physical therapy, plan to discharge home with home health, follow-up with nephrology after discharge for hemodialysis schedule, Discharge home with [facility] health, ambulates with a rolling walker at baseline Assessment Metabolic encephalopathy secondary to severe recurrent hypoglycemia-plan to stop oral hypoglycemic upon discharge Respiratory failure with respiratory hypercarbia, acidosis-improved, treated with BiPAP while inpatient, weaned off of BiPAP History of liver transplantation, will need to follow-up with hepatology after discharge Diabetes, A1c 5.0, discontinue hypoglycemics. 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 Orr after discharge -Follow-up with PCP in 1 to 2 weeks -Please call Dr. Erazo at [phone] if any questions regarding hospital stay -Please call nursing station at [phone] if any nursing or medication questions -Return to the emergency room if symptoms worsen Diet: ADA, low sodium Activity: Fall precautions Vital Signs/Physical Exam: Temp Pulse Resp BP Pulse Ox 98.0 F 66 16 178/75 H 98 07/13/24 08:00 07/13/24 08:46 07/13/24 08:00 07/13/24 08:46 07/13/24 08:00 Other Physical/Emotional Findings: - Physical Exam. General: Chronic ill- looking,. HEENT: Normocephalic, atraumatic,. Neck: Supple, without JVD or goiter or thyroid mass, dialysis catheter in the right upper arm. Respiratory: Normal breathing effort, clear to auscultation bilaterally, no crackles no wheezing or rhonchi. Cardiovascular: Regular rate and rhythm, S1, S2 normal, no murmur no gallop. Gastrointestinal: Normal bowel sounds, nondistended, nontender, No ascites, , No masses, no hepatosplenomegaly. Musculoskeletal: No clubbing, No peripheral edema. Integumentary: No rashes. Lymphatics: No axilla or cervical lymphadenopathy. Neurology; more alert, awake, oriented x 3, now she answered all questions, no focal neurologic deficit Laboratory Data at Discharge: WBC 7.40 thou/uL (4.3-10.9) 07/13/24 04:58 Hgb 9.9 g/dL (12.0-15.0) L 07/13/24 04:58 Hct 30.2 % (36.0-45.0) L 07/13/24 04:58 Plt Count 259 thou/uL (152-406) 07/13/24 04:58 Sodium 137 mEq/L (136-145) 07/13/24 04:58 Potassium 3.7 mEq/L (3.5-5.1) 07/13/24 04:58 BUN 26 mg/dL (7-18) H 07/13/24 04:58 Creatinine 4.70 mg/dL (0.55-1.02) H 07/13/24 04:58 Glucose 116 mg/dL (74-106) H 07/13/24 04:58 Phosphorus 3.2 mg/dL (2.5-4.9) 07/12/24 04:57 Magnesium 2.0 mg/dL (1.6-2.4) 07/13/24 04:58 Total Bilirubin 1.0 mg/dL (0.2-1.0) 07/09/24 04:50 AST 17 U/L (15-37) 07/09/24 04:50 ALT < 14 U/L (13-56) 07/09/24 04:50 Alkaline Phosphatase 125 U/L (45-117) H 07/09/24 04:50 Lipase 20 U/L (13-75) 07/07/24 19:20 Home Medications: Ascorbic Acid [Vitamin C] 500 mg PO DAILY 07/08/24 Atorvastatin Calcium 20 mg PO DAILY 07/08/24 Duloxetine HCl 30 mg PO DAILY 07/08/24 Entecavir 0.5 mg PO Q3D 07/08/24 Ergocalciferol (Vitamin D2) [Vitamin D 50,000 Unit Cap] 50,000 unit PO DAILY 07/08/24 Folic Acid 1 mg PO DAILY 07/08/24 Folic Acid/Vit B Complex and C [Renal-Priscila Tablet] 0.8 mg PO DAILY 07/08/24 Metoprolol Tartrate 50 mg PO BID 07/08/24 NIFEdipine [Nifedipine ER] 60 mg PO DAILY 07/08/24 Oxycodone HCl/Acetaminophen [Endocet 5-325 mg Tablet] 5 - 325 mg PO Q4H PRN 07/08/24 Pantoprazole Sodium 40 mg PO DAILY 07/08/24 Prednisone [Oscar] 5 mg PO DAILY 07/08/24 Sirolimus 1 mg PO DAILY 07/08/24 Zinc Sulfate 50 mg PO DAILY 07/08/24 cloNIDine HCL [Clonidine HCl] 0.2 mg PO BID 07/08/24 ursodioL [Ursodiol] 300 mg PO BID 07/08/24 Physician Discharge Instructions: 63-year-old female who is being admitted for hypoglycemic encephalopathy after she presented with blood glucose in the 20s. She has a history of ESRD on hemodialysis Friday. She also has a history of diabetes mellitus. She denies use of scheduled insulin for her diabetes. She is unclear why she is hypoglycemic. She has had several episodes of unexplained hypoglycemia in the past. Her blood glucose at home was 29. She was given an amp of D50, which raised her blood glucose to 154. Her CT brain was negative. She is still encephalopathic. Assessment Metabolic encephalopathy secondary to severe recurrent hypoglycemia Respiratory failure with respiratory acidosis History of liver transplantation, will need to follow-up with hepatology after discharge Diabetes, A1c 5.0, discontinue hypoglycemics. 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 Orr after discharge -Follow-up with PCP in 1 to 2 weeks -Please call Dr. Erazo at [phone] if any questions regarding hospital stay -Please call nursing station at [phone] if any nursing or medication questions -Return to the emergency room if symptoms worsen Diet: ADA, low sodium Activity: Fall precautions Diet: AHA Activity: Fall precautions Followup: Shamir Heath DO [ACTIVE - CAN ADMIT] - 1-2 Weeks ANDREA ORR [OUTSIDE PHYSICIAN] - 1-2 Weeks Keely Menjivar [Primary Care Provider] - 1-2 Weeks Time spent managing pt's care (in minutes): 45
[2024-07-13 12:30] VITALS: BP 174/83; TEMP 97.8
--- NOTE | 2024-07-13 20:53 | P.PN ---
Date of Service: 07/13/24 Vital Signs Temp Pulse Resp BP Pulse Ox 97.8 F 99 H 16 174/83 H 98 07/13/24 12:00 07/13/24 12:00 07/13/24 12:00 07/13/24 12:00 07/13/24 12:00 Assessment/ Plan: Nephrology No dyspnea No chest pain Doing well No acute events overnight Vitals, medications, blood work and imaging reviewed in the chart General: Cooperative, Mild distress, Confused HEENT: Atraumatic Neck: Supple Respiratory: Normal air movement Cardiovascular: No edema, Regular rate/rhythm Gastrointestinal: Non-distended, Tenderness Musculoskeletal: No clubbing, No contractures Integumentary: No rashes, No cyanosis Neurological: Normal speech Laboratory Data (last 24 hrs) 07/07/24 07/07/24 19:20 19:20 WBC 5.50 Hgb 9.7 L Hct 29.1 L Plt Count 268 Sodium 140 Potassium 4.6 BUN 74 H Creatinine 8.82 H Glucose 26 L* Total Bilirubin 1.3 H AST 34 ALT < 14 Alkaline Phosphatase 146 H Lipase 20 Imagings Data: [id number] EXAM: CT Head Brain Wo Cont HISTORY: CONFUSED COMPARISON: 05/19/2023 TECHNIQUE: Multiple contiguous axial images were obtained for a CT of the brain without contrast. Sagittal and coronal reformats were performed. One or more of the following dose reduction techniques were used: Automated exposure control, adjustment of the mA and kV according to patient size, and iterative reconstruction. Unless otherwise specified, incidental findings do not require dedicated imaging follow-up. FINDINGS: No evidence of hydrocephalus, intracranial hemorrhage, or extra-axial fluid collection. The brain is normal in morphology. The calvarium is intact. The visualized paranasal sinuses and mastoid air cells are essentially clear. IMPRESSION: No evidence of acute intracranial abnormality. [id number] EXAMINATION: ONE VIEW CHEST XR CLINICAL INDICATION: Female, 63 years old.,COUGH TECHNIQUE: Frontal chest projection is submitted. Examination is limited by patient positioning and technique. COMPARISON: 05/19/2024 FINDINGS: The lungs show patchy bilateral airspace opacities, predominantly along the mid to lower lungs. Prominence of the central vasculature. No pneumothorax or sizable effusion. The heart is normal in size. Mediastinal contours are unremarkable. IMPRESSION: Bilateral patchy airspace opacities and prominence of the central vasculature, may relate to pulmonary edema versus multifocal pneumonia. 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
== END 2024-07-13 14:44 | disposition home health service (06) | DRG 637 ==
LOC: ER 18:59 → ERHOLD 20:38 → 3RD-ICU 23:07 → 2ND 07-11 13:15
PROVIDERS: ADMIT Internal Medicine; ATTEND Hospitalist
PROC: 4A033R1 Measurement of Arterial Saturation, Peripheral, Percutaneous Approach (ICD-10-PCS; principal; 2024-07-08)
PROC: 5A09357 Assistance with Respiratory Ventilation, Less than 24 Consecutive Hours, Continuous Positive Airway Pressure (ICD-10-PCS; 2024-07-08)
PROC: 5A1D70Z Performance of Urinary Filtration, Intermittent, Less than 6 Hours Per Day (ICD-10-PCS; 2024-07-09)
DX: E11.649 Type 2 diabetes mellitus with hypoglycemia without coma (principal); G92.8 Other toxic encephalopathy; J96.22 Acute and chronic respiratory failure with hypercapnia; Z94.4 Liver transplant status; E87.20 Acidosis, unspecified; I50.32 Chronic diastolic (congestive) heart failure; I13.2 Hypertensive heart and chronic kidney disease with heart failure and with stage 5 chronic kidney disease, or end stage renal disease; N18.6 End stage renal disease; E11.22 Type 2 diabetes mellitus with diabetic chronic kidney disease; D63.1 Anemia in chronic kidney disease; K74.60 Unspecified cirrhosis of liver; E83.39 Other disorders of phosphorus metabolism; G89.4 Chronic pain syndrome; E88.09 Other disorders of plasma-protein metabolism, not elsewhere classified; T38.3X5A Adverse effect of insulin and oral hypoglycemic [antidiabetic] drugs, initial encounter; Z79.52 Long term (current) use of systemic steroids; Z79.84 Long term (current) use of oral hypoglycemic drugs; Z79.899 Other long term (current) drug therapy; Z91.158 Patient's noncompliance with renal dialysis for other reason; Z91.148 Patient's other noncompliance with medication regimen for other reason; Z91.199 Patient's noncompliance with other medical treatment and regimen due to unspecified reason
CPT/HCPCS: 36415; 36600; 70450; 71045; 80048; 80053; 80076; 80307; 81001; 82010; 82140; 82533; 82805; 82947; 83036; 83690; 83735; 84100; 85025; 86706; 87340; 90935; 94660; 96374; 97161; 97530; 99285; J1644; J2310; J2405; J2470; J7512; P9047; Q5106